=== PATIENT | female | born 1940 | race African-American/Black ===

== ENCOUNTER → 2016-09-02 | Outpatient (CLI) | payer MEDICARE, OTHER ==
[2016-03-04 11:22] VITALS: BP 155/70
[~2016-09-02] MED LIST: ALLO300T PO; AMLO10TA2 PO; ASPI325T4 PO; CALC0.5C PO; CARV25TA2 PO; CRESTOR20 MG PO; FLUT1DIS3 IH; FURO40TA4 PO; GLIP10TA13 PO; HYDR-2762 PO; ISOS1TAB2 PO; LOSA25TA4 PO; PRED10TA PO; PROAIR HFA8.5 GM IH; PROAIR HFA8.5 GM INH; PROP10DR3 EACHEYE
--- NOTE | 2016-09-02 08:34 | RAD ---
Indication compromised renal function. Grayscale imaging targeted to the kidneys was performed. Note is made of a previous examination June 23, 2013. The right kidney measures 7.4 x 4.2 x 4 cm. There are 2 hypoechoic masses the largest measuring 2.2 cm. There are compatible with cysts. Hydronephrosis or solid mass is not seen. Note is made that the right kidney is echogenic compatible with medical renal disease. The urinary bladder is largely collapsed but grossly normal. The left kidney measures 7.9 x 3.9 x 3.9 cm. It too is slightly echogenic compatible with medical renal disease. There are 2 hypoechoic masses compatible with cysts the largest measuring approximately 1 cm. IMPRESSION: Renal cysts. Findings compatible with medical renal disease. No hydronephrosis or solid mass seen associated with either kidney
== END | disposition home or self-care (01) ==
LOC: US 07:44
PROVIDERS: ATTEND Internal Medicine Nephrology
DX: N18.4 Chronic kidney disease, stage 4 (severe) (principal)
CPT/HCPCS: 76770

== ENCOUNTER 2018-08-22 11:37 | Emergency (ER) | payer OTHER ==
[~2018-08-22] VITALS: Ht 165.1 cm; Wt 78.0 kg
[~2018-08-22 11:37] MED LIST changes: +ALBU2.5V8 IH; +ALBU2.5V8 INH; +AMIO200T4 PO; -AMLO10TA2 PO; +AMLO10TA4 PO; +AMLO10TA8 PO; -ASPI325T4 PO; +ASPI325T8 PO; +ASPI81TA50 PO; +CALC0.25 PO; -CALC0.5C PO; +CALC0.5C8 PO; +CHOL10003 PO; +CRESTOR40 MG PO; -HYDR-2762 PO; +HYDR-2765 PO; -LOSA25TA4 PO; +LOSA25TA54 PO; -PROAIR HFA8.5 GM IH; -PROAIR HFA8.5 GM INH; +eliquis
[2018-08-22 12:05] VITALS: BP 127/60
--- NOTE | 2018-08-22 12:11 | PHYS DOC ---
Past Medical History Past Medical History: Arthritis, Asthma, CAD, Diabetes-Type II, High Cholesterol, Hypertension, Renal Failure, Stroke Past Surgical History: Hysterectomy, Other Additional Past Surgical Histo: STENTS, PARITAL THYROID Alcohol Use: None Drug Use: None Adult General Chief Complaint Chief Complaint: COUGH HPI HPI She is a pleasant 78-year-old female who presents to the emergency department stating that for the past 2 weeks, she has had nasal congestion, and a cough productive of yellowish sputum. She states yesterday her sputum was somewhat nelson in color as well. She has not had any significant shortness of breath or chest pain, dizziness or lightheadedness. She takes hemodialysis via a right subclavian dialysis catheter, her last dialysis was Wednesday. Other than soreness related to the coughing, she denies any pain. There are no alleviating or exacerbating factors to her symptoms. Review of Systems Review of Systems Constitutional: Denies fever or chills [] Eyes: Denies change in visual acuity, redness, or eye pain [] HENT: Denies nasal congestion or sore throat [] Respiratory: Denies pleuritic pain or shortness of breath [] Cardiovascular: The patient denies any shortness of breath, chest pain, palpitations, or orthopnea [] GI: Denies abdominal pain, nausea, vomiting, bloody stools or diarrhea [] : Denies dysuria or hematuria [] Musculoskeletal: Denies back pain or joint pain [] Integument: Denies rash or skin lesions [] Neurologic: Denies headache, focal weakness or sensory changes [] Endocrine: Denies polyuria or polydipsia [] All other systems were reviewed and found to be within normal limits, except as documented in this note. Allergies Allergies Allergies Coded Allergies Type Severity Reaction Last Updated Verified Sulfa (Sulfonamide Antibiotics) Allergy Intermediate Swelling 09/10/15 Yes Physical Exam Physical Exam PHYSICAL EXAM: CONSTITUTIONAL: Well developed, well nourished HEAD: normocephalic, atraumatic EENT: PERRL, EOMI. Conjunctivae normal color, sclerae non-icteric; moist mucous membranes. NECK: Supple, non-tender; no meningismus. LUNGS: Lungs CTA, breathing even and unlabored. Normal air movement. HEART: Regular rate and rhythm, no murmur CHEST: No deformity; non-tender ABDOMEN: The abdomen is soft, and non-tender, no masses or bruits. EXTREM: Normal ROM; no deformity, no calf tenderness. Normal pulses palpable in all extremities. There is no pedal edema. SKIN: No rash; no diaphoresis NEURO: Alert; normal speech and cognition; CN's grossly intact; strength grossly intact without focal deficit. BACK: No CVA TTP. Current Patient Data Vital Signs Vital Signs Date Time Temp Pulse Resp B/P (MAP) Pulse Ox O2 Delivery O2 Flow Rate FiO2 08/22/18 12:05 97.7 68 18 127/60 (82) 99 Room Air 97.7 Lab Values Laboratory Tests Test 08/22/18 12:14 08/22/18 12:30 Influenza Type A Antigen Negative (NEGATIVE) Influenza Type B Antigen Negative (NEGATIVE) White Blood Count 6.2 x10^3/uL (4.0-11.0) Red Blood Count 4.02 x10^6/uL (3.50-5.40) Hemoglobin 11.8 g/dL (12.0-15.5) L Hematocrit 36.9 % (36.0-47.0) Mean Corpuscular Volume 92 fL (79-100) Mean Corpuscular Hemoglobin 29 pg (25-35) Mean Corpuscular Hemoglobin Concent 32 g/dL (31-37) Red Cell Distribution Width 18.4 % (11.5-14.5) H Platelet Count 252 x10^3/uL (140-400) Neutrophils (%) (Auto) 68 % (31-73) Lymphocytes (%) (Auto) 19 % (24-48) L Monocytes (%) (Auto) 8 % (0-9) Eosinophils (%) (Auto) 4 % (0-3) H Basophils (%) (Auto) 1 % (0-3) Neutrophils # (Auto) 4.2 x10^3uL (1.8-7.7) Lymphocytes # (Auto) 1.2 x10^3/uL (1.0-4.8) Monocytes # (Auto) 0.5 x10^3/uL (0.0-1.1) Eosinophils # (Auto) 0.2 x10^3/uL (0.0-0.7) Basophils # (Auto) 0.1 x10^3/uL (0.0-0.2) Sodium Level 142 mmol/L (136-145) Potassium Level 3.8 mmol/L (3.5-5.1) Chloride Level 98 mmol/L (98-107) Carbon Dioxide Level 31 mmol/L (21-32) Anion Gap 13 (6-14) Blood Urea Nitrogen 45 mg/dL (7-20) H Creatinine 6.7 mg/dL (0.6-1.0) H Estimated GFR (Cockcroft-Gault) 7.2 Glucose Level 92 mg/dL (70-99) Calcium Level 8.6 mg/dL (8.5-10.1) Laboratory Tests 08/22/18 12:30 Laboratory Tests 08/22/18 12:30 EKG EKG [Normal sinus rhythm a rate of 67 beats for minute, left axis deviation, left anterior fascicular block, there are no acute ischemic ST/T changes.] Radiology/Procedures Radiology/Procedures [PROCEDURE: CHEST PA & LATERAL CHEST PA LATERAL CLINICAL INDICATION: cough COMPARISON: None FINDINGS: Heart is normal in size. Dialysis catheter is seen in the SVC. Lungs are clear. No pneumothorax or effusion. Visualized bony thorax is within normal limits. IMPRESSION: No acute pulmonary process.] Course & Med Decision Making Course & Med Decision Making Pertinent Labs and Imaging studies reviewed. (See chart for details) [1:40 PM Patient remains stable. I discussed test results, the need for close follow-up, and return precautions.] Dragon Disclaimer Dragon Disclaimer This electronic medical record was generated, in whole or in part, using a voice recognition dictation system. Departure Departure Impression: Primary Impression: Cough Additional Impression: Chronic renal failure Disposition: 01 HOME, SELF-CARE Condition: STABLE Referrals: MARIUSZ PALM MD (PCP) Patient Instructions: Cough, Adult, Upper Respiratory Infection, Adult Scripts Benzonatate (TESSALON PERLE) 100 Mg Capsule 1 CAP PO TID, #21 CAP Prov: MARÍA LIU MD 08/22/18 Problem Qualifiers MARÍA LIU MD Aug 22, 2018 12:11
[2018-08-22 12:42] LABS: INFLUENZA A PATIENT NEGATIVE (NEGATIVE); INFLUENZA B PATIENT NEGATIVE (NEGATIVE)
[2018-08-22 12:43] LABS: BASO # 0.1 x10^3/uL (0.0-0.2); BASO % 1 % (0-3); EOS # 0.2 x10^3/uL (0.0-0.7); EOS % 4 % (0-3); HEMATOCRIT 36.9 % (36.0-47.0); HEMOGLOBIN 11.8 g/dL (12.0-15.5); LYMPH # 1.2 x10^3/uL (1.0-4.8); LYMPH % 19 % (24-48); MEAN CORPUSCULAR HEMOGLOBIN 29 pg (25-35); MEAN CORPUSCULAR HGB CONC 32 g/dL (31-37); MEAN CORPUSCULAR VOLUME 92 fL (79-100); MONO # 0.5 x10^3/uL (0.0-1.1); MONO % 8 % (0-9); NEUT # 4.2 x10^3uL (1.8-7.7); NEUT % 68 % (31-73); PLATELET COUNT 252 x10^3/uL (140-400); RED BLOOD COUNT 4.02 x10^6/uL (3.50-5.40); RED CELL DISTRIBUTION WIDTH 18.4 % (11.5-14.5); WHITE BLOOD COUNT 6.2 x10^3/uL (4.0-11.0)
--- NOTE | 2018-08-22 12:46 | RAD ---
CHEST PA LATERAL CLINICAL INDICATION: cough COMPARISON: None FINDINGS: Heart is normal in size. Dialysis catheter is seen in the SVC. Lungs are clear. No pneumothorax or effusion. Visualized bony thorax is within normal limits. IMPRESSION: No acute pulmonary process. Electronically signed by: Adriano Zafar DO (08/22/2018 12:43 PM) [facility]
[2018-08-22 12:49] LABS: CALCIUM 8.6 mg/dL (8.5-10.1); CREATININE 6.7 mg/dL (0.6-1.0); GFR 7.2; POTASSIUM 3.8 mmol/L (3.5-5.1)
--- NOTE | 2018-08-22 12:57 | EKG ---
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
[2018-08-22] MEDS ORDERED: BENZ100C PO (13:44)
[2018-09-09] MEDS ORDERED: APIX2.5T PO (17:21)
[2018-09-09] MEDS ORDERED: PROAIR RESPICL90 MCG IH (17:22)
[2018-09-09] MEDS ORDERED: ALLO300T PO (17:24)
[2018-09-09] MEDS ORDERED: CALC667T4 PO (17:24)
[2018-09-09] MEDS ORDERED: FLUT16SP NS (17:26)
[2018-09-09] MEDS ORDERED: FERR240T2 PO (17:28)
[2018-09-09] MEDS ORDERED: FURO-68 PO (17:29)
[2018-09-09] MEDS ORDERED: FLUT1DIS3 IH (17:29)
[2018-09-09] MEDS ORDERED: HYDR-2765 PO (17:30)
[2018-09-09] MEDS ORDERED: LACT1CAP2 PO (17:32)
== END 2018-08-22 14:50 | disposition home or self-care (01) ==
LOC: ER 11:37
DX: R05 Cough (principal); I12.9 Hypertensive chronic kidney disease with stage 1 through stage 4 chronic kidney disease, or unspecified chronic kidney disease; E11.22 Type 2 diabetes mellitus with diabetic chronic kidney disease; N18.9 Chronic kidney disease, unspecified; Z99.2 Dependence on renal dialysis; I25.10 Atherosclerotic heart disease of native coronary artery without angina pectoris; E78.00 Pure hypercholesterolemia, unspecified; Z86.73 Personal history of transient ischemic attack (TIA), and cerebral infarction without residual deficits; Z90.710 Acquired absence of both cervix and uterus; Z95.5 Presence of coronary angioplasty implant and graft; Z88.2 Allergy status to sulfonamides
CPT/HCPCS: 36415; 71046; 80048; 85025; 87804; 93005; 99284-25

== ENCOUNTER 2018-09-12 11:28 | Day surgery (SDC) | payer OTHER ==
[~2018-09-12] VITALS: Ht 167.6 cm; Wt 78.0 kg
[~2018-09-12 11:28] MED LIST changes: +APIX2.5T PO; +BENZ100C PO; +CALC667T4 PO; +FERR240T2 PO; +FLUT16SP NS; +FURO-68 PO; +HEPARIN SODIUM 5,000 UNIT in IV RINGERS,LACTATED 500ML 500 ML IRR ONE; +HYDROmorphone 2 MG/ML VIAL IV PRN; +IV RINGERS,LACTATED 1000ML 1,000 ML IV SCH; +LACT1CAP2 PO; +LIDOCAINE 1% PF 2 ML VIAL. ID PRN; +LIDOCAINE 1% PF 30ML 48 ML, SODIUM BICARBONATE VIAL 12 MEQ in TOTAL VOLUME SYRINGE 60 ML ID ONE; +MORPHINE SULFATE 2 MG/ML VIAL. IV PRN; +ONDANSETRON PF 4 MG/2 ML VIAL. IV PRN; +PROAIR RESPICL90 MCG IH; +PROCHLORPERAZINE 10 MG/2 ML VIAL. IV PRN; +fentaNYL PF VIAL 100 MCG/2 ML VIAL IV PRN
[2018-09-12] MEDS ORDERED: PROPOFOL 20 ML IV ONE (11:56)
[2018-09-12] MEDS ORDERED: LIDOCAINE 2% PF 5 ML VIAL. ONE (11:56)
[2018-09-12] MEDS ORDERED: fentaNYL PF VIAL 100 MCG/2 ML VIAL ONE (11:57)
[2018-09-12] MEDS ORDERED: ceFAZolin 2GM PREMIX 2 GM/50 ML BAG IV ONE (12:00)
[2018-09-12] MEDS ORDERED: IV NORMAL SALINE 1000ML BAG 1,000 ML IV SCH (12:30)
[2018-09-12 12:44] LABS: BASO % 1 % (0-3); EOS # 0.4 x10^3/uL (0.0-0.7); EOS % 6 % (0-3); HEMOGLOBIN 11.4 g/dL (12.0-15.5); LYMPH # 1.3 x10^3/uL (1.0-4.8); LYMPH % 21 % (24-48); MEAN CORPUSCULAR HEMOGLOBIN 29 pg (25-35); MEAN CORPUSCULAR HGB CONC 32 g/dL (31-37); MEAN CORPUSCULAR VOLUME 90 fL (79-100); MONO # 0.5 x10^3/uL (0.0-1.1); MONO % 8 % (0-9); NEUT # 4.1 x10^3uL (1.8-7.7); NEUT % 65 % (31-73); PLATELET COUNT 270 x10^3/uL (140-400); RED BLOOD COUNT 3.98 x10^6/uL (3.50-5.40); RED CELL DISTRIBUTION WIDTH 17.9 % (11.5-14.5); WHITE BLOOD COUNT 6.4 x10^3/uL (4.0-11.0)
[2018-09-12 13:02] LABS: CREATININE 7.7 mg/dL (0.6-1.0); GFR 6.2
[2018-09-12 13:03] LABS: POTASSIUM 4.6 mmol/L (3.5-5.1)
[2018-09-12] MEDS ORDERED: DEXAMETHASONE SOD PHOS 20 MG/5 ML VIAL. ONE (15:11)
[2018-09-12] MEDS ORDERED: SEVOFLURANE 31 TO 60 MINUTES. IH ONE (15:11)
[2018-09-12] MEDS ORDERED: ONDANSETRON PF 4 MG/2 ML VIAL. ONE (15:23)
[2018-09-12] MEDS ORDERED: HEPARIN for IV BOLUS 10,000 UNIT/10 ML VIAL. ONE (15:25)
[2018-09-12] MEDS ORDERED: ePHEDrine PF IN SALINE 50 MG/10 ML SYRINGE. IV ONE (15:49)
[2018-09-12] MEDS ORDERED: SURGICEL FIBRILLAR 1X2 EACH. TP ONE (15:50)
[2018-09-12] MEDS ORDERED: SURGICEL FIBRILLAR 1X2 EACH. ONE (15:54)
--- NOTE | 2018-09-12 16:30 | DISCH ---
DISCHARGE INSTRUCTIONS Condition on Discharge Condition on Discharge: Stable (Ok to shower after 48 hours) Activity After Discharge Activity Instructions for Disc: Activity as tolerated Bathing Instructions: Shower-keep dressing dry (Do not shower for 48 hours) Driving Instructions after Dis: Do not drive today, Other, see below (No driving while taking pain medications) Weight Bearing Status after Di: As tolerated Diet after Discharge Diet after Discharge: Renal Dialysis, Diabetic No Calorie Level Wound Incision Care Wound/Incision Care: Ice to area for comfort, Change dressing (As needed ) Wound Care Equipment: Dressings (Gauze and tape over incisions, change as needed) Checks after Discharge Checks after discharge: Check blood press - daily Contacting the DR. after DC Call your doctor for: Fever > 100.4, oozing from incisions, bleeding not controlled with pressure, odor from incisions, right hand pain or numbness. Follow-Up Follow up with: With Vascular surgery 10/05 at 1:00 pm. [address], [place] [id number] Warfarin Follow-Up Warfarin Follow UP: Ok to resume Eliquis tomorrow (09/13/18) SERENE GALAVIZ Sep 12, 2018 16:30
--- NOTE | 2018-09-12 16:32 | PDOC ---
BRIEF OPERATIVE NOTE Date: Sep 12, 2018 Pre-Op Diagnosis End stage renal disease, on dialysis Post-Op Diagnosis Same Procedure Performed Right forearm AV shunt placement Surgeon Chace Saha MD Briquetter Operator JIMBO Cantu Anesthesia Type: General Blood Loss Minimal Specimens Obtained None Complications None Operative Note See dictated op note. SERENE GALAVIZ Sep 12, 2018 16:32
[2018-09-12] MEDS ORDERED: HYDROcodone/APAP 7.5/325MG 1 TAB TABLET ONE (16:49)
[2018-09-12] MEDS ORDERED: HYDROcodone/APAP 7.5/325MG 1 TAB TABLET PO ONE (16:50)
[2018-09-12] MEDS: fentaNYL PF VIAL 100 MCG/2 ML VIAL IV PRN ×2 (16:54→17:05)
[2018-09-12 17:45] VITALS: BP 129/57
--- NOTE | 2018-09-12 21:20 | OP ---
DATE OF SURGERY: 09/12/2018 PREOPERATIVE DIAGNOSIS: End-stage renal disease, dialysis dependent. POSTOPERATIVE DIAGNOSIS: End-stage renal disease, dialysis dependent. PROCEDURE PERFORMED: Right forearm looped AV graft. SURGEON: Chace Saha MD ANESTHESIA: General with 1% Xylocaine infiltrated into both of the incision sites. INDICATIONS: This is a 78-year-old female with end-stage renal disease, who is dialysis dependent. She needs long-term hemodialysis access. Ultrasound examination showed a good median antecubital vein on the right, but no upper arm veins of any size that would support her primary AV fistula. Primary arteriovenous graft was recommended. She had excellent brachial and radial pulses bilaterally. DESCRIPTION OF PROCEDURE: The patient was given general anesthetic, prepped and draped in a sterile fashion. An area just below the antecubital crease on the right arm was infiltrated with 1% Xylocaine. A small transverse incision was placed. Soft tissues through the subcutaneous fat were divided with Bovie electrocautery. The cephalic vein was visualized and deep dissection was continued medially. There really was not a median antecubital vein, but there was a very large deep brachial vein just underneath the fascia. This was exposed and isolated proximally and distally. It was a 7 mm vein. Adjacent to this was the brachial artery, which was also isolated and doubly surrounded with vessel loops. A 7 mm Lowell-Jordan graft was brought on to the field. A counterincision was made in the distal forearm and the subcutaneous tunnel was made through which a 4-7 mm graft was passed. Vessel loops on the vein were secured. A longitudinal venotomy was made with 11 blade, extended with Gates scissors. The graft was trimmed and a spatulated end-to-side anastomosis was completed with HS-7 Prolene suture. The patient received 3000 units of intravenous heparin. Vessel loops were removed and the graft was flushed. Vessel loops were secured on the brachial artery. A longitudinal arteriotomy was made with an 11 blade, extended with Gates scissors and the 4 mm end of the graft was transected obliquely. An end-to-side anastomosis was completed with HS-7 Prolene suture and blood flow was instituted through the shunt into the outflow vein. There was some bleeding along the suture line which was controlled with fibrillar Surgicel and gentle pressure. This achieved excellent hemostasis. There was excellent outflow thrill. The counterincision was closed with interrupted mattress sutures of 3-0 nylon and the antecubital incision was closed with a running 3-0 nylon. Sterile dressings were applied. The patient moved from the operating room to recovery in satisfactory stable condition. CHACE SAHA MD DR: LORETTA/gia JOB#: [id number] / [id number]
== END 2018-09-12 18:04 | disposition home or self-care (01) ==
LOC: SURG 11:28
DX: I13.2 Hypertensive heart and chronic kidney disease with heart failure and with stage 5 chronic kidney disease, or end stage renal disease (principal); E11.22 Type 2 diabetes mellitus with diabetic chronic kidney disease; N18.6 End stage renal disease; I50.9 Heart failure, unspecified; Z99.2 Dependence on renal dialysis; F41.9 Anxiety disorder, unspecified; I48.91 Unspecified atrial fibrillation; I25.10 Atherosclerotic heart disease of native coronary artery without angina pectoris; J44.9 Chronic obstructive pulmonary disease, unspecified; Z86.718 Personal history of other venous thrombosis and embolism; M10.9 Gout, unspecified; H91.93 Unspecified hearing loss, bilateral; E78.00 Pure hypercholesterolemia, unspecified; Z86.711 Personal history of pulmonary embolism; Z95.5 Presence of coronary angioplasty implant and graft; E03.9 Hypothyroidism, unspecified; Z86.73 Personal history of transient ischemic attack (TIA), and cerebral infarction without residual deficits; Z90.710 Acquired absence of both cervix and uterus; Z98.890 Other specified postprocedural states; Z88.2 Allergy status to sulfonamides; Z79.899 Other long term (current) drug therapy; Z87.891 Personal history of nicotine dependence; Z72.89 Other problems related to lifestyle; Z83.3 Family history of diabetes mellitus; Z82.49 Family history of ischemic heart disease and other diseases of the circulatory system; Z79.84 Long term (current) use of oral hypoglycemic drugs
CPT/HCPCS: 36415; 36830; 80048; 82962; 85025; A7015; C1768; J0171; J0696; J1100; J1644; J2001; J2405; J2704; J3010; J7120

== ENCOUNTER 2019-03-18 10:16 | Inpatient (IN) | payer OTHER, MEDICAID ==
[~2019-03-18] VITALS: Ht 167.6 cm; Wt 78.5 kg
[~2019-03-18 10:16] MED LIST changes: -HEPARIN SODIUM 5,000 UNIT in IV RINGERS,LACTATED 500ML 500 ML IRR ONE; -HYDROmorphone 2 MG/ML VIAL IV PRN; -IV RINGERS,LACTATED 1000ML 1,000 ML IV SCH; -LIDOCAINE 1% PF 2 ML VIAL. ID PRN; -LIDOCAINE 1% PF 30ML 48 ML, SODIUM BICARBONATE VIAL 12 MEQ in TOTAL VOLUME SYRINGE 60 ML ID ONE; -MORPHINE SULFATE 2 MG/ML VIAL. IV PRN; -ONDANSETRON PF 4 MG/2 ML VIAL. IV PRN; -PROCHLORPERAZINE 10 MG/2 ML VIAL. IV PRN; -fentaNYL PF VIAL 100 MCG/2 ML VIAL IV PRN
[2019-03-18 11:08] LABS: BASO % 0 % (0-3); EOS # 0.1 x10^3/uL (0.0-0.7); EOS % 1 % (0-3); HEMATOCRIT 28.8 % (36.0-47.0); HEMOGLOBIN 9.4 g/dL (12.0-15.5); LYMPH % 10 % (24-48); MEAN CORPUSCULAR HEMOGLOBIN 31 pg (25-35); MEAN CORPUSCULAR HGB CONC 33 g/dL (31-37); MEAN CORPUSCULAR VOLUME 96 fL (79-100); MONO # 0.5 x10^3/uL (0.0-1.1); MONO % 5 % (0-9); NEUT # 8.2 x10^3/uL (1.8-7.7); NEUT % 84 % (31-73); PLATELET COUNT 300 x10^3/uL (140-400); RED CELL DISTRIBUTION WIDTH 17.6 % (11.5-14.5); WHITE BLOOD COUNT 9.7 x10^3/uL (4.0-11.0)
--- NOTE | 2019-03-18 11:42 | PHYS DOC ---
Past Medical History Past Medical History: Arthritis, Asthma, CAD, Diabetes-Type II, High Cholesterol, Heart Disease, Hypertension, Renal Failure, Stroke (CELINE KEYES APRN) Past Surgical History: Hysterectomy, Other Additional Past Surgical Histo: STENTS, PARITAL THYROID (CELINE KEYES APRN) Alcohol Use: None Drug Use: None (CELINE KEYES APRN) Attending Signature I have participated in the care of this patient and I have reviewed and agree with all pertinent clinical information above including history, exam, and re commendations. (CRYTSAL MONTE MD) Adult General Chief Complaint Chief Complaint: WEAKNESS/GENERALIZED HPI HPI Patient is a 79 year old female with history of diabetes type 2, hypertension, CAD, high cholesterol, end-stage kidney disease on dialysis Wednesday last dialyzed on this week who presents to the ED today complaining of hemoptysis for 2 days. Patient states is on Eliquis for CAD. Denies any fever. Denies any nasal congestion, she states on and dialysis she "passed out", she states that woke her up and she was fine. She states they did not call 911. Patient denies any chest pain or shortness of breath. She states she feels weak (CELINE KEYES APRN) Review of Systems Review of Systems Constitutional: Denies fever or chills [] Eyes: Denies change in visual acuity, redness, or eye pain [] HENT: Denies nasal congestion or sore throat [] Respiratory: Reports hemoptysis, denies shortness of breath [] Cardiovascular: No additional information not addressed in HPI [] GI: Denies abdominal pain, nausea, vomiting, bloody stools or diarrhea [] : Denies dysuria or hematuria [] Musculoskeletal: Denies back pain or joint pain [] Integument: Denies rash or skin lesions [] Neurologic: Denies headache, focal weakness or sensory changes [] Endocrine: ESRD All other systems were reviewed and found to be within normal limits, except as documented in this note. (CELINE KEYES APRN) Allergies Allergies Allergies Coded Allergies Type Severity Reaction Last Updated Verified Sulfa (Sulfonamide Antibiotics) Allergy Intermediate Swelling 09/12/18 Yes (CRYSTAL MONTE MD) Physical Exam Physical Exam Constitutional: Well developed, well nourished, no acute distress, non-toxic appearance. [] HENT: Normocephalic, atraumatic, bilateral external ears normal, oropharynx moist, no oral exudates, nose normal. [] Eyes: PERRLA, EOMI, conjunctiva normal, no discharge. [] Neck: Normal range of motion, no tenderness, supple, no stridor. [] Cardiovascular:Heart rate regular rhythm, no murmur [] Lungs & Thorax: Bilateral breath sounds clear to auscultation [] Abdomen: Bowel sounds normal, soft, no tenderness, no masses, no pulsatile masses. [] Skin: Warm, dry, no erythema, no rash. [] Back: No tenderness, no CVA tenderness. [] Extremities: No tenderness, no cyanosis, no clubbing, ROM intact, no edema. [] Neurologic: Alert and oriented X 3, normal motor function, normal sensory function, no focal deficits noted. Cranial nerves II through XII intact Psychologic: Affect normal, judgement normal, mood normal. [] (CELINE KEYES APRN) Current Patient Data Vital Signs Vital Signs Date Time Temp Pulse Resp B/P (MAP) Pulse Ox O2 Delivery O2 Flow Rate FiO2 03/18/19 10:23 97.7 75 16 134/63 (86) 94 Room Air 97.7 (CRYSTAL MONTE MD) Lab Values Laboratory Tests Test 03/18/19 10:45 03/18/19 11:28 White Blood Count 9.7 x10^3/uL (4.0-11.0) Red Blood Count 3.00 x10^6/uL (3.50-5.40) L Hemoglobin 9.4 g/dL (12.0-15.5) L Hematocrit 28.8 % (36.0-47.0) L Mean Corpuscular Volume 96 fL (79-100) Mean Corpuscular Hemoglobin 31 pg (25-35) Mean Corpuscular Hemoglobin Concent 33 g/dL (31-37) Red Cell Distribution Width 17.6 % (11.5-14.5) H Platelet Count 300 x10^3/uL (140-400) Neutrophils (%) (Auto) 84 % (31-73) H Lymphocytes (%) (Auto) 10 % (24-48) L Monocytes (%) (Auto) 5 % (0-9) Eosinophils (%) (Auto) 1 % (0-3) Basophils (%) (Auto) 0 % (0-3) Neutrophils # (Auto) 8.2 x10^3/uL (1.8-7.7) H Lymphocytes # (Auto) 1.0 x10^3/uL (1.0-4.8) Monocytes # (Auto) 0.5 x10^3/uL (0.0-1.1) Eosinophils # (Auto) 0.1 x10^3/uL (0.0-0.7) Basophils # (Auto) 0.0 x10^3/uL (0.0-0.2) Prothrombin Time 15.5 SEC (11.7-14.0) H Prothrombin Time INR 1.3 (0.8-1.1) H Activated Partial Thromboplast Time 40 SEC (24-38) H Sodium Level 142 mmol/L (136-145) Potassium Level 3.9 mmol/L (3.5-5.1) Chloride Level 98 mmol/L (98-107) Carbon Dioxide Level 30 mmol/L (21-32) Anion Gap 14 (6-14) Blood Urea Nitrogen 54 mg/dL (7-20) H Creatinine 8.6 mg/dL (0.6-1.0) H Estimated GFR (Cockcroft-Gault) 5.4 BUN/Creatinine Ratio 6 (6-20) Glucose Level 147 mg/dL (70-99) H Calcium Level 9.5 mg/dL (8.5-10.1) Magnesium Level 1.8 mg/dL (1.8-2.4) Total Bilirubin 0.6 mg/dL (0.2-1.0) Aspartate Amino Transferase (AST) 22 U/L (15-37) Alanine Aminotransferase (ALT) 17 U/L (14-59) Alkaline Phosphatase 67 U/L (46-116) Creatine Kinase 132 U/L (26-192) Creatine Kinase MB (Mass) 0.5 ng/mL (0.0-3.6) Creatine Kinase MB Relative Index 0.4 % (0-4) Troponin I Quantitative < 0.017 ng/mL (0.000-0.055) NW-Zxp-A-Type Natriuretic Peptide 90463 pg/mL (0-449) H Total Protein 8.0 g/dL (6.4-8.2) Albumin 3.0 g/dL (3.4-5.0) L Albumin/Globulin Ratio 0.6 (1.0-1.7) L Laboratory Tests 03/18/19 10:45 Laboratory Tests 03/18/19 11:28 (CRYSTAL MONTE MD) EKG EKG [address] Monte sinus rhythm Hr 73 no STEMI[] (CELINE KEYES APRN) Radiology/Procedures Radiology/Procedures []PROCEDURE: PORTABLE CHEST 1V Single view AP chest HISTORY: Coughing up blood. COMPARISON: 08/22/2018. FINDINGS: The heart size is stable. No evidence of infiltrate, effusion or pneumothorax. Bones appear grossly intact. IMPRESSION: No evidence of consolidating infiltrate. Stable cardiac size. Electronically signed by: Melvin Sanchez MD (03/18/2019 12:24 PM) [facility] DICTATED and SIGNED BY: MELVIN SANCHEZ MD DATE: 03/18/19 1224 (CELINE KEYES APRN) Course & Med Decision Making Course & Med Decision Making Pertinent Labs and Imaging studies reviewed. (See chart for details) This is a 79-year-old female patient presented to the ED today with hemoptysis for 2 days. She is currently on Eliquis. She is also complaining of weakness since this week, she states she was in dialysis on and "passed out", she states they did not call 911 they woke her up and she was fine. EKG is negative, chest x-ray is negative for any acute findings. CBC with a normal WBC, hemoglobin 9.4, hematocrit 28.8, CMP with normal potassium, creatinine and BUN consistent with renal failure. Spoke with Dr. Orona who accepted patient for admission (CELINE KEYES APRN) Dragon Disclaimer Dragon Disclaimer This electronic medical record was generated, in whole or in part, using a voice recognition dictation system. (CELINE KEYES APRN) Departure Departure Impression: Primary Impression: Hemoptysis Additional Impressions: Syncope Generalized weakness End stage renal disease Disposition: ADMITTED INPATIENT Condition: STABLE Referrals: MARIUSZ PALM MD (PCP) Problem Qualifiers Additional Impressions: Syncope Syncope type: unspecified Qualified Codes: R55 - Syncope and collapse CELINE KEYES APRN Mar 18, 2019 11:42 CRYSTAL MONTE MD Mar 19, 2019 06:10
[2019-03-18 11:50] LABS: CALCIUM 9.5 mg/dL (8.5-10.1); CREATININE 8.6 mg/dL (0.6-1.0); GFR 5.4; POTASSIUM 3.9 mmol/L (3.5-5.1)
[2019-03-18 11:55] LABS: ALBUMIN/GLOBULIN RATIO 0.6 (1.0-1.7); MAGNESIUM 1.8 mg/dL (1.8-2.4); TOTAL BILIRUBIN 0.6 mg/dL (0.2-1.0)
[2019-03-18 12:03] LABS: PROTHROMBIN TIME PATIENT 15.5 SEC (11.7-14.0)
--- NOTE | 2019-03-18 12:27 | RAD ---
Single view AP chest HISTORY: Coughing up blood. COMPARISON: 08/22/2018. FINDINGS: The heart size is stable. No evidence of infiltrate, effusion or pneumothorax. Bones appear grossly intact. IMPRESSION: No evidence of consolidating infiltrate. Stable cardiac size. Electronically signed by: Melvin Sanchez MD (03/18/2019 12:24 PM) [facility]
--- NOTE | 2019-03-18 13:04 | PDOC1 ---
History and Physical Date of Admission Date of Admission DATE: 03/18/19 TIME: 13:03 Identification/Chief Complaint Chief Complaint SEEN IN ER , 79 year old female with history of diabetes type 2, hypertension, CAD, high cholesterol, end-stage kidney disease on dialysis Wednesday dialyzed on this week who presents to the ED today complaining of hemoptysis for 2 days. states is on Eliquis for A-FIB . Denies any fever. Denies any nasal congestion, states on and dialysis she "passed out", she states that woke her up and she was fine. CT CHEST REQUESTED, WELL PULM CONSULT Past Medical History Past Medical History Past Medical History Past Medical History Past Medical History: Arthritis, Asthma, CAD, Diabetes-Type II, High Cholesterol, Heart Disease, Hypertension, Renal Failure, Stroke Past Surgical History: Hysterectomy, Other Additional Past Surgical Histo: STENTS, PARITAL THYROID Alcohol Use: None Drug Use: None FHX HTN Cardiovascular: CAD, HTN, Hyperlipidemia Pulmonary: COPD CENTRAL NERVOUS SYSTEM: CVA GI: No pertinent hx Heme/Onc: Anemia NOS Hepatobiliary: No pertinent hx Musculoskeletal: Osteoarthritis Rheumatologic: Gout Infectious disease: No pertinent hx Renal/: Chronic renal insuff Endocrine: Diabetes Past Surgical History Past Surgical History: Hysterectomy, Other Family History Family History: Heart Disease, Hypertension Social History Smoke: Quit ALCOHOL: none Drugs: None Current Medications Current Medications Active Scripts Active Reported Acidophilus (Lactobacillus Acidophilus) 1 Each Capsule 1 Each PO DAILY Hydrocodone-Apap 7.5-325 (Hydrocodone Bit/Acetaminophen) 1 Tab Tablet 1 Tab PO PRN Q6HRS PRN Lasix (Furosemide) 40 Mg Tablet 1 Tab PO PRN DAILY PRN Advair 250-50 Diskus (Fluticasone/Salmeterol) 1 Each Disk.w.dev 1 Puff IH BID Ferrous Gluconate 240 Mg Tablet 240 Mg PO DAILY Fluticasone Propionate Nasal [place] (Fluticasone Propionate) 16 Gm [place].susp 2 [place] NS DAILY Calcium Acetate 667 Mg Tablet 667 Mg PO TIDWMEALS Allopurinol 300 Mg Tablet 0.5 Tab PO DAILY Proair Respiclick (Albuterol Sulfate) 90 Mcg Aer.pow.ba 2 Puff IH PRN Q6HRS PRN Eliquis (Apixaban) 2.5 Mg Tablet 2.5 Mg PO BID Aspir-Low (Aspirin) 81 Mg Tablet.dr 1 Tab PO DAILY Amiodarone Hcl 200 Mg Tablet 1 Tab PO DAILY Vitamin D3 (Cholecalciferol (Vitamin D3)) 1,000 Unit Tablet 2 Tab PO DAILY Norvasc (Amlodipine Besylate) 10 Mg Tablet 10 Mg PO DAILY Bidil Tablet (Isosorb Dinit/Hydralazine Hcl) 1 Each Tablet 1 Each PO BID Calcitriol 0.25 Mcg Capsule 1 Cap PO DAILY Carvedilol 25 Mg Tablet 25 Mg PO BIDWMEALS Allergies Allergies: Coded Allergies: Sulfa (Sulfonamide Antibiotics) (Verified Allergy, Intermediate, Swelling, 09/12/18) ROS Review of System Review of Systems Review of Systems Constitutional: Denies fever or chills [] Eyes: Denies change in visual acuity, redness, or eye pain [] HENT: Denies nasal congestion or sore throat [] Respiratory: Reports hemoptysis, denies shortness of breath [] Cardiovascular: No additional information not addressed in HPI [] GI: Denies abdominal pain, nausea, vomiting, bloody stools or diarrhea [] : Denies dysuria or hematuria [] Musculoskeletal: Denies back pain or joint pain [] Integument: Denies rash or skin lesions [] Neurologic: Denies headache, focal weakness or sensory changes [] Endocrine: ESRD 14 PT systems were reviewed and found to be within normal limits, except as documented Physical Exam Physical Exam Physical Exam Physical Exam Constitutional: Well developed, well nourished, no acute distress, non-toxic appearance. [] THIN HENT: Normocephalic, atraumatic, bilateral external ears normal, oropharynx moist, no oral exudates, nose normal. [] Eyes: PERRLA, EOMI, conjunctiva normal, no discharge. [] Neck: Normal range of motion, no tenderness, supple, no stridor. [] Cardiovascular:iregular rhythm, no murmur [] Lungs & Thorax: Bilateral breath sounds clear to auscultation [] Abdomen: Bowel sounds normal, soft, no tenderness, no masses, no pulsatile ma sses. [] Skin: Warm, dry, no erythema, no rash. [] Back: No tenderness, no CVA tenderness. [] Extremities: No tenderness, no cyanosis, no clubbing, ROM intact, no edema. [] Neurologic: Alert and oriented X 3, normal motor function, normal sensory function, no focal deficits noted. Cranial nerves II through XII intact Psychologic: Affect normal, judgement normal, mood normal. [] General: Alert, Oriented X3, Cooperative, No acute distress HEENT: Mucous membr. moist/pink Lungs: Clear to auscultation, Normal air movement Heart: irregularly irregular Breasts: Not examined Abdomen: Normal bowel sounds, Soft Rectal Exam: not examined PELVIC: Examination not indicated Extremities: No cyanosis Neuro: Normal speech, Cranial nerves 3-12 NL Psych/Mental Status: Mental status NL, Mood NL Vitals Vitals Vital Signs Date Time Temp Pulse Resp B/P (MAP) Pulse Ox O2 Delivery O2 Flow Rate FiO2 03/18/19 10:23 97.7 75 16 134/63 (86) 94 Room Air 97.7 Labs Labs Laboratory Tests Test 03/18/19 10:45 03/18/19 11:28 White Blood Count 9.7 x10^3/uL (4.0-11.0) Red Blood Count 3.00 x10^6/uL (3.50-5.40) Hemoglobin 9.4 g/dL (12.0-15.5) Hematocrit 28.8 % (36.0-47.0) Mean Corpuscular Volume 96 fL (79-100) Mean Corpuscular Hemoglobin 31 pg (25-35) Mean Corpuscular Hemoglobin Concent 33 g/dL (31-37) Red Cell Distribution Width 17.6 % (11.5-14.5) Platelet Count 300 x10^3/uL (140-400) Neutrophils (%) (Auto) 84 % (31-73) Lymphocytes (%) (Auto) 10 % (24-48) Monocytes (%) (Auto) 5 % (0-9) Eosinophils (%) (Auto) 1 % (0-3) Basophils (%) (Auto) 0 % (0-3) Neutrophils # (Auto) 8.2 x10^3/uL (1.8-7.7) Lymphocytes # (Auto) 1.0 x10^3/uL (1.0-4.8) Monocytes # (Auto) 0.5 x10^3/uL (0.0-1.1) Eosinophils # (Auto) 0.1 x10^3/uL (0.0-0.7) Basophils # (Auto) 0.0 x10^3/uL (0.0-0.2) Prothrombin Time 15.5 SEC (11.7-14.0) Prothromb Time International Ratio 1.3 (0.8-1.1) Activated Partial Thromboplast Time 40 SEC (24-38) Sodium Level 142 mmol/L (136-145) Potassium Level 3.9 mmol/L (3.5-5.1) Chloride Level 98 mmol/L (98-107) Carbon Dioxide Level 30 mmol/L (21-32) Anion Gap 14 (6-14) Blood Urea Nitrogen 54 mg/dL (7-20) Creatinine 8.6 mg/dL (0.6-1.0) Estimated GFR (Cockcroft-Gault) 5.4 BUN/Creatinine Ratio 6 (6-20) Glucose Level 147 mg/dL (70-99) Calcium Level 9.5 mg/dL (8.5-10.1) Magnesium Level 1.8 mg/dL (1.8-2.4) Total Bilirubin 0.6 mg/dL (0.2-1.0) Aspartate Amino Transf (AST/SGOT) 22 U/L (15-37) Alanine Aminotransferase (ALT/SGPT) 17 U/L (14-59) Alkaline Phosphatase 67 U/L (46-116) Creatine Kinase 132 U/L (26-192) Creatine Kinase MB (Mass) 0.5 ng/mL (0.0-3.6) Creatine Kinase MB Relative Index 0.4 % (0-4) Troponin I Quantitative < 0.017 ng/mL (0.000-0.055) UV-Frx-Q-Type Natriuretic Peptide 28765 pg/mL (0-449) Total Protein 8.0 g/dL (6.4-8.2) Albumin 3.0 g/dL (3.4-5.0) Albumin/Globulin Ratio 0.6 (1.0-1.7) Laboratory Tests Test 03/18/19 10:45 03/18/19 11:28 White Blood Count 9.7 x10^3/uL (4.0-11.0) Red Blood Count 3.00 x10^6/uL (3.50-5.40) Hemoglobin 9.4 g/dL (12.0-15.5) Hematocrit 28.8 % (36.0-47.0) Mean Corpuscular Volume 96 fL (79-100) Mean Corpuscular Hemoglobin 31 pg (25-35) Mean Corpuscular Hemoglobin Concent 33 g/dL (31-37) Red Cell Distribution Width 17.6 % (11.5-14.5) Platelet Count 300 x10^3/uL (140-400) Neutrophils (%) (Auto) 84 % (31-73) Lymphocytes (%) (Auto) 10 % (24-48) Monocytes (%) (Auto) 5 % (0-9) Eosinophils (%) (Auto) 1 % (0-3) Basophils (%) (Auto) 0 % (0-3) Neutrophils # (Auto) 8.2 x10^3/uL (1.8-7.7) Lymphocytes # (Auto) 1.0 x10^3/uL (1.0-4.8) Monocytes # (Auto) 0.5 x10^3/uL (0.0-1.1) Eosinophils # (Auto) 0.1 x10^3/uL (0.0-0.7) Basophils # (Auto) 0.0 x10^3/uL (0.0-0.2) Prothrombin Time 15.5 SEC (11.7-14.0) Prothromb Time International Ratio 1.3 (0.8-1.1) Activated Partial Thromboplast Time 40 SEC (24-38) Sodium Level 142 mmol/L (136-145) Potassium Level 3.9 mmol/L (3.5-5.1) Chloride Level 98 mmol/L (98-107) Carbon Dioxide Level 30 mmol/L (21-32) Anion Gap 14 (6-14) Blood Urea Nitrogen 54 mg/dL (7-20) Creatinine 8.6 mg/dL (0.6-1.0) Estimated GFR (Cockcroft-Gault) 5.4 BUN/Creatinine Ratio 6 (6-20) Glucose Level 147 mg/dL (70-99) Calcium Level 9.5 mg/dL (8.5-10.1) Magnesium Level 1.8 mg/dL (1.8-2.4) Total Bilirubin 0.6 mg/dL (0.2-1.0) Aspartate Amino Transf (AST/SGOT) 22 U/L (15-37) Alanine Aminotransferase (ALT/SGPT) 17 U/L (14-59) Alkaline Phosphatase 67 U/L (46-116) Creatine Kinase 132 U/L (26-192) Creatine Kinase MB (Mass) 0.5 ng/mL (0.0-3.6) Creatine Kinase MB Relative Index 0.4 % (0-4) Troponin I Quantitative < 0.017 ng/mL (0.000-0.055) MB-Udw-K-Type Natriuretic Peptide 84186 pg/mL (0-449) Total Protein 8.0 g/dL (6.4-8.2) Albumin 3.0 g/dL (3.4-5.0) Albumin/Globulin Ratio 0.6 (1.0-1.7) Images Images POSTOPERATIVE DIAGNOSIS: End-stage renal disease, dialysis dependent. PROCEDURE PERFORMED: Right forearm looped AV graft. SURGEON: Chace Saha MD ANESTHESIA: General with 1% Xylocaine infiltrated into both of the incision sites. INDICATIONS: This is a 78-year-old female with end-stage renal disease, who is dialysis dependent. She needs long-term hemodialysis access. Ultrasound examination showed a good median antecubital vein on the right, but no upper arm veins of any size that would support her primary AV fistula. Primary arteriovenous graft was recommended. She had excellent brachial and radial pulses bilaterally. DESCRIPTION OF PROCEDURE: The patient was given general anesthetic, prepped and draped in a sterile fashion. An area just below the antecubital crease on the right arm was infiltrated with 1% Xylocaine. A small transverse incision was placed. Soft tissues through the subcutaneous fat were divided with Bovie electrocautery. The cephalic vein was visualized and deep dissection was continued medially. There really was not a median antecubital vein, but there was a very large deep brachial vein just underneath the fascia. This was exposed and isolated proximally and distally. It was a 7 mm vein. Adjacent to this was the brachial artery, which was also isolated and doubly surrounded with vessel loops. A 7 mm [place] graft was brought on to the field. A counterincision was made in the distal forearm and the subcutaneous tunnel was made through which a 4-7 mm graft was passed. Vessel loops on the vein were secured. A longitudinal venotomy was made with 11 blade, extended with Gates scissors. The graft was trimmed and a spatulated end-to-side anastomosis was completed with HS-7 Prolene suture. The patient received 3000 units of intravenous heparin. Vessel loops were removed and the graft was flushed. Vessel loops were secured on the brachial artery. A longitudinal arteriotomy was made with an 11 blade, extended with Gates scissors and the 4 mm end of the graft was transected obliquely. An end-to-side anastomosis was completed with HS-7 Prolene suture and blood flow was instituted through the shunt into the outflow vein. There was some bleeding along the suture line which was controlled with fibrillar Surgicel and gentle pressure. This achieved excellent hemostasis. There was excellent outflow thrill. The counterincision was closed with interrupted mattress sutures of 3-0 nylon and the antecubital incision was closed with a running 3-0 nylon. Sterile dressings were applied. The patient moved from the operating room to recovery in satisfactory stable condition. CHACE SAHA MD Single view AP chest HISTORY: Coughing up blood. COMPARISON: 08/22/2018. FINDINGS: The heart size is stable. No evidence of infiltrate, effusion or pneumothorax. Bones appear grossly intact. IMPRESSION: No evidence of consolidating infiltrate. Stable cardiac size. Electronically signed by: Melvin Sanchez MD (03/18/2019 12:24 PM) [facility] DICTATED and SIGNED BY: MELVIN SANCHEZ MD DATE: 03/18/19 1224 VTE Prophylaxis Ordered VTE Prophylaxis Devices: No VTE Pharmacological Prophylaxi: Contraindicated Assessment/Plan Assessment/Plan IMPRESSION HEMOPTYSIS Remote tobacco abuse eliquis for A. fib plan ct chest consult pulm hold eliquis consult cardiology tele consult nephrology home meds duonebs qid admit 74 MIN PT EXAM, CHart review, > 50% of time spent with exam, chart review, pt care coordination ZAY MCNEIL MD Mar 18, 2019 13:04
[2019-03-18] MEDS ORDERED: ONDANSETRON PF 4 MG/2 ML VIAL. IV PRN ×2 (13:15)
[2019-03-18] MEDS ORDERED: LORazepam 0.5 MG TABLET PO PRN (13:15)
[2019-03-18] MEDS ORDERED: 0.9 % SODIUM CHLORIDE 10 ML DISP.SYRIN. IV PRN (13:15)
[2019-03-18] MEDS ORDERED: MORPHINE SULFATE 2 MG/ML VIAL. IV PRN (13:15)
[2019-03-18] MEDS ORDERED: ACETAMINOPHEN 325 MG TABLET. PO PRN (13:15)
[2019-03-18] MEDS ORDERED: DOCUSATE SODIUM 100 MG CAPSULE. PO PRN (13:15)
[2019-03-18] MEDS ORDERED: guaiFENesin ORAL 200 MG/10 ML LIQUID. PO PRN (13:15)
[2019-03-18] MEDS ORDERED: FUROSEMIDE 40 MG TABLET. PO PRN (13:30)
[2019-03-18] MEDS: IPRATRPIUM/ALBUTEROL 0.5/2.5MG 3 ML NEBU. NEB SCH ×3 (13:31→22:00)
--- NOTE | 2019-03-18 14:43 | RAD ---
CT CHEST WO CONTRAST Indication: Hemoptysis Technique: Noncontrast CT imaging was performed of the chest, multiplanar reconstruction images submitted. One or more of the following individualized dose reduction techniques were utilized for this examination: 1. Automated exposure control 2. Adjustment of the mA and/or kV according to patient size 3. Use of iterative reconstruction technique. Comparison: None Findings: There is some motion degradation. There are lower lobe infiltrates bilaterally greater on the left. There is mild somewhat reticular density near the lung apices bilaterally more likely component of fibrotic change. There is no significant pleural effusion. There is very minimal pericardial fluid. Heart is somewhat enlarged. There is coronary calcification. There is atherosclerotic calcification of the thoracic aorta. Thoracic aortic caliber is within normal limits. No significantly enlarged nodes are identified of the chest, some subcentimeter mediastinal and axillary nodes present. There is emphysema. Major airways are patent. Not fully included, there is at least 1.6 cm exophytic lesion of the right kidney with density measurements of visualized portion of a cyst 7 Hounsfield units. There is atherosclerotic calcification of the visualized abdominal aorta and also at the origins of the renal arteries, minimally of the proximal superior mesenteric artery. IMPRESSION: 1. There are lower lobe infiltrates bilaterally left greater than right for which follow-up after treatment advised. 2. There is emphysema. 3. There is coronary calcification, also atherosclerotic calcification of the thoracic and abdominal aorta. 4. Not fully evaluated, exophytic lesion of the right kidney is more likely a cyst. Electronically signed by: Sadiq Simpson MD (03/18/2019 2:40 PM) [facility]
[2019-03-18 15:00] VITALS: BP 133/38
[2019-03-18] MEDS ORDERED: PIP/TAZO PER PHARMACY MC PRN (15:00)
[2019-03-18] MEDS: HYDROcodone/APAP 7.5/325MG 1 TAB TABLET PO PRN (16:24)
[2019-03-18] MEDS: PIPERACILLIN/TAZOBACTAM 2.25 GM in IV NORMAL SALINE 50ML 50 ML IV SCH ×2 (16:24→22:25)
[2019-03-18] MEDS: CARVEDILOL 12.5 MG TABLET. PO SCH (17:27)
[2019-03-18] MEDS: CALCIUM ACETATE 667 MG CAPSULE PO SCH (17:27)
[2019-03-18] MEDS: BUDESONIDE 0.5 MG/2 ML NEBU. NEB SCH (19:05)
[2019-03-18 19:51] VITALS: BP 126/46
[2019-03-18] MEDS: hydrALAZINE 25 MG TABLET PO SCH (22:24)
[2019-03-18] MEDS: ISOSORBIDE DINITRATE 10 MG TABLET. PO SCH (22:25)
[2019-03-18 23:07] VITALS: BP 102/42
[2019-03-19] MEDS: IPRATRPIUM/ALBUTEROL 0.5/2.5MG 3 ML NEBU. NEB SCH ×5 (02:00→19:50)
[2019-03-19 03:32] VITALS: BP 121/44
[2019-03-19 05:06] LABS: BASO % 0 % (0-3); EOS # 0.1 x10^3/uL (0.0-0.7); EOS % 1 % (0-3); HEMATOCRIT 24.3 % (36.0-47.0); LYMPH % 15 % (24-48); MEAN CORPUSCULAR HEMOGLOBIN 31 pg (25-35); MEAN CORPUSCULAR HGB CONC 33 g/dL (31-37); MEAN CORPUSCULAR VOLUME 95 fL (79-100); MONO # 0.5 x10^3/uL (0.0-1.1); MONO % 7 % (0-9); NEUT # 5.3 x10^3/uL (1.8-7.7); NEUT % 77 % (31-73); PLATELET COUNT 248 x10^3/uL (140-400); RED BLOOD COUNT 2.57 x10^6/uL (3.50-5.40); RED CELL DISTRIBUTION WIDTH 17.5 % (11.5-14.5); WHITE BLOOD COUNT 6.9 x10^3/uL (4.0-11.0)
[2019-03-19 05:24] LABS: CALCIUM 9.1 mg/dL (8.5-10.1); CREATININE 9.6 mg/dL (0.6-1.0); GFR 4.8; POTASSIUM 4.2 mmol/L (3.5-5.1)
[2019-03-19] MEDS: PIPERACILLIN/TAZOBACTAM 2.25 GM in IV NORMAL SALINE 50ML 50 ML IV SCH ×3 (05:39→21:20)
[2019-03-19] MEDS: BUDESONIDE 0.5 MG/2 ML NEBU. NEB SCH ×2 (07:23→19:50)
[2019-03-19 07:41] VITALS: BP 138/57
[2019-03-19] MEDS: ASPIRIN ENTERIC COATED 81 MG TABLET.DR. PO SCH (09:00)
[2019-03-19] MEDS: ALLOPURINOL 300 MG TABLET. PO SCH (09:10)
[2019-03-19] MEDS: CHOLECALCIFEROL (VITAMIN D3) 1,000 UNIT TABLET PO SCH (09:11)
[2019-03-19] MEDS: ISOSORBIDE DINITRATE 10 MG TABLET. PO SCH ×2 (09:11→21:09)
[2019-03-19] MEDS: amLODIPine BESYLATE 10 MG TABLET PO SCH (09:12)
[2019-03-19] MEDS: CALCIUM ACETATE 667 MG CAPSULE PO SCH ×3 (09:12→18:03)
[2019-03-19] MEDS: hydrALAZINE 25 MG TABLET PO SCH ×2 (09:12→21:09)
[2019-03-19] MEDS: AMIODARONE HCL 200 MG TABLET. PO SCH (09:13)
[2019-03-19] MEDS: CALCITRIOL 0.25 MCG CAPSULE. PO SCH (09:13)
[2019-03-19] MEDS: LACTOBACILLUS RHAMNOSUS GG 1 CAPSULE. PO SCH (09:13)
[2019-03-19] MEDS: FERROUS SULFATE 325 MG TABLET. PO SCH (09:13)
[2019-03-19] MEDS: CARVEDILOL 12.5 MG TABLET. PO SCH ×2 (09:13→18:04)
[2019-03-19] MEDS: FLUTICASONE 50MCG/NASAL SPRAY 16GM BOTTLE. NS SCH (09:15)
--- NOTE | 2019-03-19 10:31 | PDOC ---
PROGRESS NOTES History of Present Illness History of Present Illness VTE Prophylaxis Ordered VTE Prophylaxis Devices: No VTE Pharmacological Prophylaxi: Contraindicated Assessment/Plan Assessment/Plan IMPRESSION HEMOPTYSIS There are lower lobe infiltrates suspect pneumonia// atelectasis bilaterally left greater than right for which follow-up after treatment advised. Remote tobacco abuse eliquis for A. fib plan ct chest consult pulm hold eliquis consult pulm consult cardiology tele consult nephrology home meds duayebs qid admit 37 MIN PT EXAM, CHart review, > 50% of time spent with exam, chart review, pt care coordination Vitals Vitals Vital Signs Date Time Temp Pulse Resp B/P (MAP) Pulse Ox O2 Delivery O2 Flow Rate FiO2 03/19/19 09:13 63 138/57 03/19/19 07:41 98.6 20 94 Nasal Cannula 2.0 98.6 Physical Exam General: Alert, Oriented X3, Cooperative, No acute distress Heart: Other (irrr) Lungs: Clear, Crackles, Other (few lll crackles) Abdomen: Normal bowel sounds, Soft, No tenderness Extremities: No cyanosis, No edema Skin: No significant lesion Labs LABS Indication: Hemoptysis Technique: Noncontrast CT imaging was performed of the chest, multiplanar reconstruction images submitted. One or more of the following individualized dose reduction techniques were utilized for this examination: 1. Automated exposure control 2. Adjustment of the mA and/or kV according to patient size 3. Use of iterative reconstruction technique. Comparison: None Findings: There is some motion degradation. There are lower lobe infiltrates bilaterally greater on the left. There is mild somewhat reticular density near the lung apices bilaterally more likely component of fibrotic change. There is no significant pleural effusion. There is very minimal pericardial fluid. Heart is somewhat enlarged. There is coronary calcification. There is atherosclerotic calcification of the thoracic aorta. Thoracic aortic caliber is within normal limits. No significantly enlarged nodes are identified of the chest, some subcentimeter mediastinal and axillary nodes present. There is emphysema. Major airways are patent. Not fully included, there is at least 1.6 cm exophytic lesion of the right kidney with density measurements of visualized portion of a cyst 7 Hounsfield units. There is atherosclerotic calcification of the visualized abdominal aorta and also at the origins of the renal arteries, minimally of the proximal superior mesenteric artery. IMPRESSION: 1. There are lower lobe infiltrates bilaterally left greater than right for which follow-up after treatment advised. 2. There is emphysema. 3. There is coronary calcification, also atherosclerotic calcification of the thoracic and abdominal aorta. 4. Not fully evaluated, exophytic lesion of the right kidney is more likely a cyst. Electronically signed by: Sadiq Simpson MD (03/18/2019 2:40 PM) [facility] Laboratory Tests Test 03/18/19 10:45 03/18/19 11:28 03/18/19 21:04 03/19/19 04:25 White Blood Count 9.7 x10^3/uL (4.0-11.0) 6.9 x10^3/uL (4.0-11.0) Red Blood Count 3.00 x10^6/uL (3.50-5.40) 2.57 x10^6/uL (3.50-5.40) Hemoglobin 9.4 g/dL (12.0-15.5) 8.0 g/dL (12.0-15.5) Hematocrit 28.8 % (36.0-47.0) 24.3 % (36.0-47.0) Mean Corpuscular Volume 96 fL (79-100) 95 fL (79-100) Mean Corpuscular Hemoglobin 31 pg (25-35) 31 pg (25-35) Mean Corpuscular Hemoglobin Concent 33 g/dL (31-37) 33 g/dL (31-37) Red Cell Distribution Width 17.6 % (11.5-14.5) 17.5 % (11.5-14.5) Platelet Count 300 x10^3/uL (140-400) 248 x10^3/uL (140-400) Neutrophils (%) (Auto) 84 % (31-73) 77 % (31-73) Lymphocytes (%) (Auto) 10 % (24-48) 15 % (24-48) Monocytes (%) (Auto) 5 % (0-9) 7 % (0-9) Eosinophils (%) (Auto) 1 % (0-3) 1 % (0-3) Basophils (%) (Auto) 0 % (0-3) 0 % (0-3) Neutrophils # (Auto) 8.2 x10^3/uL (1.8-7.7) 5.3 x10^3/uL (1.8-7.7) Lymphocytes # (Auto) 1.0 x10^3/uL (1.0-4.8) 1.0 x10^3/uL (1.0-4.8) Monocytes # (Auto) 0.5 x10^3/uL (0.0-1.1) 0.5 x10^3/uL (0.0-1.1) Eosinophils # (Auto) 0.1 x10^3/uL (0.0-0.7) 0.1 x10^3/uL (0.0-0.7) Basophils # (Auto) 0.0 x10^3/uL (0.0-0.2) 0.0 x10^3/uL (0.0-0.2) Prothrombin Time 15.5 SEC (11.7-14.0) Prothromb Time International Ratio 1.3 (0.8-1.1) Activated Partial Thromboplast Time 40 SEC (24-38) Sodium Level 142 mmol/L (136-145) 141 mmol/L (136-145) Potassium Level 3.9 mmol/L (3.5-5.1) 4.2 mmol/L (3.5-5.1) Chloride Level 98 mmol/L (98-107) 99 mmol/L (98-107) Carbon Dioxide Level 30 mmol/L (21-32) 28 mmol/L (21-32) Anion Gap 14 (6-14) 14 (6-14) Blood Urea Nitrogen 54 mg/dL (7-20) 66 mg/dL (7-20) Creatinine 8.6 mg/dL (0.6-1.0) 9.6 mg/dL (0.6-1.0) Estimated GFR (Cockcroft-Gault) 5.4 4.8 BUN/Creatinine Ratio 6 (6-20) Glucose Level 147 mg/dL (70-99) 110 mg/dL (70-99) Calcium Level 9.5 mg/dL (8.5-10.1) 9.1 mg/dL (8.5-10.1) Magnesium Level 1.8 mg/dL (1.8-2.4) Total Bilirubin 0.6 mg/dL (0.2-1.0) Aspartate Amino Transf (AST/SGOT) 22 U/L (15-37) Alanine Aminotransferase (ALT/SGPT) 17 U/L (14-59) Alkaline Phosphatase 67 U/L (46-116) Creatine Kinase 132 U/L (26-192) Creatine Kinase MB (Mass) 0.5 ng/mL (0.0-3.6) Creatine Kinase MB Relative Index 0.4 % (0-4) Troponin I Quantitative < 0.017 ng/mL (0.000-0.055) HY-Vyx-H-Type Natriuretic Peptide 63915 pg/mL (0-449) Total Protein 8.0 g/dL (6.4-8.2) Albumin 3.0 g/dL (3.4-5.0) Albumin/Globulin Ratio 0.6 (1.0-1.7) Glucose (Fingerstick) 99 mg/dL (70-99) Test 03/19/19 07:11 Glucose (Fingerstick) 81 mg/dL (70-99) Assessment and Plan Assessmemt and Plan Problems Medical Problems: (1) End stage renal disease Status: Acute (2) Generalized weakness Status: Acute (3) Syncope Status: Acute Comment Review of Relevant I have reviewed the following items scot (where applicable) has been applied. Labs Laboratory Tests Test 03/18/19 10:45 03/18/19 11:28 03/18/19 21:04 03/19/19 04:25 White Blood Count 9.7 x10^3/uL (4.0-11.0) 6.9 x10^3/uL (4.0-11.0) Red Blood Count 3.00 x10^6/uL (3.50-5.40) 2.57 x10^6/uL (3.50-5.40) Hemoglobin 9.4 g/dL (12.0-15.5) 8.0 g/dL (12.0-15.5) Hematocrit 28.8 % (36.0-47.0) 24.3 % (36.0-47.0) Mean Corpuscular Volume 96 fL (79-100) 95 fL (79-100) Mean Corpuscular Hemoglobin 31 pg (25-35) 31 pg (25-35) Mean Corpuscular Hemoglobin Concent 33 g/dL (31-37) 33 g/dL (31-37) Red Cell Distribution Width 17.6 % (11.5-14.5) 17.5 % (11.5-14.5) Platelet Count 300 x10^3/uL (140-400) 248 x10^3/uL (140-400) Neutrophils (%) (Auto) 84 % (31-73) 77 % (31-73) Lymphocytes (%) (Auto) 10 % (24-48) 15 % (24-48) Monocytes (%) (Auto) 5 % (0-9) 7 % (0-9) Eosinophils (%) (Auto) 1 % (0-3) 1 % (0-3) Basophils (%) (Auto) 0 % (0-3) 0 % (0-3) Neutrophils # (Auto) 8.2 x10^3/uL (1.8-7.7) 5.3 x10^3/uL (1.8-7.7) Lymphocytes # (Auto) 1.0 x10^3/uL (1.0-4.8) 1.0 x10^3/uL (1.0-4.8) Monocytes # (Auto) 0.5 x10^3/uL (0.0-1.1) 0.5 x10^3/uL (0.0-1.1) Eosinophils # (Auto) 0.1 x10^3/uL (0.0-0.7) 0.1 x10^3/uL (0.0-0.7) Basophils # (Auto) 0.0 x10^3/uL (0.0-0.2) 0.0 x10^3/uL (0.0-0.2) Prothrombin Time 15.5 SEC (11.7-14.0) Prothromb Time International Ratio 1.3 (0.8-1.1) Activated Partial Thromboplast Time 40 SEC (24-38) Sodium Level 142 mmol/L (136-145) 141 mmol/L (136-145) Potassium Level 3.9 mmol/L (3.5-5.1) 4.2 mmol/L (3.5-5.1) Chloride Level 98 mmol/L (98-107) 99 mmol/L (98-107) Carbon Dioxide Level 30 mmol/L (21-32) 28 mmol/L (21-32) Anion Gap 14 (6-14) 14 (6-14) Blood Urea Nitrogen 54 mg/dL (7-20) 66 mg/dL (7-20) Creatinine 8.6 mg/dL (0.6-1.0) 9.6 mg/dL (0.6-1.0) Estimated GFR (Cockcroft-Gault) 5.4 4.8 BUN/Creatinine Ratio 6 (6-20) Glucose Level 147 mg/dL (70-99) 110 mg/dL (70-99) Calcium Level 9.5 mg/dL (8.5-10.1) 9.1 mg/dL (8.5-10.1) Magnesium Level 1.8 mg/dL (1.8-2.4) Total Bilirubin 0.6 mg/dL (0.2-1.0) Aspartate Amino Transf (AST/SGOT) 22 U/L (15-37) Alanine Aminotransferase (ALT/SGPT) 17 U/L (14-59) Alkaline Phosphatase 67 U/L (46-116) Creatine Kinase 132 U/L (26-192) Creatine Kinase MB (Mass) 0.5 ng/mL (0.0-3.6) Creatine Kinase MB Relative Index 0.4 % (0-4) Troponin I Quantitative < 0.017 ng/mL (0.000-0.055) NU-Sre-N-Type Natriuretic Peptide 02562 pg/mL (0-449) Total Protein 8.0 g/dL (6.4-8.2) Albumin 3.0 g/dL (3.4-5.0) Albumin/Globulin Ratio 0.6 (1.0-1.7) Glucose (Fingerstick) 99 mg/dL (70-99) Test 03/19/19 07:11 Glucose (Fingerstick) 81 mg/dL (70-99) Laboratory Tests Test 03/18/19 10:45 03/18/19 11:28 03/18/19 21:04 03/19/19 04:25 White Blood Count 9.7 x10^3/uL (4.0-11.0) 6.9 x10^3/uL (4.0-11.0) Red Blood Count 3.00 x10^6/uL (3.50-5.40) 2.57 x10^6/uL (3.50-5.40) Hemoglobin 9.4 g/dL (12.0-15.5) 8.0 g/dL (12.0-15.5) Hematocrit 28.8 % (36.0-47.0) 24.3 % (36.0-47.0) Mean Corpuscular Volume 96 fL (79-100) 95 fL (79-100) Mean Corpuscular Hemoglobin 31 pg (25-35) 31 pg (25-35) Mean Corpuscular Hemoglobin Concent 33 g/dL (31-37) 33 g/dL (31-37) Red Cell Distribution Width 17.6 % (11.5-14.5) 17.5 % (11.5-14.5) Platelet Count 300 x10^3/uL (140-400) 248 x10^3/uL (140-400) Neutrophils (%) (Auto) 84 % (31-73) 77 % (31-73) Lymphocytes (%) (Auto) 10 % (24-48) 15 % (24-48) Monocytes (%) (Auto) 5 % (0-9) 7 % (0-9) Eosinophils (%) (Auto) 1 % (0-3) 1 % (0-3) Basophils (%) (Auto) 0 % (0-3) 0 % (0-3) Neutrophils # (Auto) 8.2 x10^3/uL (1.8-7.7) 5.3 x10^3/uL (1.8-7.7) Lymphocytes # (Auto) 1.0 x10^3/uL (1.0-4.8) 1.0 x10^3/uL (1.0-4.8) Monocytes # (Auto) 0.5 x10^3/uL (0.0-1.1) 0.5 x10^3/uL (0.0-1.1) Eosinophils # (Auto) 0.1 x10^3/uL (0.0-0.7) 0.1 x10^3/uL (0.0-0.7) Basophils # (Auto) 0.0 x10^3/uL (0.0-0.2) 0.0 x10^3/uL (0.0-0.2) Prothrombin Time 15.5 SEC (11.7-14.0) Prothromb Time International Ratio 1.3 (0.8-1.1) Activated Partial Thromboplast Time 40 SEC (24-38) Sodium Level 142 mmol/L (136-145) 141 mmol/L (136-145) Potassium Level 3.9 mmol/L (3.5-5.1) 4.2 mmol/L (3.5-5.1) Chloride Level 98 mmol/L (98-107) 99 mmol/L (98-107) Carbon Dioxide Level 30 mmol/L (21-32) 28 mmol/L (21-32) Anion Gap 14 (6-14) 14 (6-14) Blood Urea Nitrogen 54 mg/dL (7-20) 66 mg/dL (7-20) Creatinine 8.6 mg/dL (0.6-1.0) 9.6 mg/dL (0.6-1.0) Estimated GFR (Cockcroft-Gault) 5.4 4.8 BUN/Creatinine Ratio 6 (6-20) Glucose Level 147 mg/dL (70-99) 110 mg/dL (70-99) Calcium Level 9.5 mg/dL (8.5-10.1) 9.1 mg/dL (8.5-10.1) Magnesium Level 1.8 mg/dL (1.8-2.4) Total Bilirubin 0.6 mg/dL (0.2-1.0) Aspartate Amino Transf (AST/SGOT) 22 U/L (15-37) Alanine Aminotransferase (ALT/SGPT) 17 U/L (14-59) Alkaline Phosphatase 67 U/L (46-116) Creatine Kinase 132 U/L (26-192) Creatine Kinase MB (Mass) 0.5 ng/mL (0.0-3.6) Creatine Kinase MB Relative Index 0.4 % (0-4) Troponin I Quantitative < 0.017 ng/mL (0.000-0.055) AV-Ojo-U-Type Natriuretic Peptide 31143 pg/mL (0-449) Total Protein 8.0 g/dL (6.4-8.2) Albumin 3.0 g/dL (3.4-5.0) Albumin/Globulin Ratio 0.6 (1.0-1.7) Glucose (Fingerstick) 99 mg/dL (70-99) Test 03/19/19 07:11 Glucose (Fingerstick) 81 mg/dL (70-99) Medications Current Medications Ondansetron HCl (Zofran) 4 mg PRN Q8HRS PRN IV NAUSEA/VOMITING; Start 03/18/19 at 13:15; Stop 03/18/19 at 13:20; Status DC Morphine Sulfate (Morphine Sulfate) 2 mg PRN Q2HR PRN IV PAIN; Start 03/18/19 at 13:15; Stop 03/19/19 at 13:14 Sodium Chloride (Normal Saline Flush) 3 ml QSHIFT PRN IV AFTER MEDS AND BLOOD DRAWS; Start 03/18/19 at 13:15 Ondansetron HCl (Zofran) 4 mg PRN Q4HRS PRN IV NAUSEA/VOMITING; Start 03/18/19 at 13:15 Acetaminophen (Tylenol) 650 mg PRN Q4HRS PRN PO TEMP OVER 100.4F OR MILD PAIN; Start 03/18/19 at 13:15 Docusate Sodium (Colace) 100 mg PRN BID PRN PO CONSTIPATION; Start 03/18/19 at 13:15 Albuterol/ Ipratropium (Duoneb) 3 ml Q4H NEB Last administered on 03/19/19at 02:00; Start 03/18/19 at 14:00; Stop 03/19/19 at 05:47; Status DC Guaifenesin (Robitussin) 200 mg PRN Q4HRS PRN PO COUGH; Start 03/18/19 at 13:15 Lorazepam (Ativan) 0.5 mg PRN Q4HRS PRN PO ANXIETY / AGITATION; Start 03/18/19 at 13:15 Allopurinol (Zyloprim) 150 mg DAILY PO Last administered on 03/19/19at 09:10; Start 03/19/19 at 09:00 Amiodarone HCl (Cordarone) 200 mg DAILY PO Last administered on 03/19/19at 09:13; Start 03/19/19 at 09:00 Amlodipine Besylate (Norvasc) 10 mg DAILY PO Last administered on 03/19/19at 09:12; Start 03/19/19 at 09:00 Aspirin (Ecotrin) 81 mg DAILY PO ; Start 03/19/19 at 09:00 Calcitriol (Rocaltrol) 0.25 mcg DAILY PO Last administered on 03/19/19 09:13; Start 03/19/19 at 09:00 Vitamin D (Vitamin D3) 2,000 unit DAILY PO Last administered on 03/19/19 09:11; Start 03/19/19 at 09:00 Fluticasone Propionate (Flonase) 2 spray DAILY NS Last administered on 03/19/19 09:15; Start 03/19/19 at 09:00 Furosemide (Lasix) 40 mg PRN DAILY PRN PO SWELLING; Start 03/18/19 at 13:30 Acetaminophen/ Hydrocodone Bitart (Lortab 7.5/325) 1 tab PRN Q6HRS PRN PO PAIN Last administered on 03/18/19 16:24; Start 03/18/19 at 13:30 Calcium Acetate (Phoslo) 667 mg TIDWMEALS PO Last administered on 03/19/19 09:12; Start 03/18/19 at 17:00 Carvedilol (Coreg) 25 mg BIDWMEALS PO Last administered on 03/19/19 09:13; Start 03/18/19 at 17:00 Ferrous Sulfate (Feosol) 325 mg DAILYWBKFT PO Last administered on 03/19/19 09:13; Start 03/19/19 at 08:00 Budesonide (Pulmicort) 0.5 mg RTBID NEB Last administered on 03/19/19 07:23; Start 03/18/19 at 20:00 Isosorbide Dinitrate (Isordil) 20 mg BID PO Last administered on 03/19/19 09:11; Start 03/18/19 at 21:00 Lactobacillus Rhamnosus (Culturelle) 1 cap DAILY PO Last administered on 03/19/19 09:13; Start 03/19/19 at 09:00 Hydralazine HCl (Apresoline) 37.5 mg BID PO Last administered on 03/19/19 09:12; Start 03/18/19 at 21:00 Piperacillin Sod/ Tazobactam Sod (Zosyn Per Pharmacy) 1 each PRN DAILY PRN MC SEE COMMENTS; Start 03/18/19 at 15:00 Piperacillin Sod/ Tazobactam Sod 2.25 gm/Sodium Chloride 50 ml @ 100 mls/hr Q8HRS IV Last administered on 03/19/19at 05:39; Start 03/18/19 at 15:00 Albuterol/ Ipratropium (Duoneb) 3 ml RTQID NEB Last administered on 03/19/19at 07:23; Start 03/19/19 at 08:00 Active Scripts Active Reported Acidophilus (Lactobacillus Acidophilus) 1 Each Capsule 1 Each PO DAILY Hydrocodone-Apap 7.5-325 (Hydrocodone Bit/Acetaminophen) 1 Tab Tablet 1 Tab PO PRN Q6HRS PRN Lasix (Furosemide) 40 Mg Tablet 1 Tab PO PRN DAILY PRN Advair 250-50 Diskus (Fluticasone/Salmeterol) 1 Each Disk.w.dev 1 Puff IH BID Ferrous Gluconate 240 Mg Tablet 240 Mg PO DAILY Fluticasone Propionate Nasal [place] (Fluticasone Propionate) 16 Gm [place].susp 2 [place] NS DAILY Calcium Acetate 667 Mg Tablet 667 Mg PO TIDWMEALS Allopurinol 300 Mg Tablet 0.5 Tab PO DAILY Proair Respiclick (Albuterol Sulfate) 90 Mcg Aer.pow.ba 2 Puff IH PRN Q6HRS PRN Eliquis (Apixaban) 2.5 Mg Tablet 2.5 Mg PO BID Aspir-Low (Aspirin) 81 Mg Tablet.dr 1 Tab PO DAILY Amiodarone Hcl 200 Mg Tablet 1 Tab PO DAILY Vitamin D3 (Cholecalciferol (Vitamin D3)) 1,000 Unit Tablet 2 Tab PO DAILY Norvasc (Amlodipine Besylate) 10 Mg Tablet 10 Mg PO DAILY Bidil Tablet (Isosorb Dinit/Hydralazine Hcl) 1 Each Tablet 1 Each PO BID Calcitriol 0.25 Mcg Capsule 1 Cap PO DAILY Carvedilol 25 Mg Tablet 25 Mg PO BIDWMEALS Vitals/I & O Vital Sign - Last 24 Hours 03/18/19 03/18/19 03/18/19 03/18/19 13:33 14:06 15:00 15:43 Temp 97.7 97.7 Pulse 69 70 Resp 16 20 B/P (MAP) 133/38 (69) Pulse Ox 93 93 95 O2 Delivery Room Air Room Air Room Air 03/18/19 03/18/19 03/18/19 03/18/19 16:24 17:27 17:27 19:06 Pulse 70 Resp 16 16 B/P (MAP) 133/38 Pulse Ox 93 O2 Delivery Room Air Room Air Room Air 03/18/19 03/18/19 03/18/19 03/18/19 19:51 22:24 22:25 23:07 Temp 98.3 98.3 98.3 98.3 Pulse 62 68 68 65 Resp 20 16 B/P (MAP) 126/46 (72) 121/44 121/44 102/42 (62) Pulse Ox 92 96 O2 Delivery Room Air Room Air 03/18/19 03/19/19 03/19/19 03/19/19 23:26 03:13 03:32 07:23 Temp 98.3 98.3 Pulse 70 Resp 16 B/P (MAP) 121/44 (69) Pulse Ox 93 94 88 98 O2 Delivery Room Air Room Air Room Air Nasal Cannula O2 Flow Rate 2.0 03/19/19 03/19/19 03/19/19 03/19/19 07:41 09:11 09:12 09:12 Temp 98.6 98.6 Pulse 63 63 63 63 Resp 20 B/P (MAP) 138/57 (84) 138/57 138/57 138/57 Pulse Ox 94 O2 Delivery Nasal Cannula O2 Flow Rate 2.0 03/19/19 03/19/19 09:13 09:13 Pulse 63 63 B/P (MAP) 138/57 138/57 Intake and Output 03/18/19 03/18/19 03/19/19 14:59 22:59 06:59 Intake Total 220 ml 200 ml Balance 220 ml 200 ml ZAY MCNEIL MD Mar 19, 2019 10:31
--- NOTE | 2019-03-19 11:26 | PDOC ---
Infectious Disease Note Vital Sign Vital Signs Vital Signs Date Time Temp Pulse Resp B/P (MAP) Pulse Ox O2 Delivery O2 Flow Rate FiO2 03/19/19 09:13 63 138/57 03/19/19 07:41 98.6 20 94 Nasal Cannula 2.0 98.6 Labs Lab Laboratory Tests Test 03/18/19 11:28 03/18/19 21:04 03/19/19 04:25 03/19/19 07:11 Prothrombin Time 15.5 SEC (11.7-14.0) Prothromb Time International Ratio 1.3 (0.8-1.1) Activated Partial Thromboplast Time 40 SEC (24-38) Sodium Level 142 mmol/L (136-145) 141 mmol/L (136-145) Potassium Level 3.9 mmol/L (3.5-5.1) 4.2 mmol/L (3.5-5.1) Chloride Level 98 mmol/L (98-107) 99 mmol/L (98-107) Carbon Dioxide Level 30 mmol/L (21-32) 28 mmol/L (21-32) Anion Gap 14 (6-14) 14 (6-14) Blood Urea Nitrogen 54 mg/dL (7-20) 66 mg/dL (7-20) Creatinine 8.6 mg/dL (0.6-1.0) 9.6 mg/dL (0.6-1.0) Estimated GFR (Cockcroft-Gault) 5.4 4.8 BUN/Creatinine Ratio 6 (6-20) Glucose Level 147 mg/dL (70-99) 110 mg/dL (70-99) Calcium Level 9.5 mg/dL (8.5-10.1) 9.1 mg/dL (8.5-10.1) Magnesium Level 1.8 mg/dL (1.8-2.4) Total Bilirubin 0.6 mg/dL (0.2-1.0) Aspartate Amino Transf (AST/SGOT) 22 U/L (15-37) Alanine Aminotransferase (ALT/SGPT) 17 U/L (14-59) Alkaline Phosphatase 67 U/L (46-116) Creatine Kinase 132 U/L (26-192) Creatine Kinase MB (Mass) 0.5 ng/mL (0.0-3.6) Creatine Kinase MB Relative Index 0.4 % (0-4) Troponin I Quantitative < 0.017 ng/mL (0.000-0.055) UN-Nok-W-Type Natriuretic Peptide 42366 pg/mL (0-449) Total Protein 8.0 g/dL (6.4-8.2) Albumin 3.0 g/dL (3.4-5.0) Albumin/Globulin Ratio 0.6 (1.0-1.7) Glucose (Fingerstick) 99 mg/dL (70-99) 81 mg/dL (70-99) White Blood Count 6.9 x10^3/uL (4.0-11.0) Red Blood Count 2.57 x10^6/uL (3.50-5.40) Hemoglobin 8.0 g/dL (12.0-15.5) Hematocrit 24.3 % (36.0-47.0) Mean Corpuscular Volume 95 fL (79-100) Mean Corpuscular Hemoglobin 31 pg (25-35) Mean Corpuscular Hemoglobin Concent 33 g/dL (31-37) Red Cell Distribution Width 17.5 % (11.5-14.5) Platelet Count 248 x10^3/uL (140-400) Neutrophils (%) (Auto) 77 % (31-73) Lymphocytes (%) (Auto) 15 % (24-48) Monocytes (%) (Auto) 7 % (0-9) Eosinophils (%) (Auto) 1 % (0-3) Basophils (%) (Auto) 0 % (0-3) Neutrophils # (Auto) 5.3 x10^3/uL (1.8-7.7) Lymphocytes # (Auto) 1.0 x10^3/uL (1.0-4.8) Monocytes # (Auto) 0.5 x10^3/uL (0.0-1.1) Eosinophils # (Auto) 0.1 x10^3/uL (0.0-0.7) Basophils # (Auto) 0.0 x10^3/uL (0.0-0.2) Objective Assessment Bilateral pulmonary infiltrates, questionable pneumonia vs fluid Hemoptysis. Eliquis on Hold CKD/HD via AV graft Sulfa allergy - swelling/welts A- fib, on amiodarone DM HTN Plan Plan of Care empiric Zosyn for now Probiotics Pulmonary and cardiology consulted f/u BC Maintain aspiration precautions D/w Dr. [place] Thank you # [id number] Attending Co-Sign The patient was seen and interviewed as well as examined at the bedside. The chart was reviewed. The case was discussed. Agree with the plan of care. ROBERT GARLAND APRN Mar 19, 2019 11:26 RINA ROGER MD Mar 19, 2019 12:12
[2019-03-19 11:48] VITALS: BP 123/49
--- NOTE | 2019-03-19 11:54 | PDOC ---
PULMONARY PROGRESS NOTES Vitals Vital Signs Date Time Temp Pulse Resp B/P (MAP) Pulse Ox O2 Delivery O2 Flow Rate FiO2 03/19/19 11:18 Room Air 03/19/19 09:13 63 138/57 03/19/19 07:41 98.6 20 94 2.0 98.6 General: Alert Lungs: Clear, Other Cardiovascular: S1 Abdomen: Soft Extremities: No Edema Labs Laboratory Tests Test 03/18/19 10:45 03/18/19 11:28 03/18/19 21:04 03/19/19 04:25 White Blood Count 9.7 x10^3/uL (4.0-11.0) 6.9 x10^3/uL (4.0-11.0) Red Blood Count 3.00 x10^6/uL (3.50-5.40) 2.57 x10^6/uL (3.50-5.40) Hemoglobin 9.4 g/dL (12.0-15.5) 8.0 g/dL (12.0-15.5) Hematocrit 28.8 % (36.0-47.0) 24.3 % (36.0-47.0) Mean Corpuscular Volume 96 fL (79-100) 95 fL (79-100) Mean Corpuscular Hemoglobin 31 pg (25-35) 31 pg (25-35) Mean Corpuscular Hemoglobin Concent 33 g/dL (31-37) 33 g/dL (31-37) Red Cell Distribution Width 17.6 % (11.5-14.5) 17.5 % (11.5-14.5) Platelet Count 300 x10^3/uL (140-400) 248 x10^3/uL (140-400) Neutrophils (%) (Auto) 84 % (31-73) 77 % (31-73) Lymphocytes (%) (Auto) 10 % (24-48) 15 % (24-48) Monocytes (%) (Auto) 5 % (0-9) 7 % (0-9) Eosinophils (%) (Auto) 1 % (0-3) 1 % (0-3) Basophils (%) (Auto) 0 % (0-3) 0 % (0-3) Neutrophils # (Auto) 8.2 x10^3/uL (1.8-7.7) 5.3 x10^3/uL (1.8-7.7) Lymphocytes # (Auto) 1.0 x10^3/uL (1.0-4.8) 1.0 x10^3/uL (1.0-4.8) Monocytes # (Auto) 0.5 x10^3/uL (0.0-1.1) 0.5 x10^3/uL (0.0-1.1) Eosinophils # (Auto) 0.1 x10^3/uL (0.0-0.7) 0.1 x10^3/uL (0.0-0.7) Basophils # (Auto) 0.0 x10^3/uL (0.0-0.2) 0.0 x10^3/uL (0.0-0.2) Prothrombin Time 15.5 SEC (11.7-14.0) Prothromb Time International Ratio 1.3 (0.8-1.1) Activated Partial Thromboplast Time 40 SEC (24-38) Sodium Level 142 mmol/L (136-145) 141 mmol/L (136-145) Potassium Level 3.9 mmol/L (3.5-5.1) 4.2 mmol/L (3.5-5.1) Chloride Level 98 mmol/L (98-107) 99 mmol/L (98-107) Carbon Dioxide Level 30 mmol/L (21-32) 28 mmol/L (21-32) Anion Gap 14 (6-14) 14 (6-14) Blood Urea Nitrogen 54 mg/dL (7-20) 66 mg/dL (7-20) Creatinine 8.6 mg/dL (0.6-1.0) 9.6 mg/dL (0.6-1.0) Estimated GFR (Cockcroft-Gault) 5.4 4.8 BUN/Creatinine Ratio 6 (6-20) Glucose Level 147 mg/dL (70-99) 110 mg/dL (70-99) Calcium Level 9.5 mg/dL (8.5-10.1) 9.1 mg/dL (8.5-10.1) Magnesium Level 1.8 mg/dL (1.8-2.4) Total Bilirubin 0.6 mg/dL (0.2-1.0) Aspartate Amino Transf (AST/SGOT) 22 U/L (15-37) Alanine Aminotransferase (ALT/SGPT) 17 U/L (14-59) Alkaline Phosphatase 67 U/L (46-116) Creatine Kinase 132 U/L (26-192) Creatine Kinase MB (Mass) 0.5 ng/mL (0.0-3.6) Creatine Kinase MB Relative Index 0.4 % (0-4) Troponin I Quantitative < 0.017 ng/mL (0.000-0.055) IZ-Knk-[id number]-Type Natriuretic Peptide 17134 pg/mL (0-449) Total Protein 8.0 g/dL (6.4-8.2) Albumin 3.0 g/dL (3.4-5.0) Albumin/Globulin Ratio 0.6 (1.0-1.7) Glucose (Fingerstick) 99 mg/dL (70-99) Test 03/19/19 07:11 03/19/19 10:53 Glucose (Fingerstick) 81 mg/dL (70-99) 135 mg/dL (70-99) Laboratory Tests Test 03/18/19 21:04 03/19/19 04:25 03/19/19 07:11 03/19/19 10:53 Glucose (Fingerstick) 99 mg/dL (70-99) 81 mg/dL (70-99) 135 mg/dL (70-99) White Blood Count 6.9 x10^3/uL (4.0-11.0) Red Blood Count 2.57 x10^6/uL (3.50-5.40) Hemoglobin 8.0 g/dL (12.0-15.5) Hematocrit 24.3 % (36.0-47.0) Mean Corpuscular Volume 95 fL (79-100) Mean Corpuscular Hemoglobin 31 pg (25-35) Mean Corpuscular Hemoglobin Concent 33 g/dL (31-37) Red Cell Distribution Width 17.5 % (11.5-14.5) Platelet Count 248 x10^3/uL (140-400) Neutrophils (%) (Auto) 77 % (31-73) Lymphocytes (%) (Auto) 15 % (24-48) Monocytes (%) (Auto) 7 % (0-9) Eosinophils (%) (Auto) 1 % (0-3) Basophils (%) (Auto) 0 % (0-3) Neutrophils # (Auto) 5.3 x10^3/uL (1.8-7.7) Lymphocytes # (Auto) 1.0 x10^3/uL (1.0-4.8) Monocytes # (Auto) 0.5 x10^3/uL (0.0-1.1) Eosinophils # (Auto) 0.1 x10^3/uL (0.0-0.7) Basophils # (Auto) 0.0 x10^3/uL (0.0-0.2) Sodium Level 141 mmol/L (136-145) Potassium Level 4.2 mmol/L (3.5-5.1) Chloride Level 99 mmol/L (98-107) Carbon Dioxide Level 28 mmol/L (21-32) Anion Gap 14 (6-14) Blood Urea Nitrogen 66 mg/dL (7-20) Creatinine 9.6 mg/dL (0.6-1.0) Estimated GFR (Cockcroft-Gault) 4.8 Glucose Level 110 mg/dL (70-99) Calcium Level 9.1 mg/dL (8.5-10.1) Medications Active Scripts Medications Dose Route/Sig Max Daily Dose Days Date Category Acidophilus (Lactobacillus Acidophilus) 1 Each Capsule 1 Each PO DAILY 09/09/18 Reported Hydrocodone-Apap 7.5-325 (Hydrocodone Bit/Acetaminophen) 1 Tab Tablet 1 Tab PO PRN Q6HRS PRN 09/09/18 Reported Lasix (Furosemide) 40 Mg Tablet 1 Tab PO PRN DAILY PRN 09/09/18 Reported Advair 250-50 Diskus (Fluticasone/Salmeterol) 1 Each Disk.w.dev 1 Puff IH BID 09/09/18 Reported Ferrous Gluconate 240 Mg Tablet 240 Mg PO DAILY 09/09/18 Reported Fluticasone Propionate Nasal [place] (Fluticasone Propionate) 16 Gm [place].susp 2 [place] NS DAILY 09/09/18 Reported Calcium Acetate 667 Mg Tablet 667 Mg PO TIDWMEALS 09/09/18 Reported Allopurinol 300 Mg Tablet 0.5 Tab PO DAILY 09/09/18 Reported Proair Respiclick (Albuterol Sulfate) 90 Mcg Aer.pow.ba 2 Puff IH PRN Q6HRS PRN 09/09/18 Reported Eliquis (Apixaban) 2.5 Mg Tablet 2.5 Mg PO BID 09/09/18 Reported Aspir-Low (Aspirin) 81 Mg Tablet.dr 1 Tab PO DAILY 05/24/18 Reported Amiodarone Hcl 200 Mg Tablet 1 Tab PO DAILY 05/24/18 Reported Vitamin D3 (Cholecalciferol (Vitamin D3)) 1,000 Unit Tablet 2 Tab PO DAILY 05/24/18 Reported Norvasc (Amlodipine Besylate) 10 Mg Tablet 10 Mg PO DAILY 05/24/18 Reported Bidil Tablet (Isosorb Dinit/Hydralazine Hcl) 1 Each Tablet 1 Each PO BID 05/24/18 Reported Calcitriol 0.25 Mcg Capsule 1 Cap PO DAILY 05/24/18 Reported Carvedilol 25 Mg Tablet 25 Mg PO BIDWMEALS 05/24/18 Reported Impression . NOTE DICTATED WILL MONITOR FOR HEMOPTYSIS CONTINUE SUPPORT FOR NOW ANTIBX REPEAT CT IN 8 WEEKS CAROLYN SALDANA MD Mar 19, 2019 11:54
--- NOTE | 2019-03-19 12:10 | CONS ---
DATE OF CONSULTATION: 03/19/2019 Reji Haji, nurse practitioner, dictating for Sy Roger MD, Infectious Disease. REFERRING PHYSICIAN: Rakesh Orona MD REASON FOR CONSULTATION: Pneumonia. HISTORY OF PRESENT ILLNESS: This patient is a 79-year-old female with a past medical history of coronary artery disease, paroxysmal atrial fibrillation, on Eliquis and amiodarone therapy as well as chronic kidney disease, on hemodialysis. The patient explains that while dialyzing a few days ago, she coughed up blood and passed out. She returned home. Over the next day or so, she was coughing up more blood, prompting an ER visit. Her Eliquis has been discontinued and Cardiology has been consulted. A chest CT demonstrated lower lobe infiltrates bilaterally, left greater than right and emphysema. She was dosed with Zosyn for possible pneumonia. The patient says she had not been feeling good for the past few days. She had some chills, shortness of air and of course cough with blood in sputum. She was requiring supplemental oxygen of 2 liters. Denies fevers, body aches, or sweats. She feels occasionally chilled. Denies headache, nasal/sinus congestion, or sore throat. Denies nausea, vomiting, or diarrhea. She still makes urine. Denies dysuria or blood in urine. PAST MEDICAL HISTORY: Chronic kidney disease; on hemodialysis Wednesday; ; Wednesday, paroxysmal atrial fibrillation, CVA, congestive heart failure, coronary artery disease, hyperlipidemia, hypertension, COPD, asthma, pulmonary embolism, obesity, hiatal hernia, rheumatoid arthritis, gout, diabetes type 2, anxiety. PAST SURGICAL HISTORY: Oral surgery, hysterectomy, AV graft placement in 09/2018, thyroidectomy. FAMILY HISTORY: Cardiovascular disease. SOCIAL HISTORY: The patient lives at home. Nonsmoker. She has a dog. ALLERGIES: SULFA CAUSES SWELLING AND WELTS. MEDICATIONS: Zosyn, amiodarone, probiotics. Other medications are available and have been reviewed on the AUG. REVIEW OF SYSTEMS: Per HPI, otherwise all other review of systems are negative. PHYSICAL EXAMINATION: VITAL SIGNS: Temperature is 98.6, blood pressure 138/57, heart rate 63, respiratory rate 20, pulse oximetry is 94% on 2 liters. GENERAL: The patient is propped up in bed, alert, appears comfortable. HEENT: Pupils equally round and reactive. Oropharynx pink and moist. No lesions. Dentures. NECK: Supple. LUNGS: Crackles in the bases bilaterally, left greater than right. Nonlabored. HEART: S1, S2. ABDOMEN: Soft, nontender with bowel sounds present. EXTREMITIES: No gross edema or cyanosis. SKIN: Warm to touch. No signs of rash. NEUROLOGIC: Alert and oriented x 3. LABORATORY DATA: Today's WBC 6.9, hemoglobin 8.0, platelets 248,000. Creatinine 9.6, BUN 66. Electrolytes are unremarkable. Glucose 110. Troponin less than 0.017. Creatinine kinase 132. BNP greater than 27,000. Total bilirubin 0.6, AST 22, ALT 17. Blood cultures pending. IMAGING: Per HPI. IMPRESSION: 1. Bilateral pulmonary infiltrates, questionable pneumonia versus fluid. 2. Hemoptysis. 3. Chronic kidney disease, on hemodialysis via arteriovenous graft. 4. SULFA ALLERGY CAUSING SWELLING AND WELTS. 5. Paroxysmal atrial fibrillation, on amiodarone therapy. 6. Diabetes mellitus type 2. 7. Hypertension. PLAN: Continue empiric Zosyn for now. Cardiology and Pulmonary have been consulted. Monitor labs. I will follow up on blood culture results. Maintain aspiration precautions. Thank you, Dr. Orona, for asking us to participate in this patient's care. Should you have further questions or concerns, please call. SY ROGER MD DR: ABIMBOLA/gia JOB#: [id number] / [id number]
--- NOTE | 2019-03-19 12:15 | CONS ---
DATE OF CONSULTATION: 03/19/2019 ATTENDING PHYSICIAN: Rakesh Orona MD CONSULTING PHYSICIAN: Carolyn Anguiano MD REASON FOR CONSULTATION: The patient is seen in pulmonary consultation at the request of Dr. Orona for hemoptysis. HISTORY OF PRESENT ILLNESS: The patient is a 79-year-old whose primary care doctor is Dr. Orta, presented with coughing up 1/2 of a teaspoon of bright red blood x 2. She has underlying coronary artery disease and has had previous stent placement. She is on anticoagulation. She also has a history of type 2 diabetes, hypertension, hyperlipidemia and end-stage renal disease, on hemodialysis. She denies fever, chills or night sweats. She is on Eliquis for atrial fibrillation. Denies chest pain or pressure. I was asked to see her in consultation. She has had a CT chest, which I personally reviewed. The CT revealed no evidence of any lung masses. There is evidence of lower lobe infiltrates bilaterally, left greater than right. There was some emphysema. The patient has been seen in consult by the Infectious Disease Service and is currently on Zosyn. PAST MEDICAL HISTORY: Remarkable for type 2 diabetes, hypertension, coronary artery disease with previous stent placement, hyperlipidemia, end-stage renal disease, COPD, unknown FEV1, quit tobacco 25 years ago. PAST SURGICAL HISTORY: Status post hysterectomy and partial thyroidectomy. FAMILY HISTORY: Hypertension. ALLERGIES: SULFA. CURRENT MEDICATION: List was reviewed. SOCIAL HISTORY: She denies any tobacco or alcohol, quit 25 years ago. REVIEW OF SYSTEMS: CONSTITUTIONAL: No fever or chills. EYES: No change in visual acuity. HENT: No nasal congestion, no sore throat. PULMONARY: As indicated above. CARDIOVASCULAR: No chest pain or pressure. GASTROINTESTINAL: No nausea, vomiting or diarrhea. GENITOURINARY: No dysuria or frequency. MUSCULOSKELETAL: No localized muscle aches or joint pain. SKIN: No new skin rashes. NEUROLOGIC: No headaches, diplopia or blurred vision. PHYSICAL EXAMINATION: GENERAL: The patient was in no respiratory distress, on 2 liters of oxygen supplementation. HEENT: Eyes, the sclerae were nonicteric. NECK: Jugular venous distention was not elevated. No lymphadenopathy. CHEST: Full expansion. LUNGS: Bilateral crackles with no wheezes. CARDIOVASCULAR: Regular rate and rhythm with S1, S2, no S3. ABDOMEN: Soft, nontender and nondistended. EXTREMITIES: No clubbing, cyanosis or edema. NEUROLOGICAL: The patient was awake, alert, following commands. A detailed neuro exam was not performed. LABORATORY DATA: Labs were reviewed. White count was normal. INR was 1.3. BUN and creatinine elevated. CT chest as indicated above. IMPRESSION: 1. Hemoptysis. 2. Acute exacerbation of chronic obstructive pulmonary disease. 3. Abnormal CT revealing bilateral lower lobe infiltrates. 4. Coronary artery disease. 5. Atrial fibrillation, on Eliquis. 6. Tobacco dependence, in remission. PLAN: 1. Suspect hemoptysis is related to acute bronchitis and pneumonia. We will monitor for now. If it continues, I will proceed with a bronchoscopy. Otherwise, we will repeat CT chest in 8 weeks. 2. Continue current antibiotics. 3. Follow input from Infectious Disease. Case was discussed with Dr. Orona. If the patient continues to improve, may discharge home within next 24-48 hours. CAROLYN ANGUIANO MD DR: WAYNE/gia JOB#: [id number] / [id number] MARIUSZ Love MD
[2019-03-19] MEDS ORDERED: ALBUTEROL SULFATE 2.5 MG/3 ML NEBU. NEB PRN (13:00)
[2019-03-19] MEDS ORDERED: APIXABAN 2.5 MG TABLET. PO SCH (13:00)
--- NOTE | 2019-03-19 13:04 | PDOC2 ---
CONSULT Date of Consult Date of Consult DATE: 03/19/19 TIME: 12:52 Reason for Consult Reason for Consult: ESRD on dialysis Wednesday Referring Physician Referring Physician: Full Bright Identification/Chief Complaint Chief Complaint Hemoptysis, cough Source Source: Chart review, Patient History of Present Illness Reason for Visit: Mrs. Lundy is a pleasant 79-year-old Afro[place] female who was initiated on hemodialysis in June of this year. She's been doing well and has been been feeling good until the last few days. She developed cough and also some amount of hemoptysis for which she presented the ER for further evaluation. He denies fevers chills at this time. She has been diagnosed with a pneumonia. She usually dialyzes on a Wednesday schedule under the care of Dr. Adkins in our practice. She missed her dialysis yesterday and was not very keen on going today because it makes her sick by her reports. He is willing to go tomorrow. She has not missed any treatments by her reports. She has been evaluated by pulmonology for the same. CT scan of her chest has been done results of which are reviewed below. Past Medical History Cardiovascular: CAD, HTN, Hyperlipidemia Pulmonary: COPD CENTRAL NERVOUS SYSTEM: CVA GI: No pertinent hx Heme/Onc: Anemia NOS Hepatobiliary: No pertinent hx Musculoskeletal: Osteoarthritis Rheumatologic: Gout Infectious disease: No pertinent hx Renal/: Chronic renal insuff, Chronic renal failure Endocrine: Diabetes Past Surgical History Past Surgical History: Hysterectomy, Other Family History Family History: Heart Disease, Hypertension Social History Quit ALCOHOL: none Drugs: None Lives: with Family Current Problem List Problem List Problems Medical Problems: (1) End stage renal disease Status: Acute (2) Generalized weakness Status: Acute (3) Syncope Status: Acute Current Medications Current Medications Current Medications Ondansetron HCl (Zofran) 4 mg PRN Q8HRS PRN IV NAUSEA/VOMITING; Start 03/18/19 at 13:15; Stop 03/18/19 at 13:20; Status DC Morphine Sulfate (Morphine Sulfate) 2 mg PRN Q2HR PRN IV PAIN; Start 03/18/19 at 13:15; Stop 03/19/19 at 13:14 Sodium Chloride (Normal Saline Flush) 3 ml QSHIFT PRN IV AFTER MEDS AND BLOOD DRAWS; Start 03/18/19 at 13:15 Ondansetron HCl (Zofran) 4 mg PRN Q4HRS PRN IV NAUSEA/VOMITING; Start 03/18/19 at 13:15 Acetaminophen (Tylenol) 650 mg PRN Q4HRS PRN PO TEMP OVER 100.4F OR MILD PAIN; Start 03/18/19 at 13:15 Docusate Sodium (Colace) 100 mg PRN BID PRN PO CONSTIPATION; Start 03/18/19 at 13:15 Albuterol/ Ipratropium (Duoneb) 3 ml Q4H NEB Last administered on 03/19/19at 02:00; Start 03/18/19 at 14:00; Stop 03/19/19 at 05:47; Status DC Guaifenesin (Robitussin) 200 mg PRN Q4HRS PRN PO COUGH; Start 03/18/19 at 13:15 Lorazepam (Ativan) 0.5 mg PRN Q4HRS PRN PO ANXIETY / AGITATION; Start 03/18/19 at 13:15 Allopurinol (Zyloprim) 150 mg DAILY PO Last administered on 03/19/19at 09:10; Start 03/19/19 at 09:00 Amiodarone HCl (Cordarone) 200 mg DAILY PO Last administered on 03/19/19at 09:13; Start 03/19/19 at 09:00 Amlodipine Besylate (Norvasc) 10 mg DAILY PO Last administered on 03/19/19at 09:12; Start 03/19/19 at 09:00 Aspirin (Ecotrin) 81 mg DAILY PO ; Start 03/19/19 at 09:00 Calcitriol (Rocaltrol) 0.25 mcg DAILY PO Last administered on 03/19/19at 09:13; Start 03/19/19 at 09:00 Vitamin D (Vitamin D3) 2,000 unit DAILY PO Last administered on 03/19/19at 09:11; Start 03/19/19 at 09:00 Fluticasone Propionate (Flonase) 2 spray DAILY NS Last administered on 03/19/19at 09:15; Start 03/19/19 at 09:00 Furosemide (Lasix) 40 mg PRN DAILY PRN PO SWELLING; Start 03/18/19 at 13:30 Acetaminophen/ Hydrocodone Bitart (Lortab 7.5/325) 1 tab PRN Q6HRS PRN PO PAIN Last administered on 03/18/19 16:24; Start 03/18/19 at 13:30 Calcium Acetate (Phoslo) 667 mg TIDWMEALS PO Last administered on 03/19/19 09:12; Start 03/18/19 at 17:00 Carvedilol (Coreg) 25 mg BIDWMEALS PO Last administered on 03/19/19 09:13; Start 03/18/19 at 17:00 Ferrous Sulfate (Feosol) 325 mg DAILYWBKFT PO Last administered on 03/19/19 09:13; Start 03/19/19 at 08:00 Budesonide (Pulmicort) 0.5 mg RTBID NEB Last administered on 03/19/19 07:23; Start 03/18/19 at 20:00 Isosorbide Dinitrate (Isordil) 20 mg BID PO Last administered on 03/19/19 09:11; Start 03/18/19 at 21:00 Lactobacillus Rhamnosus (Culturelle) 1 cap DAILY PO Last administered on 03/19/19 09:13; Start 03/19/19 at 09:00 Hydralazine HCl (Apresoline) 37.5 mg BID PO Last administered on 03/19/19 09:12; Start 03/18/19 at 21:00 Piperacillin Sod/ Tazobactam Sod (Zosyn Per Pharmacy) 1 each PRN DAILY PRN MC SEE COMMENTS; Start 03/18/19 at 15:00 Piperacillin Sod/ Tazobactam Sod 2.25 gm/Sodium Chloride 50 ml @ 100 mls/hr Q8HRS IV Last administered on 03/19/19at 05:39; Start 03/18/19 at 15:00 Albuterol/ Ipratropium (Duoneb) 3 ml RTQID NEB Last administered on 03/19/19 11:18; Start 03/19/19 at 08:00 Active Scripts Active Reported Acidophilus (Lactobacillus Acidophilus) 1 Each Capsule 1 Each PO DAILY Hydrocodone-Apap 7.5-325 (Hydrocodone Bit/Acetaminophen) 1 Tab Tablet 1 Tab PO PRN Q6HRS PRN Lasix (Furosemide) 40 Mg Tablet 1 Tab PO PRN DAILY PRN Advair 250-50 Diskus (Fluticasone/Salmeterol) 1 Each Disk.w.dev 1 Puff IH BID Ferrous Gluconate 240 Mg Tablet 240 Mg PO DAILY Fluticasone Propionate Nasal [place] (Fluticasone Propionate) 16 Gm [place].susp 2 [place] NS DAILY Calcium Acetate 667 Mg Tablet 667 Mg PO TIDWMEALS Allopurinol 300 Mg Tablet 0.5 Tab PO DAILY Proair Respiclick (Albuterol Sulfate) 90 Mcg Aer.pow.ba 2 Puff IH PRN Q6HRS PRN Eliquis (Apixaban) 2.5 Mg Tablet 2.5 Mg PO BID Aspir-Low (Aspirin) 81 Mg Tablet.dr 1 Tab PO DAILY Amiodarone Hcl 200 Mg Tablet 1 Tab PO DAILY Vitamin D3 (Cholecalciferol (Vitamin D3)) 1,000 Unit Tablet 2 Tab PO DAILY Norvasc (Amlodipine Besylate) 10 Mg Tablet 10 Mg PO DAILY Bidil Tablet (Isosorb Dinit/Hydralazine Hcl) 1 Each Tablet 1 Each PO BID Calcitriol 0.25 Mcg Capsule 1 Cap PO DAILY Carvedilol 25 Mg Tablet 25 Mg PO BIDWMEALS Allergies Allergies: Coded Allergies: Sulfa (Sulfonamide Antibiotics) (Verified Allergy, Intermediate, Swelling, 09/12/18) ROS Review of System Positives as reviewed under history of present illness otherwise 14 point review of systems are negative Physical Exam Physical Exam General Appearance: Awake Alert Oriented x 3 In no Distress Eyes: VIsion Unchanged Conjunctiva Normal EN: No EN Drainage Mucous Memb. moist Neck: no JVD min JVP Supple no Thyromegaly CVS: S1 S2 soft Murmur No Gallop No Rub no Edema Resp: diamond Basla Rales no Rhonchi no Acc. Muscle use GI: BAS +ve NO Bruit Non Tender Non Distended : no CVA tenderness; no Suprapubic Tenderness SKIN: no Rashes Breast Exam deferred Mu.Sk: Adequate ROM no Muscle Atrophy Heme: Unable to palpate Obvious LAD no Splenomegaly NEURO: Good Strength and Tone Cranial Nerves II - XII grossly intact Psych: not Depressed no Active hallucination Vital Signs Vital Signs Date Time Temp Pulse Resp B/P (MAP) Pulse Ox O2 Delivery O2 Flow Rate FiO2 03/19/19 11:48 98.5 64 18 123/49 (73) 100 Room Air 98.5 03/19/19 07:41 2.0 Assessment & Plan ESRD: Patient missed her dialysis on Wednesday Current FLuid and E-lyte status does not necessitate emergent need for Dialysis. Patient is not keen on going to dialysis today. Will plan for Dialysis in am and continue on Wednesday schedule. Anemia is probably of chronic kidney disease. Some blood loss due to hemoptysis cannot be ruled out. resume Epogen Transfuse with next HD as needed. HTN: Current BP meds reviewed. See orders for changes. Bone & Mineral: Follow phosphorus levels and alter binder regimen as needed Albuminemia: Emphasize high protein diet Discussed Plan of Care and prognosis etc. at length with family. Labs Labs Laboratory Tests Test 03/18/19 10:45 03/18/19 11:28 03/18/19 21:04 03/19/19 04:25 White Blood Count 9.7 x10^3/uL (4.0-11.0) 6.9 x10^3/uL (4.0-11.0) Red Blood Count 3.00 x10^6/uL (3.50-5.40) 2.57 x10^6/uL (3.50-5.40) Hemoglobin 9.4 g/dL (12.0-15.5) 8.0 g/dL (12.0-15.5) Hematocrit 28.8 % (36.0-47.0) 24.3 % (36.0-47.0) Mean Corpuscular Volume 96 fL (79-100) 95 fL (79-100) Mean Corpuscular Hemoglobin 31 pg (25-35) 31 pg (25-35) Mean Corpuscular Hemoglobin Concent 33 g/dL (31-37) 33 g/dL (31-37) Red Cell Distribution Width 17.6 % (11.5-14.5) 17.5 % (11.5-14.5) Platelet Count 300 x10^3/uL (140-400) 248 x10^3/uL (140-400) Neutrophils (%) (Auto) 84 % (31-73) 77 % (31-73) Lymphocytes (%) (Auto) 10 % (24-48) 15 % (24-48) Monocytes (%) (Auto) 5 % (0-9) 7 % (0-9) Eosinophils (%) (Auto) 1 % (0-3) 1 % (0-3) Basophils (%) (Auto) 0 % (0-3) 0 % (0-3) Neutrophils # (Auto) 8.2 x10^3/uL (1.8-7.7) 5.3 x10^3/uL (1.8-7.7) Lymphocytes # (Auto) 1.0 x10^3/uL (1.0-4.8) 1.0 x10^3/uL (1.0-4.8) Monocytes # (Auto) 0.5 x10^3/uL (0.0-1.1) 0.5 x10^3/uL (0.0-1.1) Eosinophils # (Auto) 0.1 x10^3/uL (0.0-0.7) 0.1 x10^3/uL (0.0-0.7) Basophils # (Auto) 0.0 x10^3/uL (0.0-0.2) 0.0 x10^3/uL (0.0-0.2) Prothrombin Time 15.5 SEC (11.7-14.0) Prothromb Time International Ratio 1.3 (0.8-1.1) Activated Partial Thromboplast Time 40 SEC (24-38) Sodium Level 142 mmol/L (136-145) 141 mmol/L (136-145) Potassium Level 3.9 mmol/L (3.5-5.1) 4.2 mmol/L (3.5-5.1) Chloride Level 98 mmol/L (98-107) 99 mmol/L (98-107) Carbon Dioxide Level 30 mmol/L (21-32) 28 mmol/L (21-32) Anion Gap 14 (6-14) 14 (6-14) Blood Urea Nitrogen 54 mg/dL (7-20) 66 mg/dL (7-20) Creatinine 8.6 mg/dL (0.6-1.0) 9.6 mg/dL (0.6-1.0) Estimated GFR (Cockcroft-Gault) 5.4 4.8 BUN/Creatinine Ratio 6 (6-20) Glucose Level 147 mg/dL (70-99) 110 mg/dL (70-99) Calcium Level 9.5 mg/dL (8.5-10.1) 9.1 mg/dL (8.5-10.1) Magnesium Level 1.8 mg/dL (1.8-2.4) Total Bilirubin 0.6 mg/dL (0.2-1.0) Aspartate Amino Transf (AST/SGOT) 22 U/L (15-37) Alanine Aminotransferase (ALT/SGPT) 17 U/L (14-59) Alkaline Phosphatase 67 U/L (46-116) Creatine Kinase 132 U/L (26-192) Creatine Kinase MB (Mass) 0.5 ng/mL (0.0-3.6) Creatine Kinase MB Relative Index 0.4 % (0-4) Troponin I Quantitative < 0.017 ng/mL (0.000-0.055) QX-Oki-Z-Type Natriuretic Peptide 39538 pg/mL (0-449) Total Protein 8.0 g/dL (6.4-8.2) Albumin 3.0 g/dL (3.4-5.0) Albumin/Globulin Ratio 0.6 (1.0-1.7) Glucose (Fingerstick) 99 mg/dL (70-99) Test 03/19/19 07:11 03/19/19 10:53 Glucose (Fingerstick) 81 mg/dL (70-99) 135 mg/dL (70-99) Laboratory Tests Test 03/18/19 21:04 03/19/19 04:25 03/19/19 07:11 03/19/19 10:53 Glucose (Fingerstick) 99 mg/dL (70-99) 81 mg/dL (70-99) 135 mg/dL (70-99) White Blood Count 6.9 x10^3/uL (4.0-11.0) Red Blood Count 2.57 x10^6/uL (3.50-5.40) Hemoglobin 8.0 g/dL (12.0-15.5) Hematocrit 24.3 % (36.0-47.0) Mean Corpuscular Volume 95 fL (79-100) Mean Corpuscular Hemoglobin 31 pg (25-35) Mean Corpuscular Hemoglobin Concent 33 g/dL (31-37) Red Cell Distribution Width 17.5 % (11.5-14.5) Platelet Count 248 x10^3/uL (140-400) Neutrophils (%) (Auto) 77 % (31-73) Lymphocytes (%) (Auto) 15 % (24-48) Monocytes (%) (Auto) 7 % (0-9) Eosinophils (%) (Auto) 1 % (0-3) Basophils (%) (Auto) 0 % (0-3) Neutrophils # (Auto) 5.3 x10^3/uL (1.8-7.7) Lymphocytes # (Auto) 1.0 x10^3/uL (1.0-4.8) Monocytes # (Auto) 0.5 x10^3/uL (0.0-1.1) Eosinophils # (Auto) 0.1 x10^3/uL (0.0-0.7) Basophils # (Auto) 0.0 x10^3/uL (0.0-0.2) Sodium Level 141 mmol/L (136-145) Potassium Level 4.2 mmol/L (3.5-5.1) Chloride Level 99 mmol/L (98-107) Carbon Dioxide Level 28 mmol/L (21-32) Anion Gap 14 (6-14) Blood Urea Nitrogen 66 mg/dL (7-20) Creatinine 9.6 mg/dL (0.6-1.0) Estimated GFR (Cockcroft-Gault) 4.8 Glucose Level 110 mg/dL (70-99) Calcium Level 9.1 mg/dL (8.5-10.1) Review All relevant outside records, renal labs, imaging studies, telemetry/EKG's were reviewed. Images Images CT scan of the chest from 03/18/19 shows IMPRESSION: 1. There are lower lobe infiltrates bilaterally left greater than right for which follow-up after treatment advised. 2. There is emphysema. 3. There is coronary calcification, also atherosclerotic calcification of the thoracic and abdominal aorta. 4. Not fully evaluated, exophytic lesion of the right kidney is more likely a cyst. RIKY ROGER MD Mar 19, 2019 13:04
[2019-03-19] MEDS: HYDROcodone/APAP 7.5/325MG 1 TAB TABLET PO PRN (13:08)
[2019-03-19] MEDS ORDERED: MAGNESIUM SULFATE 2GM 50 ML IV PRN (13:15)
--- NOTE | 2019-03-19 13:43 | PDOC2 ---
CARDIOLOGY CONSULT NOTE CHEIF COMPLAINT: Cough, hemoptysis HPI: 79-year-old woman with past medical history of paroxysmal atrial fibrillation, coronary artery disease status post PCI to the RCA in September 2018, hypertension, diabetes and end-stage renal disease presented to the hospital in the setting of cough and hemoptysis. She's been admitted for further evaluation. Cardiology has been asked to evaluate her in the setting of an elevated BNP. In speaking with the patient she reports no angina, palpitations, orthopnea or PND. She does not have any lower extremity edema. PMHX: As noted above. She's also on an to regulation with Eliquis and antiplatelet therapy with Plavix for her CAD and atrial fibrillation SOCHX: No alcohol, tobacco or illicit drug use. FAMHX: Noncontributory CURRENT MEDS: Current Medications Medications (Trade) Dose Ordered Sig/Nguyễn Route PRN Reason Start Time Stop Time Status Last Admin Dose Admin Albuterol/ Ipratropium (Duoneb) 3 ml Q4H NEB 03/18/19 14:00 03/19/19 05:47 DC 03/19/19 02:00 Allopurinol (Zyloprim) 150 mg DAILY PO 03/19/19 09:00 03/19/19 09:10 Amiodarone HCl (Cordarone) 200 mg DAILY PO 03/19/19 09:00 03/19/19 09:13 Amlodipine Besylate (Norvasc) 10 mg DAILY PO 03/19/19 09:00 03/19/19 09:12 Calcitriol (Rocaltrol) 0.25 mcg DAILY PO 03/19/19 09:00 03/19/19 09:13 Vitamin D (Vitamin D3) 2,000 unit DAILY PO 03/19/19 09:00 03/19/19 09:11 Fluticasone Propionate (Flonase) 2 spray DAILY NS 03/19/19 09:00 03/19/19 09:15 Calcium Acetate (Phoslo) 667 mg TIDWMEALS PO 03/18/19 17:00 03/19/19 13:06 Carvedilol (Coreg) 25 mg BIDWMEALS PO 03/18/19 17:00 03/19/19 09:13 Ferrous Sulfate (Feosol) 325 mg DAILYWBKFT PO 03/19/19 08:00 03/19/19 09:13 Budesonide (Pulmicort) 0.5 mg RTBID NEB 03/18/19 20:00 03/19/19 07:23 Isosorbide Dinitrate (Isordil) 20 mg BID PO 03/18/19 21:00 03/19/19 09:11 Lactobacillus Rhamnosus (Culturelle) 1 cap DAILY PO 03/19/19 09:00 03/19/19 09:13 Hydralazine HCl (Apresoline) 37.5 mg BID PO 03/18/19 21:00 03/19/19 09:12 Piperacillin Sod/ Tazobactam Sod 2.25 gm/Sodium Chloride 50 ml @ 100 mls/hr Q8HRS IV 03/18/19 15:00 03/19/19 05:39 Albuterol/ Ipratropium (Duoneb) 3 ml RTQID [facility] 03/19/19 08:00 03/19/19 11:18 ALLERGIES: Allergies Coded Allergies Type Severity Reaction Last Updated Verified Sulfa (Sulfonamide Antibiotics) Allergy Intermediate Swelling 09/12/18 Yes ROS: Negative unless otherwise mentioned above in history of present illness PHYSICAL EXAM: Vital Signs/I&O: Vital Signs Date Time Temp Pulse Resp B/P (MAP) Pulse Ox O2 Delivery O2 Flow Rate FiO2 03/19/19 13:08 17 Room Air 03/19/19 11:48 98.5 64 123/49 (73) 100 98.5 03/19/19 07:41 2.0 I & O 03/18/19 03/18/19 03/19/19 15:00 23:00 07:00 Intake Total 220 ml 200 ml Balance 220 ml 200 ml Physical Exam: GEN.: No apparent distress. Alert and oriented. HEENT: Head is normocephalic, atraumatic NECK: Supple. LUNGS: Clear to auscultation. HEART: RRR, S1, S2 present. Peripheral pulses intact ABDOMEN: Soft, nontender. Positive bowel sounds. EXTREMITIES: Without any cyanosis. NEUROLOGIC: Normal speech, normal tone PSYCHIATRIC: Normal affect, normal mood. SKIN: No ulcerations DIAGNOSTIC TESTING: In October 2018@ revealed in-stent restenosis of the RCA status post struggling stent Normal ejection fraction on stress testing in October 2018 at She has history of anemia. Lab Laboratory Tests Test 03/18/19 21:04 03/19/19 04:25 03/19/19 07:11 03/19/19 10:53 Glucose (Fingerstick) 99 mg/dL (70-99) 81 mg/dL (70-99) 135 mg/dL (70-99) H White Blood Count 6.9 x10^3/uL (4.0-11.0) Red Blood Count 2.57 x10^6/uL (3.50-5.40) L Hemoglobin 8.0 g/dL (12.0-15.5) L Hematocrit 24.3 % (36.0-47.0) L Mean Corpuscular Volume 95 fL (79-100) Mean Corpuscular Hemoglobin 31 pg (25-35) Mean Corpuscular Hemoglobin Concent 33 g/dL (31-37) Red Cell Distribution Width 17.5 % (11.5-14.5) H Platelet Count 248 x10^3/uL (140-400) Neutrophils (%) (Auto) 77 % (31-73) H Lymphocytes (%) (Auto) 15 % (24-48) L Monocytes (%) (Auto) 7 % (0-9) Eosinophils (%) (Auto) 1 % (0-3) Basophils (%) (Auto) 0 % (0-3) Neutrophils # (Auto) 5.3 x10^3/uL (1.8-7.7) Lymphocytes # (Auto) 1.0 x10^3/uL (1.0-4.8) Monocytes # (Auto) 0.5 x10^3/uL (0.0-1.1) Eosinophils # (Auto) 0.1 x10^3/uL (0.0-0.7) Basophils # (Auto) 0.0 x10^3/uL (0.0-0.2) Sodium Level 141 mmol/L (136-145) Potassium Level 4.2 mmol/L (3.5-5.1) Chloride Level 99 mmol/L (98-107) Carbon Dioxide Level 28 mmol/L (21-32) Anion Gap 14 (6-14) Blood Urea Nitrogen 66 mg/dL (7-20) H Creatinine 9.6 mg/dL (0.6-1.0) H Estimated GFR (Cockcroft-Gault) 4.8 Glucose Level 110 mg/dL (70-99) H Calcium Level 9.1 mg/dL (8.5-10.1) Laboratory Tests 03/19/19 04:25 ASSESSMENT: 1. Hemoptysis with underlying history of anemia and on anticoagulation due to paroxysmal atrial fibrillation 2. PLAN: 1. If okay from a pulmonary standpoint can continue anticoagulation given that it is felt the hemoptysis is most likely irritation from her pneumonia and bronchitis otherwise okay to hold Plavix and Eliquis. Would continue aspirin if Plavix and Eliquis are held. 2. Supportive care from a cardiac standpoint. Continue current home medications. Her home medications include carvedilol 25 monos twice a day, rosuvastatin 40 mg daily, amiodarone 200 mg daily Thank you for this consultation. Please call with any questions. DOMINICK EMERSON MD Mar 19, 2019 13:43
[2019-03-19 15:24] VITALS: BP 109/44
[2019-03-19 19:39] VITALS: BP 112/46
[2019-03-19] MEDS ORDERED: DARBEPOETIN ALFA 60 MCG/0.3 ML DISP.SYRIN. SQ SCH (21:00)
[2019-03-19 23:48] VITALS: BP 109/43
[2019-03-20 03:29] VITALS: BP 114/45
[2019-03-20 07:00] VITALS: BP 149/59
--- NOTE | 2019-03-20 07:18 | EKG ---
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
[2019-03-20] MEDS: BUDESONIDE 0.5 MG/2 ML NEBU. NEB SCH ×2 (07:19→19:27)
[2019-03-20] MEDS: IPRATRPIUM/ALBUTEROL 0.5/2.5MG 3 ML NEBU. NEB SCH ×4 (07:19→19:27)
[2019-03-20] MEDS: PIPERACILLIN/TAZOBACTAM 2.25 GM in IV NORMAL SALINE 50ML 50 ML IV SCH ×3 (07:35→22:00)
[2019-03-20] MEDS: CARVEDILOL 12.5 MG TABLET. PO SCH ×2 (08:00→18:14)
[2019-03-20 08:21] LABS: ALBUMIN 2.3 g/dL (3.4-5.0); CALCIUM 8.9 mg/dL (8.5-10.1); CREATININE 10.5 mg/dL (0.6-1.0); GFR 4.3; MAGNESIUM 1.7 mg/dL (1.8-2.4); PHOSPHORUS 8.1 mg/dL (2.6-4.7); POTASSIUM 4.1 mmol/L (3.5-5.1)
[2019-03-20] MEDS: CALCIUM ACETATE 667 MG CAPSULE PO SCH ×3 (09:03→18:14)
[2019-03-20] MEDS: FLUTICASONE 50MCG/NASAL SPRAY 16GM BOTTLE. NS SCH (09:03)
[2019-03-20] MEDS ORDERED: IV NORMAL SALINE 1000ML BAG 1,000 ML IV PRN ×2 (09:33)
--- NOTE | 2019-03-20 09:40 | PDOC ---
PROGRESS NOTES History of Present Illness History of Present Illness VTE Prophylaxis Ordered VTE Prophylaxis Devices: No VTE Pharmacological Prophylaxi: Contraindicated Assessment/Plan Assessment/Plan IMPRESSION HEMOPTYSIS, RESOLVED There are lower lobe infiltrates suspect pneumonia// atelectasis bilaterally left greater than right for which follow-up after treatment advised. Remote tobacco abuse eliquis for A. fib LLL PNEUMONIA plan CONTINUE IV ZOSYN ct chest REVIEWED consult pulm hold eliquis consult pulm consult cardiology tele consult nephrology home meds duayejeffrey qid admit 27 MIN PT EXAM, CHart review, > 50% of time spent with exam, chart review, pt care coordination Vitals Vitals Vital Signs Date Time Temp Pulse Resp B/P (MAP) Pulse Ox O2 Delivery O2 Flow Rate FiO2 03/20/19 07:20 97 Room Air 03/20/19 07:00 98.5 67 18 149/59 (89) 2.0 98.5 Physical Exam General: Alert, Oriented X3, Cooperative, No acute distress Heart: Other (irrr) Lungs: Clear, Crackles (LLL), Other (few lll crackles) Abdomen: Normal bowel sounds, Soft, No tenderness, No hepatosplenomegaly Extremities: No cyanosis, No edema Skin: No significant lesion Labs LABS Laboratory Tests Test 03/19/19 10:53 03/19/19 16:47 03/19/19 20:26 03/20/19 06:10 Glucose (Fingerstick) 135 mg/dL (70-99) 109 mg/dL (70-99) 120 mg/dL (70-99) Hemoglobin 7.5 g/dL (12.0-15.5) Sodium Level 141 mmol/L (136-145) Potassium Level 4.1 mmol/L (3.5-5.1) Chloride Level 101 mmol/L (98-107) Carbon Dioxide Level 26 mmol/L (21-32) Anion Gap 14 (6-14) Blood Urea Nitrogen 71 mg/dL (7-20) Creatinine 10.5 mg/dL (0.6-1.0) Estimated GFR (Cockcroft-Gault) 4.3 Glucose Level 85 mg/dL (70-99) Calcium Level 8.9 mg/dL (8.5-10.1) Phosphorus Level 8.1 mg/dL (2.6-4.7) Magnesium Level 1.7 mg/dL (1.8-2.4) Albumin 2.3 g/dL (3.4-5.0) Test 03/20/19 07:32 Glucose (Fingerstick) 80 mg/dL (70-99) Assessment and Plan Assessmemt and Plan Problems Medical Problems: (1) End stage renal disease Status: Acute (2) Generalized weakness Status: Acute (3) Syncope Status: Acute Comment Review of Relevant I have reviewed the following items scot (where applicable) has been applied. Labs Laboratory Tests Test 03/18/19 10:45 03/18/19 11:28 03/18/19 21:04 03/19/19 04:25 White Blood Count 9.7 x10^3/uL (4.0-11.0) 6.9 x10^3/uL (4.0-11.0) Red Blood Count 3.00 x10^6/uL (3.50-5.40) 2.57 x10^6/uL (3.50-5.40) Hemoglobin 9.4 g/dL (12.0-15.5) 8.0 g/dL (12.0-15.5) Hematocrit 28.8 % (36.0-47.0) 24.3 % (36.0-47.0) Mean Corpuscular Volume 96 fL (79-100) 95 fL (79-100) Mean Corpuscular Hemoglobin 31 pg (25-35) 31 pg (25-35) Mean Corpuscular Hemoglobin Concent 33 g/dL (31-37) 33 g/dL (31-37) Red Cell Distribution Width 17.6 % (11.5-14.5) 17.5 % (11.5-14.5) Platelet Count 300 x10^3/uL (140-400) 248 x10^3/uL (140-400) Neutrophils (%) (Auto) 84 % (31-73) 77 % (31-73) Lymphocytes (%) (Auto) 10 % (24-48) 15 % (24-48) Monocytes (%) (Auto) 5 % (0-9) 7 % (0-9) Eosinophils (%) (Auto) 1 % (0-3) 1 % (0-3) Basophils (%) (Auto) 0 % (0-3) 0 % (0-3) Neutrophils # (Auto) 8.2 x10^3/uL (1.8-7.7) 5.3 x10^3/uL (1.8-7.7) Lymphocytes # (Auto) 1.0 x10^3/uL (1.0-4.8) 1.0 x10^3/uL (1.0-4.8) Monocytes # (Auto) 0.5 x10^3/uL (0.0-1.1) 0.5 x10^3/uL (0.0-1.1) Eosinophils # (Auto) 0.1 x10^3/uL (0.0-0.7) 0.1 x10^3/uL (0.0-0.7) Basophils # (Auto) 0.0 x10^3/uL (0.0-0.2) 0.0 x10^3/uL (0.0-0.2) Prothrombin Time 15.5 SEC (11.7-14.0) Prothromb Time International Ratio 1.3 (0.8-1.1) Activated Partial Thromboplast Time 40 SEC (24-38) Sodium Level 142 mmol/L (136-145) 141 mmol/L (136-145) Potassium Level 3.9 mmol/L (3.5-5.1) 4.2 mmol/L (3.5-5.1) Chloride Level 98 mmol/L (98-107) 99 mmol/L (98-107) Carbon Dioxide Level 30 mmol/L (21-32) 28 mmol/L (21-32) Anion Gap 14 (6-14) 14 (6-14) Blood Urea Nitrogen 54 mg/dL (7-20) 66 mg/dL (7-20) Creatinine 8.6 mg/dL (0.6-1.0) 9.6 mg/dL (0.6-1.0) Estimated GFR (Cockcroft-Gault) 5.4 4.8 BUN/Creatinine Ratio 6 (6-20) Glucose Level 147 mg/dL (70-99) 110 mg/dL (70-99) Calcium Level 9.5 mg/dL (8.5-10.1) 9.1 mg/dL (8.5-10.1) Magnesium Level 1.8 mg/dL (1.8-2.4) Total Bilirubin 0.6 mg/dL (0.2-1.0) Aspartate Amino Transf (AST/SGOT) 22 U/L (15-37) Alanine Aminotransferase (ALT/SGPT) 17 U/L (14-59) Alkaline Phosphatase 67 U/L (46-116) Creatine Kinase 132 U/L (26-192) Creatine Kinase MB (Mass) 0.5 ng/mL (0.0-3.6) Creatine Kinase MB Relative Index 0.4 % (0-4) Troponin I Quantitative < 0.017 ng/mL (0.000-0.055) PW-Fgd-P-Type Natriuretic Peptide 49408 pg/mL (0-449) Total Protein 8.0 g/dL (6.4-8.2) Albumin 3.0 g/dL (3.4-5.0) Albumin/Globulin Ratio 0.6 (1.0-1.7) Glucose (Fingerstick) 99 mg/dL (70-99) Test 03/19/19 07:11 03/19/19 10:53 03/19/19 16:47 03/19/19 20:26 Glucose (Fingerstick) 81 mg/dL (70-99) 135 mg/dL (70-99) 109 mg/dL (70-99) 120 mg/dL (70-99) Test 03/20/19 06:10 03/20/19 07:32 Hemoglobin 7.5 g/dL (12.0-15.5) Sodium Level 141 mmol/L (136-145) Potassium Level 4.1 mmol/L (3.5-5.1) Chloride Level 101 mmol/L (98-107) Carbon Dioxide Level 26 mmol/L (21-32) Anion Gap 14 (6-14) Blood Urea Nitrogen 71 mg/dL (7-20) Creatinine 10.5 mg/dL (0.6-1.0) Estimated GFR (Cockcroft-Gault) 4.3 Glucose Level 85 mg/dL (70-99) Calcium Level 8.9 mg/dL (8.5-10.1) Phosphorus Level 8.1 mg/dL (2.6-4.7) Magnesium Level 1.7 mg/dL (1.8-2.4) Albumin 2.3 g/dL (3.4-5.0) Glucose (Fingerstick) 80 mg/dL (70-99) Laboratory Tests Test 03/19/19 10:53 03/19/19 16:47 03/19/19 20:26 03/20/19 06:10 Glucose (Fingerstick) 135 mg/dL (70-99) 109 mg/dL (70-99) 120 mg/dL (70-99) Hemoglobin 7.5 g/dL (12.0-15.5) Sodium Level 141 mmol/L (136-145) Potassium Level 4.1 mmol/L (3.5-5.1) Chloride Level 101 mmol/L (98-107) Carbon Dioxide Level 26 mmol/L (21-32) Anion Gap 14 (6-14) Blood Urea Nitrogen 71 mg/dL (7-20) Creatinine 10.5 mg/dL (0.6-1.0) Estimated GFR (Cockcroft-Gault) 4.3 Glucose Level 85 mg/dL (70-99) Calcium Level 8.9 mg/dL (8.5-10.1) Phosphorus Level 8.1 mg/dL (2.6-4.7) Magnesium Level 1.7 mg/dL (1.8-2.4) Albumin 2.3 g/dL (3.4-5.0) Test 03/20/19 07:32 Glucose (Fingerstick) 80 mg/dL (70-99) Microbiology 03/18/19 Blood Culture - Preliminary, Resulted NO GROWTH AFTER 1 DAY Medications Current Medications Ondansetron HCl (Zofran) 4 mg PRN Q8HRS PRN IV NAUSEA/VOMITING; Start 03/18/19 at 13:15; Stop 03/18/19 at 13:20; Status DC Morphine Sulfate (Morphine Sulfate) 2 mg PRN Q2HR PRN IV PAIN; Start 03/18/19 at 13:15; Stop 03/19/19 at 13:14; Status DC Sodium Chloride (Normal Saline Flush) 3 ml QSHIFT PRN IV AFTER MEDS AND BLOOD DRAWS; Start 03/18/19 at 13:15 Ondansetron HCl (Zofran) 4 mg PRN Q4HRS PRN IV NAUSEA/VOMITING; Start 03/18/19 at 13:15 Acetaminophen (Tylenol) 650 mg PRN Q4HRS PRN PO TEMP OVER 100.4F OR MILD PAIN; Start 03/18/19 at 13:15 Docusate Sodium (Colace) 100 mg PRN BID PRN PO CONSTIPATION; Start 03/18/19 at 13:15 Albuterol/ Ipratropium (Duoneb) 3 ml Q4H NEB Last administered on 03/19/19at 02:00; Start 03/18/19 at 14:00; Stop 03/19/19 at 05:47; Status DC Guaifenesin (Robitussin) 200 mg PRN Q4HRS PRN PO COUGH; Start 03/18/19 at 13:15 Lorazepam (Ativan) 0.5 mg PRN Q4HRS PRN PO ANXIETY / AGITATION; Start 03/18/19 at 13:15 Allopurinol (Zyloprim) 150 mg DAILY PO Last administered on 03/19/19at 09:10; Start 03/19/19 at 09:00 Amiodarone HCl (Cordarone) 200 mg DAILY PO Last administered on 03/19/19at 09:13; Start 03/19/19 at 09:00 Amlodipine Besylate (Norvasc) 10 mg DAILY PO Last administered on 03/19/19at 09:12; Start 03/19/19 at 09:00 Aspirin (Ecotrin) 81 mg DAILY PO ; Start 03/19/19 at 09:00 Calcitriol (Rocaltrol) 0.25 mcg DAILY PO Last administered on 03/19/19at 09:13; Start 03/19/19 at 09:00 Vitamin D (Vitamin D3) 2,000 unit DAILY PO Last administered on 03/19/19at 09:11; Start 03/19/19 at 09:00 Fluticasone Propionate (Flonase) 2 spray DAILY NS Last administered on 03/20/19at 09:03; Start 03/19/19 at 09:00 Furosemide (Lasix) 40 mg PRN DAILY PRN PO SWELLING; Start 03/18/19 at 13:30 Acetaminophen/ Hydrocodone Bitart (Lortab 7.5/325) 1 tab PRN Q6HRS PRN PO MODERATE-SEVERE PAIN Last administered on 03/19/19at 13:08; Start 03/18/19 at 13:30 Calcium Acetate (Phoslo) 667 mg TIDWMEALS PO Last administered on 03/20/19 09:03; Start 03/18/19 at 17:00 Carvedilol (Coreg) 25 mg BIDWMEALS PO Last administered on 03/19/19at 18:04; Start 03/18/19 at 17:00 Ferrous Sulfate (Feosol) 325 mg DAILYWBKFT PO Last administered on 03/19/19at 09:13; Start 03/19/19 at 08:00 Budesonide (Pulmicort) 0.5 mg RTBID NEB Last administered on 03/20/19 07:19; Start 03/18/19 at 20:00 Isosorbide Dinitrate (Isordil) 20 mg BID PO Last administered on 03/19/19 21: 09; Start 03/18/19 at 21:00 Lactobacillus Rhamnosus (Culturelle) 1 cap DAILY PO Last administered on 03/19/19at 09:13; Start 03/19/19 at 09:00 Hydralazine HCl (Apresoline) 37.5 mg BID PO Last administered on 03/19/19at 21:09; Start 03/18/19 at 21:00 Piperacillin Sod/ Tazobactam Sod (Zosyn Per Pharmacy) 1 each PRN DAILY PRN MC SEE COMMENTS; Start 03/18/19 at 15:00 Piperacillin Sod/ Tazobactam Sod 2.25 gm/Sodium Chloride 50 ml @ 100 mls/hr Q8HRS IV Last administered on 03/20/19at 07:35; Start 03/18/19 at 15:00 Albuterol/ Ipratropium (Duoneb) 3 ml RTQID NEB Last administered on 03/20/19at 07:19; Start 03/19/19 at 08:00 Apixaban (Eliquis) 2.5 mg BID PO Last administered on 03/19/19at 13:58; Start 03/19/19 at 13:00; Stop 03/19/19 at 16:12; Status DC Albuterol Sulfate (Ventolin Neb Soln) 2.5 mg PRN Q6HRS PRN NEB WHEEZING; Start 03/19/19 at 13:00 Magnesium Sulfate 50 ml @ 25 mls/hr PRN DAILY PRN IV for Mag < 1.7 on am labs; Start 03/19/19 at 13:15 Darbepoetin Yair (ARANESP for DIALYSIS PTS) 60 mcg WEEKLYHS SQ Last administered on 03/19/19at 21:10; Start 03/19/19 at 21:00 Sodium Chloride 1,000 ml @ 1,000 mls/hr Q1H PRN IV hypotension; Start 03/20/19 at 09:33; Stop 03/20/19 at 15:32 Acetaminophen (Tylenol) 500 mg 1X PRN PRN PO MILD PAIN / TEMP; Start 03/20/19 at 09:45; Stop 03/21/19 at 09:44 Diphenhydramine HCl (Benadryl) 25 mg 1X PRN PRN IV ITCHING; Start 03/20/19 at 09:45; Stop 03/21/19 at 09:44 Diphenhydramine HCl (Benadryl) 25 mg 1X PRN PRN IV ITCHING; Start 03/20/19 at 09:45; Stop 03/21/19 at 09:44 Sodium Chloride 1,000 ml @ 400 mls/hr Q2H30M PRN IV PATENCY; Start 03/20/19 at 09:33; Stop 03/20/19 at 21:32 Info (PHARMACY MONITORING -- do not chart) 1 each PRN DAILY PRN MC SEE COMMENTS; Start 03/20/19 at 09:45 Active Scripts Active Reported Acidophilus (Lactobacillus Acidophilus) 1 Each Capsule 1 Each PO DAILY Hydrocodone-Apap 7.5-325 (Hydrocodone Bit/Acetaminophen) 1 Tab Tablet 1 Tab PO PRN Q6HRS PRN Lasix (Furosemide) 40 Mg Tablet 1 Tab PO PRN DAILY PRN Advair 250-50 Diskus (Fluticasone/Salmeterol) 1 Each Disk.w.dev 1 Puff IH BID Ferrous Gluconate 240 Mg Tablet 240 Mg PO DAILY Fluticasone Propionate Nasal [place] (Fluticasone Propionate) 16 Gm [place].susp 2 [place] NS DAILY Calcium Acetate 667 Mg Tablet 667 Mg PO TIDWMEALS Allopurinol 300 Mg Tablet 0.5 Tab PO DAILY Proair Respiclick (Albuterol Sulfate) 90 Mcg Aer.pow.ba 2 Puff IH PRN Q6HRS PRN Eliquis (Apixaban) 2.5 Mg Tablet 2.5 Mg PO BID Aspir-Low (Aspirin) 81 Mg Tablet. 1 Tab PO DAILY Amiodarone Hcl 200 Mg Tablet 1 Tab PO DAILY Vitamin D3 (Cholecalciferol (Vitamin D3)) 1,000 Unit Tablet 2 Tab PO DAILY Norvasc (Amlodipine Besylate) 10 Mg Tablet 10 Mg PO DAILY Bidil Tablet (Isosorb Dinit/Hydralazine Hcl) 1 Each Tablet 1 Each PO BID Calcitriol 0.25 Mcg Capsule 1 Cap PO DAILY Carvedilol 25 Mg Tablet 25 Mg PO BIDWMEALS Vitals/I & O Vital Sign - Last 24 Hours 03/19/19 03/19/19 03/19/19 03/19/19 11:18 11:48 13:08 14:08 Temp 98.5 98.5 Pulse 64 Resp 18 17 16 B/P (MAP) 123/49 (73) Pulse Ox 100 O2 Delivery Room Air Room Air Room Air Room Air 03/19/19 03/19/19 03/19/19 03/19/19 15:24 16:23 18:04 19:39 Temp 98.8 98.6 98.8 98.6 Pulse 69 69 64 Resp 18 16 B/P (MAP) 109/44 (65) 109/44 112/46 (68) Pulse Ox 91 99 O2 Delivery Room Air Room Air Room Air 03/19/19 03/19/19 03/19/19 03/19/19 19:52 20:04 21:09 21:09 Pulse 64 64 B/P (MAP) 112/46 112/46 Pulse Ox 100 O2 Delivery Room Air Room Air 03/19/19 03/20/19 03/20/19 03/20/19 23:48 03:29 07:00 07:20 Temp 98.5 98.9 98.5 98.5 98.9 98.5 Pulse 67 65 67 Resp 16 16 18 B/P (MAP) 109/43 (65) 114/45 (68) 149/59 (89) Pulse Ox 94 85 99 97 O2 Delivery Room Air Room Air Nasal Cannula Room Air O2 Flow Rate 2.0 Intake and Output 03/19/19 03/19/19 03/20/19 14:59 22:59 06:59 Intake Total 400 ml 440 ml 500 ml Output Total 150 ml Balance 250 ml 440 ml 500 ml ZAY MCNEIL MD Mar 20, 2019 09:40
[2019-03-20] MEDS ORDERED: DIALYSIS PATIENT. MC PRN (09:45)
[2019-03-20] MEDS ORDERED: diphenhydrAMINE 50 MG/ML VIAL IV PRN ×2 (09:45)
[2019-03-20] MEDS ORDERED: ACETAMINOPHEN 500 MG TABLET PO PRN (09:45)
--- NOTE | 2019-03-20 10:08 | PDOC ---
SUBJECTIVE ROS Seen on HD, tolerating well, denies any complaints States noted blood since , reports nearly resolved OBJECTIVE Vital Signs Vital Signs Date Time Temp Pulse Resp B/P (MAP) Pulse Ox O2 Delivery O2 Flow Rate FiO2 03/20/19 07:20 97 Room Air 03/20/19 07:00 98.5 67 18 149/59 (89) 2.0 98.5 I & 0 Intake and Output 03/20/19 06:59 Intake Total 1340 ml Output Total 150 ml Balance 1190 ml Intake Oral 1340 ml Output Urine Total 150 ml PHYSICAL EXAM Physical Exam GEN.: No apparent distress. HEENT: OM moist NECK: Supple. LUNGS: Clear to auscultation. HEART: RRR, S1, S2 present. Peripheral pulses intact ABDOMEN: Soft, nontender. EXTREMITIES: Without any cyanosis or edema NEUROLOGIC: Grossly normal PSYCHIATRIC: Normal affect, normal mood. SKIN: No ulcerations DIAGNOSIS/ASSESSMENT Assessment & Plan ESRD: TTS Patient missed dialysis on Wednesday Seen on HD, tolerating well, continue as ordered, UF 3-4 as tolerated Edward Sams Tomorrow per her TTS schedule Hemoptysis -acute bronchitis and pneumonia per Pulm Anemia- On GERDA HTN:Current BP meds CAD - PCI to the RCA in September 2018 Normal ejection fraction on stress testing in October 2018 at paroxysmal atrial fibrillation DM COMMENT/RELEVANT DATA Meds Current Medications Medications (Trade) Dose Ordered Sig/Nguyễn Start Time Stop Time Status Last Admin Dose Admin Acetaminophen (Tylenol) 500 mg 1X PRN PRN 03/20/19 09:45 03/21/19 09:44 Acetaminophen/ Hydrocodone Bitart (Lortab 7.5/325) 1 tab PRN Q6HRS PRN 03/18/19 13:30 03/19/19 13:08 1 TAB Albuterol Sulfate (Ventolin Neb Soln) 2.5 mg PRN Q6HRS PRN 03/19/19 13:00 Albuterol/ Ipratropium (Duoneb) 3 ml RTQID 03/19/19 08:00 03/20/19 07:19 3 ML Allopurinol (Zyloprim) 150 mg DAILY 03/19/19 09:00 03/19/19 09:10 150 MG Amiodarone HCl (Cordarone) 200 mg DAILY 03/19/19 09:00 03/19/19 09:13 200 MG Amlodipine Besylate (Norvasc) 10 mg DAILY 03/19/19 09:00 03/19/19 09:12 10 MG Apixaban (Eliquis) 2.5 mg BID 03/19/19 13:00 03/19/19 16:12 DC 03/19/19 13:58 2.5 MG Aspirin (Ecotrin) 81 mg DAILY 03/19/19 09:00 Budesonide (Pulmicort) 0.5 mg RTBID 03/18/19 20:00 03/20/19 07:19 0.5 MG Calcitriol (Rocaltrol) 0.25 mcg DAILY 03/19/19 09:00 03/19/19 09:13 0.25 MCG Calcium Acetate (Phoslo) 667 mg TIDWMEALS 03/18/19 17:00 03/20/19 09:03 667 MG Carvedilol (Coreg) 25 mg BIDWMEALS 03/18/19 17:00 03/19/19 18:04 25 MG Darbepoetin Yair (ARANESP for DIALYSIS PTS) 60 mcg WEEKLYHS 03/19/19 21:00 03/19/19 21:10 60 MCG Diphenhydramine HCl (Benadryl) 25 mg 1X PRN PRN 03/20/19 09:45 03/21/19 09:44 Docusate Sodium (Colace) 100 mg PRN BID PRN 03/18/19 13:15 Ferrous Sulfate (Feosol) 325 mg DAILYWBKFT 03/19/19 08:00 03/19/19 09:13 325 MG Fluticasone Propionate (Flonase) 2 spray DAILY 03/19/19 09:00 03/20/19 09:03 2 SPRAY Furosemide (Lasix) 40 mg PRN DAILY PRN 03/18/19 13:30 Guaifenesin (Robitussin) 200 mg PRN Q4HRS PRN 03/18/19 13:15 Hydralazine HCl (Apresoline) 37.5 mg BID 03/18/19 21:00 03/19/19 21:09 37.5 MG Info (PHARMACY MONITORING -- do not chart) 1 each PRN DAILY PRN 03/20/19 09:45 Isosorbide Dinitrate (Isordil) 20 mg BID 03/18/19 21:00 03/19/19 21:09 20 MG Lactobacillus Rhamnosus (Culturelle) 1 cap DAILY 03/19/19 09:00 03/19/19 09:13 1 CAP Lorazepam (Ativan) 0.5 mg PRN Q4HRS PRN 03/18/19 13:15 Magnesium Sulfate 50 ml @ 25 mls/hr PRN DAILY PRN 03/19/19 13:15 Morphine Sulfate (Morphine Sulfate) 2 mg PRN Q2HR PRN 03/18/19 13:15 03/19/19 13:14 DC Ondansetron HCl (Zofran) 4 mg PRN Q4HRS PRN 03/18/19 13:15 Piperacillin Sod/ Tazobactam Sod (Zosyn Per Pharmacy) 1 each PRN DAILY PRN 03/18/19 15:00 Piperacillin Sod/ Tazobactam Sod 2.25 gm/Sodium Chloride 50 ml @ 100 mls/hr Q8HRS 03/18/19 15:00 03/20/19 07:35 100 MLS/HR Sodium Chloride 1,000 ml @ 400 mls/hr Q2H30M PRN 03/20/19 09:33 03/20/19 21:32 Sodium Chloride (Normal Saline Flush) 3 ml QSHIFT PRN 03/18/19 13:15 Vitamin D (Vitamin D3) 2,000 unit DAILY 03/19/19 09:00 03/19/19 09:11 2,000 UNIT Lab Laboratory Tests Test 03/19/19 10:53 03/19/19 16:47 03/19/19 20:26 03/20/19 06:10 Glucose (Fingerstick) 135 mg/dL (70-99) 109 mg/dL (70-99) 120 mg/dL (70-99) Hemoglobin 7.5 g/dL (12.0-15.5) Sodium Level 141 mmol/L (136-145) Potassium Level 4.1 mmol/L (3.5-5.1) Chloride Level 101 mmol/L (98-107) Carbon Dioxide Level 26 mmol/L (21-32) Anion Gap 14 (6-14) Blood Urea Nitrogen 71 mg/dL (7-20) Creatinine 10.5 mg/dL (0.6-1.0) Estimated GFR (Cockcroft-Gault) 4.3 Glucose Level 85 mg/dL (70-99) Calcium Level 8.9 mg/dL (8.5-10.1) Phosphorus Level 8.1 mg/dL (2.6-4.7) Magnesium Level 1.7 mg/dL (1.8-2.4) Albumin 2.3 g/dL (3.4-5.0) Test 03/20/19 07:32 Glucose (Fingerstick) 80 mg/dL (70-99) Results All relevant outside records, renal labs, imaging studies, telemetry/EKG's were reviewed. NIKKI PUGA MD Mar 20, 2019 10:08
--- NOTE | 2019-03-20 10:09 | PDOC ---
PULMONARY PROGRESS NOTES Subjective PT WITH NO FURTHER HEMOPTYSIS Vitals Vital Signs Date Time Temp Pulse Resp B/P (MAP) Pulse Ox O2 Delivery O2 Flow Rate FiO2 03/20/19 07:20 97 Room Air 03/20/19 07:00 98.5 67 18 149/59 (89) 2.0 98.5 ROS: No Nausea, No Chest Pain, No Abdominal Pain, No Increase Cough General: Alert Lungs: Clear, Crackles Cardiovascular: S1 Abdomen: Soft Neuro Exam: Alert Extremities: No Edema Skin: Warm Labs Laboratory Tests Test 03/18/19 10:45 03/18/19 11:28 03/18/19 21:04 03/19/19 04:25 White Blood Count 9.7 x10^3/uL (4.0-11.0) 6.9 x10^3/uL (4.0-11.0) Red Blood Count 3.00 x10^6/uL (3.50-5.40) 2.57 x10^6/uL (3.50-5.40) Hemoglobin 9.4 g/dL (12.0-15.5) 8.0 g/dL (12.0-15.5) Hematocrit 28.8 % (36.0-47.0) 24.3 % (36.0-47.0) Mean Corpuscular Volume 96 fL (79-100) 95 fL (79-100) Mean Corpuscular Hemoglobin 31 pg (25-35) 31 pg (25-35) Mean Corpuscular Hemoglobin Concent 33 g/dL (31-37) 33 g/dL (31-37) Red Cell Distribution Width 17.6 % (11.5-14.5) 17.5 % (11.5-14.5) Platelet Count 300 x10^3/uL (140-400) 248 x10^3/uL (140-400) Neutrophils (%) (Auto) 84 % (31-73) 77 % (31-73) Lymphocytes (%) (Auto) 10 % (24-48) 15 % (24-48) Monocytes (%) (Auto) 5 % (0-9) 7 % (0-9) Eosinophils (%) (Auto) 1 % (0-3) 1 % (0-3) Basophils (%) (Auto) 0 % (0-3) 0 % (0-3) Neutrophils # (Auto) 8.2 x10^3/uL (1.8-7.7) 5.3 x10^3/uL (1.8-7.7) Lymphocytes # (Auto) 1.0 x10^3/uL (1.0-4.8) 1.0 x10^3/uL (1.0-4.8) Monocytes # (Auto) 0.5 x10^3/uL (0.0-1.1) 0.5 x10^3/uL (0.0-1.1) Eosinophils # (Auto) 0.1 x10^3/uL (0.0-0.7) 0.1 x10^3/uL (0.0-0.7) Basophils # (Auto) 0.0 x10^3/uL (0.0-0.2) 0.0 x10^3/uL (0.0-0.2) Prothrombin Time 15.5 SEC (11.7-14.0) Prothromb Time International Ratio 1.3 (0.8-1.1) Activated Partial Thromboplast Time 40 SEC (24-38) Sodium Level 142 mmol/L (136-145) 141 mmol/L (136-145) Potassium Level 3.9 mmol/L (3.5-5.1) 4.2 mmol/L (3.5-5.1) Chloride Level 98 mmol/L (98-107) 99 mmol/L (98-107) Carbon Dioxide Level 30 mmol/L (21-32) 28 mmol/L (21-32) Anion Gap 14 (6-14) 14 (6-14) Blood Urea Nitrogen 54 mg/dL (7-20) 66 mg/dL (7-20) Creatinine 8.6 mg/dL (0.6-1.0) 9.6 mg/dL (0.6-1.0) Estimated GFR (Cockcroft-Gault) 5.4 4.8 BUN/Creatinine Ratio 6 (6-20) Glucose Level 147 mg/dL (70-99) 110 mg/dL (70-99) Calcium Level 9.5 mg/dL (8.5-10.1) 9.1 mg/dL (8.5-10.1) Magnesium Level 1.8 mg/dL (1.8-2.4) Total Bilirubin 0.6 mg/dL (0.2-1.0) Aspartate Amino Transf (AST/SGOT) 22 U/L (15-37) Alanine Aminotransferase (ALT/SGPT) 17 U/L (14-59) Alkaline Phosphatase 67 U/L (46-116) Creatine Kinase 132 U/L (26-192) Creatine Kinase MB (Mass) 0.5 ng/mL (0.0-3.6) Creatine Kinase MB Relative Index 0.4 % (0-4) Troponin I Quantitative < 0.017 ng/mL (0.000-0.055) [id number]-Type Natriuretic Peptide 82656 pg/mL (0-449) Total Protein 8.0 g/dL (6.4-8.2) Albumin 3.0 g/dL (3.4-5.0) Albumin/Globulin Ratio 0.6 (1.0-1.7) Glucose (Fingerstick) 99 mg/dL (70-99) Test 03/19/19 07:11 03/19/19 10:53 03/19/19 16:47 03/19/19 20:26 Glucose (Fingerstick) 81 mg/dL (70-99) 135 mg/dL (70-99) 109 mg/dL (70-99) 120 mg/dL (70-99) Test 03/20/19 06:10 03/20/19 07:32 Hemoglobin 7.5 g/dL (12.0-15.5) Sodium Level 141 mmol/L (136-145) Potassium Level 4.1 mmol/L (3.5-5.1) Chloride Level 101 mmol/L (98-107) Carbon Dioxide Level 26 mmol/L (21-32) Anion Gap 14 (6-14) Blood Urea Nitrogen 71 mg/dL (7-20) Creatinine 10.5 mg/dL (0.6-1.0) Estimated GFR (Cockcroft-Gault) 4.3 Glucose Level 85 mg/dL (70-99) Calcium Level 8.9 mg/dL (8.5-10.1) Phosphorus Level 8.1 mg/dL (2.6-4.7) Magnesium Level 1.7 mg/dL (1.8-2.4) Albumin 2.3 g/dL (3.4-5.0) Glucose (Fingerstick) 80 mg/dL (70-99) Laboratory Tests Test 03/19/19 10:53 03/19/19 16:47 03/19/19 20:26 03/20/19 06:10 Glucose (Fingerstick) 135 mg/dL (70-99) 109 mg/dL (70-99) 120 mg/dL (70-99) Hemoglobin 7.5 g/dL (12.0-15.5) Sodium Level 141 mmol/L (136-145) Potassium Level 4.1 mmol/L (3.5-5.1) Chloride Level 101 mmol/L (98-107) Carbon Dioxide Level 26 mmol/L (21-32) Anion Gap 14 (6-14) Blood Urea Nitrogen 71 mg/dL (7-20) Creatinine 10.5 mg/dL (0.6-1.0) Estimated GFR (Cockcroft-Gault) 4.3 Glucose Level 85 mg/dL (70-99) Calcium Level 8.9 mg/dL (8.5-10.1) Phosphorus Level 8.1 mg/dL (2.6-4.7) Magnesium Level 1.7 mg/dL (1.8-2.4) Albumin 2.3 g/dL (3.4-5.0) Test 03/20/19 07:32 Glucose (Fingerstick) 80 mg/dL (70-99) Medications Active Scripts Medications Dose Route/Sig Max Daily Dose Days Date Category Acidophilus (Lactobacillus Acidophilus) 1 Each Capsule 1 Each PO DAILY 09/09/18 Reported Hydrocodone-Apap 7.5-325 (Hydrocodone Bit/Acetaminophen) 1 Tab Tablet 1 Tab PO PRN Q6HRS PRN 09/09/18 Reported Lasix (Furosemide) 40 Mg Tablet 1 Tab PO PRN DAILY PRN 09/09/18 Reported Advair 250-50 Diskus (Fluticasone/Salmeterol) 1 Each Disk.w.dev 1 Puff IH BID 09/09/18 Reported Ferrous Gluconate 240 Mg Tablet 240 Mg PO DAILY 09/09/18 Reported Fluticasone Propionate Nasal [place] (Fluticasone Propionate) 16 Gm [place].susp 2 [place] NS DAILY 09/09/18 Reported Calcium Acetate 667 Mg Tablet 667 Mg PO TIDWMEALS 4/5/19 Reported Allopurinol 300 Mg Tablet 0.5 Tab PO DAILY 09/09/18 Reported Proair Respiclick (Albuterol Sulfate) 90 Mcg Aer.pow.ba 2 Puff IH PRN Q6HRS PRN 09/09/18 Reported Eliquis (Apixaban) 2.5 Mg Tablet 2.5 Mg PO BID 09/09/18 Reported Aspir-Low (Aspirin) 81 Mg Tablet.dr 1 Tab PO DAILY 05/24/18 Reported Amiodarone Hcl 200 Mg Tablet 1 Tab PO DAILY 05/24/18 Reported Vitamin D3 (Cholecalciferol (Vitamin D3)) 1,000 Unit Tablet 2 Tab PO DAILY 05/24/18 Reported Norvasc (Amlodipine Besylate) 10 Mg Tablet 10 Mg PO DAILY 05/24/18 Reported Bidil Tablet (Isosorb Dinit/Hydralazine Hcl) 1 Each Tablet 1 Each PO BID 05/24/18 Reported Calcitriol 0.25 Mcg Capsule 1 Cap PO DAILY 05/24/18 Reported Carvedilol 25 Mg Tablet 25 Mg PO BIDWMEALS 05/24/18 Reported Impression . MPRESSION: 1. Hemoptysis. 2. Acute exacerbation of chronic obstructive pulmonary disease. 3. Abnormal CT revealing bilateral lower lobe infiltrates. 4. Coronary artery disease. 5. Atrial fibrillation, on Eliquis. 6. Tobacco dependence, in remission. Plan . WILL CONTINUE THE SAME OK TO D/C SOON IF CONTINUES TO IMPROVE 1. Suspect hemoptysis is related to acute bronchitis and pneumonia. We will monitor for now. If it continues, I will proceed with a bronchoscopy. Otherwise, we will repeat CT chest in 8 weeks. 2. Continue current antibiotics. 3. Follow input from Infectious Disease. CAROLYN SALDANA MD Mar 20, 2019 10:09
--- NOTE | 2019-03-20 11:16 | PDOC ---
Infectious Disease Note Subjective Subjective pt is feeling better ROS ROS no n/v/d/sob Vital Sign Vital Signs Vital Signs Date Time Temp Pulse Resp B/P (MAP) Pulse Ox O2 Delivery O2 Flow Rate FiO2 03/20/19 07:20 97 Room Air 03/20/19 07:00 98.5 67 18 149/59 (89) 2.0 98.5 Physical Exam PHYSICAL EXAM GENERAL: The patient is propped up in bed, alert, appears comfortable. HEENT: Pupils equally round and reactive. Oropharynx pink and moist. No lesions. Dentures. NECK: Supple. LUNGS: Crackles in the bases bilaterally, left greater than right. Nonlabored. HEART: S1, S2. ABDOMEN: Soft, nontender with bowel sounds present. EXTREMITIES: No gross edema or cyanosis. SKIN: Warm to touch. No signs of rash. NEUROLOGIC: Alert and oriented x 3. Labs Lab Laboratory Tests Test 03/19/19 16:47 03/19/19 20:26 03/20/19 06:10 03/20/19 07:32 Glucose (Fingerstick) 109 mg/dL (70-99) 120 mg/dL (70-99) 80 mg/dL (70-99) Hemoglobin 7.5 g/dL (12.0-15.5) Sodium Level 141 mmol/L (136-145) Potassium Level 4.1 mmol/L (3.5-5.1) Chloride Level 101 mmol/L (98-107) Carbon Dioxide Level 26 mmol/L (21-32) Anion Gap 14 (6-14) Blood Urea Nitrogen 71 mg/dL (7-20) Creatinine 10.5 mg/dL (0.6-1.0) Estimated GFR (Cockcroft-Gault) 4.3 Glucose Level 85 mg/dL (70-99) Calcium Level 8.9 mg/dL (8.5-10.1) Phosphorus Level 8.1 mg/dL (2.6-4.7) Magnesium Level 1.7 mg/dL (1.8-2.4) Albumin 2.3 g/dL (3.4-5.0) Micro Microbiology 03/18/19 Blood Culture - Preliminary, Resulted NO GROWTH AFTER 1 DAY Objective Assessment 1. Bilateral pulmonary infiltrates, questionable pneumonia versus fluid. 2. Hemoptysis. 3. Chronic kidney disease, on hemodialysis via arteriovenous graft. 4. SULFA ALLERGY CAUSING SWELLING AND WELTS. 5. Paroxysmal atrial fibrillation, on amiodarone therapy. 6. Diabetes mellitus type 2. 7. Hypertension. Plan Plan of Care Zosyn for now Probiotics Pulmonary and cardiology consulted f/u BC Maintain aspiration precautions RINA ROGER MD Mar 20, 2019 11:16
[2019-03-20 14:38] VITALS: BP 146/64
[2019-03-20] MEDS: ASPIRIN ENTERIC COATED 81 MG TABLET.DR. PO SCH (14:41)
[2019-03-20] MEDS: hydrALAZINE 25 MG TABLET PO SCH ×2 (14:42→21:00)
[2019-03-20] MEDS: CHOLECALCIFEROL (VITAMIN D3) 1,000 UNIT TABLET PO SCH (14:42)
[2019-03-20] MEDS: LACTOBACILLUS RHAMNOSUS GG 1 CAPSULE. PO SCH ×2 (14:42→21:59)
[2019-03-20] MEDS: FERROUS SULFATE 325 MG TABLET. PO SCH (14:43)
[2019-03-20] MEDS: CALCITRIOL 0.25 MCG CAPSULE. PO SCH (14:43)
[2019-03-20] MEDS: ISOSORBIDE DINITRATE 10 MG TABLET. PO SCH ×2 (14:43→21:00)
[2019-03-20] MEDS: amLODIPine BESYLATE 10 MG TABLET PO SCH (14:44)
[2019-03-20] MEDS: ALLOPURINOL 300 MG TABLET. PO SCH (14:44)
[2019-03-20] MEDS: AMIODARONE HCL 200 MG TABLET. PO SCH (14:45)
[2019-03-20] MEDS ORDERED: ONDANSETRON PF 4 MG/2 ML VIAL. IVP PRN (15:45)
[2019-03-20 19:50] VITALS: BP 105/45
[2019-03-20 23:27] VITALS: BP 102/37
[2019-03-21 03:27] VITALS: BP 108/42
[2019-03-21 05:09] LABS: ALBUMIN 2.6 g/dL (3.4-5.0); CALCIUM 8.9 mg/dL (8.5-10.1); CREATININE 5.9 mg/dL (0.6-1.0); GFR 8.3; MAGNESIUM 1.9 mg/dL (1.8-2.4); PHOSPHORUS 5.7 mg/dL (2.6-4.7); POTASSIUM 4.6 mmol/L (3.5-5.1)
[2019-03-21] MEDS: PIPERACILLIN/TAZOBACTAM 2.25 GM in IV NORMAL SALINE 50ML 50 ML IV SCH (05:39)
[2019-03-21 07:00] VITALS: BP 110/47
[2019-03-21] MEDS ORDERED: IV NORMAL SALINE 1000ML BAG 1,000 ML IV PRN ×2 (07:42)
[2019-03-21] MEDS ORDERED: ACETAMINOPHEN 500 MG TABLET PO PRN (07:45)
[2019-03-21] MEDS ORDERED: diphenhydrAMINE 50 MG/ML VIAL IV PRN ×2 (07:45)
[2019-03-21] MEDS ORDERED: ALBUMIN HUMAN 25% 200 ML IV PRN (07:45)
[2019-03-21] MEDS ORDERED: DIALYSIS PATIENT. MC PRN ×2 (07:45)
[2019-03-21] MEDS: BUDESONIDE 0.5 MG/2 ML NEBU. NEB SCH (08:00)
[2019-03-21] MEDS: CALCIUM ACETATE 667 MG CAPSULE PO SCH ×3 (08:00→18:20)
[2019-03-21] MEDS: CARVEDILOL 12.5 MG TABLET. PO SCH ×2 (08:00→18:22)
[2019-03-21] MEDS: IPRATRPIUM/ALBUTEROL 0.5/2.5MG 3 ML NEBU. NEB SCH ×3 (08:00→15:20)
--- NOTE | 2019-03-21 08:48 | CARD ---
MR#: [id number] Date of Study: 03/20/2019 Ordering Physician: ZAY MCNEIL, Referring Physician: ZAY MCNEIL, Tech: Shoshana Bergman APPROVED REPORT EXAM: Two-dimensional and M-mode echocardiogram with Doppler and color Doppler. Other Information Quality : AverageHR: 76bpm INDICATION Atrial Fibrillation Cardiac Disease: CAD RISK FACTORS Hypertension Hyperlipidemia Diabetes 2D DIMENSIONS Left Atrium(2D)3.4 (1.6-4.0cm)IVSd1.3 (0.7-1.1cm) Aortic Root(2D)3.0 (2.0-3.7cm)LVDd5.3 (3.9-5.9cm) LVOT Diameter2.0 (1.8-2.4cm)PWd1.3 (0.7-1.1cm) LVDs2.6 (2.5-4.0cm)FS (%) 50.9 % SV112.0 mlLVEF(%)81.8 (>50%) Aortic Valve AoV Peak Rolf.270.9cm/sAoV VTI43.5cm AO Peak GR.29.4mmHgLVOT VTI 18.70cm AO Mean GR.16mmHgAI P 1/2 Fjoe168ky Mitral Valve MV E Ponjnhnq47.3cm/sMV DECEL [id number] MV A Mjbrsokx44.6cm/sE/A Ratio0.9 TDI Lateral E' P. V7.34cm/sMedial E' P. V5.66cm/s E/Lateral E'9.2E/Medial E'11.9 Tricuspid Valve TR P. Fbyhcayb244tl/sRAP FSANYNDI4wdRe TR Peak Gr.59ajNpLDJE78tpVw Pulmonary Vein S1 Aubjfrcx51.1cm/sS2 Nurezjmw62.49cm/s D2 Grybdbur91.5cm/sPVa fnetxzle433vlaw LEFT VENTRICLE The left ventricle is normal size. There is moderate concentric left ventricular hypertrophy. The lef t ventricular systolic function is normal. The Ejection Fraction is 65-70%. There is normal LV segmen maude wall motion. Transmitral Doppler flow pattern is Grade I-abnormal relaxation pattern. RIGHT VENTRICLE The right ventricle is normal size. There is normal right ventricular wall thickness. The right ventr icular systolic function is normal. ATRIA The left atrium is moderately dilated. The right atrium size is normal. The interatrial septum is int act with no evidence for an atrial septal defect or patent foramen ovale as noted on 2-D or Doppler i maging. AORTIC VALVE The aortic valve is normal in structure and function. Doppler and Color Flow revealed mild aortic reg urgitation. There is no significant aortic valvular stenosis. MITRAL VALVE The mitral valve is normal in structure and function. There is no evidence of mitral valve prolapse. There is no mitral valve stenosis. Doppler and Color Flow revealed no mitral valve regurgitation note d. TRICUSPID VALVE The tricuspid valve is not well visualized. Doppler and Color Flow revealed trace tricuspid regurgita tion with an estimated PAP of 31 mmHg. There is no tricuspid valve stenosis. PULMONIC VALVE The pulmonic valve is not well visualized. Doppler and Color Flow revealed no pulmonic valvular regur gitation. GREAT VESSELS The aortic root is normal in size. The IVC is normal in size and collapses >50% with inspiration. PERICARDIAL EFFUSION There is no evidence of significant pericardial effusion. Critical Notification Critical Value: No <Conclusion> The left ventricular systolic function is normal. The Ejection Fraction is 65-70%. There is normal LV segmental wall motion. Transmitral Doppler flow pattern is Grade I-abnormal relaxation pattern. The left atrium is moderately dilated. Mild aortic regurgitation. Trace tricuspid regurgitation with an estimated PAP of 31 mmHg. There is no evidence of significant pericardial effusion. Signed by : Tanner Garcia, Electronically Approved : 03/21/2019 08:48:12
[2019-03-21] MEDS: hydrALAZINE 25 MG TABLET PO SCH (09:00)
[2019-03-21] MEDS: ISOSORBIDE DINITRATE 10 MG TABLET. PO SCH (09:00)
[2019-03-21] MEDS ORDERED: LABETALOL 20 MG/4 ML DISP.SYRIN. IVP PRN (09:15)
[2019-03-21] MEDS ORDERED: HYDROcodone/APAP 5/325MG 1 TAB TABLET PO PRN (09:15)
[2019-03-21 09:26] LABS: HEMATOCRIT 27.6 % (36.0-47.0); HEMOGLOBIN 8.9 g/dL (12.0-15.5)
--- NOTE | 2019-03-21 10:44 | PDOC ---
Infectious Disease Note Subjective Subjective pt is feeling better ROS ROS no n/v/d/sob Vital Sign Vital Signs Vital Signs Date Time Temp Pulse Resp B/P (MAP) Pulse Ox O2 Delivery O2 Flow Rate FiO2 03/21/19 08:30 Room Air 2.0 03/21/19 07:00 98.9 68 16 110/47 (68) 90 98.9 Physical Exam PHYSICAL EXAM GENERAL: The patient is propped up in bed, alert, appears comfortable. HEENT: Pupils equally round and reactive. Oropharynx pink and moist. No lesions. Dentures. NECK: Supple. LUNGS: Crackles in the bases bilaterally, left greater than right. Nonlabored. HEART: S1, S2. ABDOMEN: Soft, nontender with bowel sounds present. EXTREMITIES: No gross edema or cyanosis. SKIN: Warm to touch. No signs of rash. NEUROLOGIC: Alert and oriented x 3. Labs Lab Laboratory Tests Test 03/20/19 17:10 03/20/19 21:00 03/21/19 04:00 03/21/19 07:39 Glucose (Fingerstick) 124 mg/dL (70-99) 107 mg/dL (70-99) 89 mg/dL (70-99) Hemoglobin 8.9 g/dL (12.0-15.5) Hematocrit 27.6 % (36.0-47.0) Mean Corpuscular Hemoglobin Concent 32 g/dL (31-37) Sodium Level 142 mmol/L (136-145) Potassium Level 4.6 mmol/L (3.5-5.1) Chloride Level 101 mmol/L (98-107) Carbon Dioxide Level 31 mmol/L (21-32) Anion Gap 10 (6-14) Blood Urea Nitrogen 29 mg/dL (7-20) Creatinine 5.9 mg/dL (0.6-1.0) Estimated GFR (Cockcroft-Gault) 8.3 Glucose Level 81 mg/dL (70-99) Calcium Level 8.9 mg/dL (8.5-10.1) Phosphorus Level 5.7 mg/dL (2.6-4.7) Magnesium Level 1.9 mg/dL (1.8-2.4) Albumin 2.6 g/dL (3.4-5.0) Micro Microbiology 03/18/19 Blood Culture - Preliminary, Resulted NO GROWTH AFTER 1 DAY Objective Assessment 1. Bilateral pulmonary infiltrates, questionable pneumonia versus fluid. 2. Hemoptysis. 3. Chronic kidney disease, on hemodialysis via arteriovenous graft. 4. SULFA ALLERGY CAUSING SWELLING AND WELTS. 5. Paroxysmal atrial fibrillation, on amiodarone therapy. 6. Diabetes mellitus type 2. 7. Hypertension. Plan Plan of Care change Zosyn to po augmentin Probiotics f/u BC Maintain aspiration precautions RINA ROGER MD Mar 21, 2019 10:44
--- NOTE | 2019-03-21 11:57 | PDOC ---
SUBJECTIVE ROS Seen on HD, tolerating well, denies any complaints OBJECTIVE Vital Signs Vital Signs Date Time Temp Pulse Resp B/P (MAP) Pulse Ox O2 Delivery O2 Flow Rate FiO2 03/21/19 08:30 Room Air 2.0 03/21/19 07:00 98.9 68 16 110/47 (68) 90 98.9 I & 0 Intake and Output 03/21/19 06:59 Intake Total 310 ml Output Total 0 ml Balance 310 ml Intake Oral 310 ml Output Urine Total 0 ml # Voids 2 PHYSICAL EXAM Physical Exam GEN.: No apparent distress. HEENT: OM moist NECK: Supple. LUNGS: Clear to auscultation. HEART: RRR, S1, S2 present. Peripheral pulses intact ABDOMEN: Soft, nontender. EXTREMITIES: Without any cyanosis or edema NEUROLOGIC: Grossly normal PSYCHIATRIC: Normal affect, normal mood. SKIN: No ulcerations DIAGNOSIS/ASSESSMENT Assessment & Plan ESRD: TTS Seen on HD, tolerating well, continue as ordered, Edward Maya Hemoptysis -acute bronchitis and pneumonia per Pulm Resolved per patient Anemia- On GERDA HTN:Current BP meds CAD - PCI to the RCA in September 2018 Normal ejection fraction on stress testing in October 2018 at paroxysmal atrial fibrillation DM COMMENT/RELEVANT DATA Meds Current Medications Medications (Trade) Dose Ordered Sig/Nguyễn Start Time Stop Time Status Last Admin Dose Admin Acetaminophen (Tylenol) 500 mg 1X PRN PRN 03/21/19 07:45 03/22/19 07:44 Acetaminophen/ Hydrocodone Bitart (Lortab 5/325) 1 tab PRN Q4HRS PRN 03/21/19 09:15 Acetaminophen/ Hydrocodone Bitart (Lortab 7.5/325) 1 tab PRN Q6HRS PRN 03/18/19 13:30 03/19/19 13:08 1 TAB Albumin Human 200 ml @ 200 mls/hr 1X PRN PRN 03/21/19 07:45 03/21/19 13:44 Albuterol Sulfate (Ventolin Neb Soln) 2.5 mg PRN Q6HRS PRN 03/19/19 13:00 Albuterol/ Ipratropium (Duoneb) 3 ml RTQID 03/19/19 08:00 03/20/19 19:27 3 ML Allopurinol (Zyloprim) 150 mg DAILY 03/19/19 09:00 03/20/19 14:44 150 MG Amiodarone HCl (Cordarone) 200 mg DAILY 03/19/19 09:00 03/20/19 14:45 200 MG Amlodipine Besylate (Norvasc) 10 mg DAILY 03/19/19 09:00 03/20/19 14:44 10 MG Amoxicillin/ Clavulanate Potassium (Augmentin 500/ 125mg) 1 tab BID 03/21/19 21:00 Apixaban (Eliquis) 2.5 mg BID 03/19/19 13:00 03/19/19 16:12 DC 03/19/19 13:58 2.5 MG Aspirin (Ecotrin) 81 mg DAILY 03/19/19 09:00 03/20/19 14:41 81 MG Budesonide (Pulmicort) 0.5 mg RTBID 03/18/19 20:00 03/20/19 19:27 0.5 MG Calcitriol (Rocaltrol) 0.25 mcg DAILY 03/19/19 09:00 03/20/19 14:43 0.25 MCG Calcium Acetate (Phoslo) 667 mg TIDWMEALS 03/18/19 17:00 03/20/19 18:14 667 MG Carvedilol (Coreg) 25 mg BIDWMEALS 03/18/19 17:00 03/20/19 18:14 25 MG Darbepoetin Yair (ARANESP for DIALYSIS PTS) 60 mcg WEEKLYHS 03/19/19 21:00 03/19/19 21:10 60 MCG Diphenhydramine HCl (Benadryl) 25 mg 1X PRN PRN 03/21/19 07:45 03/22/19 07:44 Docusate Sodium (Colace) 100 mg PRN BID PRN 03/18/19 13:15 Ferrous Sulfate (Feosol) 325 mg DAILYWBKFT 03/19/19 08:00 03/20/19 14:43 325 MG Fluticasone Propionate (Flonase) 2 spray DAILY 03/19/19 09:00 03/20/19 09:03 2 SPRAY Furosemide (Lasix) 40 mg PRN DAILY PRN 03/18/19 13:30 Guaifenesin (Robitussin) 200 mg PRN Q4HRS PRN 03/18/19 13:15 Hydralazine HCl (Apresoline) 37.5 mg BID 03/18/19 21:00 03/20/19 14:42 37.5 MG Info (PHARMACY MONITORING -- do not chart) 1 each PRN DAILY PRN 03/21/19 07:45 Isosorbide Dinitrate (Isordil) 20 mg BID 03/18/19 21:00 03/20/19 14:43 20 MG Labetalol HCl (Normodyne Iv Push) 10 mg PRN Q2HR PRN 03/21/19 09:15 Lactobacillus Rhamnosus (Culturelle) 1 cap DAILY 03/19/19 09:00 03/20/19 21:59 1 CAP Lorazepam (Ativan) 0.5 mg PRN Q4HRS PRN 03/18/19 13:15 Magnesium Sulfate 50 ml @ 25 mls/hr PRN DAILY PRN 03/19/19 13:15 Morphine Sulfate (Morphine Sulfate) 2 mg PRN Q2HR PRN 03/18/19 13:15 03/19/19 13:14 DC Ondansetron HCl (Zofran) 4 mg PRN Q4HRS PRN 03/20/19 15:45 03/20/19 15:39 4 MG Piperacillin Sod/ Tazobactam Sod (Zosyn Per Pharmacy) 1 each PRN DAILY PRN 03/18/19 15:00 Piperacillin Sod/ Tazobactam Sod 2.25 gm/Sodium Chloride 50 ml @ 100 mls/hr Q8HRS 03/18/19 15:00 03/21/19 10:45 DC 03/21/19 05:39 100 MLS/HR Sodium Chloride 1,000 ml @ 400 mls/hr Q2H30M PRN 03/21/19 07:42 03/21/19 19:41 Sodium Chloride (Normal Saline Flush) 3 ml QSHIFT PRN 03/18/19 13:15 Vitamin D (Vitamin D3) 2,000 unit DAILY 03/19/19 09:00 03/20/19 14:42 2,000 UNIT Lab Laboratory Tests Test 03/20/19 17:10 03/20/19 21:00 03/21/19 04:00 03/21/19 07:39 Glucose (Fingerstick) 124 mg/dL (70-99) 107 mg/dL (70-99) 89 mg/dL (70-99) Hemoglobin 8.9 g/dL (12.0-15.5) Hematocrit 27.6 % (36.0-47.0) Mean Corpuscular Hemoglobin Concent 32 g/dL (31-37) Sodium Level 142 mmol/L (136-145) Potassium Level 4.6 mmol/L (3.5-5.1) Chloride Level 101 mmol/L (98-107) Carbon Dioxide Level 31 mmol/L (21-32) Anion Gap 10 (6-14) Blood Urea Nitrogen 29 mg/dL (7-20) Creatinine 5.9 mg/dL (0.6-1.0) Estimated GFR (Cockcroft-Gault) 8.3 Glucose Level 81 mg/dL (70-99) Calcium Level 8.9 mg/dL (8.5-10.1) Phosphorus Level 5.7 mg/dL (2.6-4.7) Magnesium Level 1.9 mg/dL (1.8-2.4) Albumin 2.6 g/dL (3.4-5.0) Results All relevant outside records, renal labs, imaging studies, telemetry/EKG's were reviewed. NIKKI PUGA MD Mar 21, 2019 11:57
[2019-03-21] MEDS ORDERED: AMOX1TAB10 PO (12:41)
--- NOTE | 2019-03-21 12:43 | SNU/HH DC ---
DISCHARGE WITH HOME HEALTH DISCHARGE INFORMATION: Discharge Date: Mar 21, 2019 Final Diagnosis: Problems Medical Problems: (1) End stage renal disease Status: Acute (2) Generalized weakness Status: Acute (3) Syncope Status: Acute Condition on Discharge: Stable CODE STATUS: Code Status: Full HOME HEALTH: Face to Face: I certify this patient is under my care and that I, or a nurse practitioner or physician's physician assistant psychiatry working with me, had a face to face encounter that meets the physician face to face encounter requirements with this patient on []. RN For Eval/Treatment: Yes Physical Therapy For: Evalulation/Treatment Occupational Therapy For: Evaluation/Treatment Speech Language Pathology For: Evaluation/Treatment INVESTMENT SALES ASSISTANT For: Community Resources Pt Meets Homebound Status: Extreme weakness w/ amb. POST DISCHARGE ORDERS: Activity Instructions for Disc: Activity as tolerated Weight Bearing Status after Di: As tolerated Bathing Instructions: Shower-keep dressing dry DIET AFTER DISCHARGE: Renal CHECKS AFTER DISCHARGE: Checks after discharge: Check blood press - daily FOLLOW-UP: PCP to follow Home Health: wof hypotension - BOP meds with holding parameters. We would advise cont plavix, eliquis, but can hold if recurrence of hemoptysis - it was not massive though TREATMENT/EQUIPMENT ORDERS: Adaptive Equipment Issued: Cane CERTIFICATION STATEMENT: Certification Statement: Certification Statement: Based on the above finding, I certify that this patient is confined to the home and needs intermittent usp care, physical therapy and/or speech therapy, or continues to need occupational therapy.~ This patient is under my care, and I have initiated the establishment of the plan of care.~ This patient will be followed by myself or a community physician who will periodically review the plan of care. Home Meds Active Scripts Amoxicillin/Potassium Clav (AMOX TR-K CLV 500-125 MG TAB) 1 Each Tablet, 1 TAB PO BID for infection, #14 TAB Prov:ALMAZ MOBLEY MD 03/21/19 Reported Medications Lactobacillus Acidophilus (ACIDOPHILUS) 1 Each Capsule, 1 EACH PO DAILY for STOMACH SUPPLEMENT, CAP 09/09/18 Hydrocodone Bit/Acetaminophen (HYDROCODONE-APAP 7.5-325 ) 1 Tab Tablet, 1 TAB PO PRN Q6HRS PRN for PAIN, TAB 0 Refills 09/09/18 Furosemide (LASIX) 40 Mg Tablet, 1 TAB PO PRN DAILY PRN for SWELLING, #90 TAB 1 Refill 09/09/18 Fluticasone/Salmeterol (ADVAIR 250-50 DISKUS) 1 Each Disk.w.dev, 1 PUFF IH BID for ASTHMA/COPD, #3 INHALER 3 Refills 09/09/18 Ferrous Gluconate (FERROUS GLUCONATE) 240 Mg Tablet, 240 MG PO DAILY for SUPPLEMENT, TAB 09/09/18 Fluticasone Propionate (FLUTICASONE PROPIONATE NASAL SPRAY) 16 Gm [place].susp, 2 SPRAY NS DAILY for SINUS PROBLEM, #1 INHALER 11 Refills 09/09/18 Calcium Acetate (CALCIUM ACETATE) 667 Mg Tablet, 667 MG PO TIDWMEALS for DIALYSIS PATIENTS, CAP 09/09/18 Allopurinol (ALLOPURINOL) 300 Mg Tablet, 0.5 TAB PO DAILY for ARTHRITIS, #30 TAB 5 Refills 09/09/18 Albuterol Sulfate (Proair Respiclick) 90 Mcg Aer.pow.ba, 2 PUFF IH PRN Q6HRS PRN for SOB/WHEEZING, INHALER 09/09/18 Aspirin (ASPIR-LOW) 81 Mg Tablet.dr, 1 TAB PO DAILY for blood thinner, #30 TAB 3 Refills 05/24/18 Amiodarone Hcl (AMIODARONE HCL) 200 Mg Tablet, 1 TAB PO DAILY for heart, #90 TAB 1 Refill 05/24/18 Cholecalciferol (Vitamin D3) (VITAMIN D3) 1,000 Unit Tablet, 2 TAB PO DAILY for supplement, #30 TAB 5 Refills 05/24/18 Amlodipine Besylate (NORVASC) 10 Mg Tablet, 10 MG PO DAILY for htn, TAB 05/24/18 Isosorb Dinit/Hydralazine Hcl (BIDIL TABLET) 1 Each Tablet, 1 EACH PO BID for htn, TAB 05/24/18 Calcitriol (CALCITRIOL) 0.25 Mcg Capsule, 1 CAP PO DAILY for kidneys, #30 CAP 5 Refills 05/24/18 Carvedilol (CARVEDILOL) 25 Mg Tablet, 25 MG PO BIDWMEALS for CARDIAC, TAB 05/24/18 Discontinued Reported Medications Apixaban (ELIQUIS) 2.5 Mg Tablet, 2.5 MG PO BID for BLOOD THINNER, TAB 09/09/18 ALMAZ MOBLEY MD Mar 21, 2019 12:43
--- NOTE | 2019-03-21 12:46 | PDOC3 ---
Discharge Summary Visit Information Date of Admission: Mar 18, 2019 Date of Discharge: Mar 21, 2019 Admitting Diagnosis Comment: 1. Hemoptysis with underlying history of anemia and on anticoagulation due to paroxysmal atrial fibrillation esrd on HD AOCD Final Diagnosis Problems Medical Problems: (1) End stage renal disease Status: Acute (2) Generalized weakness Status: Acute (3) Syncope Status: Acute Brief Hospital Course Allergies Allergies Coded Allergies Type Severity Reaction Last Updated Verified Sulfa (Sulfonamide Antibiotics) Allergy Intermediate Swelling 09/12/18 Yes Vital Signs Vital Signs Date Time Temp Pulse Resp B/P (MAP) Pulse Ox O2 Delivery O2 Flow Rate FiO2 03/21/19 08:30 Room Air 2.0 03/21/19 07:00 98.9 68 16 110/47 (68) 90 98.9 Lab Results Laboratory Tests Test 03/19/19 16:47 03/19/19 20:26 03/20/19 06:10 03/20/19 07:32 Glucose (Fingerstick) 109 mg/dL (70-99) 120 mg/dL (70-99) 80 mg/dL (70-99) Hemoglobin 7.5 g/dL (12.0-15.5) Sodium Level 141 mmol/L (136-145) Potassium Level 4.1 mmol/L (3.5-5.1) Chloride Level 101 mmol/L (98-107) Carbon Dioxide Level 26 mmol/L (21-32) Anion Gap 14 (6-14) Blood Urea Nitrogen 71 mg/dL (7-20) Creatinine 10.5 mg/dL (0.6-1.0) Estimated GFR (Cockcroft-Gault) 4.3 Glucose Level 85 mg/dL (70-99) Calcium Level 8.9 mg/dL (8.5-10.1) Phosphorus Level 8.1 mg/dL (2.6-4.7) Magnesium Level 1.7 mg/dL (1.8-2.4) Albumin 2.3 g/dL (3.4-5.0) Test 03/20/19 17:10 03/20/19 21:00 03/21/19 04:00 03/21/19 07:39 Glucose (Fingerstick) 124 mg/dL (70-99) 107 mg/dL (70-99) 89 mg/dL (70-99) Hemoglobin 8.9 g/dL (12.0-15.5) Hematocrit 27.6 % (36.0-47.0) Mean Corpuscular Hemoglobin Concent 32 g/dL (31-37) Sodium Level 142 mmol/L (136-145) Potassium Level 4.6 mmol/L (3.5-5.1) Chloride Level 101 mmol/L (98-107) Carbon Dioxide Level 31 mmol/L (21-32) Anion Gap 10 (6-14) Blood Urea Nitrogen 29 mg/dL (7-20) Creatinine 5.9 mg/dL (0.6-1.0) Estimated GFR (Cockcroft-Gault) 8.3 Glucose Level 81 mg/dL (70-99) Calcium Level 8.9 mg/dL (8.5-10.1) Phosphorus Level 5.7 mg/dL (2.6-4.7) Magnesium Level 1.9 mg/dL (1.8-2.4) Albumin 2.6 g/dL (3.4-5.0) Laboratory Tests Test 03/20/19 17:10 03/20/19 21:00 03/21/19 04:00 03/21/19 07:39 Glucose (Fingerstick) 124 mg/dL (70-99) 107 mg/dL (70-99) 89 mg/dL (70-99) Hemoglobin 8.9 g/dL (12.0-15.5) Hematocrit 27.6 % (36.0-47.0) Mean Corpuscular Hemoglobin Concent 32 g/dL (31-37) Sodium Level 142 mmol/L (136-145) Potassium Level 4.6 mmol/L (3.5-5.1) Chloride Level 101 mmol/L (98-107) Carbon Dioxide Level 31 mmol/L (21-32) Anion Gap 10 (6-14) Blood Urea Nitrogen 29 mg/dL (7-20) Creatinine 5.9 mg/dL (0.6-1.0) Estimated GFR (Cockcroft-Gault) 8.3 Glucose Level 81 mg/dL (70-99) Calcium Level 8.9 mg/dL (8.5-10.1) Phosphorus Level 5.7 mg/dL (2.6-4.7) Magnesium Level 1.9 mg/dL (1.8-2.4) Albumin 2.6 g/dL (3.4-5.0) Brief Hospital Course Ms. Lundy is a 79 old [sex] who presented with hemoptysis, she is on eliquis and asa for p afib, HEmoptysis resolved with no need for any massive intervention, CARds recs to cont OAC of course if no more bleeding And that is what i just did/.advsied her, She needs HH and we have arranged for that. 1 day prior to dc, some lowish BP that resolved on its own, can give BP meds with witholding parameters Also cleared by ID and shifted to Po abx Home today with HH Rpt hgb 8 today on dc (Was going down) Discharge Information Condition at Discharge: Improved, Stable Disposition/Orders: D/C to Home w/ HH Scheduled Allopurinol (Allopurinol) 300 Mg Tablet, 0.5 TAB PO DAILY for ARTHRITIS, #30 Ref 5 (Reported) Entered as Reported by: JEAN MARIE LONGORIA on 09/09/184 Last Action: Continued on 03/18/191318 by ZAY MCNEIL MD Amiodarone Hcl (Amiodarone Hcl) 200 Mg Tablet, 1 TAB PO DAILY for heart, #90 Ref 1 (Reported) Entered as Reported by: Maxine Harrison on 05/24/182232 Last Action: Continued on 03/18/191318 by ZAY MCNEIL MD Amlodipine Besylate (Norvasc) 10 Mg Tablet, 10 MG PO DAILY for htn, (Reported) Entered as Reported by: Maxine Harrison on 05/24/182232 Last Action: Continued on 03/18/191318 by ZAY MCNEIL MD Amoxicillin/Potassium Clav (Amox Tr-K Clv 500-125 Mg Tab) 1 Each Tablet, 1 TAB PO BID for infection, #14 Prescribed by: ALMAZ MOBLEY on 03/21/19 1241 Aspirin (Aspir-Low) 81 Mg Tablet.dr, 1 TAB PO DAILY for blood thinner, #30 Ref 3 (Reported) Entered as Reported by: Maxine Harrison on 05/24/182232 Last Action: Continued on 03/18/191318 by ZAY MCNEIL MD Calcitriol (Calcitriol) 0.25 Mcg Capsule, 1 CAP PO DAILY for kidneys, #30 Ref 5 (Reported) Entered as Reported by: Maxine Harrison on 05/24/182232 Last Action: Continued on 03/18/191318 by ZAY MCNEIL MD Calcium Acetate (Calcium Acetate) 667 Mg Tablet, 667 MG PO TIDWMEALS for DIALYSIS PATIENTS, (Reported) Entered as Reported by: JEAN MARIE LONGORIA on 09/09/181723 Last Action: Converted on 03/18/191318 by ZAY MCNEIL MD Carvedilol (Carvedilol) 25 Mg Tablet, 25 MG PO BIDWMEALS for CARDIAC, (Reported) Entered as Reported by: Maxine Harrison on 05/24/182232 Last Action: Converted on 03/18/191318 by ZAY MCNEIL MD Cholecalciferol (Vitamin D3) (Vitamin D3) 1,000 Unit Tablet, 2 TAB PO DAILY for supplement, #30 Ref 5 (Reported) Entered as Reported by: Maxine Harrison on 05/24/182232 Last Action: Continued on 03/18/191318 by ZAY MCNEIL MD Ferrous Gluconate (Ferrous Gluconate) 240 Mg Tablet, 240 MG PO DAILY for SUPPLEMENT, (Reported) Entered as Reported by: JEAN MARIE LONGORIA on 09/09/181727 Last Action: Converted on 03/18/191318 by ZAY MCNEIL MD Fluticasone Propionate (Fluticasone Propionate Nasal [place]) 16 Gm [place].susp, 2 SPRAY NS DAILY for SINUS PROBLEM, #1 Ref 11 (Reported) Entered as Reported by: JEAN MARIE LONGORIA on 09/09/181725 Last Action: Continued on 03/18/191318 by ZAY MCNEIL MD Fluticasone/Salmeterol (Advair 250-50 Diskus) 1 Each Disk.w.dev, 1 PUFF IH BID for ASTHMA/COPD, #3 Ref 3 (Reported) Entered as Reported by: JEAN MARIE LONGORIA on 09/09/181728 Last Action: Converted on 03/18/191318 by ZAY MCNEIL MD Isosorb Dinit/Hydralazine Hcl (Bidil Tablet) 1 Each Tablet, 1 EACH PO BID for htn, (Reported) Entered as Reported by: Maxine Harrison on 05/24/182232 Last Action: Converted on 03/18/191318 by ZAY MCNEIL MD Lactobacillus Acidophilus (Acidophilus) 1 Each Capsule, 1 EACH PO DAILY for STOMACH SUPPLEMENT, (Reported) Entered as Reported by: JEAN MARIE LONGORIA on 09/09/181731 Last Action: Converted on 03/18/191318 by ZAY MCNEIL MD Scheduled PRN Albuterol Sulfate (Proair Respiclick) 90 Mcg Aer.pow.ba, 2 PUFF IH PRN Q6HRS PRN for SOB/WHEEZING, (Reported) Entered as Reported by: JEAN MARIE LONGORIA on 09/09/181721 Last Action: Converted on 03/19/191255 by ZAY MCNEIL MD Furosemide (Lasix) 40 Mg Tablet, 1 TAB PO PRN DAILY PRN for SWELLING, #90 Ref 1 (Reported) Entered as Reported by: JEAN MARIE LONGORIA on 09/09/181728 Last Action: Continued on 03/18/191318 by ZAY MCNEIL MD Hydrocodone Bit/Acetaminophen (Hydrocodone-Apap 7.5-325 ) 1 Tab Tablet, 1 TAB PO PRN Q6HRS PRN for PAIN, Ref 0 (Reported) Entered as Reported by: JEAN MARIE LONGORIA on 09/09/181729 Last Action: Continued on 03/18/191318 by ZAY MCNEIL MD Discontinued Medications Apixaban (Eliquis) 2.5 Mg Tablet, 2.5 MG PO BID for BLOOD THINNER, (Reported) Entered as Reported by: JEAN MARIE LONGORIA on 09/09/181720 Last Action: Continued on 03/19/191255 by MD ITZ MURGUIA CHERRIE Y MD Mar 21, 2019 12:46
[2019-03-21] MEDS: FLUTICASONE 50MCG/NASAL SPRAY 16GM BOTTLE. NS SCH (13:33)
[2019-03-21] MEDS: CHOLECALCIFEROL (VITAMIN D3) 1,000 UNIT TABLET PO SCH (13:33)
[2019-03-21] MEDS: ASPIRIN ENTERIC COATED 81 MG TABLET.DR. PO SCH (13:33)
[2019-03-21] MEDS: FERROUS SULFATE 325 MG TABLET. PO SCH (13:33)
[2019-03-21] MEDS: amLODIPine BESYLATE 10 MG TABLET PO SCH (13:35)
[2019-03-21] MEDS: AMIODARONE HCL 200 MG TABLET. PO SCH (13:35)
[2019-03-21] MEDS: ALLOPURINOL 300 MG TABLET. PO SCH (13:35)
[2019-03-21] MEDS: CALCITRIOL 0.25 MCG CAPSULE. PO SCH (13:37)
[2019-03-21] MEDS: HYDROcodone/APAP 7.5/325MG 1 TAB TABLET PO PRN (13:42)
[2019-03-21 13:55] VITALS: BP 131/46
[2019-03-21 15:00] VITALS: BP 129/47
--- NOTE | 2019-03-21 15:04 | NUR ---
SW following pt for dc planning. Chart reviewed and discussed with RN. Pt lives at home and goes to [facility] on [facility], phone: [phone], fax: [phone]. PITO notified clinic pt is discharging today. Pt reported she had used [facility] and would like to use them again. DC environmental restoration planner will send clinicals/orders to [facility] and [facility] dialysis clinic. PITO left a voice mail to zIabella at [facility].
--- NOTE | 2019-03-21 15:58 | NUR ---
Discharge instructions given to patient regarding medications. Education given over weakness and ESRD. Pt informed that [facility] will be contacting her in the next few days. Pt verbalizes understanding.
--- NOTE | 2019-03-21 16:30 | PDOC ---
PULMONARY PROGRESS NOTES Subjective PT WITH NO FURTHER HEMOPTYSIS Vitals Vital Signs Date Time Temp Pulse Resp B/P (MAP) Pulse Ox O2 Delivery O2 Flow Rate FiO2 03/21/19 15:21 95 Room Air 03/21/19 13:55 98.8 72 18 131/46 (74) 98.8 03/21/19 08:30 2.0 ROS: No Nausea, No Chest Pain, No Abdominal Pain, No Increase Cough General: Alert Lungs: Clear, Crackles Cardiovascular: S1 Abdomen: Soft Neuro Exam: Alert Extremities: No Edema Skin: Warm Labs Laboratory Tests Test 03/19/19 16:47 03/19/19 20:26 03/20/19 06:10 03/20/19 07:32 Glucose (Fingerstick) 109 mg/dL (70-99) 120 mg/dL (70-99) 80 mg/dL (70-99) Hemoglobin 7.5 g/dL (12.0-15.5) Sodium Level 141 mmol/L (136-145) Potassium Level 4.1 mmol/L (3.5-5.1) Chloride Level 101 mmol/L (98-107) Carbon Dioxide Level 26 mmol/L (21-32) Anion Gap 14 (6-14) Blood Urea Nitrogen 71 mg/dL (7-20) Creatinine 10.5 mg/dL (0.6-1.0) Estimated GFR (Cockcroft-Gault) 4.3 Glucose Level 85 mg/dL (70-99) Calcium Level 8.9 mg/dL (8.5-10.1) Phosphorus Level 8.1 mg/dL (2.6-4.7) Magnesium Level 1.7 mg/dL (1.8-2.4) Albumin 2.3 g/dL (3.4-5.0) Test 03/20/19 17:10 03/20/19 21:00 03/21/19 04:00 03/21/19 07:39 Glucose (Fingerstick) 124 mg/dL (70-99) 107 mg/dL (70-99) 89 mg/dL (70-99) Hemoglobin 8.9 g/dL (12.0-15.5) Hematocrit 27.6 % (36.0-47.0) Mean Corpuscular Hemoglobin Concent 32 g/dL (31-37) Sodium Level 142 mmol/L (136-145) Potassium Level 4.6 mmol/L (3.5-5.1) Chloride Level 101 mmol/L (98-107) Carbon Dioxide Level 31 mmol/L (21-32) Anion Gap 10 (6-14) Blood Urea Nitrogen 29 mg/dL (7-20) Creatinine 5.9 mg/dL (0.6-1.0) Estimated GFR (Cockcroft-Gault) 8.3 Glucose Level 81 mg/dL (70-99) Calcium Level 8.9 mg/dL (8.5-10.1) Phosphorus Level 5.7 mg/dL (2.6-4.7) Magnesium Level 1.9 mg/dL (1.8-2.4) Albumin 2.6 g/dL (3.4-5.0) Test 03/21/19 15:51 Glucose (Fingerstick) 157 mg/dL (70-99) Laboratory Tests Test 03/20/19 17:10 03/20/19 21:00 03/21/19 04:00 03/21/19 07:39 Glucose (Fingerstick) 124 mg/dL (70-99) 107 mg/dL (70-99) 89 mg/dL (70-99) Hemoglobin 8.9 g/dL (12.0-15.5) Hematocrit 27.6 % (36.0-47.0) Mean Corpuscular Hemoglobin Concent 32 g/dL (31-37) Sodium Level 142 mmol/L (136-145) Potassium Level 4.6 mmol/L (3.5-5.1) Chloride Level 101 mmol/L (98-107) Carbon Dioxide Level 31 mmol/L (21-32) Anion Gap 10 (6-14) Blood Urea Nitrogen 29 mg/dL (7-20) Creatinine 5.9 mg/dL (0.6-1.0) Estimated GFR (Cockcroft-Gault) 8.3 Glucose Level 81 mg/dL (70-99) Calcium Level 8.9 mg/dL (8.5-10.1) Phosphorus Level 5.7 mg/dL (2.6-4.7) Magnesium Level 1.9 mg/dL (1.8-2.4) Albumin 2.6 g/dL (3.4-5.0) Test 03/21/19 15:51 Glucose (Fingerstick) 157 mg/dL (70-99) Medications Active Scripts Medications Dose Route/Sig Max Daily Dose Days Date Category Acidophilus (Lactobacillus Acidophilus) 1 Each Capsule 1 Each PO DAILY 09/09/18 Reported Hydrocodone-Apap 7.5-325 (Hydrocodone Bit/Acetaminophen) 1 Tab Tablet 1 Tab PO PRN Q6HRS PRN 09/09/18 Reported Lasix (Furosemide) 40 Mg Tablet 1 Tab PO PRN DAILY PRN 09/09/18 Reported Advair 250-50 Diskus (Fluticasone/Salmeterol) 1 Each Disk.w.dev 1 Puff IH BID 09/09/18 Reported Ferrous Gluconate 240 Mg Tablet 240 Mg PO DAILY 09/09/18 Reported Fluticasone Propionate Nasal [place] (Fluticasone Propionate) 16 Gm [place].susp 2 [place] NS DAILY 09/09/18 Reported Calcium Acetate 667 Mg Tablet 667 Mg PO TIDWMEALS 09/09/18 Reported Allopurinol 300 Mg Tablet 0.5 Tab PO DAILY 09/09/18 Reported Proair Respiclick (Albuterol Sulfate) 90 Mcg Aer.pow.ba 2 Puff IH PRN Q6HRS PRN 09/09/18 Reported Eliquis (Apixaban) 2.5 Mg Tablet 2.5 Mg PO BID 09/09/18 Reported Aspir-Low (Aspirin) 81 Mg Tablet.dr 1 Tab PO DAILY 05/24/18 Reported Amiodarone Hcl 200 Mg Tablet 1 Tab PO DAILY 05/24/18 Reported Vitamin D3 (Cholecalciferol (Vitamin D3)) 1,000 Unit Tablet 2 Tab PO DAILY 05/24/18 Reported Norvasc (Amlodipine Besylate) 10 Mg Tablet 10 Mg PO DAILY 05/24/18 Reported Bidil Tablet (Isosorb Dinit/Hydralazine Hcl) 1 Each Tablet 1 Each PO BID 05/24/18 Reported Calcitriol 0.25 Mcg Capsule 1 Cap PO DAILY 05/24/18 Reported Carvedilol 25 Mg Tablet 25 Mg PO BIDWMEALS 05/24/18 Reported Impression . MPRESSION: 1. Hemoptysis. 2. Acute exacerbation of chronic obstructive pulmonary disease. 3. Abnormal CT revealing bilateral lower lobe infiltrates. 4. Coronary artery disease. 5. Atrial fibrillation, on Eliquis. 6. Tobacco dependence, in remission. Plan . DC TODAY FOLLOW UP WITH ME IN CAROLYN BRAUN MD Mar 21, 2019 16:29
[2019-03-21 18:22] VITALS: BP 129/47
--- NOTE | 2019-03-21 19:14 | NUR ---
Pt was escorted via wheelchair to main entrance by Roslyn ALEXANDER. Picked up via family in private vehicle.
[2019-03-21] MEDS ORDERED: AMOXICILLIN/K CLAV 500/125MG TABLET. PO SCH (21:00)
== END 2019-03-21 19:06 | disposition home health service (06) | DRG 177 ==
LOC: ER 10:16 → 6 SOUTH 12:35
PROVIDERS: ADMIT Family Medicine; ATTEND Family Medicine
PROC: 5A1D70Z Performance of Urinary Filtration, Intermittent, Less than 6 Hours Per Day (ICD-10-PCS; 2019-03-20)
PROC: 5A1D70Z Performance of Urinary Filtration, Intermittent, Less than 6 Hours Per Day (ICD-10-PCS; principal; 2019-03-21)
DX: J15.6 Pneumonia due to other Gram-negative bacteria (principal); N18.6 End stage renal disease; I13.2 Hypertensive heart and chronic kidney disease with heart failure and with stage 5 chronic kidney disease, or end stage renal disease; J98.11 Atelectasis; I48.0 Paroxysmal atrial fibrillation; E11.22 Type 2 diabetes mellitus with diabetic chronic kidney disease; E78.00 Pure hypercholesterolemia, unspecified; E89.0 Postprocedural hypothyroidism; F17.201 Nicotine dependence, unspecified, in remission; E78.5 Hyperlipidemia, unspecified; I25.10 Atherosclerotic heart disease of native coronary artery without angina pectoris; I50.9 Heart failure, unspecified; J43.9 Emphysema, unspecified; M06.9 Rheumatoid arthritis, unspecified; M19.90 Unspecified osteoarthritis, unspecified site; Z79.01 Long term (current) use of anticoagulants; Z79.51 Long term (current) use of inhaled steroids; F41.9 Anxiety disorder, unspecified; M10.9 Gout, unspecified; Z79.82 Long term (current) use of aspirin; Z79.899 Other long term (current) drug therapy; Z82.49 Family history of ischemic heart disease and other diseases of the circulatory system; Z86.711 Personal history of pulmonary embolism; Z86.73 Personal history of transient ischemic attack (TIA), and cerebral infarction without residual deficits; Z88.2 Allergy status to sulfonamides; Z90.710 Acquired absence of both cervix and uterus; Z95.5 Presence of coronary angioplasty implant and graft; Z99.2 Dependence on renal dialysis
CPT/HCPCS: 36415; 71045; 71250; 80048; 80053; 80069; 82553; 82962; 83735; 83880; 84484; 85014; 85018; 85025; 85610; 85730; 87040; 93005; 93306; 94640; 94760; J0882; J2405; J2543; J7620; J7626; 97110; 97116; 99285-25; G0378

== ENCOUNTER 2019-06-01 21:07 | Inpatient (IN) | payer OTHER, MEDICAID ==
[~2019-06-01] VITALS: Ht 167.6 cm; Wt 65.4 kg
[~2019-06-01 21:07] MED LIST changes: +AMOX1TAB10 PO
[2019-06-01] MEDS ORDERED: IPRATRPIUM/ALBUTEROL 0.5/2.5MG 3 ML NEBU. NEB ONE (21:30)
[2019-06-01 21:51] LABS: BASO % 1 % (0-3); EOS % 1 % (0-3); HEMATOCRIT 21.8 % (36.0-47.0); LYMPH # 0.9 x10^3/uL (1.0-4.8); LYMPH % 17 % (24-48); MEAN CORPUSCULAR HEMOGLOBIN 29 pg (25-35); MEAN CORPUSCULAR HGB CONC 31 g/dL (31-37); MEAN CORPUSCULAR VOLUME 93 fL (79-100); MONO # 0.2 x10^3/uL (0.0-1.1); MONO % 4 % (0-9); NEUT # 4.1 x10^3/uL (1.8-7.7); NEUT % 77 % (31-73); PLATELET COUNT 363 x10^3/uL (140-400); RED BLOOD COUNT 2.35 x10^6/uL (3.50-5.40); WHITE BLOOD COUNT 5.3 x10^3/uL (4.0-11.0)
[2019-06-01 21:53] LABS: HEMOGLOBIN 6.8 g/dL (12.0-15.5)
[2019-06-01 22:30] LABS: PLT ESTIMATE ADEQUATE (ADEQUATE)
[2019-06-01 22:31] LABS: ANISOCYTOSIS MOD; HELMET CELLS OCC; HYPOCHROMIA MOD; OVALOCYTES FEW; POIKILOCYTOSIS SLIGHT; POLYCHROMASIA SLIGHT; SPHEROCYTES OCC
[2019-06-01 22:32] LABS: SCHISTOCYTES OCC
[2019-06-01 22:47] LABS: CALCIUM 8.7 mg/dL (8.5-10.1); CREATININE 12.3 mg/dL (0.6-1.0); GFR 3.6; POTASSIUM 5.2 mmol/L (3.5-5.1)
[2019-06-01 22:55] LABS: ALBUMIN 2.2 g/dL (3.4-5.0); ALBUMIN/GLOBULIN RATIO 0.5 (1.0-1.7); TOTAL BILIRUBIN 0.3 mg/dL (0.2-1.0); TOTAL PROTEIN 6.9 g/dL (6.4-8.2)
--- NOTE | 2019-06-01 22:56 | PHYS DOC ---
Past Medical History Past Medical History: Arthritis, Asthma, CAD, Diabetes-Type II, High Cholesterol, Heart Disease, Hypertension, Renal Failure, Stroke Past Surgical History: Hysterectomy, Other Additional Past Surgical Histo: STENTS, PARITAL THYROID Alcohol Use: None Drug Use: None Adult General Chief Complaint Chief Complaint: SHORTNESS OF BREATH HPI HPI 79-year-old female presents to the emergency department with complaints of shortness of breath 1 week. States she has not been to dialysis for 9 days secondary to inability to walk, pain with ambulation. Patient states she fell in the bathroom hitting her head, no loss of consciousness however had bilateral hip pain. Today she describes cough, nonproductive, denies any fever, chills, nausea, vomiting. When her continued shortness of breath she presents to the ER for further evaluation. Her initial evaluation revealed saturations 84% on room air with increased risk of breathing. Patient again dialyzes on Wednesday, , Wednesday and has not been to dialysis for over 1 week. Review of Systems Review of Systems Constitutional: Denies fever or chills [] Respiratory: + cough/SOB Cardiovascular: No additional information not addressed in HPI [] GI: Denies abdominal pain, nausea, vomiting, bloody stools or diarrhea [] Musculoskeletal: bilateral hip pain Neurologic: Denies headache, focal weakness or sensory changes [] All other systems were reviewed and found to be within normal limits, except as documented in this note. Current Medications Current Medications Current Medications Medications (Trade) Dose Ordered Sig/Nguyễn Start Time Stop Time Status Last Admin Dose Admin Albuterol/ Ipratropium (Duoneb) 3 ml 1X ONCE 06/01/19 21:30 06/01/19 21:31 DC 06/01/19 21:30 3 ML Allergies Allergies Allergies Coded Allergies Type Severity Reaction Last Updated Verified Sulfa (Sulfonamide Antibiotics) Allergy Intermediate Swelling 09/12/18 Yes Physical Exam Physical Exam Constitutional: Well developed, well nourished, resp distress, non-toxic appearance. [] HENT: Normocephalic, atraumatic, bilateral external ears normal, oropharynx moist, no oral exudates, nose normal. [] Eyes: PERRLA, EOMI, conjunctiva normal, no discharge. [] Cardiovascular:Heart rate regular rhythm, no murmur [] Lungs & Thorax: decreased BS bilaterally, + wheeze Abdomen: Bowel sounds normal, soft, no tenderness, no masses, no pulsatile masses. [] Skin: Warm, dry, no erythema, no rash. [] Back: No tenderness, no CVA tenderness. [] Extremities: b/l hip tenderness, no edema. [] Neurologic: Alert and oriented X 3, no focal deficits noted. [] Psychologic: Affect normal, judgement normal, mood normal. [] Current Patient Data Vital Signs Vital Signs Date Time Temp Pulse Resp B/P (MAP) Pulse Ox O2 Delivery O2 Flow Rate FiO2 06/01/19 22:42 58 124/53 (76) 97 Nasal Cannula 4.0 06/01/19 21:10 97.5 28 97.5 Lab Values Laboratory Tests Test 06/01/19 21:40 06/01/19 22:22 White Blood Count 5.3 x10^3/uL (4.0-11.0) Red Blood Count 2.35 x10^6/uL (3.50-5.40) L Hemoglobin 6.8 g/dL (12.0-15.5) *L Hematocrit 21.8 % (36.0-47.0) L Mean Corpuscular Volume 93 fL (79-100) Mean Corpuscular Hemoglobin 29 pg (25-35) Mean Corpuscular Hemoglobin Concent 31 g/dL (31-37) Red Cell Distribution Width 23.0 % (11.5-14.5) H Platelet Count 363 x10^3/uL (140-400) Neutrophils (%) (Auto) 77 % (31-73) H Lymphocytes (%) (Auto) 17 % (24-48) L Monocytes (%) (Auto) 4 % (0-9) Eosinophils (%) (Auto) 1 % (0-3) Basophils (%) (Auto) 1 % (0-3) Neutrophils # (Auto) 4.1 x10^3/uL (1.8-7.7) Lymphocytes # (Auto) 0.9 x10^3/uL (1.0-4.8) L Monocytes # (Auto) 0.2 x10^3/uL (0.0-1.1) Eosinophils # (Auto) 0.0 x10^3/uL (0.0-0.7) Basophils # (Auto) 0.0 x10^3/uL (0.0-0.2) Platelet Estimate Adequate (ADEQUATE) Polychromasia Slight Hypochromasia Mod Poikilocytosis Slight Anisocytosis Mod Spherocytes Occ Ovalocytes Few Helmet Cells Occ Schistocytes Occ Sodium Level 147 mmol/L (136-145) H Potassium Level 5.2 mmol/L (3.5-5.1) H Chloride Level 111 mmol/L (98-107) H Carbon Dioxide Level 19 mmol/L (21-32) L Anion Gap 17 (6-14) H Blood Urea Nitrogen 92 mg/dL (7-20) H Creatinine 12.3 mg/dL (0.6-1.0) H Estimated GFR (Cockcroft-Gault) 3.6 BUN/Creatinine Ratio 7 (6-20) Glucose Level 110 mg/dL (70-99) H Calcium Level 8.7 mg/dL (8.5-10.1) Total Bilirubin 0.3 mg/dL (0.2-1.0) Aspartate Amino Transferase (AST) 16 U/L (15-37) Alanine Aminotransferase (ALT) 11 U/L (14-59) L Alkaline Phosphatase 88 U/L (46-116) Total Protein 6.9 g/dL (6.4-8.2) Albumin 2.2 g/dL (3.4-5.0) L Albumin/Globulin Ratio 0.5 (1.0-1.7) L Laboratory Tests 06/01/19 21:40 Laboratory Tests 06/01/19 22:22 EKG EKG EKG reviewed, no STEMI, heart rate 58, left axis deviation, interpretation time 2124[] Radiology/Procedures Radiology/Procedures [facility] [address] [place] [address] IMAGING REPORT Signed PATIENT: QIANA MARINO ACCOUNT: [id number] : 1940 LOCATION: ER AGE: 79 SEX: F EXAM STATUS: REG ER ORD. PHYSICIAN: CRYSTAL MONTE MD REASON: Fall PROCEDURE: CT HEAD WO CONTRAST Exam: CT head INDICATION: Fall TECHNIQUE: Sequential axial images through the head were obtained without the administration of IV contrast. Comparisons: 05/24/2018 FINDINGS: No focal parenchymal lesion or hemorrhage is identified. There is no midline shift or sulcal effacement. Confluent hypodensities in the periventricular white matter which are similar when compared to the prior study. No acute vascular territory infarction is identified. Seymour-white distinction is preserved. The ventricular system is within normal limits without compression hydrocephalus. The basal cisterns are well maintained. The visualized portions of the paranasal sinuses and mastoid air cells are well-pneumatized. No acute fractures. IMPRESSION: Chronic ischemic change without acute intracranial abnormality. Exposure: One or more of the following in the visualized dose reduction techniques were utilized for this examination: 1. Automated exposure control 2. Adjustment of the MA and/or KV according to patient size Use of iterative of reconstructive technique Electronically signed by: Ramone Flood MD (06/01/2019 11:55 PM) [facility] DICTATED and SIGNED BY: RAMONE FLOOD MD DATE: 06/01/19 7865 [] Course & Med Decision Making Course & Med Decision Making Pertinent Labs and Imaging studies reviewed. (See chart for details) [] 79-year-old female presents to the emergency department with complaints of shortness of breath 1 week. States she has not been to dialysis for 9 days secondary to inability to walk, pain with ambulation. Patient states she fell in the bathroom hitting her head, no loss of consciousness however had bilateral hip pain. Today she describes cough, nonproductive, denies any fever, chills, nausea, vomiting. When her continued shortness of breath she presents to the ER for further evaluation. Her initial evaluation revealed saturations 84% on room air with increased risk of breathing. Patient again dialyzes on Wednesday, , Wednesday and has not been to dialysis for over 1 week. Chest x-ray reveals evidence of left pleural effusion, hemoglobin 6.8, creatinine 12.3, BUN 92, potassium 5.2 Patient initially provided with DuoNeb, O2 2 L with saturations of 94% Recommend admit with further consultation with nephrology for hemodialysis. Type and cross with plans for transfusion of was given anemia no evidence of active bleeding Dragon Disclaimer Dragon Disclaimer This electronic medical record was generated, in whole or in part, using a voice recognition dictation system. Departure Departure Impression: Primary Impression: Acute respiratory distress Additional Impressions: Pleural effusion ESRD (end stage renal disease) Diabetes Disposition: ADMITTED INPATIENT Admitting Physician: EMMY Condition: IMPROVED Referrals: MARIUSZ PALM MD (PCP) Critical Care Time Critical care time was 35 minutes exclusive of procedures. Problem Qualifiers Additional Impressions: Diabetes Diabetes mellitus type: type 2 Diabetes mellitus superintendent container terminal insulin use: u nspecified superintendent container terminal insulin use status Diabetes mellitus complication status: with kidney complications Chronic kidney disease stage: on chronic dialysis CRYSTAL MONTE MD Jun 01, 2019 22:56
--- NOTE | 2019-06-01 23:58 | RAD ---
Exam: CT head INDICATION: Fall TECHNIQUE: Sequential axial images through the head were obtained without the administration of IV contrast. Comparisons: 05/24/2018 FINDINGS: No focal parenchymal lesion or hemorrhage is identified. There is no midline shift or sulcal effacement. Confluent hypodensities in the periventricular white matter which are similar when compared to the prior study. No acute vascular territory infarction is identified. Seymour-white distinction is preserved. The ventricular system is within normal limits without compression hydrocephalus. The basal cisterns are well maintained. The visualized portions of the paranasal sinuses and mastoid air cells are well-pneumatized. No acute fractures. IMPRESSION: Chronic ischemic change without acute intracranial abnormality. Exposure: One or more of the following in the visualized dose reduction techniques were utilized for this examination: 1. Automated exposure control 2. Adjustment of the MA and/or KV according to patient size Use of iterative of reconstructive technique Electronically signed by: Ramone Chavarria MD (06/01/2019 11:55 PM) [facility]
[2019-06-02] MEDS ORDERED: ACETAMINOPHEN 325 MG TABLET. PO PRN (00:15)
[2019-06-02] MEDS ORDERED: ONDANSETRON PF 4 MG/2 ML VIAL. IV PRN (00:15)
--- NOTE | 2019-06-02 00:46 | RAD ---
Exam: Chest one view INDICATION: Shortness of breath TECHNIQUE: Frontal view of the chest Comparisons: 01/16/2019 FINDINGS: Heart is enlarged. Pulmonary vessels are prominent. Moderate to large left-sided pleural effusion with adjacent airspace disease. IMPRESSION: Moderate to large left-sided pleural effusion with adjacent airspace disease, may be atelectasis however consolidation is difficult to exclude. Electronically signed by: Ramone Chavarria MD (06/02/2019 12:43 AM) [facility]
--- NOTE | 2019-06-02 00:52 | RAD ---
Exam: Pelvis with bilateral hips INDICATION: Fall TECHNIQUE: Frontal view of the pelvis with frontal and frog-leg lateral views of the right and left hips Comparisons: None FINDINGS: Mild osteopenia. No acute or healed fractures. Soft tissues are unremarkable. Joint spaces are well-maintained. IMPRESSION: No acute osseous abnormality identified. If the patient is acutely unable to bear weight MRI to rule out occult hip fracture is recommended. Electronically signed by: Ramone Chavarria MD (06/02/2019 12:49 AM) [facility]
[2019-06-02 02:45] VITALS: BP 125/49
--- NOTE | 2019-06-02 06:08 | EKG ---
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
[2019-06-02 07:00] VITALS: BP 119/50
[2019-06-02] MEDS ORDERED: FUROSEMIDE 40 MG TABLET. PO PRN (08:45)
--- NOTE | 2019-06-02 08:49 | PDOC1 ---
History and Physical Date of Admission Date of Admission DATE: 06/02/19 TIME: 08:30 Identification/Chief Complaint Chief Complaint Shortness of breath Source Source: Patient History of Present Illness History of Present Illness Ms Lundy is a 79-year-old female w/ PMHx ESRD, anemia, DM2, HTN, CAD s/p stents, High Cholesterol, afib, prior CVA who p/w shortness of breath 1 week. States she has not been to dialysis for 9 days secondary to inability to walk, pain with ambulation. Patient states she fell in the bathroom hitting her head and left hip 9 days ago, no loss of consciousness however had bilateral hip pain. T todd she describes cough, nonproductive, denies any fever, chills, nausea, vomiting. When her continued shortness of breath she presents to the ER for further evaluation. Her initial evaluation revealed saturations 84% on room air with increased risk of breathing. EKG reviewed, no STEMI, heart rate 58, left axis deviation Chest x-ray reveals evidence of left pleural effusion, Hb 6.8, creatinine 12.3, BUN 92, potassium 5.2 Notably hypoxic less than 88%, placed O2 2 L with saturations of 94% Past Medical History Cardiovascular: CAD, HTN, Hyperlipidemia Pulmonary: COPD CENTRAL NERVOUS SYSTEM: CVA GI: No pertinent hx Heme/Onc: Anemia NOS Hepatobiliary: No pertinent hx Musculoskeletal: Osteoarthritis Rheumatologic: Gout Infectious disease: No pertinent hx Renal/: Chronic renal insuff, Chronic renal failure Endocrine: Diabetes Past Surgical History Past Surgical History: Hysterectomy, Other Family History Family History: Heart Disease, Hypertension Social History Smoke: No ALCOHOL: none Drugs: None Current Problem List Problem List Problems Medical Problems: (1) Acute respiratory distress Status: Acute (2) Diabetes Status: Acute (3) Pleural effusion Status: Acute Current Medications Current Medications Current Medications Albuterol/ Ipratropium (Duoneb) 3 ml 1X ONCE NEB Last administered on 06/01/19at 21:30; Start 06/01/19 at 21:30; Stop 06/01/19 at 21:31; Status DC Ondansetron HCl (Zofran) 4 mg PRN Q8HRS PRN IV NAUSEA/VOMITING; Start 06/02/19 at 00:15; Stop 06/03/19 at 00:14 Acetaminophen (Tylenol) 650 mg PRN Q4HRS PRN PO FEVER; Start 06/02/19 at 00:15; Stop 06/03/19 at 00:14 Active Scripts Active Reported Acidophilus (Lactobacillus Acidophilus) 1 Each Capsule 1 Each PO DAILY Hydrocodone-Apap 7.5-325 (Hydrocodone Bit/Acetaminophen) 1 Tab Tablet 1 Tab PO PRN Q6HRS PRN Lasix (Furosemide) 40 Mg Tablet 1 Tab PO PRN DAILY PRN Advair 250-50 Diskus (Fluticasone/Salmeterol) 1 Each Disk.w.dev 1 Puff IH BID Ferrous Gluconate 240 Mg Tablet 240 Mg PO DAILY Fluticasone Propionate Nasal Barrington (Fluticasone Propionate) 16 Gm Barrington.susp 2 [place] NS DAILY Calcium Acetate 667 Mg Tablet 667 Mg PO TIDWMEALS Allopurinol 300 Mg Tablet 0.5 Tab PO DAILY Proair Respiclick (Albuterol Sulfate) 90 Mcg Aer.pow.ba 2 Puff IH PRN Q6HRS PRN Aspir-Low (Aspirin) 81 Mg Tablet.dr 1 Tab PO DAILY Amiodarone Hcl 200 Mg Tablet 1 Tab PO DAILY Vitamin D3 (Cholecalciferol (Vitamin D3)) 1,000 Unit Tablet 2 Tab PO DAILY Norvasc (Amlodipine Besylate) 10 Mg Tablet 10 Mg PO DAILY Bidil Tablet (Isosorb Dinit/Hydralazine Hcl) 1 Each Tablet 1 Each PO BID Calcitriol 0.25 Mcg Capsule 1 Cap PO DAILY Carvedilol 25 Mg Tablet 25 Mg PO BIDWMEALS Allergies Allergies: Coded Allergies: Sulfa (Sulfonamide Antibiotics) (Verified Allergy, Intermediate, Swelling, 09/12/18) ROS General: YES: Fatigue, Malaise; No: Chills, Night Sweats, Appetite, Other PSYCHOLOGICAL ROS: No: Anxiety, Behavioral Disorder, Concentration difficultie, Decreased libido, Depression, Disorientation, Hallucinations, Hostility, Irritablity, Memory difficulties, Mood Swings, Obsessive thoughts, Physical abuse, Sexual abuse, Sleep disturbances, Suicidal ideation, Other Eyes: No Blurry vision, No Decreased vision, No Double vision, No Dry eyes, No Excessive tearing, No Eye Pain, No Itchy Eyes, No Loss of vision, No Photophobia, No Scotomata, No Uses contacts, No Uses glasses, No Other HEENT: No: Heacaches, Visual Changes, Hearing change, Nasal congestion, Nasal discharge, Oral lesions, Sinus pain, Sore Throat, Epistaxis, Sneezing, Snoring, Tinnitus, Vertigo, Vocal changes, Other ALLERGY AND IMMUNOLOGY: No: Hives, Insect Bite Sensitivity, Itchy/Watery Eyes, Nasal Congestion, Post Nasal Drip, Seasonal Allergies, Other Hematological and Lymphatic: No: Bleeding Problems, Blood Clots, Blood Transfusions, Brusing, Night Sweats, Pallor, Swollen Lymph Nodes, Other ENDOCRINE: No: Breast Changes, Galactorrhea, Hair Pattern Changes, Hot Flashes, Malaise/lethargy, Mood Swings, Palpitations, Polydipsia/polyuria, Skin Changes, Temperature Intolerance, Unexpected Weight Changes, Other Breast: No New/Changing Breast Lumps, No Nipple changes, No Nipple discharge, No Other Respiratory: YES: Shortness of breath, SOB with excertion; No: Cough, Hemoptysis, Orthopnea, Pleuritic Pain, Sputum Changes, Stridor, Tachypnea, Wheezing, Other Cardiovascular: No Chest Pain, No Palpitations, No Orthopnea, No Paroxysmal Noc. Dyspnea, No Edema, No Lt Headedness, No Other Gastrointestinal: No Nausea, No Vomiting, No Abdominal Pain, No Diarrhea, No Constipation, No Melena, No Hematochezia, No Other Genitourinary: No Dysuria, No Frequency, No Incontinence, No Hematuria, No Retention, No Discharge, No Urgency, No Pain, No Flank Pain, No Other, No , No , No , No , No , No , No Musculoskeletal: Yes Gait Disturbance, Yes Joint Pain, Yes Joint Stiffness; No Joint Swelling, No Muscle Pain, No Muscular Weakness, No Pain In:, No Swelling In:, No Other Neurological: No Behavorial Changes, No Bowel/Bladder ControlChng, No Confusion, No Dizziness, No Gait Disturbance, No Headaches, No Impaired Coord/balance, No Memory Loss, No Numbness/Tingling, No Seizures, No Speech Problems, No Tremors, No Visual Changes, No Weakness, No Other Skin: No Dry Skin, No Eczema, No Hair Changes, No Lumps, No Mole Changes, No Mottling, No Nail Changes, No Pruritus, No Rash, No Skin Lesion Changes, No Other, No Acne Physical Exam General: Alert, Oriented X3, Cooperative, No acute distress HEENT: Atraumatic, PERRLA, EOMI, Mucous membr. moist/pink Lungs: Other (Decreased left basilar breath sounds) Heart: S1S2, RRR, no thrills, no rubs Abdomen: Normal bowel sounds, Soft, No tenderness, No hepatosplenomegaly, No masses Rectal Exam: not examined Extremities: No clubbing, No cyanosis, Normal pulses, Other (Left hip pain laterally) Skin: No rashes, No breakdown, No significant lesion Neuro: Normal speech, Strength at 5/5 X4 ext, Normal tone, Sensation intact, Cranial nerves 3-12 NL, Reflexes 2+ Psych/Mental Status: Mental status NL, Mood NL Vitals Vitals Vital Signs Date Time Temp Pulse Resp B/P (MAP) Pulse Ox O2 Delivery O2 Flow Rate FiO2 06/02/19 02:45 97.6 65 19 125/49 (74) 92 Nasal Cannula 2.0 97.6 Labs Labs Laboratory Tests Test 06/01/19 21:40 06/01/19 22:22 White Blood Count 5.3 x10^3/uL (4.0-11.0) Red Blood Count 2.35 x10^6/uL (3.50-5.40) Hemoglobin 6.8 g/dL (12.0-15.5) Hematocrit 21.8 % (36.0-47.0) Mean Corpuscular Volume 93 fL (79-100) Mean Corpuscular Hemoglobin 29 pg (25-35) Mean Corpuscular Hemoglobin Concent 31 g/dL (31-37) Red Cell Distribution Width 23.0 % (11.5-14.5) Platelet Count 363 x10^3/uL (140-400) Neutrophils (%) (Auto) 77 % (31-73) Lymphocytes (%) (Auto) 17 % (24-48) Monocytes (%) (Auto) 4 % (0-9) Eosinophils (%) (Auto) 1 % (0-3) Basophils (%) (Auto) 1 % (0-3) Neutrophils # (Auto) 4.1 x10^3/uL (1.8-7.7) Lymphocytes # (Auto) 0.9 x10^3/uL (1.0-4.8) Monocytes # (Auto) 0.2 x10^3/uL (0.0-1.1) Eosinophils # (Auto) 0.0 x10^3/uL (0.0-0.7) Basophils # (Auto) 0.0 x10^3/uL (0.0-0.2) Platelet Estimate Adequate (ADEQUATE) Polychromasia Slight Hypochromasia Mod Poikilocytosis Slight Anisocytosis Mod Spherocytes Occ Ovalocytes Few Helmet Cells Occ Schistocytes Occ Sodium Level 147 mmol/L (136-145) Potassium Level 5.2 mmol/L (3.5-5.1) Chloride Level 111 mmol/L (98-107) Carbon Dioxide Level 19 mmol/L (21-32) Anion Gap 17 (6-14) Blood Urea Nitrogen 92 mg/dL (7-20) Creatinine 12.3 mg/dL (0.6-1.0) Estimated GFR (Cockcroft-Gault) 3.6 BUN/Creatinine Ratio 7 (6-20) Glucose Level 110 mg/dL (70-99) Calcium Level 8.7 mg/dL (8.5-10.1) Total Bilirubin 0.3 mg/dL (0.2-1.0) Aspartate Amino Transf (AST/SGOT) 16 U/L (15-37) Alanine Aminotransferase (ALT/SGPT) 11 U/L (14-59) Alkaline Phosphatase 88 U/L (46-116) Total Protein 6.9 g/dL (6.4-8.2) Albumin 2.2 g/dL (3.4-5.0) Albumin/Globulin Ratio 0.5 (1.0-1.7) Laboratory Tests Test 06/01/19 21:40 06/01/19 22:22 White Blood Count 5.3 x10^3/uL (4.0-11.0) Red Blood Count 2.35 x10^6/uL (3.50-5.40) Hemoglobin 6.8 g/dL (12.0-15.5) Hematocrit 21.8 % (36.0-47.0) Mean Corpuscular Volume 93 fL (79-100) Mean Corpuscular Hemoglobin 29 pg (25-35) Mean Corpuscular Hemoglobin Concent 31 g/dL (31-37) Red Cell Distribution Width 23.0 % (11.5-14.5) Platelet Count 363 x10^3/uL (140-400) Neutrophils (%) (Auto) 77 % (31-73) Lymphocytes (%) (Auto) 17 % (24-48) Monocytes (%) (Auto) 4 % (0-9) Eosinophils (%) (Auto) 1 % (0-3) Basophils (%) (Auto) 1 % (0-3) Neutrophils # (Auto) 4.1 x10^3/uL (1.8-7.7) Lymphocytes # (Auto) 0.9 x10^3/uL (1.0-4.8) Monocytes # (Auto) 0.2 x10^3/uL (0.0-1.1) Eosinophils # (Auto) 0.0 x10^3/uL (0.0-0.7) Basophils # (Auto) 0.0 x10^3/uL (0.0-0.2) Platelet Estimate Adequate (ADEQUATE) Polychromasia Slight Hypochromasia Mod Poikilocytosis Slight Anisocytosis Mod Spherocytes Occ Ovalocytes Few Helmet Cells Occ Schistocytes Occ Sodium Level 147 mmol/L (136-145) Potassium Level 5.2 mmol/L (3.5-5.1) Chloride Level 111 mmol/L (98-107) Carbon Dioxide Level 19 mmol/L (21-32) Anion Gap 17 (6-14) Blood Urea Nitrogen 92 mg/dL (7-20) Creatinine 12.3 mg/dL (0.6-1.0) Estimated GFR (Cockcroft-Gault) 3.6 BUN/Creatinine Ratio 7 (6-20) Glucose Level 110 mg/dL (70-99) Calcium Level 8.7 mg/dL (8.5-10.1) Total Bilirubin 0.3 mg/dL (0.2-1.0) Aspartate Amino Transf (AST/SGOT) 16 U/L (15-37) Alanine Aminotransferase (ALT/SGPT) 11 U/L (14-59) Alkaline Phosphatase 88 U/L (46-116) Total Protein 6.9 g/dL (6.4-8.2) Albumin 2.2 g/dL (3.4-5.0) Albumin/Globulin Ratio 0.5 (1.0-1.7) Images Images CT head No focal parenchymal lesion or hemorrhage is identified. There is no midline shift or sulcal effacement. Confluent hypodensities in the periventricular white matter which are similar when compared to the prior study. No acute vascular territory infarction is identified. Seymour-white distinction is preserved. The ventricular system is within normal limits without compression hydrocephalus. The basal cisterns are well maintained. The visualized portions of the paranasal sinuses and mastoid air cells are well- pneumatized. No acute fractures. IMPRESSION: Chronic ischemic change without acute intracranial abnormality. CXR Heart is enlarged. Pulmonary vessels are prominent. Moderate to large left-sided pleural effusion with adjacent airspace disease. IMPRESSION: Moderate to large left-sided pleural effusion with adjacent airspace disease, may be atelectasis however consolidation is difficult to exclude. Bilateral hip XR Mild osteopenia. No acute or healed fractures. Soft tissues are unremarkable. Joint spaces are well-maintained. IMPRESSION: No acute osseous abnormality identified. If the patient is acutely unable to bear weight MRI to rule out occult hip fracture is recommended. VTE Prophylaxis Ordered VTE Prophylaxis Devices: Yes VTE Pharmacological Prophylaxi: Yes Assessment/Plan Assessment/Plan A/P: Acute hypoxia - multifactorial from fluid overload, pleural effusion. Will need urgent dialysis, nephrology consulted. Pulm to see regarding pleural effusion. Left pleural effusion - likely from volume overload Shortness of breath - chart indicates asthma history ESRD - TuThSa, missed dialysis, will consult nephrology Acute Anemia - Hb 6.8 Paroxysmal afib - looks sinus on EKG currently, takes eliquis 2.5mg BID. will hold currently for acute anemia. DM2 - unknown a1c, but 6.2 a few years ago. HTN - cont meds CAD s/p RCA stent 09/2018 - will cont meds, plavix High Cholesterol - cont statin Prior CVA - ASA and statin. PT to see for gait instability Hip pain - bilateral, will trial gait with PT. PMR consulted FEN - ADA renal diet PPX - Eliquis, will hold for right now, possible thoracentesis FULL CODE Dispo - Med/tele likely 2 midnights COLTEN CHOU MD Jun 02, 2019 08:49
[2019-06-02] MEDS: hydrALAZINE 25 MG TABLET PO SCH ×2 (09:00→21:55)
[2019-06-02] MEDS ORDERED: NON FORMULARY ITEM (Fluticasone/Salmeterol (Advair 250-50 Diskus) 1 PUFF) IH SCH (09:00)
[2019-06-02] MEDS: FLUTICASONE 50MCG/NASAL SPRAY 16GM BOTTLE. NS SCH (09:00)
[2019-06-02] MEDS: CARVEDILOL 12.5 MG TABLET. PO SCH ×2 (09:00→17:00)
[2019-06-02] MEDS: ASPIRIN ENTERIC COATED 81 MG TABLET.DR. PO SCH (09:00)
[2019-06-02] MEDS: CHOLECALCIFEROL (VITAMIN D3) 1,000 UNIT TABLET PO SCH (09:00)
[2019-06-02] MEDS: CALCITRIOL 0.25 MCG CAPSULE. PO SCH (09:00)
[2019-06-02] MEDS: ISOSORBIDE DINITRATE 10 MG TABLET. PO SCH ×2 (09:00→21:54)
[2019-06-02] MEDS: FERROUS SULFATE 325 MG TABLET. PO SCH (09:00)
[2019-06-02] MEDS: amLODIPine BESYLATE 10 MG TABLET PO SCH (09:00)
[2019-06-02] MEDS: HYDROcodone/APAP 7.5/325MG 1 TAB TABLET PO PRN ×2 (09:09→21:54)
--- NOTE | 2019-06-02 09:49 | CONS ---
DATE OF CONSULTATION: PULMONARY CONSULTATION ATTENDING PHYSICIAN: Lee Boudreaux MD. REASON FOR CONSULTATION: Dyspnea, respiratory failure. HISTORY OF PRESENT ILLNESS: The patient is a 79-year-old female who has history of end-stage renal disease, history of anemia, hypertension, CAD status post stents. She has AFib as well with prior CVA. She presented to the hospital after being short of breath for the past 1 week. She has a cough, which she developed today, which is nonproductive. No fever, no chills, no chest pains. No increased lower extremity edema. The patient is not on home oxygen. She required 2 liters of oxygen to keep saturation above 90%. I have reviewed the patient's chest x-ray and it was consistent with diffuse interstitial infiltrates favoring congestive heart failure and also significant volume loss in the left lung, suggesting pleural effusion. PAST MEDICAL HISTORY: History of CAD, hypertension, hyperlipidemia, history of stents, no significant tobacco history, history of CVA, history of chronic renal insufficiency. PAST SURGICAL HISTORY: Hysterectomy and stent placement. FAMILY HISTORY: Heart disease and hypertension. SOCIAL HISTORY: No significant tobacco history. Last time, she smoked for more than 50 years ago. ALLERGIES: SULFA. CURRENT MEDICATIONS: Reviewed as listed in the MRAD including bronchodilators. REVIEW OF SYSTEMS: Twelve-point system obtained. Pertinent positives discussed in my history of present illness, otherwise noncontributory. All systems that were negative were reviewed as well. PHYSICAL EXAMINATION: VITAL SIGNS: Reviewed, pulse ox 90% on 2 liters, afebrile, blood pressure is stable. HEENT: Sclerae nonicteric. NECK: Supple. LUNGS: Diminished breath sounds left base. CARDIOVASCULAR: With a regular rate. ABDOMEN: Soft, nontender. EXTREMITIES: With trace pitting edema. LABORATORY DATA: Reviewed. White cell count 5.3, hemoglobin 6.8, and platelets are 363. BUN is 92 and a creatinine of 12.3. IMPRESSION: 1. Acute hypoxic respiratory failure secondary to acute on chronic diastolic heart failure. 2. Abnormal chest x-ray with diffuse interstitial infiltrates secondary to congestive heart failure and also moderate left-sided pleural effusion. We will need a CT chest to better assess for pleural effusion versus atelectasis. 3. Prior echocardiogram with normal ejection fraction and grade 1 diastolic dysfunction. 4. End-stage renal disease, on hemodialysis. 5. Anemia, could be dilutional versus related to end-stage renal disease. No obvious gastrointestinal loss. 6. No significant tobacco history. RECOMMENDATIONS: 1. Discussed with the patient about her chest x-ray findings. I have ordered CT chest to better assess for effusion. 2. She would benefit from thoracentesis on the left side. She is agreeable to proceed with it if needed. We will make that decision after review of CT chest. 3. Continue bronchodilators. 4. Continue oxygen. 5. Follow renal recommendation and increase ultrafiltration with hemodialysis. 6. Discussed with RN. We will follow along with you. KIARA DUMONT MD DR: PAUL/gia JOB#: [id number] / [id number]
[2019-06-02] MEDS ORDERED: IV NORMAL SALINE 1000ML BAG 1,000 ML IV PRN ×2 (11:21)
[2019-06-02] MEDS ORDERED: DIALYSIS PATIENT. MC PRN (11:30)
[2019-06-02] MEDS ORDERED: diphenhydrAMINE 50 MG/ML VIAL IV PRN ×2 (11:30)
[2019-06-02] MEDS: ALBUTEROL SULFATE 2.5 MG/3 ML NEBU. NEB SCH ×3 (12:02→20:00)
--- NOTE | 2019-06-02 12:38 | RAD ---
EXAM: Chest CT without intravenous contrast. HISTORY: Pleural effusion or pneumonia. TECHNIQUE: Computed tomographic images of the chest were obtained without contrast. Multiplanar reformatting was performed. *One or more of the following individualized dose reduction techniques were utilized for this examination: 1. Automated exposure control. 2. Adjustment of the mA and/or kV according to patient size. 3. Use of iterative reconstruction technique. COMPARISON: Chest radiograph dated 06/01/[address] dated 03/18/2019. FINDINGS: There is a large partially loculated left pleural effusion with partial upper and lower lobe consolidation and partial upper and lower lobe collapse. There is a small nonloculated right pleural effusion. There is nonspecific groundglass opacities scattered throughout the residual aerated left lung and right upper lobe. There is emphysema. There is cardiomegaly. There is coronary artery atherosclerosis. There is aortic atherosclerosis. There is a trace pericardial effusion. There are multiple prominent mediastinal and hilar lymph nodes. There is a heterogeneous thyroid and the left thyroid lobe appears slightly enlarged, possibly due to volume averaging. There is an ectatic descending thoracic aorta measuring 3.9 cm. There is renal atrophy and there are multiple right renal cysts on the [id number]. There is degenerative change throughout the spine. There is no suspicious osseous lesion. There are few benign bone islands. IMPRESSION: 1. Large partially loculated left pleural effusion with partial upper and lower lobe consolidation and partial upper lower lobe collapse. This is superimposed on suspected multifocal groundglass infiltrate within the bilateral upper lobes. Follow-up to confirm resolution and exclude an underlying lesion. 2. Trace right pleural effusion. 3. Cardiomegaly and trace pericardial effusion. 4. Right renal atrophy and right renal cysts. 5. Emphysema. Electronically signed by: Yaz Dixon MD (06/02/2019 12:35 PM) [place] [id number]
[2019-06-02 14:12] LABS: PROTHROMBIN TIME PATIENT 14.5 SEC (11.7-14.0)
[2019-06-02 14:20] VITALS: BP 123/42
--- NOTE | 2019-06-02 14:23 | PDOC2 ---
CONSULT Date of Consult Date of Consult DATE: 06/02/19 TIME: 14:22 Reason for Consult Reason for Consult: ESRD Source Source: Chart review, Patient History of Present Illness Reason for Visit: Ms Lundy is a 79-year-old female w/ PMHx ESRD, anemia, DM2, HTN, CAD s/p stents, High Cholesterol, afib, prior CVA who p/w shortness of breath 1 week. States she has not been to dialysis for 9 days secondary to inability to walk, pain with ambulation. Patient states she fell in the bathroom hitting her head and left hip 9 days ago, no loss of consciousness however had bilateral hip pain. Today she describes cough, nonproductive, denies any fever, chills, nausea, vomiting. Her initial evaluation revealed saturations 84% on room air with increased risk of breathing. EKG reviewed, no STEMI, heart rate 58, left axis deviation Chest x-ray reveals evidence of left pleural effusion, Hb 6.8, creatinine 12.3, BUN 92, potassium 5.2 Notably hypoxic less than 88%, placed O2 2 L with saturations of 94% Past Medical History Cardiovascular: CAD, HTN, Hyperlipidemia Pulmonary: COPD CENTRAL NERVOUS SYSTEM: CVA GI: No pertinent hx Heme/Onc: Anemia NOS Hepatobiliary: No pertinent hx Musculoskeletal: Osteoarthritis Rheumatologic: Gout Infectious disease: No pertinent hx Renal/: Chronic renal insuff, Chronic renal failure Endocrine: Diabetes Past Surgical History Past Surgical History: Hysterectomy, Other Family History Family History: Heart Disease, Hypertension Social History No ALCOHOL: none Drugs: None Lives: with Family Current Problem List Problem List Problems Medical Problems: (1) Acute respiratory distress Status: Acute (2) Diabetes Status: Acute (3) Pleural effusion Status: Acute Current Medications Current Medications Current Medications Albuterol/ Ipratropium (Duoneb) 3 ml 1X ONCE NEB Last administered on 06/01/19at 21:30; Start 06/01/19 at 21:30; Stop 06/01/19 at 21:31; Status DC Ondansetron HCl (Zofran) 4 mg PRN Q8HRS PRN IV NAUSEA/VOMITING; Start 06/02/19 at 00:15; Stop 06/03/19 at 00:14 Acetaminophen (Tylenol) 650 mg PRN Q4HRS PRN PO FEVER; Start 06/02/19 at 00:15; Stop 06/03/19 at 00:14 Amlodipine Besylate (Norvasc) 10 mg DAILY PO ; Start 06/02/19 at 09:00 Aspirin (Ecotrin) 81 mg DAILY PO ; Start 06/02/19 at 09:00 Calcitriol (Rocaltrol) 0.25 mcg DAILY PO ; Start 06/02/19 at 09:00 Vitamin D (Vitamin D3) 2,000 unit DAILY PO ; Start 06/02/19 at 09:00 Fluticasone Propionate (Flonase) 2 spray DAILY NS Last administered on 06/02/19at 09:00; Start 06/02/19 at 09:00 Furosemide (Lasix) 40 mg PRN DAILY PRN PO SWELLING; Start 06/02/19 at 08:45 Acetaminophen/ Hydrocodone Bitart (Lortab 7.5/325) 1 tab PRN Q6HRS PRN PO PAIN Last administered on 06/02/19at 09:09; Start 06/02/19 at 08:45 Carvedilol (Coreg) 25 mg BIDWMEALS PO ; Start 06/02/19 at 09:00 Ferrous Sulfate (Feosol) 325 mg DAILYWBKFT PO ; Start 06/02/19 at 09:00 Non-Formulary Medication (Fluticasone/ Salmeterol (Advair 250-50 Diskus)) 1 puff BID IH ; Start 06/02/19 at 09:00; Status UNV Hydralazine HCl (Apresoline) 37.5 mg BID PO ; Start 06/02/19 at 09:00 Isosorbide Dinitrate (Isordil) 20 mg BID PO ; Start 06/02/19 at 09:00 Budesonide (Pulmicort) 0.5 mg RTBID NEB ; Start 06/02/19 at 20:00 Albuterol Sulfate (Ventolin Neb Soln) 2.5 mg RTQID NEB Last administered on 06/02/19at 12:02; Start 06/02/19 at 12:00 Sodium Chloride 1,000 ml @ 1,000 mls/hr Q1H PRN IV hypotension; Start 06/02/19 at 11:21; Stop 06/02/19 at 17:20 Diphenhydramine HCl (Benadryl) 25 mg 1X PRN PRN IV ITCHING; Start 06/02/19 at 11:30; Stop 06/03/19 at 11:29 Diphenhydramine HCl (Benadryl) 25 mg 1X PRN PRN IV ITCHING; Start 06/02/19 at 11:30; Stop 06/03/19 at 11:29 Sodium Chloride 1,000 ml @ 400 mls/hr Q2H30M PRN IV PATENCY; Start 06/02/19 at 11:21; Stop 06/02/19 at 23:20 Info (PHARMACY MONITORING -- do not chart) 1 each PRN DAILY PRN MC SEE COMMENTS; Start 06/02/19 at 11:30 Active Scripts Active Reported Acidophilus (Lactobacillus Acidophilus) 1 Each Capsule 1 Each PO DAILY Hydrocodone-Apap 7.5-325 (Hydrocodone Bit/Acetaminophen) 1 Tab Tablet 1 Tab PO PRN Q6HRS PRN Lasix (Furosemide) 40 Mg Tablet 1 Tab PO PRN DAILY PRN Advair 250-50 Diskus (Fluticasone/Salmeterol) 1 Each Disk.w.dev 1 Puff IH BID Ferrous Gluconate 240 Mg Tablet 240 Mg PO DAILY Fluticasone Propionate Nasal [place] (Fluticasone Propionate) 16 Gm [place].susp 2 [place] NS DAILY Calcium Acetate 667 Mg Tablet 667 Mg PO TIDWMEALS Allopurinol 300 Mg Tablet 0.5 Tab PO DAILY Proair Respiclick (Albuterol Sulfate) 90 Mcg Aer.pow.ba 2 Puff IH PRN Q6HRS PRN Aspir-Low (Aspirin) 81 Mg Tablet.dr 1 Tab PO DAILY Amiodarone Hcl 200 Mg Tablet 1 Tab PO DAILY Vitamin D3 (Cholecalciferol (Vitamin D3)) 1,000 Unit Tablet 2 Tab PO DAILY Norvasc (Amlodipine Besylate) 10 Mg Tablet 10 Mg PO DAILY Bidil Tablet (Isosorb Dinit/Hydralazine Hcl) 1 Each Tablet 1 Each PO BID Calcitriol 0.25 Mcg Capsule 1 Cap PO DAILY Carvedilol 25 Mg Tablet 25 Mg PO BIDWMEALS Allergies Allergies: Coded Allergies: Sulfa (Sulfonamide Antibiotics) (Verified Allergy, Intermediate, Swelling, 09/12/18) ROS Review of System Per HPI Physical Exam Physical Exam General: Alert, Oriented X3, Cooperative, No acute distress HEENT: Atraumatic, PERRLA, EOMI, Mucous membr. moist/pink Neck supple Lungs: Other (Decreased left basilar breath sounds) Heart: S1S2, RRR, no thrills, no rubs Abdomen: Normal bowel sounds, Soft, No tenderness, No hepatosplenomegaly, No masses Extremities: No clubbing, No cyanosis, Normal pulses, Skin: No rashes, Neuro: grossly normal No guzmán Vital Signs Vital Signs Date Time Temp Pulse Resp B/P (MAP) Pulse Ox O2 Delivery O2 Flow Rate FiO2 06/02/19 12:04 93 3.0 06/02/19 09:00 62 119/50 06/02/19 08:00 Nasal Cannula 06/02/19 07:00 98.1 19 98.1 Assessment & Plan ESRD- On HD TTS Last Hd approx 9 days ago Seen on HD continue as ordered ,tolerating well Dw Drn Acute hypoxic respiratory failure secondary to acute on chronic diastolic heart failure. Abnormal chest x-ray with diffuse interstitial infiltrates secondary to congestive heart failure and also moderate left-sided pleural effusion. S/P thoracentesis just prior to coming for HD Anemia-? dilutional PRBC per primary Monitor per primary, GERDA per protocol for goal Hgb 10-11 Labs Labs Laboratory Tests Test 06/01/19 21:40 06/01/19 22:22 06/02/19 13:55 White Blood Count 5.3 x10^3/uL (4.0-11.0) Red Blood Count 2.35 x10^6/uL (3.50-5.40) Hemoglobin 6.8 g/dL (12.0-15.5) Hematocrit 21.8 % (36.0-47.0) Mean Corpuscular Volume 93 fL (79-100) Mean Corpuscular Hemoglobin 29 pg (25-35) Mean Corpuscular Hemoglobin Concent 31 g/dL (31-37) Red Cell Distribution Width 23.0 % (11.5-14.5) Platelet Count 363 x10^3/uL (140-400) Neutrophils (%) (Auto) 77 % (31-73) Lymphocytes (%) (Auto) 17 % (24-48) Monocytes (%) (Auto) 4 % (0-9) Eosinophils (%) (Auto) 1 % (0-3) Basophils (%) (Auto) 1 % (0-3) Neutrophils # (Auto) 4.1 x10^3/uL (1.8-7.7) Lymphocytes # (Auto) 0.9 x10^3/uL (1.0-4.8) Monocytes # (Auto) 0.2 x10^3/uL (0.0-1.1) Eosinophils # (Auto) 0.0 x10^3/uL (0.0-0.7) Basophils # (Auto) 0.0 x10^3/uL (0.0-0.2) Platelet Estimate Adequate (ADEQUATE) Polychromasia Slight Hypochromasia Mod Poikilocytosis Slight Anisocytosis Mod Spherocytes Occ Ovalocytes Few Helmet Cells Occ Schistocytes Occ Sodium Level 147 mmol/L (136-145) Potassium Level 5.2 mmol/L (3.5-5.1) Chloride Level 111 mmol/L (98-107) Carbon Dioxide Level 19 mmol/L (21-32) Anion Gap 17 (6-14) Blood Urea Nitrogen 92 mg/dL (7-20) Creatinine 12.3 mg/dL (0.6-1.0) Estimated GFR (Cockcroft-Gault) 3.6 BUN/Creatinine Ratio 7 (6-20) Glucose Level 110 mg/dL (70-99) Calcium Level 8.7 mg/dL (8.5-10.1) Total Bilirubin 0.3 mg/dL (0.2-1.0) Aspartate Amino Transf (AST/SGOT) 16 U/L (15-37) Alanine Aminotransferase (ALT/SGPT) 11 U/L (14-59) Alkaline Phosphatase 88 U/L (46-116) Total Protein 6.9 g/dL (6.4-8.2) Albumin 2.2 g/dL (3.4-5.0) Albumin/Globulin Ratio 0.5 (1.0-1.7) Prothrombin Time 14.5 SEC (11.7-14.0) Prothromb Time International Ratio 1.2 (0.8-1.1) Laboratory Tests Test 06/01/19 21:40 06/01/19 22:22 06/02/19 13:55 White Blood Count 5.3 x10^3/uL (4.0-11.0) Red Blood Count 2.35 x10^6/uL (3.50-5.40) Hemoglobin 6.8 g/dL (12.0-15.5) Hematocrit 21.8 % (36.0-47.0) Mean Corpuscular Volume 93 fL (79-100) Mean Corpuscular Hemoglobin 29 pg (25-35) Mean Corpuscular Hemoglobin Concent 31 g/dL (31-37) Red Cell Distribution Width 23.0 % (11.5-14.5) Platelet Count 363 x10^3/uL (140-400) Neutrophils (%) (Auto) 77 % (31-73) Lymphocytes (%) (Auto) 17 % (24-48) Monocytes (%) (Auto) 4 % (0-9) Eosinophils (%) (Auto) 1 % (0-3) Basophils (%) (Auto) 1 % (0-3) Neutrophils # (Auto) 4.1 x10^3/uL (1.8-7.7) Lymphocytes # (Auto) 0.9 x10^3/uL (1.0-4.8) Monocytes # (Auto) 0.2 x10^3/uL (0.0-1.1) Eosinophils # (Auto) 0.0 x10^3/uL (0.0-0.7) Basophils # (Auto) 0.0 x10^3/uL (0.0-0.2) Platelet Estimate Adequate (ADEQUATE) Polychromasia Slight Hypochromasia Mod Poikilocytosis Slight Anisocytosis Mod Spherocytes Occ Ovalocytes Few Helmet Cells Occ Schistocytes Occ Sodium Level 147 mmol/L (136-145) Potassium Level 5.2 mmol/L (3.5-5.1) Chloride Level 111 mmol/L (98-107) Carbon Dioxide Level 19 mmol/L (21-32) Anion Gap 17 (6-14) Blood Urea Nitrogen 92 mg/dL (7-20) Creatinine 12.3 mg/dL (0.6-1.0) Estimated GFR (Cockcroft-Gault) 3.6 BUN/Creatinine Ratio 7 (6-20) Glucose Level 110 mg/dL (70-99) Calcium Level 8.7 mg/dL (8.5-10.1) Total Bilirubin 0.3 mg/dL (0.2-1.0) Aspartate Amino Transf (AST/SGOT) 16 U/L (15-37) Alanine Aminotransferase (ALT/SGPT) 11 U/L (14-59) Alkaline Phosphatase 88 U/L (46-116) Total Protein 6.9 g/dL (6.4-8.2) Albumin 2.2 g/dL (3.4-5.0) Albumin/Globulin Ratio 0.5 (1.0-1.7) Prothrombin Time 14.5 SEC (11.7-14.0) Prothromb Time International Ratio 1.2 (0.8-1.1) Review All relevant outside records, renal labs, imaging studies, telemetry/EKG's were reviewed. Images Images CT chest-- 1. Large partially loculated left pleural effusion with partial upper and lower lobe consolidation and partial upper lower lobe collapse. This is superimposed on suspected multifocal groundglass infiltrate within the bilateral upper lobes. Follow-up to confirm resolution and exclude an underlying lesion. 2. Trace right pleural effusion. 3. Cardiomegaly and trace pericardial effusion. 4. Right renal atrophy and right renal cysts. 5. Emphysema. NIKKI PUGA MD Jun 02, 2019 14:23
[2019-06-02 14:31] VITALS: BP 115/44
--- NOTE | 2019-06-02 14:36 | NUR ---
drainage from thoracentesis is cloudy Addendum: 06/02/19 at 1436 by RITO SINCLAIR RN Amended: Links added.
--- NOTE | 2019-06-02 15:06 | NUR ---
Paged Dr. Boudreaux regarding hgb of 6.8. Stated that she is not going to recieve any blood transfusions today, will re-address tomorrow.
--- NOTE | 2019-06-02 16:30 | RAD ---
Ultrasound Guided Thoracentesis, left side Indication: Adult female with left pleural effusion Sedation: None Sterility: The procedure was performed in its entirety using appropriate elements of sterile technique. Technique and Findings: Following informed consent, the patient was prepped and draped in the usual sterile fashion. Ultrasound interrogation of the area of interest was performed revealing the presence of a pleural fluid collection. 1% Lidocaine was used to achieve local anesthesia over the area of interest. A small dermatotomy was made and a 5F [id number] catheter was advanced under ultrasound guidance into the pleural space and 1400 cc's of thin betty fluid was removed. The catheter was then removed and hemostasis was achieved with manual compression. Impression: US thoracentesis as described.
[2019-06-02 18:35] VITALS: BP 137/57
[2019-06-02] MEDS: BUDESONIDE 0.5 MG/2 ML NEBU. NEB SCH (20:00)
--- NOTE | 2019-06-02 20:29 | CONS ---
DATE OF CONSULTATION: REQUESTING PHYSICIAN: I saw her at the request of Dr. Boudreaux for rehab evaluation. LOCATION: She is in room #673. HISTORY OF PRESENT ILLNESS: This is a 79-year-old female with known degenerative joint disease, asthmatic bronchitis, coronary artery disease, diabetes mellitus type 2, hypercholesterolemia, coronary artery disease, hypertension, chronic renal failure, old cerebrovascular accident, status post hysterectomy, stenting and partial thyroid surgery. The patient was admitted on 05/02/2019 with shortness of breath. The patient apparently having shortness of breath for about a week. She apparently missed hemodialysis for about 9 days secondary to inability to get up and walk secondary to pain. The patient apparently fell in the bathroom, hitting her head. No loss of consciousness. She admits to bilateral hip area pain. She also had cough, nonproductive, without any fevers, chills, nausea or vomiting. The patient was noted with oxygen saturation of 84% on room air. The patient was admitted for further evaluation and treatment. She apparently had oxygen machine at home and had to use oxygen, but some part is missing, so she is not using oxygen. The patient is independent with her mobility and most of aspects of her self-care until her recent illness. She had a flight of stairs to manage and she takes care of two teenage grandchildren. She had chest x-ray done, which revealed large partially loculated left pleural effusion with partial upper and lower lobe consolidation and partial upper lobe collapse, superimposed on suspected multifocal ground glass infiltrate within the bilateral upper lobes, trace right pleural effusion, right renal atrophy and right renal cyst emphysema. The patient had thoracentesis done today. CT scan of the brain revealed chronic ischemic changes without any acute abnormality. X-rays of the hip and pelvis failed to reveal any acute abnormalities. The patient is known ALLERGIC TO SULFA. PHYSICAL EXAMINATION: Today revealed an elderly female. She is alert, oriented to time, place, person and circumstance and follows commands appropriately, moves all 4 extremities voluntarily where she had 4/5 to 4+/5 grade muscle strength. Deep tendon reflexes are decreased to absent overall. She had equal perception of touch and pinprick sensation bilaterally. She had crepitus on range of motion of her knee joint with mild knee joint effusion, left side more than right side. She had pain free range of motion of both hip joints. She had tenderness to palpation over sacroiliac joint area bilaterally. Straight leg raising test is negative bilaterally. I have not tested her mobility skills at this time as she is receiving hemodialysis at the present time. She can roll from side to side by herself. ASSESSMENT: Elderly female with diabetes mellitus with peripheral neuropathy, degenerative joint disease of her knees, chronic lower back pain from degenerative disk disease of lumbar vertebrae without any clinical evidence of ongoing lumbar radiculopathy. The patient with known asthmatic bronchitis, emphysema, oxygen dependent, coronary artery disease, hypercholesterolemia, end-stage renal disease, on hemodialysis, old cerebrovascular accident and hypertension. RECOMMENDATIONS: To try physical modality to help ease her back pain, to consider trigger point injection if the pain coming in her way of getting up and walking. To also consider knee joint injections as she had degenerative changes in both knees. Agree with the plans for physical therapy and occupational therapy. Dr. Boudreaux, I appreciate asking me to participate in the care of this interesting patient. I will be glad to see her for followup with you on as needed basis. LAMONTE BALDWIN MD DR: MAYTE/gia JOB#: [id number] / [id number]
[2019-06-02] MEDS: DICLOFENAC SODIUM 1% TOPICAL GEL 100GM TUBE. TP SCH (21:54)
[2019-06-02 23:39] VITALS: BP 119/56
[2019-06-03] VITALS (11 sets, daily range): BP systolic 85–121; BP diastolic 36–52
[2019-06-03 03:15] LABS: BASO % 0 % (0-3); EOS % 1 % (0-3); LYMPH # 0.8 x10^3/uL (1.0-4.8); LYMPH % 18 % (24-48); MEAN CORPUSCULAR HEMOGLOBIN 29 pg (25-35); MEAN CORPUSCULAR HGB CONC 32 g/dL (31-37); MEAN CORPUSCULAR VOLUME 91 fL (79-100); MONO # 0.2 x10^3/uL (0.0-1.1); MONO % 5 % (0-9); NEUT # 3.5 x10^3/uL (1.8-7.7); NEUT % 76 % (31-73); PLATELET COUNT 267 x10^3/uL (140-400); RED BLOOD COUNT 2.15 x10^6/uL (3.50-5.40); RED CELL DISTRIBUTION WIDTH 22.9 % (11.5-14.5); WHITE BLOOD COUNT 4.7 x10^3/uL (4.0-11.0)
[2019-06-03 03:16] LABS: HEMOGLOBIN 6.3 g/dL (12.0-15.5)
[2019-06-03 03:17] LABS: HEMATOCRIT 19.5 % (36.0-47.0)
[2019-06-03 03:51] LABS: ALBUMIN 1.8 g/dL (3.4-5.0); ALBUMIN/GLOBULIN RATIO 0.4 (1.0-1.7); CALCIUM 7.9 mg/dL (8.5-10.1); CREATININE 5.5 mg/dL (0.6-1.0); POTASSIUM 3.3 mmol/L (3.5-5.1); TOTAL BILIRUBIN 0.4 mg/dL (0.2-1.0); TOTAL PROTEIN 5.9 g/dL (6.4-8.2)
[2019-06-03] MEDS ORDERED: diphenhydrAMINE ORAL ELIXIR 12.5 MG/5 ML ML PO PRN (05:00)
[2019-06-03] MEDS ORDERED: diphenhydrAMINE HCL 25 MG CAPSULE PO PRN (05:00)
[2019-06-03] MEDS ORDERED: ACETAMINOPHEN 325 MG TABLET. PO PRN (05:00)
--- NOTE | 2019-06-03 07:49 | PDOC ---
PROGRESS NOTES Chief Complaint Chief Complaint A/P: Acute hypoxia - multifactorial from fluid overload, pleural effusion. Will need urgent dialysis, nephrology consulted. Pulm to see regarding pleural effusion. Left pleural effusion - likely from volume overload Shortness of breath - chart indicates asthma history ESRD - TuThSa, missed dialysis, will consult nephrology Acute Anemia - Hb 6.8 Paroxysmal afib - looks sinus on EKG currently, takes eliquis 2.5mg BID. will hold currently for acute anemia. DM2 - unknown a1c, but 6.2 a few years ago. HTN - cont meds CAD s/p RCA stent 09/2018 - will cont meds, plavix High Cholesterol - cont statin Prior CVA - ASA and statin. PT to see for gait instability Hip pain - bilateral, will trial gait with PT. PMR consulted FEN - ADA renal diet PPX - Eliquis, will hold for right now, possible thoracentesis FULL CODE Dispo - Med/tele likely 2 midnights History of Present Illness History of Present Illness Ms Lundy is a 79-year-old female w/ PMHx ESRD, anemia, DM2, HTN, CAD s/p stents, High Cholesterol, afib, prior CVA who p/w shortness of breath 1 week. States she has not been to dialysis for 9 days secondary to inability to walk, pain with ambulation. Patient states she fell in the bathroom hitting her head and left hip 9 days ago, no loss of consciousness however had bilateral hip pain. Today she describes cough, nonproductive, denies any fever, chills, nausea, vomiting. When her continued shortness of breath she presents to the ER for further evaluation. Her initial evaluation revealed saturations 84% on room air with increased risk of breathing. EKG reviewed, no STEMI, heart rate 58, left axis deviation Chest x-ray reveals evidence of left pleural effusion, Hb 6.8, creatinine 12.3, BUN 92, potassium 5.2 Notably hypoxic less than 88%, placed O2 2 L with saturations of 94%. On 06/02 she underwent US guided thoracentesis on the left with 1400cc removed by IR. Tolerated thoracentesis by IR and dialysis well yesterday. Hb still 6.3. Blood ready for 2u. Seen on dialysis, feeling less short of breath, but very weak. Vitals Vitals Vital Signs Date Time Temp Pulse Resp B/P (MAP) Pulse Ox O2 Delivery O2 Flow Rate FiO2 06/03/19 03:27 99.4 72 16 112/52 (72) 95 Nasal Cannula 2.0 99.4 Physical Exam General: Alert, Oriented X3, Cooperative, No acute distress Lungs: Clear, Crackles Abdomen: Normal bowel sounds, Soft, No tenderness, No hepatosplenomegaly, No masses Extremities: No clubbing, No cyanosis, Normal pulses, Other (Left hip pain laterally) Skin: No rashes, No breakdown, No significant lesion Labs LABS Laboratory Tests Test 06/02/19 13:55 06/03/19 02:55 Prothrombin Time 14.5 SEC (11.7-14.0) Prothromb Time International Ratio 1.2 (0.8-1.1) White Blood Count 4.7 x10^3/uL (4.0-11.0) Red Blood Count 2.15 x10^6/uL (3.50-5.40) Hemoglobin 6.3 g/dL (12.0-15.5) Hematocrit 19.5 % (36.0-47.0) Mean Corpuscular Volume 91 fL (79-100) Mean Corpuscular Hemoglobin 29 pg (25-35) Mean Corpuscular Hemoglobin Concent 32 g/dL (31-37) Red Cell Distribution Width 22.9 % (11.5-14.5) Platelet Count 267 x10^3/uL (140-400) Neutrophils (%) (Auto) 76 % (31-73) Lymphocytes (%) (Auto) 18 % (24-48) Monocytes (%) (Auto) 5 % (0-9) Eosinophils (%) (Auto) 1 % (0-3) Basophils (%) (Auto) 0 % (0-3) Neutrophils # (Auto) 3.5 x10^3/uL (1.8-7.7) Lymphocytes # (Auto) 0.8 x10^3/uL (1.0-4.8) Monocytes # (Auto) 0.2 x10^3/uL (0.0-1.1) Eosinophils # (Auto) 0.0 x10^3/uL (0.0-0.7) Basophils # (Auto) 0.0 x10^3/uL (0.0-0.2) Sodium Level 140 mmol/L (136-145) Potassium Level 3.3 mmol/L (3.5-5.1) Chloride Level 102 mmol/L (98-107) Carbon Dioxide Level 35 mmol/L (21-32) Anion Gap 3 (6-14) Blood Urea Nitrogen 32 mg/dL (7-20) Creatinine 5.5 mg/dL (0.6-1.0) Estimated GFR (Cockcroft-Gault) 9.0 BUN/Creatinine Ratio 6 (6-20) Glucose Level 80 mg/dL (70-99) Calcium Level 7.9 mg/dL (8.5-10.1) Total Bilirubin 0.4 mg/dL (0.2-1.0) Aspartate Amino Transf (AST/SGOT) 15 U/L (15-37) Alanine Aminotransferase (ALT/SGPT) 12 U/L (14-59) Alkaline Phosphatase 77 U/L (46-116) Total Protein 5.9 g/dL (6.4-8.2) Albumin 1.8 g/dL (3.4-5.0) Albumin/Globulin Ratio 0.4 (1.0-1.7) Assessment and Plan Assessmemt and Plan Problems Medical Problems: (1) Acute respiratory distress Status: Acute (2) Diabetes Status: Acute (3) Pleural effusion Status: Acute Comment Review of Relevant I have reviewed the following items scot (where applicable) has been applied. Labs Laboratory Tests Test 06/01/19 21:40 06/01/19 22:22 06/02/19 13:55 06/03/19 02:55 White Blood Count 5.3 x10^3/uL (4.0-11.0) 4.7 x10^3/uL (4.0-11.0) Red Blood Count 2.35 x10^6/uL (3.50-5.40) 2.15 x10^6/uL (3.50-5.40) Hemoglobin 6.8 g/dL (12.0-15.5) 6.3 g/dL (12.0-15.5) Hematocrit 21.8 % (36.0-47.0) 19.5 % (36.0-47.0) Mean Corpuscular Volume 93 fL (79-100) 91 fL (79-100) Mean Corpuscular Hemoglobin 29 pg (25-35) 29 pg (25-35) Mean Corpuscular Hemoglobin Concent 31 g/dL (31-37) 32 g/dL (31-37) Red Cell Distribution Width 23.0 % (11.5-14.5) 22.9 % (11.5-14.5) Platelet Count 363 x10^3/uL (140-400) 267 x10^3/uL (140-400) Neutrophils (%) (Auto) 77 % (31-73) 76 % (31-73) Lymphocytes (%) (Auto) 17 % (24-48) 18 % (24-48) Monocytes (%) (Auto) 4 % (0-9) 5 % (0-9) Eosinophils (%) (Auto) 1 % (0-3) 1 % (0-3) Basophils (%) (Auto) 1 % (0-3) 0 % (0-3) Neutrophils # (Auto) 4.1 x10^3/uL (1.8-7.7) 3.5 x10^3/uL (1.8-7.7) Lymphocytes # (Auto) 0.9 x10^3/uL (1.0-4.8) 0.8 x10^3/uL (1.0-4.8) Monocytes # (Auto) 0.2 x10^3/uL (0.0-1.1) 0.2 x10^3/uL (0.0-1.1) Eosinophils # (Auto) 0.0 x10^3/uL (0.0-0.7) 0.0 x10^3/uL (0.0-0.7) Basophils # (Auto) 0.0 x10^3/uL (0.0-0.2) 0.0 x10^3/uL (0.0-0.2) Platelet Estimate Adequate (ADEQUATE) Polychromasia Slight Hypochromasia Mod Poikilocytosis Slight Anisocytosis Mod Spherocytes Occ Ovalocytes Few Helmet Cells Occ Schistocytes Occ Sodium Level 147 mmol/L (136-145) 140 mmol/L (136-145) Potassium Level 5.2 mmol/L (3.5-5.1) 3.3 mmol/L (3.5-5.1) Chloride Level 111 mmol/L (98-107) 102 mmol/L (98-107) Carbon Dioxide Level 19 mmol/L (21-32) 35 mmol/L (21-32) Anion Gap 17 (6-14) 3 (6-14) Blood Urea Nitrogen 92 mg/dL (7-20) 32 mg/dL (7-20) Creatinine 12.3 mg/dL (0.6-1.0) 5.5 mg/dL (0.6-1.0) Estimated GFR (Cockcroft-Gault) 3.6 9.0 BUN/Creatinine Ratio 7 (6-20) 6 (6-20) Glucose Level 110 mg/dL (70-99) 80 mg/dL (70-99) Calcium Level 8.7 mg/dL (8.5-10.1) 7.9 mg/dL (8.5-10.1) Total Bilirubin 0.3 mg/dL (0.2-1.0) 0.4 mg/dL (0.2-1.0) Aspartate Amino Transf (AST/SGOT) 16 U/L (15-37) 15 U/L (15-37) Alanine Aminotransferase (ALT/SGPT) 11 U/L (14-59) 12 U/L (14-59) Alkaline Phosphatase 88 U/L (46-116) 77 U/L (46-116) Total Protein 6.9 g/dL (6.4-8.2) 5.9 g/dL (6.4-8.2) Albumin 2.2 g/dL (3.4-5.0) 1.8 g/dL (3.4-5.0) Albumin/Globulin Ratio 0.5 (1.0-1.7) 0.4 (1.0-1.7) Prothrombin Time 14.5 SEC (11.7-14.0) Prothromb Time International Ratio 1.2 (0.8-1.1) Laboratory Tests Test 06/02/19 13:55 06/03/19 02:55 Prothrombin Time 14.5 SEC (11.7-14.0) Prothromb Time International Ratio 1.2 (0.8-1.1) White Blood Count 4.7 x10^3/uL (4.0-11.0) Red Blood Count 2.15 x10^6/uL (3.50-5.40) Hemoglobin 6.3 g/dL (12.0-15.5) Hematocrit 19.5 % (36.0-47.0) Mean Corpuscular Volume 91 fL (79-100) Mean Corpuscular Hemoglobin 29 pg (25-35) Mean Corpuscular Hemoglobin Concent 32 g/dL (31-37) Red Cell Distribution Width 22.9 % (11.5-14.5) Platelet Count 267 x10^3/uL (140-400) Neutrophils (%) (Auto) 76 % (31-73) Lymphocytes (%) (Auto) 18 % (24-48) Monocytes (%) (Auto) 5 % (0-9) Eosinophils (%) (Auto) 1 % (0-3) Basophils (%) (Auto) 0 % (0-3) Neutrophils # (Auto) 3.5 x10^3/uL (1.8-7.7) Lymphocytes # (Auto) 0.8 x10^3/uL (1.0-4.8) Monocytes # (Auto) 0.2 x10^3/uL (0.0-1.1) Eosinophils # (Auto) 0.0 x10^3/uL (0.0-0.7) Basophils # (Auto) 0.0 x10^3/uL (0.0-0.2) Sodium Level 140 mmol/L (136-145) Potassium Level 3.3 mmol/L (3.5-5.1) Chloride Level 102 mmol/L (98-107) Carbon Dioxide Level 35 mmol/L (21-32) Anion Gap 3 (6-14) Blood Urea Nitrogen 32 mg/dL (7-20) Creatinine 5.5 mg/dL (0.6-1.0) Estimated GFR (Cockcroft-Gault) 9.0 BUN/Creatinine Ratio 6 (6-20) Glucose Level 80 mg/dL (70-99) Calcium Level 7.9 mg/dL (8.5-10.1) Total Bilirubin 0.4 mg/dL (0.2-1.0) Aspartate Amino Transf (AST/SGOT) 15 U/L (15-37) Alanine Aminotransferase (ALT/SGPT) 12 U/L (14-59) Alkaline Phosphatase 77 U/L (46-116) Total Protein 5.9 g/dL (6.4-8.2) Albumin 1.8 g/dL (3.4-5.0) Albumin/Globulin Ratio 0.4 (1.0-1.7) Medications Current Medications Albuterol/ Ipratropium (Duoneb) 3 ml 1X ONCE NEB Last administered on 06/01/19at 21:30; Start 06/01/19 at 21:30; Stop 06/01/19 at 21:31; Status DC Ondansetron HCl (Zofran) 4 mg PRN Q8HRS PRN IV NAUSEA/VOMITING; Start 06/02/19 at 00:15; Stop 06/03/19 at 00:14; Status DC Acetaminophen (Tylenol) 650 mg PRN Q4HRS PRN PO FEVER; Start 06/02/19 at 00:15; Stop 06/03/19 at 00:14; Status DC Amlodipine Besylate (Norvasc) 10 mg DAILY PO ; Start 06/02/19 at 09:00 Aspirin (Ecotrin) 81 mg DAILY PO ; Start 06/02/19 at 09:00 Calcitriol (Rocaltrol) 0.25 mcg DAILY PO ; Start 06/02/19 at 09:00 Vitamin D (Vitamin D3) 2,000 unit DAILY PO ; Start 06/02/19 at 09:00 Fluticasone Propionate (Flonase) 2 spray DAILY NS Last administered on 06/02/19at 09:00; Start 06/02/19 at 09:00 Furosemide (Lasix) 40 mg PRN DAILY PRN PO SWELLING; Start 06/02/19 at 08:45 Acetaminophen/ Hydrocodone Bitart (Lortab 7.5/325) 1 tab PRN Q6HRS PRN PO PAIN Last administered on 06/02/19at 21:54; Start 06/02/19 at 08:45 Carvedilol (Coreg) 25 mg BIDWMEALS PO ; Start 06/02/19 at 09:00 Ferrous Sulfate (Feosol) 325 mg DAILYWBKFT PO ; Start 06/02/19 at 09:00 Non-Formulary Medication (Fluticasone/ Salmeterol (Advair 250-50 Diskus)) 1 puff BID IH ; Start 06/02/19 at 09:00; Status UNV Hydralazine HCl (Apresoline) 37.5 mg BID PO Last administered on 06/02/19at 21:55; Start 06/02/19 at 09:00 Isosorbide Dinitrate (Isordil) 20 mg BID PO Last administered on 06/02/19at 21:54; Start 06/02/19 at 09:00 Budesonide (Pulmicort) 0.5 mg RTBID NEB Last administered on 06/02/19at 20:00; Start 06/02/19 at 20:00 Albuterol Sulfate (Ventolin Neb Soln) 2.5 mg RTQID NEB Last administered on 06/02/19at 20:00; Start 06/02/19 at 12:00 Sodium Chloride 1,000 ml @ 1,000 mls/hr Q1H PRN IV hypotension; Start 06/02/19 at 11:21; Stop 06/02/19 at 17:20; Status DC Diphenhydramine HCl (Benadryl) 25 mg 1X PRN PRN IV ITCHING; Start 06/02/19 at 11:30; Stop 06/03/19 at 11:29 Diphenhydramine HCl (Benadryl) 25 mg 1X PRN PRN IV ITCHING; Start 06/02/19 at 11:30; Stop 06/03/19 at 11:29 Sodium Chloride 1,000 ml @ 400 mls/hr Q2H30M PRN IV PATENCY; Start 06/02/19 at 11:21; Stop 06/02/19 at 23:20; Status DC Info (PHARMACY MONITORING -- do not chart) 1 each PRN DAILY PRN MC SEE COMM ENTS; Start 06/02/19 at 11:30 Diclofenac Sodium (Voltaren) 1 torie BID TP Last administered on 06/02/19at 21:54; Start 06/02/19 at 21:00 Acetaminophen (Tylenol) 650 mg 1X PRN PRN PO PRE-TRANSFUSION; Start 06/03/19 at 05:00 Diphenhydramine HCl (Benadryl Oral Elixir) 12.5 mg 1X PRN PRN PO PRE- TRANSFUSION; Start 06/03/19 at 05:00 Diphenhydramine HCl (Benadryl) 25 mg PRN 1X PRN PO PRE-TRANSFUSION; Start 06/03/19 at 05:00 Active Scripts Active Reported Acidophilus (Lactobacillus Acidophilus) 1 Each Capsule 1 Each PO DAILY Hydrocodone-Apap 7.5-325 (Hydrocodone Bit/Acetaminophen) 1 Tab Tablet 1 Tab PO PRN Q6HRS PRN Lasix (Furosemide) 40 Mg Tablet 1 Tab PO PRN DAILY PRN Advair 250-50 Diskus (Fluticasone/Salmeterol) 1 Each Disk.w.dev 1 Puff IH BID Ferrous Gluconate 240 Mg Tablet 240 Mg PO DAILY Fluticasone Propionate Nasal [place] (Fluticasone Propionate) 16 Gm [place].susp 2 [place] NS DAILY Calcium Acetate 667 Mg Tablet 667 Mg PO TIDWMEALS Allopurinol 300 Mg Tablet 0.5 Tab PO DAILY Proair Respiclick (Albuterol Sulfate) 90 Mcg Aer.pow.ba 2 Puff IH PRN Q6HRS PRN Aspir-Low (Aspirin) 81 Mg Tablet.dr 1 Tab PO DAILY Amiodarone Hcl 200 Mg Tablet 1 Tab PO DAILY Vitamin D3 (Cholecalciferol (Vitamin D3)) 1,000 Unit Tablet 2 Tab PO DAILY Norvasc (Amlodipine Besylate) 10 Mg Tablet 10 Mg PO DAILY Bidil Tablet (Isosorb Dinit/Hydralazine Hcl) 1 Each Tablet 1 Each PO BID Calcitriol 0.25 Mcg Capsule 1 Cap PO DAILY Carvedilol 25 Mg Tablet 25 Mg PO BIDWMEALS Vitals/I & O Vital Sign - Last 24 Hours 06/02/19 06/02/19 06/02/19 06/02/19 08:00 09:00 09:00 09:00 Pulse 62 62 62 B/P (MAP) 119/50 119/50 119/50 O2 Delivery Nasal Cannula O2 Flow Rate 2.0 06/02/19 06/02/19 06/02/19 06/02/19 09:00 12:04 14:20 14:31 Pulse 62 58 86 Resp 20 20 B/P (MAP) 119/50 123/42 (69) 115/44 (67) Pulse Ox 93 98 96 O2 Delivery Nasal Cannula Nasal Cannula O2 Flow Rate 3.0 2.0 2.0 06/02/19 06/02/19 06/02/19 06/02/19 18:35 20:21 21:19 21:20 Pulse 75 Resp 20 B/P (MAP) 137/57 (83) Pulse Ox 99 95 95 O2 Delivery Nasal Cannula Nasal Cannula O2 Flow Rate 3.0 3.0 3.0 3.0 06/02/19 06/02/19 06/02/19 06/02/19 21:54 21:54 21:55 23:16 Pulse 75 75 B/P (MAP) 137/57 137/57 O2 Delivery Nasal Cannula Nasal Cannula O2 Flow Rate 3.0 3.0 06/02/19 06/03/19 23:39 03:27 Temp 98.6 99.4 98.6 99.4 Pulse 91 72 Resp 16 16 B/P (MAP) 119/56 (77) 112/52 (72) Pulse Ox 95 95 O2 Delivery Nasal Cannula Nasal Cannula O2 Flow Rate 2.0 2.0 Intake and Output 06/02/19 06/02/19 06/03/19 15:00 23:00 07:00 Intake Total 100 ml 260 ml Output Total 1400 ml 0 ml 0 ml Balance -1400 ml 100 ml 260 ml COLTEN CHOU MD Jun 03, 2019 07:49
[2019-06-03] MEDS ORDERED: IV NORMAL SALINE 1000ML BAG 1,000 ML IV PRN ×4 (08:00→08:41)
[2019-06-03] MEDS: ALBUTEROL SULFATE 2.5 MG/3 ML NEBU. NEB SCH ×4 (08:00→20:00)
[2019-06-03] MEDS: BUDESONIDE 0.5 MG/2 ML NEBU. NEB SCH ×2 (08:11→20:00)
--- NOTE | 2019-06-03 08:17 | PDOC ---
PULMONARY PROGRESS NOTES Subjective S/P thoracentesis on the left side, 1400 cc's of thin betty fluid was removed. Remains on 3 liters N/C , denies SOA or increased cough Feeling much better today Vitals Vital Signs Date Time Temp Pulse Resp B/P (MAP) Pulse Ox O2 Delivery O2 Flow Rate FiO2 06/03/19 03:27 99.4 72 16 112/52 (72) 95 Nasal Cannula 2.0 99.4 ROS: No Nausea, No Chest Pain, No Abdominal Pain, No Increase Cough General: Alert Lungs: Clear, Crackles (LLL) Cardiovascular: S1 Abdomen: Soft Neuro Exam: Alert Extremities: No Edema Skin: Warm, Dry Labs Laboratory Tests Test 06/01/19 21:40 06/01/19 22:22 06/02/19 13:55 06/03/19 02:55 White Blood Count 5.3 x10^3/uL (4.0-11.0) 4.7 x10^3/uL (4.0-11.0) Red Blood Count 2.35 x10^6/uL (3.50-5.40) 2.15 x10^6/uL (3.50-5.40) Hemoglobin 6.8 g/dL (12.0-15.5) 6.3 g/dL (12.0-15.5) Hematocrit 21.8 % (36.0-47.0) 19.5 % (36.0-47.0) Mean Corpuscular Volume 93 fL (79-100) 91 fL (79-100) Mean Corpuscular Hemoglobin 29 pg (25-35) 29 pg (25-35) Mean Corpuscular Hemoglobin Concent 31 g/dL (31-37) 32 g/dL (31-37) Red Cell Distribution Width 23.0 % (11.5-14.5) 22.9 % (11.5-14.5) Platelet Count 363 x10^3/uL (140-400) 267 x10^3/uL (140-400) Neutrophils (%) (Auto) 77 % (31-73) 76 % (31-73) Lymphocytes (%) (Auto) 17 % (24-48) 18 % (24-48) Monocytes (%) (Auto) 4 % (0-9) 5 % (0-9) Eosinophils (%) (Auto) 1 % (0-3) 1 % (0-3) Basophils (%) (Auto) 1 % (0-3) 0 % (0-3) Neutrophils # (Auto) 4.1 x10^3/uL (1.8-7.7) 3.5 x10^3/uL (1.8-7.7) Lymphocytes # (Auto) 0.9 x10^3/uL (1.0-4.8) 0.8 x10^3/uL (1.0-4.8) Monocytes # (Auto) 0.2 x10^3/uL (0.0-1.1) 0.2 x10^3/uL (0.0-1.1) Eosinophils # (Auto) 0.0 x10^3/uL (0.0-0.7) 0.0 x10^3/uL (0.0-0.7) Basophils # (Auto) 0.0 x10^3/uL (0.0-0.2) 0.0 x10^3/uL (0.0-0.2) Platelet Estimate Adequate (ADEQUATE) Polychromasia Slight Hypochromasia Mod Poikilocytosis Slight Anisocytosis Mod Spherocytes Occ Ovalocytes Few Helmet Cells Occ Schistocytes Occ Sodium Level 147 mmol/L (136-145) 140 mmol/L (136-145) Potassium Level 5.2 mmol/L (3.5-5.1) 3.3 mmol/L (3.5-5.1) Chloride Level 111 mmol/L (98-107) 102 mmol/L (98-107) Carbon Dioxide Level 19 mmol/L (21-32) 35 mmol/L (21-32) Anion Gap 17 (6-14) 3 (6-14) Blood Urea Nitrogen 92 mg/dL (7-20) 32 mg/dL (7-20) Creatinine 12.3 mg/dL (0.6-1.0) 5.5 mg/dL (0.6-1.0) Estimated GFR (Cockcroft-Gault) 3.6 9.0 BUN/Creatinine Ratio 7 (6-20) 6 (6-20) Glucose Level 110 mg/dL (70-99) 80 mg/dL (70-99) Calcium Level 8.7 mg/dL (8.5-10.1) 7.9 mg/dL (8.5-10.1) Total Bilirubin 0.3 mg/dL (0.2-1.0) 0.4 mg/dL (0.2-1.0) Aspartate Amino Transf (AST/SGOT) 16 U/L (15-37) 15 U/L (15-37) Alanine Aminotransferase (ALT/SGPT) 11 U/L (14-59) 12 U/L (14-59) Alkaline Phosphatase 88 U/L (46-116) 77 U/L (46-116) Total Protein 6.9 g/dL (6.4-8.2) 5.9 g/dL (6.4-8.2) Albumin 2.2 g/dL (3.4-5.0) 1.8 g/dL (3.4-5.0) Albumin/Globulin Ratio 0.5 (1.0-1.7) 0.4 (1.0-1.7) Prothrombin Time 14.5 SEC (11.7-14.0) Prothromb Time International Ratio 1.2 (0.8-1.1) Laboratory Tests Test 06/02/19 13:55 06/03/19 02:55 Prothrombin Time 14.5 SEC (11.7-14.0) Prothromb Time International Ratio 1.2 (0.8-1.1) White Blood Count 4.7 x10^3/uL (4.0-11.0) Red Blood Count 2.15 x10^6/uL (3.50-5.40) Hemoglobin 6.3 g/dL (12.0-15.5) Hematocrit 19.5 % (36.0-47.0) Mean Corpuscular Volume 91 fL (79-100) Mean Corpuscular Hemoglobin 29 pg (25-35) Mean Corpuscular Hemoglobin Concent 32 g/dL (31-37) Red Cell Distribution Width 22.9 % (11.5-14.5) Platelet Count 267 x10^3/uL (140-400) Neutrophils (%) (Auto) 76 % (31-73) Lymphocytes (%) (Auto) 18 % (24-48) Monocytes (%) (Auto) 5 % (0-9) Eosinophils (%) (Auto) 1 % (0-3) Basophils (%) (Auto) 0 % (0-3) Neutrophils # (Auto) 3.5 x10^3/uL (1.8-7.7) Lymphocytes # (Auto) 0.8 x10^3/uL (1.0-4.8) Monocytes # (Auto) 0.2 x10^3/uL (0.0-1.1) Eosinophils # (Auto) 0.0 x10^3/uL (0.0-0.7) Basophils # (Auto) 0.0 x10^3/uL (0.0-0.2) Sodium Level 140 mmol/L (136-145) Potassium Level 3.3 mmol/L (3.5-5.1) Chloride Level 102 mmol/L (98-107) Carbon Dioxide Level 35 mmol/L (21-32) Anion Gap 3 (6-14) Blood Urea Nitrogen 32 mg/dL (7-20) Creatinine 5.5 mg/dL (0.6-1.0) Estimated GFR (Cockcroft-Gault) 9.0 BUN/Creatinine Ratio 6 (6-20) Glucose Level 80 mg/dL (70-99) Calcium Level 7.9 mg/dL (8.5-10.1) Total Bilirubin 0.4 mg/dL (0.2-1.0) Aspartate Amino Transf (AST/SGOT) 15 U/L (15-37) Alanine Aminotransferase (ALT/SGPT) 12 U/L (14-59) Alkaline Phosphatase 77 U/L (46-116) Total Protein 5.9 g/dL (6.4-8.2) Albumin 1.8 g/dL (3.4-5.0) Albumin/Globulin Ratio 0.4 (1.0-1.7) Medications Active Scripts Medications Dose Route/Sig Max Daily Dose Days Date Category Acidophilus (Lactobacillus Acidophilus) 1 Each Capsule 1 Each PO DAILY 09/09/18 Reported Hydrocodone-Apap 7.5-325 (Hydrocodone Bit/Acetaminophen) 1 Tab Tablet 1 Tab PO PRN Q6HRS PRN 09/09/18 Reported Lasix (Furosemide) 40 Mg Tablet 1 Tab PO PRN DAILY PRN 09/09/18 Reported Advair 250-50 Diskus (Fluticasone/Salmeterol) 1 Each Disk.w.dev 1 Puff IH BID 09/09/18 Reported Ferrous Gluconate 240 Mg Tablet 240 Mg PO DAILY 09/09/18 Reported Fluticasone Propionate Nasal [place] (Fluticasone Propionate) 16 Gm [place].susp 2 [place] NS DAILY 09/09/18 Reported Calcium Acetate 667 Mg Tablet 667 Mg PO TIDWMEALS 09/09/18 Reported Allopurinol 300 Mg Tablet 0.5 Tab PO DAILY 09/09/18 Reported Proair Respiclick (Albuterol Sulfate) 90 Mcg Aer.pow.ba 2 Puff IH PRN Q6HRS PRN 09/09/18 Reported Aspir-Low (Aspirin) 81 Mg Tablet.dr 1 Tab PO DAILY 05/24/18 Reported Amiodarone Hcl 200 Mg Tablet 1 Tab PO DAILY 05/24/18 Reported Vitamin D3 (Cholecalciferol (Vitamin D3)) 1,000 Unit Tablet 2 Tab PO DAILY 05/24/18 Reported Norvasc (Amlodipine Besylate) 10 Mg Tablet 10 Mg PO DAILY 05/24/18 Reported Bidil Tablet (Isosorb Dinit/Hydralazine Hcl) 1 Each Tablet 1 Each PO BID 05/24/18 Reported Calcitriol 0.25 Mcg Capsule 1 Cap PO DAILY 05/24/18 Reported Carvedilol 25 Mg Tablet 25 Mg PO BIDWMEALS 05/24/18 Reported Impression . IMPRESSION: 1. Acute hypoxic respiratory failure secondary to acute on chronic diastolic heart failure. 2. Abnormal chest x-ray with diffuse interstitial infiltrates secondary to congestive heart failure and also moderate left-sided pleural effusion. S/P thoracentesis on the left side, 1400 cc's of thin betty fluid was removed. 3. Prior echocardiogram with normal ejection fraction and grade 1 diastolic dysfunction. 4. End-stage renal disease, on hemodialysis. 5. Anemia, could be dilutional versus related to end-stage renal disease. No obvious gastrointestinal loss. 6. No significant tobacco history. 06/02/19 CT chest IMPRESSION: 1. Large partially loculated left pleural effusion with partial upper and lower lobe consolidation and partial upper lower lobe collapse. This is superimposed on suspected multifocal groundglass infiltrate within the bilateral upper lobes. Follow-up to confirm resolution and exclude an underlying lesion. 2. Trace right pleural effusion. 3. Cardiomegaly and trace pericardial effusion. 4. Right renal atrophy and right renal cysts. 5. Emphysema. Plan . RECOMMENDATIONS: S/P thoracentesis on the left side, 1400 cc's of thin betty fluid was removed, will await pleural fluid analysis Continue bronchodilators. Continue oxygen. Follow renal recommendation and increase ultrafiltration with hemodialysis. Discussed with RN. We will follow along with you. KIARA DUMONT MD Jun 03, 2019 08:17
[2019-06-03] MEDS ORDERED: DIALYSIS PATIENT. MC PRN ×4 (08:45→10:30)
[2019-06-03] MEDS ORDERED: ALBUMIN HUMAN 25% 200 ML IV PRN (08:45)
[2019-06-03] MEDS: DICLOFENAC SODIUM 1% TOPICAL GEL 100GM TUBE. TP SCH ×3 (09:00→21:11)
[2019-06-03] MEDS ORDERED: LIDOCAINE 1% PF 2 ML VIAL. ID PRN (10:45)
--- NOTE | 2019-06-03 10:50 | PDOC ---
PROGRESS NOTES Subjective Subjective No new complaints. Objective Objective Vital Signs Date Time Temp Pulse Resp B/P (MAP) Pulse Ox O2 Delivery O2 Flow Rate FiO2 06/03/19 10:36 98.0 63 16 119/48 98.0 06/03/19 08:14 96 3.0 06/03/19 08:00 Nasal Cannula Intake and Output 06/03/19 07:00 Intake Total 360 ml Output Total 1400 ml Balance -1040 ml Intake Oral 360 ml Output Urine Total 0 ml Chest Tube Drainage Total 1400 ml Physical Exam Physical Exam She is receiving hemodialysis and also blood transfusion this AM. She got up and walked at bedside as for nursing. Physical and occupational therapy to see her. Assessment Assessment Problems Medical Problems: (1) Acute respiratory distress Status: Acute (2) Diabetes Status: Acute (3) Pleural effusion Status: Acute Plan Plan of Care To get her up as tolerated. Comment Review of Relevant I have reviewed the following items scot (where applicable) has been applied. Labs Laboratory Tests Test 06/01/19 21:40 06/01/19 22:22 06/02/19 13:55 06/03/19 02:55 White Blood Count 5.3 x10^3/uL (4.0-11.0) 4.7 x10^3/uL (4.0-11.0) Red Blood Count 2.35 x10^6/uL (3.50-5.40) 2.15 x10^6/uL (3.50-5.40) Hemoglobin 6.8 g/dL (12.0-15.5) 6.3 g/dL (12.0-15.5) Hematocrit 21.8 % (36.0-47.0) 19.5 % (36.0-47.0) Mean Corpuscular Volume 93 fL (79-100) 91 fL (79-100) Mean Corpuscular Hemoglobin 29 pg (25-35) 29 pg (25-35) Mean Corpuscular Hemoglobin Concent 31 g/dL (31-37) 32 g/dL (31-37) Red Cell Distribution Width 23.0 % (11.5-14.5) 22.9 % (11.5-14.5) Platelet Count 363 x10^3/uL (140-400) 267 x10^3/uL (140-400) Neutrophils (%) (Auto) 77 % (31-73) 76 % (31-73) Lymphocytes (%) (Auto) 17 % (24-48) 18 % (24-48) Monocytes (%) (Auto) 4 % (0-9) 5 % (0-9) Eosinophils (%) (Auto) 1 % (0-3) 1 % (0-3) Basophils (%) (Auto) 1 % (0-3) 0 % (0-3) Neutrophils # (Auto) 4.1 x10^3/uL (1.8-7.7) 3.5 x10^3/uL (1.8-7.7) Lymphocytes # (Auto) 0.9 x10^3/uL (1.0-4.8) 0.8 x10^3/uL (1.0-4.8) Monocytes # (Auto) 0.2 x10^3/uL (0.0-1.1) 0.2 x10^3/uL (0.0-1.1) Eosinophils # (Auto) 0.0 x10^3/uL (0.0-0.7) 0.0 x10^3/uL (0.0-0.7) Basophils # (Auto) 0.0 x10^3/uL (0.0-0.2) 0.0 x10^3/uL (0.0-0.2) Platelet Estimate Adequate (ADEQUATE) Polychromasia Slight Hypochromasia Mod Poikilocytosis Slight Anisocytosis Mod Spherocytes Occ Ovalocytes Few Helmet Cells Occ Schistocytes Occ Sodium Level 147 mmol/L (136-145) 140 mmol/L (136-145) Potassium Level 5.2 mmol/L (3.5-5.1) 3.3 mmol/L (3.5-5.1) Chloride Level 111 mmol/L (98-107) 102 mmol/L (98-107) Carbon Dioxide Level 19 mmol/L (21-32) 35 mmol/L (21-32) Anion Gap 17 (6-14) 3 (6-14) Blood Urea Nitrogen 92 mg/dL (7-20) 32 mg/dL (7-20) Creatinine 12.3 mg/dL (0.6-1.0) 5.5 mg/dL (0.6-1.0) Estimated GFR (Cockcroft-Gault) 3.6 9.0 BUN/Creatinine Ratio 7 (6-20) 6 (6-20) Glucose Level 110 mg/dL (70-99) 80 mg/dL (70-99) Calcium Level 8.7 mg/dL (8.5-10.1) 7.9 mg/dL (8.5-10.1) Total Bilirubin 0.3 mg/dL (0.2-1.0) 0.4 mg/dL (0.2-1.0) Aspartate Amino Transf (AST/SGOT) 16 U/L (15-37) 15 U/L (15-37) Alanine Aminotransferase (ALT/SGPT) 11 U/L (14-59) 12 U/L (14-59) Alkaline Phosphatase 88 U/L (46-116) 77 U/L (46-116) Total Protein 6.9 g/dL (6.4-8.2) 5.9 g/dL (6.4-8.2) Albumin 2.2 g/dL (3.4-5.0) 1.8 g/dL (3.4-5.0) Albumin/Globulin Ratio 0.5 (1.0-1.7) 0.4 (1.0-1.7) Prothrombin Time 14.5 SEC (11.7-14.0) Prothromb Time International Ratio 1.2 (0.8-1.1) Laboratory Tests Test 06/02/19 13:55 06/03/19 02:55 Prothrombin Time 14.5 SEC (11.7-14.0) Prothromb Time International Ratio 1.2 (0.8-1.1) White Blood Count 4.7 x10^3/uL (4.0-11.0) Red Blood Count 2.15 x10^6/uL (3.50-5.40) Hemoglobin 6.3 g/dL (12.0-15.5) Hematocrit 19.5 % (36.0-47.0) Mean Corpuscular Volume 91 fL (79-100) Mean Corpuscular Hemoglobin 29 pg (25-35) Mean Corpuscular Hemoglobin Concent 32 g/dL (31-37) Red Cell Distribution Width 22.9 % (11.5-14.5) Platelet Count 267 x10^3/uL (140-400) Neutrophils (%) (Auto) 76 % (31-73) Lymphocytes (%) (Auto) 18 % (24-48) Monocytes (%) (Auto) 5 % (0-9) Eosinophils (%) (Auto) 1 % (0-3) Basophils (%) (Auto) 0 % (0-3) Neutrophils # (Auto) 3.5 x10^3/uL (1.8-7.7) Lymphocytes # (Auto) 0.8 x10^3/uL (1.0-4.8) Monocytes # (Auto) 0.2 x10^3/uL (0.0-1.1) Eosinophils # (Auto) 0.0 x10^3/uL (0.0-0.7) Basophils # (Auto) 0.0 x10^3/uL (0.0-0.2) Sodium Level 140 mmol/L (136-145) Potassium Level 3.3 mmol/L (3.5-5.1) Chloride Level 102 mmol/L (98-107) Carbon Dioxide Level 35 mmol/L (21-32) Anion Gap 3 (6-14) Blood Urea Nitrogen 32 mg/dL (7-20) Creatinine 5.5 mg/dL (0.6-1.0) Estimated GFR (Cockcroft-Gault) 9.0 BUN/Creatinine Ratio 6 (6-20) Glucose Level 80 mg/dL (70-99) Calcium Level 7.9 mg/dL (8.5-10.1) Total Bilirubin 0.4 mg/dL (0.2-1.0) Aspartate Amino Transf (AST/SGOT) 15 U/L (15-37) Alanine Aminotransferase (ALT/SGPT) 12 U/L (14-59) Alkaline Phosphatase 77 U/L (46-116) Total Protein 5.9 g/dL (6.4-8.2) Albumin 1.8 g/dL (3.4-5.0) Albumin/Globulin Ratio 0.4 (1.0-1.7) Medications Current Medications Albuterol/ Ipratropium (Duoneb) 3 ml 1X ONCE NEB Last administered on 06/01/19at 21:30; Start 06/01/19 at 21:30; Stop 06/01/19 at 21:31; Status DC Ondansetron HCl (Zofran) 4 mg PRN Q8HRS PRN IV NAUSEA/VOMITING; Start 06/02/19 at 00:15; Stop 06/03/19 at 00:14; Status DC Acetaminophen (Tylenol) 650 mg PRN Q4HRS PRN PO FEVER; Start 06/02/19 at 00:15; Stop 06/03/19 at 00:14; Status DC Amlodipine Besylate (Norvasc) 10 mg DAILY PO ; Start 06/02/19 at 09:00 Aspirin (Ecotrin) 81 mg DAILY PO ; Start 06/02/19 at 09:00 Calcitriol (Rocaltrol) 0.25 mcg DAILY PO ; Start 06/02/19 at 09:00 Vitamin D (Vitamin D3) 2,000 unit DAILY PO ; Start 06/02/19 at 09:00 Fluticasone Propionate (Flonase) 2 spray DAILY NS Last administered on 06/02/19at 09:00; Start 06/02/19 at 09:00 Furosemide (Lasix) 40 mg PRN DAILY PRN PO SWELLING; Start 06/02/19 at 08:45 Acetaminophen/ Hydrocodone Bitart (Lortab 7.5/325) 1 tab PRN Q6HRS PRN PO PAIN Last administered on 06/02/19at 21:54; Start 06/02/19 at 08:45 Carvedilol (Coreg) 25 mg BIDWMEALS PO ; Start 06/02/19 at 09:00 Ferrous Sulfate (Feosol) 325 mg DAILYWBKFT PO ; Start 06/02/19 at 09:00 Non-Formulary Medication (Fluticasone/ Salmeterol (Advair 250-50 Diskus)) 1 puff BID IH ; Start 06/02/19 at 09:00; Status UNV Hydralazine HCl (Apresoline) 37.5 mg BID PO Last administered on 06/02/19at 21:55; Start 06/02/19 at 09:00 Isosorbide Dinitrate (Isordil) 20 mg BID PO Last administered on 06/02/19at 21:54; Start 06/02/19 at 09:00 Budesonide (Pulmicort) 0.5 mg RTBID NEB Last administered on 06/03/19at 08:11; Start 06/02/19 at 20:00 Albuterol Sulfate (Ventolin Neb Soln) 2.5 mg RTQID NEB Last administered on 06/03/19at 08:00; Start 06/02/19 at 12:00 Sodium Chloride 1,000 ml @ 1,000 mls/hr Q1H PRN IV hypotension; Start 06/02/19 at 11:21; Stop 06/02/19 at 17:20; Status DC Diphenhydramine HCl (Benadryl) 25 mg 1X PRN PRN IV ITCHING; Start 06/02/19 at 11:30; Stop 06/03/19 at 11:29 Diphenhydramine HCl (Benadryl) 25 mg 1X PRN PRN IV ITCHING; Start 06/02/19 at 11:30; Stop 06/03/19 at 11:29 Sodium Chloride 1,000 ml @ 400 mls/hr Q2H30M PRN IV PATENCY; Start 06/02/19 at 11:21; Stop 06/02/19 at 23:20; Status DC Info (PHARMACY MONITORING -- do not chart) 1 each PRN DAILY PRN MC SEE COMMENTS; Start 06/02/19 at 11:30; Stop 06/03/19 at 08:49; Status DC Diclofenac Sodium (Voltaren) 1 torie BID TP Last administered on 06/02/19at 21:54; Start 06/02/19 at 21:00 Acetaminophen (Tylenol) 650 mg 1X PRN PRN PO PRE-TRANSFUSION; Start 06/03/19 at 05:00 Diphenhydramine HCl (Benadryl Oral Elixir) 12.5 mg 1X PRN PRN PO PRE- TRANSFUSION; Start 06/03/19 at 05:00 Diphenhydramine HCl (Benadryl) 25 mg PRN 1X PRN PO PRE-TRANSFUSION; Start 06/03/19 at 05:00 Sodium Chloride 1,000 ml @ 1,000 mls/hr Q1H PRN IV hypotension; Start 06/03/19 at 08:41; Stop 06/03/19 at 14:40 Albumin Human 200 ml @ 200 mls/hr 1X PRN PRN IV Hypotension; Start 06/03/19 at 08:45; Stop 06/03/19 at 14:44 Sodium Chloride 1,000 ml @ 400 mls/hr Q2H30M PRN IV PATENCY; Start 06/03/19 at 08:41; Stop 06/03/19 at 20:40 Info (PHARMACY MONITORING -- do not chart) 1 each PRN DAILY PRN MC SEE COMMENTS; Start 06/03/19 at 08:45; Stop 06/03/19 at 08:49; Status DC Info (PHARMACY MONITORING -- do not chart) 1 each PRN DAILY PRN MC SEE COMMENTS; Start 06/03/19 at 08:45 Sodium Chloride 1,000 ml @ 1,000 mls/hr Q1H PRN IV hypotension; Start 06/03/19 at 08:00; Stop 06/03/19 at 13:59; Status Cancel Sodium Chloride 1,000 ml @ 400 mls/hr Q2H30M PRN IV PATENCY; Start 06/03/19 at 08:00; Stop 06/03/19 at 19:59; Status Cancel Info (PHARMACY MONITORING -- do not chart) 1 each PRN DAILY PRN MC SEE COMMENTS; Start 06/03/19 at 10:30; Status UNV Info (PHARMACY MONITORING -- do not chart) 1 each PRN DAILY PRN MC SEE COMMENTS; Start 06/03/19 at 10:30 Lidocaine HCl (Xylocaine-Mpf 1% 2ml Vial) 2 ml 1X PRN ID PER PROTOCOL; Start 06/03/19 at 10:45 Active Scripts Active Reported Acidophilus (Lactobacillus Acidophilus) 1 Each Capsule 1 Each PO DAILY Hydrocodone-Apap 7.5-325 (Hydrocodone Bit/Acetaminophen) 1 Tab Tablet 1 Tab PO PRN Q6HRS PRN Lasix (Furosemide) 40 Mg Tablet 1 Tab PO PRN DAILY PRN Advair 250-50 Diskus (Fluticasone/Salmeterol) 1 Each Disk.w.dev 1 Puff IH BID Ferrous Gluconate 240 Mg Tablet 240 Mg PO DAILY Fluticasone Propionate Nasal [place] (Fluticasone Propionate) 16 Gm [place].susp 2 [place] NS DAILY Calcium Acetate 667 Mg Tablet 667 Mg PO TIDWMEALS Allopurinol 300 Mg Tablet 0.5 Tab PO DAILY Proair Respiclick (Albuterol Sulfate) 90 Mcg Aer.pow.ba 2 Puff IH PRN Q6HRS PRN Aspir-Low (Aspirin) 81 Mg Tablet.dr 1 Tab PO DAILY Amiodarone Hcl 200 Mg Tablet 1 Tab PO DAILY Vitamin D3 (Cholecalciferol (Vitamin D3)) 1,000 Unit Tablet 2 Tab PO DAILY Norvasc (Amlodipine Besylate) 10 Mg Tablet 10 Mg PO DAILY Bidil Tablet (Isosorb Dinit/Hydralazine Hcl) 1 Each Tablet 1 Each PO BID Calcitriol 0.25 Mcg Capsule 1 Cap PO DAILY Carvedilol 25 Mg Tablet 25 Mg PO BIDWMEALS Vitals/I & O Vital Sign - Last 24 Hours 06/02/19 06/02/19 06/02/19 06/02/19 12:04 14:20 14:31 18:35 Pulse 58 86 75 Resp 20 20 20 B/P (MAP) 123/42 (69) 115/44 (67) 137/57 (83) Pulse Ox 93 98 96 99 O2 Delivery Nasal Cannula Nasal Cannula Nasal Cannula O2 Flow Rate 3.0 2.0 2.0 3.0 06/02/19 06/02/19 06/02/19 06/02/19 20:21 21:19 21:20 21:54 Pulse Ox 95 95 O2 Delivery Nasal Cannula Nasal Cannula O2 Flow Rate 3.0 3.0 3.0 3.0 06/02/19 06/02/19 06/02/19 06/02/19 21:54 21:55 23:16 23:39 Temp 98.6 98.6 Pulse 75 75 91 Resp 16 B/P (MAP) 137/57 137/57 119/56 (77) Pulse Ox 95 O2 Delivery Nasal Cannula Nasal Cannula O2 Flow Rate 3.0 2.0 06/03/19 06/03/19 06/03/19 06/03/19 03:27 07:00 08:00 08:13 Temp 99.4 98.4 99.4 98.4 Pulse 72 67 Resp 16 16 B/P (MAP) 112/52 (72) 112/47 (68) Pulse Ox 95 92 96 O2 Delivery Nasal Cannula Nasal Cannula Nasal Cannula O2 Flow Rate 2.0 2.0 3.0 3.0 06/03/19 06/03/19 06/03/19 08:14 09:55 10:36 Temp 99.5 98.0 99.5 98.0 Pulse 64 63 Resp 18 16 B/P (MAP) 121/43 119/48 Pulse Ox 96 O2 Flow Rate 3.0 Intake and Output 06/02/19 06/02/19 06/03/19 15:00 23:00 07:00 Intake Total 100 ml 260 ml Output Total 1400 ml 0 ml 0 ml Balance -1400 ml 100 ml 260 ml LAMONTE BALDWIN MD Jun 03, 2019 10:50
[2019-06-03] MEDS: CARVEDILOL 12.5 MG TABLET. PO SCH ×2 (14:07→16:39)
[2019-06-03] MEDS: ASPIRIN ENTERIC COATED 81 MG TABLET.DR. PO SCH (14:07)
[2019-06-03] MEDS: hydrALAZINE 25 MG TABLET PO SCH ×2 (14:08→21:00)
[2019-06-03] MEDS: amLODIPine BESYLATE 10 MG TABLET PO SCH (14:08)
[2019-06-03] MEDS: ISOSORBIDE DINITRATE 10 MG TABLET. PO SCH ×2 (14:08→21:12)
[2019-06-03] MEDS: CHOLECALCIFEROL (VITAMIN D3) 1,000 UNIT TABLET PO SCH (14:08)
[2019-06-03] MEDS: FERROUS SULFATE 325 MG TABLET. PO SCH (14:08)
[2019-06-03] MEDS: FLUTICASONE 50MCG/NASAL SPRAY 16GM BOTTLE. NS SCH (14:09)
[2019-06-03] MEDS: CALCITRIOL 0.25 MCG CAPSULE. PO SCH (14:09)
[2019-06-03] MEDS: HYDROcodone/APAP 7.5/325MG 1 TAB TABLET PO PRN (14:10)
[2019-06-03 15:24] LABS: HEMOGLOBIN 7.7 g/dL (12.0-15.5)
--- NOTE | 2019-06-03 15:47 | PDOC ---
Renal-Progress Notes Subjective Notes Notes NO NEW COMPLAINTS History of Present Illness Hx of present illness STABLE Vitals Vitals Vital Signs Date Time Temp Pulse Resp B/P (MAP) Pulse Ox O2 Delivery O2 Flow Rate FiO2 06/03/19 14:08 66 115/42 06/03/19 13:47 97.6 16 96 Nasal Cannula 2.0 97.6 Weight Weight [ ] I.O. Intake and Output Intake and Output 06/03/19 07:00 Intake Total 360 ml Output Total 1400 ml Balance -1040 ml Intake Oral 360 ml Output Urine Total 0 ml Chest Tube Drainage Total 1400 ml Labs Labs Laboratory Tests Test 06/03/19 02:55 06/03/19 10:45 06/03/19 15:18 White Blood Count 4.7 x10^3/uL (4.0-11.0) Red Blood Count 2.15 x10^6/uL (3.50-5.40) Hemoglobin 6.3 g/dL (12.0-15.5) 7.7 g/dL (12.0-15.5) Hematocrit 19.5 % (36.0-47.0) 24.0 % (36.0-47.0) Mean Corpuscular Volume 91 fL (79-100) Mean Corpuscular Hemoglobin 29 pg (25-35) Mean Corpuscular Hemoglobin Concent 32 g/dL (31-37) Red Cell Distribution Width 22.9 % (11.5-14.5) Platelet Count 267 x10^3/uL (140-400) 292 x10^3/uL (140-400) Neutrophils (%) (Auto) 76 % (31-73) Lymphocytes (%) (Auto) 18 % (24-48) Monocytes (%) (Auto) 5 % (0-9) Eosinophils (%) (Auto) 1 % (0-3) Basophils (%) (Auto) 0 % (0-3) Neutrophils # (Auto) 3.5 x10^3/uL (1.8-7.7) Lymphocytes # (Auto) 0.8 x10^3/uL (1.0-4.8) Monocytes # (Auto) 0.2 x10^3/uL (0.0-1.1) Eosinophils # (Auto) 0.0 x10^3/uL (0.0-0.7) Basophils # (Auto) 0.0 x10^3/uL (0.0-0.2) Sodium Level 140 mmol/L (136-145) Potassium Level 3.3 mmol/L (3.5-5.1) Chloride Level 102 mmol/L (98-107) Carbon Dioxide Level 35 mmol/L (21-32) Anion Gap 3 (6-14) Blood Urea Nitrogen 32 mg/dL (7-20) Creatinine 5.5 mg/dL (0.6-1.0) Estimated GFR (Cockcroft-Gault) 9.0 BUN/Creatinine Ratio 6 (6-20) Glucose Level 80 mg/dL (70-99) Calcium Level 7.9 mg/dL (8.5-10.1) Total Bilirubin 0.4 mg/dL (0.2-1.0) Aspartate Amino Transf (AST/SGOT) 15 U/L (15-37) Alanine Aminotransferase (ALT/SGPT) 12 U/L (14-59) Alkaline Phosphatase 77 U/L (46-116) Total Protein 5.9 g/dL (6.4-8.2) Albumin 1.8 g/dL (3.4-5.0) Albumin/Globulin Ratio 0.4 (1.0-1.7) Review of Systems Constitutional: yes: weakness, alert, oriented Ears/Nose/Throat: Yes: no symptom reported Eyes: Yes: no symptom reported Pulmonary: Yes no symptom reported Cardiovascular: Yes no symptom reported Gastrointestional: Yes: no symptom reported Genitourinary: Yes: no symptom reported Musculoskeletal: Yes: no symptom reported Skin: Yes no symptom reported Psychiatric/Neurological: Yes: no symptom reported Endocrine: Yes: no symptom reported Physical Exam General Appearance: no apparent distress Skin: warm Respiratory: bilateral CTA Heart: S1S2 Abdomen: soft, bowel sounds present Genitourinary: bladder flat Extremities: pulses present Neurology: alert Assessment Assessment IMP ANEMIA CHF-DIASTOLIC CHF ESRD HTN-UNCONTROLLED NON COMPLIANCE PLAN TODAY UF TO DW START ARANESP WILL FOLLOW ENC COMPLIANCE ROSA APODACA MD Jun 03, 2019 15:46
[2019-06-03] MEDS ORDERED: ONDANSETRON ODT 4 MG TAB.RAPDIS. PO PRN (16:15)
[2019-06-03] MEDS ORDERED: ONDANSETRON PF 4 MG/2 ML VIAL. ONE (16:25)
[2019-06-03] MEDS ORDERED: ONDANSETRON PF 4 MG/2 ML VIAL. IVP PRN (16:30)
[2019-06-03] MEDS ORDERED: DARBEPOETIN ALFA 60 MCG/0.3 ML DISP.SYRIN. SQ SCH (21:00)
[2019-06-04 03:34] VITALS: BP 104/61
[2019-06-04 07:00] VITALS: BP 123/65
[2019-06-04] MEDS: ALBUTEROL SULFATE 2.5 MG/3 ML NEBU. NEB SCH ×4 (08:02→20:20)
[2019-06-04] MEDS: BUDESONIDE 0.5 MG/2 ML NEBU. NEB SCH ×2 (08:02→20:20)
--- NOTE | 2019-06-04 08:54 | PDOC ---
PULMONARY PROGRESS NOTES Subjective S/P thoracentesis on the left side, 1400 cc's of fluid removed on 06/02/19 Remains on 2 liters N/C , denies SOA or increased cough not feeling better today, having GI upset, anemic yesterday received 2 units PRBC Vitals Vital Signs Date Time Temp Pulse Resp B/P (MAP) Pulse Ox O2 Delivery O2 Flow Rate FiO2 06/04/19 08:03 96 Nasal Cannula 2.0 06/04/19 07:00 98.3 108 16 123/65 (84) 98.3 ROS: No Nausea, No Chest Pain, No Abdominal Pain, No Increase Cough General: Alert Lungs: Crackles (LLL) Cardiovascular: S1 Abdomen: Soft Neuro Exam: Alert Extremities: No Edema Skin: Warm, Dry Labs Laboratory Tests Test 06/02/19 13:55 06/02/19 14:10 06/03/19 02:55 06/03/19 10:45 Prothrombin Time 14.5 SEC (11.7-14.0) Prothromb Time International Ratio 1.2 (0.8-1.1) Body Fluid Total Protein 2.6 g/dL (.) Body Fluid Lactate Dehydrogenase 92 IU/L (.) White Blood Count 4.7 x10^3/uL (4.0-11.0) Red Blood Count 2.15 x10^6/uL (3.50-5.40) Hemoglobin 6.3 g/dL (12.0-15.5) Hematocrit 19.5 % (36.0-47.0) Mean Corpuscular Volume 91 fL (79-100) Mean Corpuscular Hemoglobin 29 pg (25-35) Mean Corpuscular Hemoglobin Concent 32 g/dL (31-37) Red Cell Distribution Width 22.9 % (11.5-14.5) Platelet Count 267 x10^3/uL (140-400) 292 x10^3/uL (140-400) Neutrophils (%) (Auto) 76 % (31-73) Lymphocytes (%) (Auto) 18 % (24-48) Monocytes (%) (Auto) 5 % (0-9) Eosinophils (%) (Auto) 1 % (0-3) Basophils (%) (Auto) 0 % (0-3) Neutrophils # (Auto) 3.5 x10^3/uL (1.8-7.7) Lymphocytes # (Auto) 0.8 x10^3/uL (1.0-4.8) Monocytes # (Auto) 0.2 x10^3/uL (0.0-1.1) Eosinophils # (Auto) 0.0 x10^3/uL (0.0-0.7) Basophils # (Auto) 0.0 x10^3/uL (0.0-0.2) Sodium Level 140 mmol/L (136-145) Potassium Level 3.3 mmol/L (3.5-5.1) Chloride Level 102 mmol/L (98-107) Carbon Dioxide Level 35 mmol/L (21-32) Anion Gap 3 (6-14) Blood Urea Nitrogen 32 mg/dL (7-20) Creatinine 5.5 mg/dL (0.6-1.0) Estimated GFR (Cockcroft-Gault) 9.0 BUN/Creatinine Ratio 6 (6-20) Glucose Level 80 mg/dL (70-99) Calcium Level 7.9 mg/dL (8.5-10.1) Total Bilirubin 0.4 mg/dL (0.2-1.0) Aspartate Amino Transf (AST/SGOT) 15 U/L (15-37) Alanine Aminotransferase (ALT/SGPT) 12 U/L (14-59) Alkaline Phosphatase 77 U/L (46-116) Total Protein 5.9 g/dL (6.4-8.2) Albumin 1.8 g/dL (3.4-5.0) Albumin/Globulin Ratio 0.4 (1.0-1.7) Test 06/03/19 13:01 06/03/19 15:18 06/03/19 16:09 Glucose (Fingerstick) 77 mg/dL (70-99) 88 mg/dL (70-99) Hemoglobin 7.7 g/dL (12.0-15.5) Hematocrit 24.0 % (36.0-47.0) Laboratory Tests Test 06/03/19 10:45 06/03/19 13:01 06/03/19 15:18 06/03/19 16:09 Platelet Count 292 x10^3/uL (140-400) Glucose (Fingerstick) 77 mg/dL (70-99) 88 mg/dL (70-99) Hemoglobin 7.7 g/dL (12.0-15.5) Hematocrit 24.0 % (36.0-47.0) Medications Active Scripts Medications Dose Route/Sig Max Daily Dose Days Date Category Acidophilus (Lactobacillus Acidophilus) 1 Each Capsule 1 Each PO DAILY 09/09/18 Reported Hydrocodone-Apap 7.5-325 (Hydrocodone Bit/Acetaminophen) 1 Tab Tablet 1 Tab PO PRN Q6HRS PRN 09/09/18 Reported Lasix (Furosemide) 40 Mg Tablet 1 Tab PO PRN DAILY PRN 09/09/18 Reported Advair 250-50 Diskus (Fluticasone/Salmeterol) 1 Each Disk.w.dev 1 Puff IH BID 09/09/18 Reported Ferrous Gluconate 240 Mg Tablet 240 Mg PO DAILY 09/09/18 Reported Fluticasone Propionate Nasal [place] (Fluticasone Propionate) 16 Gm [place].susp 2 [place] NS DAILY 09/09/18 Reported Calcium Acetate 667 Mg Tablet 667 Mg PO TIDWMEALS 09/09/18 Reported Allopurinol 300 Mg Tablet 0.5 Tab PO DAILY 09/09/18 Reported Proair Respiclick (Albuterol Sulfate) 90 Mcg Aer.pow.ba 2 Puff IH PRN Q6HRS PRN 09/09/18 Reported Aspir-Low (Aspirin) 81 Mg Tablet.dr 1 Tab PO DAILY 05/24/18 Reported Amiodarone Hcl 200 Mg Tablet 1 Tab PO DAILY 05/24/18 Reported Vitamin D3 (Cholecalciferol (Vitamin D3)) 1,000 Unit Tablet 2 Tab PO DAILY 05/24/18 Reported Norvasc (Amlodipine Besylate) 10 Mg Tablet 10 Mg PO DAILY 05/24/18 Reported Bidil Tablet (Isosorb Dinit/Hydralazine Hcl) 1 Each Tablet 1 Each PO BID 05/24/18 Reported Calcitriol 0.25 Mcg Capsule 1 Cap PO DAILY 05/24/18 Reported Carvedilol 25 Mg Tablet 25 Mg PO BIDWMEALS 05/24/18 Reported Impression . IMPRESSION: 1. Acute hypoxic respiratory failure secondary to acute on chronic diastolic heart failure. 2. Abnormal chest x-ray with diffuse interstitial infiltrates secondary to congestive heart failure and also moderate left-sided pleural effusion. S/P thoracentesis on the left side, 1400 cc's of thin betty fluid was removed. 3. Prior echocardiogram with normal ejection fraction and grade 1 diastolic dysfunction. 4. End-stage renal disease, on hemodialysis. 5. Anemia, could be dilutional versus related to end-stage renal disease. No obvious gastrointestinal loss. 6. No significant tobacco history. 06/02/19 CT chest IMPRESSION: 1. Large partially loculated left pleural effusion with partial upper and lower lobe consolidation and partial upper lower lobe collapse. This is superimposed on suspected multifocal groundglass infiltrate within the bilateral upper lobes. Follow-up to confirm resolution and exclude an underlying lesion. 2. Trace right pleural effusion. 3. Cardiomegaly and trace pericardial effusion. 4. Right renal atrophy and right renal cysts. 5. Emphysema. Plan . RECOMMENDATIONS: S/P thoracentesis on 06/02 on the left side, 1400 cc's of thin betty fluid was removed, TRANSUDATE on pleural fluid analysis , await cytology and c/s Repeat chest xray in am, follow effusion Continue bronchodilators. Supplemental oxygen to kep sats above 92% Follow renal recommendation, remains on HD . Discussed with RN. KIARA DUMONT MD Jun 04, 2019 08:54
[2019-06-04] MEDS: DICLOFENAC SODIUM 1% TOPICAL GEL 100GM TUBE. TP SCH ×2 (08:55→20:15)
[2019-06-04] MEDS: CHOLECALCIFEROL (VITAMIN D3) 1,000 UNIT TABLET PO SCH (08:55)
[2019-06-04] MEDS: FLUTICASONE 50MCG/NASAL SPRAY 16GM BOTTLE. NS SCH (08:55)
[2019-06-04] MEDS: CARVEDILOL 12.5 MG TABLET. PO SCH ×2 (08:56→16:27)
[2019-06-04] MEDS: FERROUS SULFATE 325 MG TABLET. PO SCH (08:56)
[2019-06-04] MEDS: CALCITRIOL 0.25 MCG CAPSULE. PO SCH (08:58)
[2019-06-04] MEDS: ASPIRIN ENTERIC COATED 81 MG TABLET.DR. PO SCH (08:58)
[2019-06-04] MEDS: hydrALAZINE 25 MG TABLET PO SCH ×2 (08:58→20:16)
[2019-06-04] MEDS: ISOSORBIDE DINITRATE 10 MG TABLET. PO SCH ×2 (08:59→20:16)
[2019-06-04] MEDS: amLODIPine BESYLATE 10 MG TABLET PO SCH (08:59)
[2019-06-04] MEDS ORDERED: SODIUM CHLORIDE 0.65% NASAL SPRAY 45ML BOTTLE. NS PRN (09:00)
--- NOTE | 2019-06-04 09:29 | PDOC ---
PROGRESS NOTES Chief Complaint Chief Complaint A/P: Acute hypoxia - multifactorial from fluid overload, pleural effusion. Left pleural effusion - likely from volume overload. s/p 1400cc thora Shortness of breath - chart indicates asthma history ESRD - TuThSa, missed dialysis, will consult nephrology Acute Anemia - Hb 6.3 initially, 7.7 after 2u PRBC Paroxysmal afib - looks sinus on EKG currently, takes eliquis 2.5mg BID. DM2 - unknown a1c, but 6.2 a few years ago. HTN - cont meds CAD s/p RCA stent 09/2018 - will cont meds, plavix High Cholesterol - cont statin Prior CVA - ASA and statin. PT to see for gait instability Hip pain - bilateral, will trial gait with PT. PMR consulted FEN - ADA renal diet PPX - Eliquis FULL CODE Dispo - Med/tele likely 2 midnights History of Present Illness History of Present Illness Ms Lundy is a 79-year-old female w/ PMHx ESRD, anemia, DM2, HTN, CAD s/p stents, High Cholesterol, afib, prior CVA who p/w shortness of breath 1 week. States she has not been to dialysis for 9 days secondary to inability to walk, pain with ambulation. Patient states she fell in the bathroom hitting her head and left hip 9 days ago, no loss of consciousness however had bilateral hip pain. Today she describes cough, nonproductive, denies any fever, chills, nausea, vomiting. When her continued shortness of breath she presents to the ER for further evaluation. Her initial evaluation revealed saturations 84% on room air with increased risk of breathing. EKG reviewed, no STEMI, heart rate 58, left axis deviation Chest x-ray reveals evidence of left pleural effusion, Hb 6.8, creatinine 12.3, BUN 92, potassium 5.2 Notably hypoxic less than 88%, placed O2 2 L with saturations of 94%. On 06/02 she underwent US guided thoracentesis on the left with 1400cc removed by IR. 06/03: Tolerated thoracentesis by IR and dialysis well yesterday. Hb still 6.3. Blood ready for 2u. Seen on dialysis, feeling less short of breath, but very weak. Labs pending this morning. Feeling better. However, went into afib last night. Weak today. Vitals Vitals Vital Signs Date Time Temp Pulse Resp B/P (MAP) Pulse Ox O2 Delivery O2 Flow Rate FiO2 06/04/19 08:59 108 123/65 06/04/19 08:03 96 Nasal Cannula 2.0 06/04/19 07:00 98.3 16 98.3 Physical Exam General: Alert, Oriented X3, Cooperative, No acute distress Lungs: Crackles (LLL) Abdomen: Normal bowel sounds, Soft, No tenderness, No hepatosplenomegaly, No masses Extremities: No clubbing, No cyanosis, Normal pulses, Other (Left hip pain laterally) Skin: No rashes, No breakdown, No significant lesion Labs LABS Laboratory Tests Test 06/03/19 10:45 06/03/19 13:01 06/03/19 15:18 06/03/19 16:09 Platelet Count 292 x10^3/uL (140-400) Glucose (Fingerstick) 77 mg/dL (70-99) 88 mg/dL (70-99) Hemoglobin 7.7 g/dL (12.0-15.5) Hematocrit 24.0 % (36.0-47.0) Assessment and Plan Assessmemt and Plan Problems Medical Problems: (1) Acute respiratory distress Status: Acute (2) Diabetes Status: Acute (3) Pleural effusion Status: Acute Comment Review of Relevant I have reviewed the following items scot (where applicable) has been applied. Labs Laboratory Tests Test 06/02/19 13:55 06/02/19 14:10 06/03/19 02:55 06/03/19 10:45 Prothrombin Time 14.5 SEC (11.7-14.0) Prothromb Time International Ratio 1.2 (0.8-1.1) Body Fluid Total Protein 2.6 g/dL (.) Body Fluid Lactate Dehydrogenase 92 IU/L (.) White Blood Count 4.7 x10^3/uL (4.0-11.0) Red Blood Count 2.15 x10^6/uL (3.50-5.40) Hemoglobin 6.3 g/dL (12.0-15.5) Hematocrit 19.5 % (36.0-47.0) Mean Corpuscular Volume 91 fL (79-100) Mean Corpuscular Hemoglobin 29 pg (25-35) Mean Corpuscular Hemoglobin Concent 32 g/dL (31-37) Red Cell Distribution Width 22.9 % (11.5-14.5) Platelet Count 267 x10^3/uL (140-400) 292 x10^3/uL (140-400) Neutrophils (%) (Auto) 76 % (31-73) Lymphocytes (%) (Auto) 18 % (24-48) Monocytes (%) (Auto) 5 % (0-9) Eosinophils (%) (Auto) 1 % (0-3) Basophils (%) (Auto) 0 % (0-3) Neutrophils # (Auto) 3.5 x10^3/uL (1.8-7.7) Lymphocytes # (Auto) 0.8 x10^3/uL (1.0-4.8) Monocytes # (Auto) 0.2 x10^3/uL (0.0-1.1) Eosinophils # (Auto) 0.0 x10^3/uL (0.0-0.7) Basophils # (Auto) 0.0 x10^3/uL (0.0-0.2) Sodium Level 140 mmol/L (136-145) Potassium Level 3.3 mmol/L (3.5-5.1) Chloride Level 102 mmol/L (98-107) Carbon Dioxide Level 35 mmol/L (21-32) Anion Gap 3 (6-14) Blood Urea Nitrogen 32 mg/dL (7-20) Creatinine 5.5 mg/dL (0.6-1.0) Estimated GFR (Cockcroft-Gault) 9.0 BUN/Creatinine Ratio 6 (6-20) Glucose Level 80 mg/dL (70-99) Calcium Level 7.9 mg/dL (8.5-10.1) Total Bilirubin 0.4 mg/dL (0.2-1.0) Aspartate Amino Transf (AST/SGOT) 15 U/L (15-37) Alanine Aminotransferase (ALT/SGPT) 12 U/L (14-59) Alkaline Phosphatase 77 U/L (46-116) Total Protein 5.9 g/dL (6.4-8.2) Albumin 1.8 g/dL (3.4-5.0) Albumin/Globulin Ratio 0.4 (1.0-1.7) Test 06/03/19 13:01 06/03/19 15:18 06/03/19 16:09 Glucose (Fingerstick) 77 mg/dL (70-99) 88 mg/dL (70-99) Hemoglobin 7.7 g/dL (12.0-15.5) Hematocrit 24.0 % (36.0-47.0) Laboratory Tests Test 06/03/19 10:45 06/03/19 13:01 06/03/19 15:18 06/03/19 16:09 Platelet Count 292 x10^3/uL (140-400) Glucose (Fingerstick) 77 mg/dL (70-99) 88 mg/dL (70-99) Hemoglobin 7.7 g/dL (12.0-15.5) Hematocrit 24.0 % (36.0-47.0) Medications Current Medications Albuterol/ Ipratropium (Duoneb) 3 ml 1X ONCE NEB Last administered on 06/01/19 21:30; Start 06/01/19 at 21:30; Stop 06/01/19 at 21:31; Status DC Ondansetron HCl (Zofran) 4 mg PRN Q8HRS PRN IV NAUSEA/VOMITING; Start 06/02/19 at 00:15; Stop 06/03/19 at 00:14; Status DC Acetaminophen (Tylenol) 650 mg PRN Q4HRS PRN PO FEVER; Start 06/02/19 at 00:15; Stop 06/03/19 at 00:14; Status DC Amlodipine Besylate (Norvasc) 10 mg DAILY PO Last administered on 06/04/19at 08:59; Start 06/02/19 at 09:00 Aspirin (Ecotrin) 81 mg DAILY PO Last administered on 06/04/19at 08:58; Start 06/02/19 at 09:00 Calcitriol (Rocaltrol) 0.25 mcg DAILY PO Last administered on 06/04/19at 08:58; Start 06/02/19 at 09:00 Vitamin D (Vitamin D3) 2,000 unit DAILY PO Last administered on 06/04/19at 08:55; Start 06/02/19 at 09:00 Fluticasone Propionate (Flonase) 2 spray DAILY NS Last administered on 06/04/19at 08:55; Start 06/02/19 at 09:00 Furosemide (Lasix) 40 mg PRN DAILY PRN PO SWELLING; Start 06/02/19 at 08:45 Acetaminophen/ Hydrocodone Bitart (Lortab 7.5/325) 1 tab PRN Q6HRS PRN PO PAIN Last administered on 06/03/19at 14:10; Start 06/02/19 at 08:45 Carvedilol (Coreg) 25 mg BIDWMEALS PO Last administered on 06/04/19 08:56; Start 06/02/19 at 09:00 Ferrous Sulfate (Feosol) 325 mg DAILYWBKFT PO Last administered on 06/04/19 08:56; Start 06/02/19 at 09:00 Non-Formulary Medication (Fluticasone/ Salmeterol (Advair 250-50 Diskus)) 1 puff BID IH ; Start 06/02/19 at 09:00; Status UNV Hydralazine HCl (Apresoline) 37.5 mg BID PO Last administered on 06/04/19 08:58; Start 06/02/19 at 09:00 Isosorbide Dinitrate (Isordil) 20 mg BID PO Last administered on 06/04/19 08:59; Start 06/02/19 at 09:00 Budesonide (Pulmicort) 0.5 mg RTBID NEB Last administered on 06/04/19 08:02; Start 06/02/19 at 20:00 Albuterol Sulfate (Ventolin Neb Soln) 2.5 mg RTQID NEB Last administered on 06/04/19 08:02; Start 06/02/19 at 12:00 Sodium Chloride 1,000 ml @ 1,000 mls/hr Q1H PRN IV hypotension; Start 06/02/19 at 11:21; Stop 06/02/19 at 17:20; Status DC Diphenhydramine HCl (Benadryl) 25 mg 1X PRN PRN IV ITCHING; Start 06/02/19 at 11:30; Stop 06/03/19 at 11:29; Status DC Diphenhydramine HCl (Benadryl) 25 mg 1X PRN PRN IV ITCHING; Start 06/02/19 at 11:30; Stop 06/03/19 at 11:29; Status DC Sodium Chloride 1,000 ml @ 400 mls/hr Q2H30M PRN IV PATENCY; Start 06/02/19 at 11:21; Stop 06/02/19 at 23:20; Status DC Info (PHARMACY MONITORING -- do not chart) 1 each PRN DAILY PRN MC SEE COMMENTS; Start 06/02/19 at 11:30; Stop 06/03/19 at 08:49; Status DC Diclofenac Sodium (Voltaren) 1 torie BID TP Last administered on 06/04/19at 08:55; Start 06/02/19 at 21:00 Acetaminophen (Tylenol) 650 mg 1X PRN PRN PO PRE-TRANSFUSION; Start 06/03/19 at 05:00 Diphenhydramine HCl (Benadryl Oral Elixir) 12.5 mg 1X PRN PRN PO PRE- TRANSFUSION; Start 06/03/19 at 05:00 Diphenhydramine HCl (Benadryl) 25 mg PRN 1X PRN PO PRE-TRANSFUSION; Start 06/03/19 at 05:00 Sodium Chloride 1,000 ml @ 1,000 mls/hr Q1H PRN IV hypotension; Start 06/03/19 at 08:41; Stop 06/03/19 at 14:40; Status DC Albumin Human 200 ml @ 200 mls/hr 1X PRN PRN IV Hypotension; Start 06/03/19 at 08:45; Stop 06/03/19 at 14:44; Status DC Sodium Chloride 1,000 ml @ 400 mls/hr Q2H30M PRN IV PATENCY; Start 06/03/19 at 08:41; Stop 06/03/19 at 20:40; Status DC Info (PHARMACY MONITORING -- do not chart) 1 each PRN DAILY PRN MC SEE COMMENTS; Start 06/03/19 at 08:45; Stop 06/03/19 at 08:49; Status DC Info (PHARMACY MONITORING -- do not chart) 1 each PRN DAILY PRN MC SEE COMMENTS; Start 06/03/19 at 08:45 Sodium Chloride 1,000 ml @ 1,000 mls/hr Q1H PRN IV hypotension; Start 06/03/19 at 08:00; Stop 06/03/19 at 13:59; Status Cancel Sodium Chloride 1,000 ml @ 400 mls/hr Q2H30M PRN IV PATENCY; Start 06/03/19 at 08:00; Stop 06/03/19 at 19:59; Status Cancel Info (PHARMACY MONITORING -- do not chart) 1 each PRN DAILY PRN MC SEE COMMENTS; Start 06/03/19 at 10:30; Status UNV Info (PHARMACY MONITORING -- do not chart) 1 each PRN DAILY PRN MC SEE COMMENTS; Start 06/03/19 at 10:30 Lidocaine HCl (Xylocaine-Mpf 1% 2ml Vial) 2 ml 1X PRN ID PER PROTOCOL; Start 06/03/19 at 10:45 Darbepoetin Yair (ARANESP for DIALYSIS PTS) 60 mcg WEEKLYHS SQ Last administered on 06/03/19at 21:11; Start 06/03/19 at 21:00 Ondansetron HCl (Zofran Odt) 4 mg PRN Q6HRS PRN PO NAUSEA/VOMITING; Start 06/03/19 at 16:15; Status Cancel Ondansetron HCl (Zofran) 4 mg STK-MED ONCE .ROUTE ; Start 06/03/19 at 16:25; Stop 06/03/19 at 16:25; Status DC Ondansetron HCl (Zofran) 4 mg PRN Q6HRS PRN IVP NAUSEA/VOMITING Last ad ministered on 06/03/19at 16:38; Start 06/03/19 at 16:30 Sodium Chloride (Saline Mist Nasal) 1 torie PRN Q4HRS PRN NS NASAL CONGESTION; Start 06/04/19 at 09:00 Active Scripts Active Reported Acidophilus (Lactobacillus Acidophilus) 1 Each Capsule 1 Each PO DAILY Hydrocodone-Apap 7.5-325 (Hydrocodone Bit/Acetaminophen) 1 Tab Tablet 1 Tab PO PRN Q6HRS PRN Lasix (Furosemide) 40 Mg Tablet 1 Tab PO PRN DAILY PRN Advair 250-50 Diskus (Fluticasone/Salmeterol) 1 Each Disk.w.dev 1 Puff IH BID Ferrous Gluconate 240 Mg Tablet 240 Mg PO DAILY Fluticasone Propionate Nasal [place] (Fluticasone Propionate) 16 Gm [place].susp 2 [place] NS DAILY Calcium Acetate 667 Mg Tablet 667 Mg PO TIDWMEALS Allopurinol 300 Mg Tablet 0.5 Tab PO DAILY Proair Respiclick (Albuterol Sulfate) 90 Mcg Aer.pow.ba 2 Puff IH PRN Q6HRS PRN Aspir-Low (Aspirin) 81 Mg Tablet.dr 1 Tab PO DAILY Amiodarone Hcl 200 Mg Tablet 1 Tab PO DAILY Vitamin D3 (Cholecalciferol (Vitamin D3)) 1,000 Unit Tablet 2 Tab PO DAILY Norvasc (Amlodipine Besylate) 10 Mg Tablet 10 Mg PO DAILY Bidil Tablet (Isosorb Dinit/Hydralazine Hcl) 1 Each Tablet 1 Each PO BID Calcitriol 0.25 Mcg Capsule 1 Cap PO DAILY Carvedilol 25 Mg Tablet 25 Mg PO BIDWMEALS Vitals/I & O Vital Sign - Last 24 Hours 06/03/19 06/03/19 06/03/19 06/03/19 09:55 10:36 13:47 14:07 Temp 99.5 98.0 97.6 99.5 98.0 97.6 Pulse 64 63 66 66 Resp 18 16 16 B/P (MAP) 121/43 119/48 115/42 (66) 115/42 Pulse Ox 96 O2 Delivery Nasal Cannula O2 Flow Rate 2.0 06/03/19 06/03/19 06/03/19 06/03/19 14:08 14:08 14:08 15:00 Temp 98.3 98.3 Pulse 66 66 66 65 Resp 16 B/P (MAP) 115/42 115/42 115/42 85/36 (52) Pulse Ox 96 O2 Delivery Nasal Cannula O2 Flow Rate 2.0 06/03/19 06/03/19 06/03/19 06/03/19 15:45 16:05 16:39 17:03 Temp 98.5 97.6 98.5 97.6 Pulse 62 62 65 Resp 16 16 B/P (MAP) 99/41 99/41 96/42 Pulse Ox 95 O2 Delivery Nasal Cannula O2 Flow Rate 3.0 06/03/19 06/03/19 06/03/19 06/03/19 18:03 19:53 20:00 21:12 Temp 97.3 97.9 97.3 97.9 Pulse 65 64 Resp 20 18 B/P (MAP) 102/47 103/45 (64) 103/45 Pulse Ox 96 O2 Delivery Nasal Cannula Nasal Cannula O2 Flow Rate 2.0 2.0 06/03/19 06/03/19 06/04/19 06/04/19 22:19 23:39 03:34 07:00 Temp 99.0 99.0 98.3 99.0 99.0 98.3 Pulse 65 109 108 Resp 16 18 16 B/P (MAP) 99/44 (62) 104/61 (75) 123/65 (84) Pulse Ox 85 95 96 95 O2 Delivery Room Air Nasal Cannula Nasal Cannula Nasal Cannula O2 Flow Rate 2.0 2.0 2.0 06/04/19 06/04/19 06/04/19 06/04/19 08:03 08:56 08:58 08:59 Pulse 108 108 108 B/P (MAP) 123/65 123/65 123/65 Pulse Ox 96 O2 Delivery Nasal Cannula O2 Flow Rate 2.0 06/04/19 08:59 Pulse 108 B/P (MAP) 123/65 Intake and Output 06/03/19 06/03/19 06/04/19 15:00 23:00 07:00 Intake Total 500 ml 692 ml 180 ml Output Total 0 ml Balance 500 ml 692 ml 180 ml COLTEN CHOU MD Jun 04, 2019 09:29
[2019-06-04 11:00] VITALS: BP 86/47
[2019-06-04] MEDS ORDERED: ALBUMIN HUMAN 25% 50 ML IV PRN (11:15)
[2019-06-04] MEDS ORDERED: APIX2.5T PO (11:59)
[2019-06-04] MEDS: APIXABAN 2.5 MG TABLET. PO SCH ×2 (12:43→20:17)
--- NOTE | 2019-06-04 14:52 | PDOC2 ---
CONSULT Date of Consult Date of Consult DATE: 06/04/19 TIME: 14:43 Reason for Consult Reason for Consult: Paroxysmal atrial fibrillation. Referring Physician Referring Physician: Dr. Boudreaux Identification/Chief Complaint Chief Complaint Shortness of breath Source Source: Chart review, Patient History of Present Illness Reason for Visit: The patient is a 79-year-old female who was admitted to the hospital on June 01 secondary to one week of increasing shortness of breath. The patient has end- stage renal disease and is on hemodialysis but missed her dialysis runs for approximately 10 days prior to admission. Admission creatinine was 12.3. Admitted initial hemoglobin and hematocrit was 6.8 and 21.8. Initial workup showed a CT head scan that showed no acute changes. Chest x-ray showed moderate left-sided pleural effusion and cardio megaly. The patient underwent urgent dialysis and has significantly improved. On the she had a left-sided thoracentesis the removed 1400 mL of fluid. She is also received 2 units of packed red blood cells. Patient's history is significant for coronary disease, hypertension, hyperlipidemia and probable paroxysmal atrial fibrillation from a cardiac viewpoint. She did go into atrial fibrillation last evening. She is on Coreg 25 mg by mouth twice a day which is not optimal for rate control but her rate this morning is approximately 70-80 bpm. She also has been restarted on Pam Rohit 2.5 mg twice a day since admission. She reports feeling better but still reports weakness and some shortness of breath. She denies chest pain. Past Medical History Cardiovascular: AFIB, CAD, HTN, Hyperlipidemia Pulmonary: COPD CENTRAL NERVOUS SYSTEM: CVA GI: No pertinent hx Heme/Onc: Anemia NOS Hepatobiliary: No pertinent hx Rheumatologic: Gout Infectious disease: No pertinent hx Renal/: Chronic renal insuff, Chronic renal failure Endocrine: Diabetes Past Surgical History Past Surgical History: Hysterectomy, Other (coronary stents) Family History Family History: Heart Disease, Hypertension Social History No ALCOHOL: none Drugs: None Lives: with Family Current Problem List Problem List Problems Medical Problems: (1) Acute respiratory distress Status: Acute (2) Diabetes Status: Acute (3) Pleural effusion Status: Acute Current Medications Current Medications Current Medications Albuterol/ Ipratropium (Duoneb) 3 ml 1X ONCE NEB Last administered on 06/01/19at 21:30; Start 06/01/19 at 21:30; Stop 06/01/19 at 21:31; Status DC Ondansetron HCl (Zofran) 4 mg PRN Q8HRS PRN IV NAUSEA/VOMITING; Start 06/02/19 at 00:15; Stop 06/03/19 at 00:14; Status DC Acetaminophen (Tylenol) 650 mg PRN Q4HRS PRN PO FEVER; Start 06/02/19 at 00:15; Stop 06/03/19 at 00:14; Status DC Amlodipine Besylate (Norvasc) 10 mg DAILY PO Last administered on 06/04/19 08:59; Start 06/02/19 at 09:00 Aspirin (Ecotrin) 81 mg DAILY PO Last administered on 06/04/19 08:58; Start 06/02/19 at 09:00 Calcitriol (Rocaltrol) 0.25 mcg DAILY PO Last administered on 06/04/19 08:58; Start 06/02/19 at 09:00 Vitamin D (Vitamin D3) 2,000 unit DAILY PO Last administered on 06/04/19 08:55; Start 06/02/19 at 09:00 Fluticasone Propionate (Flonase) 2 spray DAILY NS Last administered on 06/04/19 08:55; Start 06/02/19 at 09:00 Furosemide (Lasix) 40 mg PRN DAILY PRN PO SWELLING; Start 06/02/19 at 08:45 Acetaminophen/ Hydrocodone Bitart (Lortab 7.5/325) 1 tab PRN Q6HRS PRN PO PAIN Last administered on 06/03/19 14:10; Start 06/02/19 at 08:45 Carvedilol (Coreg) 25 mg BIDWMEALS PO Last administered on 06/04/19 08:56; Start 06/02/19 at 09:00 Ferrous Sulfate (Feosol) 325 mg DAILYWBKFT PO Last administered on 06/04/19 08:56; Start 06/02/19 at 09:00 Non-Formulary Medication (Fluticasone/ Salmeterol (Advair 250-50 Diskus)) 1 puff BID IH ; Start 06/02/19 at 09:00; Status UNV Hydralazine HCl (Apresoline) 37.5 mg BID PO Last administered on 06/04/19 08:58; Start 06/02/19 at 09:00 Isosorbide Dinitrate (Isordil) 20 mg BID PO Last administered on 06/04/19at 08:59; Start 06/02/19 at 09:00 Budesonide (Pulmicort) 0.5 mg RTBID NEB Last administered on 06/04/19at 08:02; Start 06/02/19 at 20:00 Albuterol Sulfate (Ventolin Neb Soln) 2.5 mg RTQID NEB Last administered on 06/04/19at 11:45; Start 06/02/19 at 12:00 Sodium Chloride 1,000 ml @ 1,000 mls/hr Q1H PRN IV hypotension; Start 06/02/19 at 11:21; Stop 06/02/19 at 17:20; Status DC Diphenhydramine HCl (Benadryl) 25 mg 1X PRN PRN IV ITCHING; Start 06/02/19 at 11:30; Stop 06/03/19 at 11:29; Status DC Diphenhydramine HCl (Benadryl) 25 mg 1X PRN PRN IV ITCHING; Start 06/02/19 at 11:30; Stop 06/03/19 at 11:29; Status DC Sodium Chloride 1,000 ml @ 400 mls/hr Q2H30M PRN IV PATENCY; Start 06/02/19 at 11:21; Stop 06/02/19 at 23:20; Status DC Info (PHARMACY MONITORING -- do not chart) 1 each PRN DAILY PRN MC SEE COMMENTS; Start 06/02/19 at 11:30; Stop 06/03/19 at 08:49; Status DC Diclofenac Sodium (Voltaren) 1 torie BID TP Last administered on 06/04/19at 08:55; Start 06/02/19 at 21:00 Acetaminophen (Tylenol) 650 mg 1X PRN PRN PO PRE-TRANSFUSION; Start 06/03/19 at 05:00 Diphenhydramine HCl (Benadryl Oral Elixir) 12.5 mg 1X PRN PRN PO PRE- TRANSFUSION; Start 06/03/19 at 05:00 Diphenhydramine HCl (Benadryl) 25 mg PRN 1X PRN PO PRE-TRANSFUSION; Start 06/03/19 at 05:00 Sodium Chloride 1,000 ml @ 1,000 mls/hr Q1H PRN IV hypotension; Start 06/03/19 at 08:41; Stop 06/03/19 at 14:40; Status DC Albumin Human 200 ml @ 200 mls/hr 1X PRN PRN IV Hypotension; Start 06/03/19 at 08:45; Stop 06/03/19 at 14:44; Status DC Sodium Chloride 1,000 ml @ 400 mls/hr Q2H30M PRN IV PATENCY; Start 06/03/19 at 08:41; Stop 06/03/19 at 20:40; Status DC Info (PHARMACY MONITORING -- do not chart) 1 each PRN DAILY PRN MC SEE COMMENTS; Start 06/03/19 at 08:45; Stop 06/03/19 at 08:49; Status DC Info (PHARMACY MONITORING -- do not chart) 1 each PRN DAILY PRN MC SEE COMMENTS; Start 06/03/19 at 08:45 Sodium Chloride 1,000 ml @ 1,000 mls/hr Q1H PRN IV hypotension; Start 06/03/19 at 08:00; Stop 06/03/19 at 13:59; Status Cancel Sodium Chloride 1,000 ml @ 400 mls/hr Q2H30M PRN IV PATENCY; Start 06/03/19 at 08:00; Stop 06/03/19 at 19:59; Status Cancel Info (PHARMACY MONITORING -- do not chart) 1 each PRN DAILY PRN MC SEE COMMENTS; Start 06/03/19 at 10:30; Status UNV Info (PHARMACY MONITORING -- do not chart) 1 each PRN DAILY PRN MC SEE COMMENTS; Start 06/03/19 at 10:30 Lidocaine HCl (Xylocaine-Mpf 1% 2ml Vial) 2 ml 1X PRN ID PER PROTOCOL; Start 06/03/19 at 10:45 Darbepoetin Yair (ARANESP for DIALYSIS PTS) 60 mcg WEEKLYHS SQ Last administered on 06/03/19at 21:11; Start 06/03/19 at 21:00 Ondansetron HCl (Zofran Odt) 4 mg PRN Q6HRS PRN PO NAUSEA/VOMITING; Start 06/03/19 at 16:15; Status Cancel Ondansetron HCl (Zofran) 4 mg STK-MED ONCE .ROUTE ; Start 06/03/19 at 16:25; S top 06/03/19 at 16:25; Status DC Ondansetron HCl (Zofran) 4 mg PRN Q6HRS PRN IVP NAUSEA/VOMITING Last administered on 06/03/19at 16:38; Start 06/03/19 at 16:30 Sodium Chloride (Saline Mist Nasal) 1 torie PRN Q4HRS PRN NS NASAL CONGESTION; Start 06/04/19 at 09:00 Albumin Human 50 ml @ 50 mls/hr PRN DAILY PRN IV hypotension (SBP < 90) Last administered on 06/04/19at 11:49; Start 06/04/19 at 11:15 Apixaban (Eliquis) 2.5 mg BID PO Last administered on 06/04/19at 12:43; Start 06/04/19 at 12:00 Active Scripts Active Reported Eliquis (Apixaban) 2.5 Mg Tablet 2.5 Mg PO BID 30 Days Acidophilus (Lactobacillus Acidophilus) 1 Each Capsule 1 Each PO DAILY Hydrocodone-Apap 7.5-325 (Hydrocodone Bit/Acetaminophen) 1 Tab Tablet 1 Tab PO PRN Q6HRS PRN Lasix (Furosemide) 40 Mg Tablet 1 Tab PO PRN DAILY PRN Advair 250-50 Diskus (Fluticasone/Salmeterol) 1 Each Disk.w.dev 1 Puff IH BID Ferrous Gluconate 240 Mg Tablet 240 Mg PO DAILY Fluticasone Propionate Nasal Lawrence (Fluticasone Propionate) 16 Gm Lawrence.susp 2 Lawrence NS DAILY Calcium Acetate 667 Mg Tablet 667 Mg PO TIDWMEALS Allopurinol 300 Mg Tablet 0.5 Tab PO DAILY Proair Respiclick (Albuterol Sulfate) 90 Mcg Aer.pow.ba 2 Puff IH PRN Q6HRS PRN Aspir-Low (Aspirin) 81 Mg Tablet.dr 1 Tab PO DAILY Amiodarone Hcl 200 Mg Tablet 1 Tab PO DAILY Vitamin D3 (Cholecalciferol (Vitamin D3)) 1,000 Unit Tablet 2 Tab PO DAILY Norvasc (Amlodipine Besylate) 10 Mg Tablet 10 Mg PO DAILY Bidil Tablet (Isosorb Dinit/Hydralazine Hcl) 1 Each Tablet 1 Each PO BID Calcitriol 0.25 Mcg Capsule 1 Cap PO DAILY Carvedilol 25 Mg Tablet 25 Mg PO BIDWMEALS Allergies Allergies: Coded Allergies: Sulfa (Sulfonamide Antibiotics) (Verified Allergy, Intermediate, Swelling, 09/12/18) ROS General: YES: Fatigue Respiratory: YES: Shortness of breath, SOB with excertion Physical Exam General: mild distress HEENT: Atraumatic Lungs: Other (mildly decreased breath sounds) Heart: Other (irregular rhythm) Abdomen: Normal bowel sounds Vitals VITALS Vital Signs Date Time Temp Pulse Resp B/P (MAP) Pulse Ox O2 Delivery O2 Flow Rate FiO2 06/04/19 11:46 96 Nasal Cannula 2.0 06/04/19 11:00 98.1 94 18 86/47 (60) 98.1 Labs Labs Laboratory Tests Test 06/03/19 02:55 06/03/19 10:45 06/03/19 13:01 06/03/19 15:18 White Blood Count 4.7 x10^3/uL (4.0-11.0) Red Blood Count 2.15 x10^6/uL (3.50-5.40) Hemoglobin 6.3 g/dL (12.0-15.5) 7.7 g/dL (12.0-15.5) Hematocrit 19.5 % (36.0-47.0) 24.0 % (36.0-47.0) Mean Corpuscular Volume 91 fL (79-100) Mean Corpuscular Hemoglobin 29 pg (25-35) Mean Corpuscular Hemoglobin Concent 32 g/dL (31-37) Red Cell Distribution Width 22.9 % (11.5-14.5) Platelet Count 267 x10^3/uL (140-400) 292 x10^3/uL (140-400) Neutrophils (%) (Auto) 76 % (31-73) Lymphocytes (%) (Auto) 18 % (24-48) Monocytes (%) (Auto) 5 % (0-9) Eosinophils (%) (Auto) 1 % (0-3) Basophils (%) (Auto) 0 % (0-3) Neutrophils # (Auto) 3.5 x10^3/uL (1.8-7.7) Lymphocytes # (Auto) 0.8 x10^3/uL (1.0-4.8) Monocytes # (Auto) 0.2 x10^3/uL (0.0-1.1) Eosinophils # (Auto) 0.0 x10^3/uL (0.0-0.7) Basophils # (Auto) 0.0 x10^3/uL (0.0-0.2) Sodium Level 140 mmol/L (136-145) Potassium Level 3.3 mmol/L (3.5-5.1) Chloride Level 102 mmol/L (98-107) Carbon Dioxide Level 35 mmol/L (21-32) Anion Gap 3 (6-14) Blood Urea Nitrogen 32 mg/dL (7-20) Creatinine 5.5 mg/dL (0.6-1.0) Estimated GFR (Cockcroft-Gault) 9.0 BUN/Creatinine Ratio 6 (6-20) Glucose Level 80 mg/dL (70-99) Calcium Level 7.9 mg/dL (8.5-10.1) Total Bilirubin 0.4 mg/dL (0.2-1.0) Aspartate Amino Transf (AST/SGOT) 15 U/L (15-37) Alanine Aminotransferase (ALT/SGPT) 12 U/L (14-59) Alkaline Phosphatase 77 U/L (46-116) Total Protein 5.9 g/dL (6.4-8.2) Albumin 1.8 g/dL (3.4-5.0) Albumin/Globulin Ratio 0.4 (1.0-1.7) Glucose (Fingerstick) 77 mg/dL (70-99) Test 06/03/19 16:09 Glucose (Fingerstick) 88 mg/dL (70-99) Laboratory Tests Test 06/03/19 15:18 06/03/19 16:09 Hemoglobin 7.7 g/dL (12.0-15.5) Hematocrit 24.0 % (36.0-47.0) Glucose (Fingerstick) 88 mg/dL (70-99) Images Images Initial CT head scan showed no acute changes. Initial chest x-ray showed cardiomegaly with a left-sided pleural effusion. Echocardiogram from 03/20/19 showed an ejection fraction of 65% with trace tricuspid regurgitation and pulmonary artery pressure 31 mmHg. Assessment/Plan Assessment/Plan 1. End-stage renal disease. On hemodialysis. As noted above the patient missed 10 days of dialysis prior to admission. She has been resumed on dialysis with good effect is followed by the renal service. 2. Hypertension. Patient's blood pressures under better control. Will continue present treatment. 3. History of probable paroxysmal atrial fibrillation. Patient has resumed atrial fibrillation with an acceptable ventricular response rate. We'll continue to monitor. She has been restarted on Eliquis 2.5 twice a day. Also she is on Coreg which is not optimal for rate control in the setting of A. fib. However at this time she is doing well and will not change medications at the present time. 4. History of probable coronary artery disease. No chest pain. Continuing present medications. 5. Hyperlipidemia. We'll recheck lab. Statins if indicated. 6. Diabetes mellitus. As per the primary service. Thank you for allowing us to participate in the care of your patient. VENESSA PERRY MD Jun 04, 2019 14:52
[2019-06-04 15:00] VITALS: BP 96/37
--- NOTE | 2019-06-04 16:21 | PDOC ---
Renal-Progress Notes Subjective Notes Notes FEELING BETTER History of Present Illness Hx of present illness IMPROVED Vitals Vitals Vital Signs Date Time Temp Pulse Resp B/P (MAP) Pulse Ox O2 Delivery O2 Flow Rate FiO2 06/04/19 15:47 Nasal Cannula 2.0 06/04/19 15:00 98.3 65 16 96/37 (56) 93 98.3 Weight Weight [ ] I.O. Intake and Output Intake and Output 06/04/19 07:00 Intake Total 1372 ml Output Total 0 ml Balance 1372 ml Intake Oral 280 ml Blood Product IV Normal Saline Flush 1092 ml Output Urine Total 0 ml # Voids 1 Micro Micro Microbiology 06/02/19 Anaerobic/Aerobic Culture, Resulted Pending 06/02/19 Anaerobic Culture Result 1 (ABNER), Resulted Pending 06/02/19 Aerobic Culture, Resulted Pending 06/02/19 Aerobic Culture Result 1 (ABNER), Resulted Pending 06/02/19 Gram Stain - Final, Resulted 06/02/19 Gram Stain Result 1 (ABNER) - Final, Resulted 06/02/19 Gram Stain Result 2 (ABNER) - Final, Resulted Review of Systems Constitutional: yes: weakness, alert, oriented Ears/Nose/Throat: Yes: no symptom reported Eyes: Yes: no symptom reported Pulmonary: Yes no symptom reported Cardiovascular: Yes no symptom reported Gastrointestional: Yes: no symptom reported Genitourinary: Yes: no symptom reported Musculoskeletal: Yes: no symptom reported Skin: Yes no symptom reported Psychiatric/Neurological: Yes: no symptom reported Endocrine: Yes: no symptom reported Physical Exam General Appearance: no apparent distress Skin: warm Respiratory: bilateral CTA Heart: S1S2 Abdomen: soft, bowel sounds present Genitourinary: bladder flat Extremities: pulses present Neurology: alert Assessment Assessment IMP ANEMIA CHF-DIASTOLIC CHF ESRD HTN-UNCONTROLLED NON COMPLIANCE PLAN HD [facility] TX WILL FOLLOW ENC COMPLIANCE ROSA APODACA MD Jun 04, 2019 16:21
[2019-06-04 19:48] VITALS: BP 114/50
[2019-06-04 23:40] VITALS: BP 107/44
[2019-06-05 03:30] VITALS: BP 119/49
[2019-06-05 04:32] LABS: BASO % 0 % (0-3); EOS # 0.1 x10^3/uL (0.0-0.7); EOS % 1 % (0-3); HEMATOCRIT 25.8 % (36.0-47.0); HEMOGLOBIN 8.3 g/dL (12.0-15.5); LYMPH # 0.9 x10^3/uL (1.0-4.8); LYMPH % 12 % (24-48); MEAN CORPUSCULAR HEMOGLOBIN 29 pg (25-35); MEAN CORPUSCULAR HGB CONC 32 g/dL (31-37); MEAN CORPUSCULAR VOLUME 90 fL (79-100); MONO # 0.5 x10^3/uL (0.0-1.1); MONO % 6 % (0-9); NEUT # 6.4 x10^3/uL (1.8-7.7); NEUT % 81 % (31-73); PLATELET COUNT 238 x10^3/uL (140-400); RED BLOOD COUNT 2.86 x10^6/uL (3.50-5.40); RED CELL DISTRIBUTION WIDTH 21.6 % (11.5-14.5); WHITE BLOOD COUNT 7.8 x10^3/uL (4.0-11.0)
[2019-06-05 04:57] LABS: CREATININE 5.2 mg/dL (0.6-1.0); GFR 9.7; PHOSPHORUS 3.1 mg/dL (2.6-4.7); POTASSIUM 3.5 mmol/L (3.5-5.1)
[2019-06-05 05:25] LABS: CHOLESTEROL/HDL RATIO 2.2
--- NOTE | 2019-06-05 07:24 | PDOC ---
PROGRESS NOTES Chief Complaint Chief Complaint A/P: Acute hypoxia - multifactorial from fluid overload, pleural effusion. Left pleural effusion - likely from volume overload. s/p 1400cc thora Shortness of breath - chart indicates asthma history ESRD - TuThSa, missed dialysis, will consult nephrology Acute Anemia - Hb 6.3 initially, 7.7 after 2u PRBC Paroxysmal afib - looks afib on tele currently, takes eliquis 2.5mg BID. DM2 - unknown a1c, but 6.2 a few years ago. HTN - cont meds CAD s/p RCA stent 09/2018 - will cont meds, plavix High Cholesterol - cont statin Prior CVA - ASA and statin. PT to see for gait instability Hip pain - bilateral, will trial gait with PT. PMR consulted FEN - ADA renal diet PPX - Eliquis FULL CODE Dispo - Med/tele likely 2 midnights History of Present Illness History of Present Illness Ms Lundy is a 79-year-old female w/ PMHx ESRD, anemia, DM2, HTN, CAD s/p stents, High Cholesterol, afib, prior CVA who p/w shortness of breath 1 week. States she has not been to dialysis for 9 days secondary to inability to walk, pain with ambulation. Patient states she fell in the bathroom hitting her head and left hip 9 days ago, no loss of consciousness however had bilateral hip pain. Today she describes cough, nonproductive, denies any fever, chills, nausea, vomiting. When her continued shortness of breath she presents to the ER for further evaluation. Her initial evaluation revealed saturations 84% on room air with increased risk of breathing. EKG reviewed, no STEMI, heart rate 58, left axis deviation Chest x-ray reveals evidence of left pleural effusion, Hb 6.8, creatinine 12.3, BUN 92, potassium 5.2 Notably hypoxic less than 88%, placed O2 2 L with saturations of 94%. On 06/02 she underwent US guided thoracentesis on the left with 1400cc removed by IR. 06/03: Tolerated thoracentesis by IR and dialysis well yesterday. Hb still 6.3. Blood ready for 2u. Seen on dialysis, feeling less short of breath, but very weak. 06/04: Pleural LDH 92, protein 2.6. Feeling better. However, went into afib last night. Feeling improved. Hb 8.3. Pleural fluid barely meets one light criteria with protein ratio. Weak today. Still a bit short of breath and c/o some left sided chest discomfort at thoracentesis site. CXR read pending, but does appear to have good re-expansion, though I cannot visualize the left costophrenic angle partially due to large cardiac silhoutte obscuring it. Vitals Vitals Vital Signs Date Time Temp Pulse Resp B/P (MAP) Pulse Ox O2 Delivery O2 Flow Rate FiO2 06/05/19 03:30 99.1 86 16 119/49 (72) 95 Nasal Cannula 2.0 99.1 Physical Exam General: Alert, mild distress Heart: Other (irregular rhythm) Lungs: Crackles (LLL) Abdomen: Normal bowel sounds Extremities: No clubbing, No cyanosis, Normal pulses, Other (Left hip pain laterally) Skin: No rashes, No breakdown, No significant lesion Labs LABS Laboratory Tests Test 06/05/19 03:50 White Blood Count 7.8 x10^3/uL (4.0-11.0) Red Blood Count 2.86 x10^6/uL (3.50-5.40) Hemoglobin 8.3 g/dL (12.0-15.5) Hematocrit 25.8 % (36.0-47.0) Mean Corpuscular Volume 90 fL (79-100) Mean Corpuscular Hemoglobin 29 pg (25-35) Mean Corpuscular Hemoglobin Concent 32 g/dL (31-37) Red Cell Distribution Width 21.6 % (11.5-14.5) Platelet Count 238 x10^3/uL (140-400) Neutrophils (%) (Auto) 81 % (31-73) Lymphocytes (%) (Auto) 12 % (24-48) Monocytes (%) (Auto) 6 % (0-9) Eosinophils (%) (Auto) 1 % (0-3) Basophils (%) (Auto) 0 % (0-3) Neutrophils # (Auto) 6.4 x10^3/uL (1.8-7.7) Lymphocytes # (Auto) 0.9 x10^3/uL (1.0-4.8) Monocytes # (Auto) 0.5 x10^3/uL (0.0-1.1) Eosinophils # (Auto) 0.1 x10^3/uL (0.0-0.7) Basophils # (Auto) 0.0 x10^3/uL (0.0-0.2) Sodium Level 140 mmol/L (136-145) Potassium Level 3.5 mmol/L (3.5-5.1) Chloride Level 101 mmol/L (98-107) Carbon Dioxide Level 29 mmol/L (21-32) Anion Gap 10 (6-14) Blood Urea Nitrogen 22 mg/dL (7-20) Creatinine 5.2 mg/dL (0.6-1.0) Estimated GFR (Cockcroft-Gault) 9.7 Glucose Level 86 mg/dL (70-99) Calcium Level 8.0 mg/dL (8.5-10.1) Phosphorus Level 3.1 mg/dL (2.6-4.7) Albumin 2.0 g/dL (3.4-5.0) Triglycerides Level 60 mg/dL (0-150) Cholesterol Level 91 mg/dL (0-200) LDL Cholesterol, Calculated 37 mg/dL (0-100) VLDL Cholesterol, Calculated 12 mg/dL (0-40) Non-HDL Cholesterol Calculated 49 mg/dL (0-129) HDL Cholesterol 42 mg/dL (40-60) Cholesterol/HDL Ratio 2.2 Assessment and Plan Assessmemt and Plan Problems Medical Problems: (1) Acute respiratory distress Status: Acute (2) Diabetes Status: Acute (3) Pleural effusion Status: Acute Comment Review of Relevant I have reviewed the following items scot (where applicable) has been applied. Labs Laboratory Tests Test 06/03/19 10:45 06/03/19 13:01 06/03/19 15:18 06/03/19 16:09 Platelet Count 292 x10^3/uL (140-400) Glucose (Fingerstick) 77 mg/dL (70-99) 88 mg/dL (70-99) Hemoglobin 7.7 g/dL (12.0-15.5) Hematocrit 24.0 % (36.0-47.0) Test 06/05/19 03:50 White Blood Count 7.8 x10^3/uL (4.0-11.0) Red Blood Count 2.86 x10^6/uL (3.50-5.40) Hemoglobin 8.3 g/dL (12.0-15.5) Hematocrit 25.8 % (36.0-47.0) Mean Corpuscular Volume 90 fL (79-100) Mean Corpuscular Hemoglobin 29 pg (25-35) Mean Corpuscular Hemoglobin Concent 32 g/dL (31-37) Red Cell Distribution Width 21.6 % (11.5-14.5) Platelet Count 238 x10^3/uL (140-400) Neutrophils (%) (Auto) 81 % (31-73) Lymphocytes (%) (Auto) 12 % (24-48) Monocytes (%) (Auto) 6 % (0-9) Eosinophils (%) (Auto) 1 % (0-3) Basophils (%) (Auto) 0 % (0-3) Neutrophils # (Auto) 6.4 x10^3/uL (1.8-7.7) Lymphocytes # (Auto) 0.9 x10^3/uL (1.0-4.8) Monocytes # (Auto) 0.5 x10^3/uL (0.0-1.1) Eosinophils # (Auto) 0.1 x10^3/uL (0.0-0.7) Basophils # (Auto) 0.0 x10^3/uL (0.0-0.2) Sodium Level 140 mmol/L (136-145) Potassium Level 3.5 mmol/L (3.5-5.1) Chloride Level 101 mmol/L (98-107) Carbon Dioxide Level 29 mmol/L (21-32) Anion Gap 10 (6-14) Blood Urea Nitrogen 22 mg/dL (7-20) Creatinine 5.2 mg/dL (0.6-1.0) Estimated GFR (Cockcroft-Gault) 9.7 Glucose Level 86 mg/dL (70-99) Calcium Level 8.0 mg/dL (8.5-10.1) Phosphorus Level 3.1 mg/dL (2.6-4.7) Albumin 2.0 g/dL (3.4-5.0) Triglycerides Level 60 mg/dL (0-150) Cholesterol Level 91 mg/dL (0-200) LDL Cholesterol, Calculated 37 mg/dL (0-100) VLDL Cholesterol, Calculated 12 mg/dL (0-40) Non-HDL Cholesterol Calculated 49 mg/dL (0-129) HDL Cholesterol 42 mg/dL (40-60) Cholesterol/HDL Ratio 2.2 Laboratory Tests Test 06/05/19 03:50 White Blood Count 7.8 x10^3/uL (4.0-11.0) Red Blood Count 2.86 x10^6/uL (3.50-5.40) Hemoglobin 8.3 g/dL (12.0-15.5) Hematocrit 25.8 % (36.0-47.0) Mean Corpuscular Volume 90 fL (79-100) Mean Corpuscular Hemoglobin 29 pg (25-35) Mean Corpuscular Hemoglobin Concent 32 g/dL (31-37) Red Cell Distribution Width 21.6 % (11.5-14.5) Platelet Count 238 x10^3/uL (140-400) Neutrophils (%) (Auto) 81 % (31-73) Lymphocytes (%) (Auto) 12 % (24-48) Monocytes (%) (Auto) 6 % (0-9) Eosinophils (%) (Auto) 1 % (0-3) Basophils (%) (Auto) 0 % (0-3) Neutrophils # (Auto) 6.4 x10^3/uL (1.8-7.7) Lymphocytes # (Auto) 0.9 x10^3/uL (1.0-4.8) Monocytes # (Auto) 0.5 x10^3/uL (0.0-1.1) Eosinophils # (Auto) 0.1 x10^3/uL (0.0-0.7) Basophils # (Auto) 0.0 x10^3/uL (0.0-0.2) Sodium Level 140 mmol/L (136-145) Potassium Level 3.5 mmol/L (3.5-5.1) Chloride Level 101 mmol/L (98-107) Carbon Dioxide Level 29 mmol/L (21-32) Anion Gap 10 (6-14) Blood Urea Nitrogen 22 mg/dL (7-20) Creatinine 5.2 mg/dL (0.6-1.0) Estimated GFR (Cockcroft-Gault) 9.7 Glucose Level 86 mg/dL (70-99) Calcium Level 8.0 mg/dL (8.5-10.1) Phosphorus Level 3.1 mg/dL (2.6-4.7) Albumin 2.0 g/dL (3.4-5.0) Triglycerides Level 60 mg/dL (0-150) Cholesterol Level 91 mg/dL (0-200) LDL Cholesterol, Calculated 37 mg/dL (0-100) VLDL Cholesterol, Calculated 12 mg/dL (0-40) Non-HDL Cholesterol Calculated 49 mg/dL (0-129) HDL Cholesterol 42 mg/dL (40-60) Cholesterol/HDL Ratio 2.2 Microbiology 06/02/19 Anaerobic/Aerobic Culture, Resulted Pending 06/02/19 Anaerobic Culture Result 1 (ABNER), Resulted Pending 06/02/19 Aerobic Culture, Resulted Pending 06/02/19 Aerobic Culture Result 1 (ABNER), Resulted Pending 06/02/19 Gram Stain - Final, Resulted 06/02/19 Gram Stain Result 1 (ABNER) - Final, Resulted 06/02/19 Gram Stain Result 2 (ABNER) - Final, Resulted Medications Current Medications Albuterol/ Ipratropium (Duoneb) 3 ml 1X ONCE NEB Last administered on 06/01/19at 21:30; Start 06/01/19 at 21:30; Stop 06/01/19 at 21:31; Status DC Ondansetron HCl (Zofran) 4 mg PRN Q8HRS PRN IV NAUSEA/VOMITING; Start 06/02/19 at 00:15; Stop 06/03/19 at 00:14; Status DC Acetaminophen (Tylenol) 650 mg PRN Q4HRS PRN PO FEVER; Start 06/02/19 at 00:15; Stop 06/03/19 at 00:14; Status DC Amlodipine Besylate (Norvasc) 10 mg DAILY PO Last administered on 06/04/19at 08:59; Start 06/02/19 at 09:00 Aspirin (Ecotrin) 81 mg DAILY PO Last administered on 06/04/19at 08:58; Start 06/02/19 at 09:00 Calcitriol (Rocaltrol) 0.25 mcg DAILY PO Last administered on 06/04/19at 08:58; Start 06/02/19 at 09:00 Vitamin D (Vitamin D3) 2,000 unit DAILY PO Last administered on 06/04/19at 08:55; Start 06/02/19 at 09:00 Fluticasone Propionate (Flonase) 2 spray DAILY NS Last administered on 06/04/19 08:55; Start 06/02/19 at 09:00 Furosemide (Lasix) 40 mg PRN DAILY PRN PO SWELLING; Start 06/02/19 at 08:45 Acetaminophen/ Hydrocodone Bitart (Lortab 7.5/325) 1 tab PRN Q6HRS PRN PO PAIN Last administered on 06/03/19 14:10; Start 06/02/19 at 08:45 Carvedilol (Coreg) 25 mg BIDWMEALS PO Last administered on 06/04/19 08:56; Start 06/02/19 at 09:00 Ferrous Sulfate (Feosol) 325 mg DAILYWBKFT PO Last administered on 06/04/19 08:56; Start 06/02/19 at 09:00 Non-Formulary Medication (Fluticasone/ Salmeterol (Advair 250-50 Diskus)) 1 puff BID IH ; Start 06/02/19 at 09:00; Status UNV Hydralazine HCl (Apresoline) 37.5 mg BID PO Last administered on 06/04/19 20:16; Start 06/02/19 at 09:00 Isosorbide Dinitrate (Isordil) 20 mg BID PO Last administered on 06/04/19 20:16; Start 06/02/19 at 09:00 Budesonide (Pulmicort) 0.5 mg RTBID NEB Last administered on 06/04/19 20:20; Start 06/02/19 at 20:00 Albuterol Sulfate (Ventolin Neb Soln) 2.5 mg RTQID NEB Last administered on 06/04/19 20:20; Start 06/02/19 at 12:00 Sodium Chloride 1,000 ml @ 1,000 mls/hr Q1H PRN IV hypotension; Start 06/02/19 at 11:21; Stop 06/02/19 at 17:20; Status DC Diphenhydramine HCl (Benadryl) 25 mg 1X PRN PRN IV ITCHING; Start 06/02/19 at 11:30; Stop 06/03/19 at 11:29; Status DC Diphenhydramine HCl (Benadryl) 25 mg 1X PRN PRN IV ITCHING; Start 06/02/19 at 11:30; Stop 06/03/19 at 11:29; Status DC Sodium Chloride 1,000 ml @ 400 mls/hr Q2H30M PRN IV PATENCY; Start 06/02/19 at 11:21; Stop 06/02/19 at 23:20; Status DC Info (PHARMACY MONITORING -- do not chart) 1 each PRN DAILY PRN MC SEE COMMENTS; Start 06/02/19 at 11:30; Stop 06/03/19 at 08:49; Status DC Diclofenac Sodium (Voltaren) 1 torie BID TP Last administered on 06/04/19at 20:15; Start 06/02/19 at 21:00 Acetaminophen (Tylenol) 650 mg 1X PRN PRN PO PRE-TRANSFUSION; Start 06/03/19 at 05:00 Diphenhydramine HCl (Benadryl Oral Elixir) 12.5 mg 1X PRN PRN PO PRE- TRANSFUSION; Start 06/03/19 at 05:00 Diphenhydramine HCl (Benadryl) 25 mg PRN 1X PRN PO PRE-TRANSFUSION; Start 06/03/19 at 05:00 Sodium Chloride 1,000 ml @ 1,000 mls/hr Q1H PRN IV hypotension; Start 06/03/19 at 08:41; Stop 06/03/19 at 14:40; Status DC Albumin Human 200 ml @ 200 mls/hr 1X PRN PRN IV Hypotension; Start 06/03/19 at 08:45; Stop 06/03/19 at 14:44; Status DC Sodium Chloride 1,000 ml @ 400 mls/hr Q2H30M PRN IV PATENCY; Start 06/03/19 at 08:41; Stop 06/03/19 at 20:40; Status DC Info (PHARMACY MONITORING -- do not chart) 1 each PRN DAILY PRN MC SEE COMMENTS; Start 06/03/19 at 08:45; Stop 06/03/19 at 08:49; Status DC Info (PHARMACY MONITORING -- do not chart) 1 each PRN DAILY PRN MC SEE COMMENTS; Start 06/03/19 at 08:45 Sodium Chloride 1,000 ml @ 1,000 mls/hr Q1H PRN IV hypotension; Start 06/03/19 at 08:00; Stop 06/03/19 at 13:59; Status Cancel Sodium Chloride 1,000 ml @ 400 mls/hr Q2H30M PRN IV PATENCY; Start 06/03/19 at 08:00; Stop 06/03/19 at 19:59; Status Cancel Info (PHARMACY MONITORING -- do not chart) 1 each PRN DAILY PRN MC SEE COMMENTS; Start 06/03/19 at 10:30; Status UNV Info (PHARMACY MONITORING -- do not chart) 1 each PRN DAILY PRN MC SEE COMMENTS; Start 06/03/19 at 10:30 Lidocaine HCl (Xylocaine-Mpf 1% 2ml Vial) 2 ml 1X PRN ID PER PROTOCOL; Start 06/03/19 at 10:45 Darbepoetin Yair (ARANESP for DIALYSIS PTS) 60 mcg WEEKLYHS SQ Last administered on 06/03/19at 21:11; Start 06/03/19 at 21:00 Ondansetron HCl (Zofran Odt) 4 mg PRN Q6HRS PRN PO NAUSEA/VOMITING; Start 06/03/19 at 16:15; Status Cancel Ondansetron HCl (Zofran) 4 mg STK-MED ONCE .ROUTE ; Start 06/03/19 at 16:25; Stop 06/03/19 at 16:25; Status DC Ondansetron HCl (Zofran) 4 mg PRN Q6HRS PRN IVP NAUSEA/VOMITING Last administered on 06/03/19at 16:38; Start 06/03/19 at 16:30 Sodium Chloride (Saline Mist Nasal) 1 torie PRN Q4HRS PRN NS NASAL CONGESTION; Start 06/04/19 at 09:00 Albumin Human 50 ml @ 50 mls/hr PRN DAILY PRN IV hypotension (SBP < 90) Last administered on 06/04/19at 11:49; Start 06/04/19 at 11:15 Apixaban (Eliquis) 2.5 mg BID PO Last administered on 06/04/19at 20:17; Start 06/04/19 at 12:00 Active Scripts Active Reported Eliquis (Apixaban) 2.5 Mg Tablet 2.5 Mg PO BID 30 Days Acidophilus (Lactobacillus Acidophilus) 1 Each Capsule 1 Each PO DAILY Hydrocodone-Apap 7.5-325 (Hydrocodone Bit/Acetaminophen) 1 Tab Tablet 1 Tab PO PRN Q6HRS PRN Lasix (Furosemide) 40 Mg Tablet 1 Tab PO PRN DAILY PRN Advair 250-50 Diskus (Fluticasone/Salmeterol) 1 Each Disk.w.dev 1 Puff IH BID Ferrous Gluconate 240 Mg Tablet 240 Mg PO DAILY Fluticasone Propionate Nasal [place] (Fluticasone Propionate) 16 Gm [place].susp 2 [place] NS DAILY Calcium Acetate 667 Mg Tablet 667 Mg PO TIDWMEALS Allopurinol 300 Mg Tablet 0.5 Tab PO DAILY Proair Respiclick (Albuterol Sulfate) 90 Mcg Aer.pow.ba 2 Puff IH PRN Q6HRS PRN Aspir-Low (Aspirin) 81 Mg Tablet.dr 1 Tab PO DAILY Amiodarone Hcl 200 Mg Tablet 1 Tab PO DAILY Vitamin D3 (Cholecalciferol (Vitamin D3)) 1,000 Unit Tablet 2 Tab PO DAILY Norvasc (Amlodipine Besylate) 10 Mg Tablet 10 Mg PO DAILY Bidil Tablet (Isosorb Dinit/Hydralazine Hcl) 1 Each Tablet 1 Each PO BID Calcitriol 0.25 Mcg Capsule 1 Cap PO DAILY Carvedilol 25 Mg Tablet 25 Mg PO BIDWMEALS Vitals/I & O Vital Sign - Last 24 Hours 06/04/19 06/04/19 06/04/19 06/04/19 08:00 08:03 08:56 08:58 Pulse 108 108 B/P (MAP) 123/65 123/65 Pulse Ox 96 O2 Delivery Nasal Cannula Nasal Cannula O2 Flow Rate 2.0 2.0 06/04/19 06/04/19 06/04/19 06/04/19 08:59 08:59 11:00 11:46 Temp 98.1 98.1 Pulse 108 108 94 Resp 18 B/P (MAP) 123/65 123/65 86/47 (60) Pulse Ox 98 96 O2 Delivery Nasal Cannula Nasal Cannula O2 Flow Rate 2.0 2.0 06/04/19 06/04/19 06/04/19 06/04/19 15:00 15:47 16:27 19:48 Temp 98.3 99.3 98.3 99.3 Pulse 65 65 64 Resp 16 18 B/P (MAP) 96/37 (56) 96/37 114/50 (71) Pulse Ox 93 97 O2 Delivery Nasal Cannula Nasal Cannula Nasal Cannula O2 Flow Rate 2.0 2.0 2.0 06/04/19 06/04/19 06/04/19 06/04/19 20:00 20:16 20:16 20:21 B/P (MAP) 114/50 114/50 Pulse Ox 97 O2 Delivery Nasal Cannula Nasal Cannula O2 Flow Rate 2.0 2.0 06/04/19 06/05/19 23:40 03:30 Temp 98.9 99.1 98.9 99.1 Pulse 69 86 Resp 16 B/P (MAP) 107/44 (65) 119/49 (72) Pulse Ox 95 O2 Delivery Nasal Cannula Nasal Cannula O2 Flow Rate 2.0 2.0 Intake and Output 06/04/19 06/04/19 06/05/19 15:00 23:00 07:00 Intake Total 100 ml Output Total 0 ml Balance 100 ml 0 ml COLTEN CHOU MD Jun 05, 2019 07:24
[2019-06-05 07:58] VITALS: BP 110/47
[2019-06-05] MEDS: BUDESONIDE 0.5 MG/2 ML NEBU. NEB SCH ×2 (08:11→18:40)
[2019-06-05] MEDS: ALBUTEROL SULFATE 2.5 MG/3 ML NEBU. NEB SCH ×4 (08:11→18:40)
--- NOTE | 2019-06-05 08:41 | PDOC ---
PROGRESS NOTES Subjective Subjective She admits left sided chest discomfort. Objective Objective Vital Signs Date Time Temp Pulse Resp B/P (MAP) Pulse Ox O2 Delivery O2 Flow Rate FiO2 06/05/19 08:12 96 Nasal Cannula 2.0 06/05/19 07:58 98.8 71 18 110/47 (68) 98.8 Intake and Output 06/05/19 07:00 Intake Total 100 ml Output Total 0 ml Balance 100 ml Intake Oral 100 ml Output Urine Total 0 ml # Voids 2 Physical Exam Physical Exam She is alert,she got up and walked at bedside using a cane and she is having problems with balance.She remains anemic and she is getting up with physical and occupational therapy. Abdomen: Normal bowel sounds, Soft, No tenderness, No hepatosplenomegaly, No masses Heart: Regular rate, Normal S1, Normal S2, No murmurs, Gallops Extremities: No clubbing, No cyanosis, No edema, Normal pulses, No tenderness/swelling General: Alert, Oriented X3, Cooperative, No acute distress HEENT: Mucous membr. moist/pink Lungs: Clear to auscultation, Normal air movement MUSCULOSKELETAL: No joint tenderness, No deformity, No swelling, No muscular tenderness noted, Full range of motion without pain Neck: Supple, No JVD, No thyromegaly Neuro: Normal gait, Normal speech, Normal tone, Sensation intact, Reflexes 2+ Psych/Mental Status: Mental status NL, Mood NL Skin: No rashes, No breakdown, No significant lesion Assessment Assessment Problems Medical Problems: (1) Acute respiratory distress Status: Acute (2) Diabetes Status: Acute (3) Pleural effusion Status: Acute Plan Plan of Care She can benefit from SNF stay for a short time when medically stable. Comment Review of Relevant I have reviewed the following items scot (where applicable) has been applied. Labs Laboratory Tests Test 06/03/19 10:45 06/03/19 13:01 06/03/19 15:18 06/03/19 16:09 Platelet Count 292 x10^3/uL (140-400) Glucose (Fingerstick) 77 mg/dL (70-99) 88 mg/dL (70-99) Hemoglobin 7.7 g/dL (12.0-15.5) Hematocrit 24.0 % (36.0-47.0) Test 06/05/19 03:50 White Blood Count 7.8 x10^3/uL (4.0-11.0) Red Blood Count 2.86 x10^6/uL (3.50-5.40) Hemoglobin 8.3 g/dL (12.0-15.5) Hematocrit 25.8 % (36.0-47.0) Mean Corpuscular Volume 90 fL (79-100) Mean Corpuscular Hemoglobin 29 pg (25-35) Mean Corpuscular Hemoglobin Concent 32 g/dL (31-37) Red Cell Distribution Width 21.6 % (11.5-14.5) Platelet Count 238 x10^3/uL (140-400) Neutrophils (%) (Auto) 81 % (31-73) Lymphocytes (%) (Auto) 12 % (24-48) Monocytes (%) (Auto) 6 % (0-9) Eosinophils (%) (Auto) 1 % (0-3) Basophils (%) (Auto) 0 % (0-3) Neutrophils # (Auto) 6.4 x10^3/uL (1.8-7.7) Lymphocytes # (Auto) 0.9 x10^3/uL (1.0-4.8) Monocytes # (Auto) 0.5 x10^3/uL (0.0-1.1) Eosinophils # (Auto) 0.1 x10^3/uL (0.0-0.7) Basophils # (Auto) 0.0 x10^3/uL (0.0-0.2) Sodium Level 140 mmol/L (136-145) Potassium Level 3.5 mmol/L (3.5-5.1) Chloride Level 101 mmol/L (98-107) Carbon Dioxide Level 29 mmol/L (21-32) Anion Gap 10 (6-14) Blood Urea Nitrogen 22 mg/dL (7-20) Creatinine 5.2 mg/dL (0.6-1.0) Estimated GFR (Cockcroft-Gault) 9.7 Glucose Level 86 mg/dL (70-99) Calcium Level 8.0 mg/dL (8.5-10.1) Phosphorus Level 3.1 mg/dL (2.6-4.7) Lactate Dehydrogenase 138 U/L (81-234) Albumin 2.0 g/dL (3.4-5.0) Triglycerides Level 60 mg/dL (0-150) Cholesterol Level 91 mg/dL (0-200) LDL Cholesterol, Calculated 37 mg/dL (0-100) VLDL Cholesterol, Calculated 12 mg/dL (0-40) Non-HDL Cholesterol Calculated 49 mg/dL (0-129) HDL Cholesterol 42 mg/dL (40-60) Cholesterol/HDL Ratio 2.2 Laboratory Tests Test 06/05/19 03:50 White Blood Count 7.8 x10^3/uL (4.0-11.0) Red Blood Count 2.86 x10^6/uL (3.50-5.40) Hemoglobin 8.3 g/dL (12.0-15.5) Hematocrit 25.8 % (36.0-47.0) Mean Corpuscular Volume 90 fL (79-100) Mean Corpuscular Hemoglobin 29 pg (25-35) Mean Corpuscular Hemoglobin Concent 32 g/dL (31-37) Red Cell Distribution Width 21.6 % (11.5-14.5) Platelet Count 238 x10^3/uL (140-400) Neutrophils (%) (Auto) 81 % (31-73) Lymphocytes (%) (Auto) 12 % (24-48) Monocytes (%) (Auto) 6 % (0-9) Eosinophils (%) (Auto) 1 % (0-3) Basophils (%) (Auto) 0 % (0-3) Neutrophils # (Auto) 6.4 x10^3/uL (1.8-7.7) Lymphocytes # (Auto) 0.9 x10^3/uL (1.0-4.8) Monocytes # (Auto) 0.5 x10^3/uL (0.0-1.1) Eosinophils # (Auto) 0.1 x10^3/uL (0.0-0.7) Basophils # (Auto) 0.0 x10^3/uL (0.0-0.2) Sodium Level 140 mmol/L (136-145) Potassium Level 3.5 mmol/L (3.5-5.1) Chloride Level 101 mmol/L (98-107) Carbon Dioxide Level 29 mmol/L (21-32) Anion Gap 10 (6-14) Blood Urea Nitrogen 22 mg/dL (7-20) Creatinine 5.2 mg/dL (0.6-1.0) Estimated GFR (Cockcroft-Gault) 9.7 Glucose Level 86 mg/dL (70-99) Calcium Level 8.0 mg/dL (8.5-10.1) Phosphorus Level 3.1 mg/dL (2.6-4.7) Lactate Dehydrogenase 138 U/L (81-234) Albumin 2.0 g/dL (3.4-5.0) Triglycerides Level 60 mg/dL (0-150) Cholesterol Level 91 mg/dL (0-200) LDL Cholesterol, Calculated 37 mg/dL (0-100) VLDL Cholesterol, Calculated 12 mg/dL (0-40) Non-HDL Cholesterol Calculated 49 mg/dL (0-129) HDL Cholesterol 42 mg/dL (40-60) Cholesterol/HDL Ratio 2.2 Microbiology 06/02/19 Anaerobic/Aerobic Culture, Resulted Pending 06/02/19 Anaerobic Culture Result 1 (ABNER), Resulted Pending 06/02/19 Aerobic Culture, Resulted Pending 06/02/19 Aerobic Culture Result 1 (ABNER), Resulted Pending 06/02/19 Gram Stain - Final, Resulted 06/02/19 Gram Stain Result 1 (ABNER) - Final, Resulted 06/02/19 Gram Stain Result 2 (ABNER) - Final, Resulted Medications Current Medications Albuterol/ Ipratropium (Duoneb) 3 ml 1X ONCE NEB Last administered on 06/01/19at 21:30; Start 06/01/19 at 21:30; Stop 06/01/19 at 21:31; Status DC Ondansetron HCl (Zofran) 4 mg PRN Q8HRS PRN IV NAUSEA/VOMITING; Start 06/02/19 at 00:15; Stop 06/03/19 at 00:14; Status DC Acetaminophen (Tylenol) 650 mg PRN Q4HRS PRN PO FEVER; Start 06/02/19 at 00:15; Stop 06/03/19 at 00:14; Status DC Amlodipine Besylate (Norvasc) 10 mg DAILY PO Last administered on 06/04/19at 08:59; Start 06/02/19 at 09:00 Aspirin (Ecotrin) 81 mg DAILY PO Last administered on 06/04/19at 08:58; Start 06/02/19 at 09:00 Calcitriol (Rocaltrol) 0.25 mcg DAILY PO Last administered on 06/04/19 08:58; Start 06/02/19 at 09:00 Vitamin D (Vitamin D3) 2,000 unit DAILY PO Last administered on 06/04/19 08:55; Start 06/02/19 at 09:00 Fluticasone Propionate (Flonase) 2 spray DAILY NS Last administered on 06/04/19 08:55; Start 06/02/19 at 09:00 Furosemide (Lasix) 40 mg PRN DAILY PRN PO SWELLING; Start 06/02/19 at 08:45 Acetaminophen/ Hydrocodone Bitart (Lortab 7.5/325) 1 tab PRN Q6HRS PRN PO PAIN Last administered on 06/03/19 14:10; Start 06/02/19 at 08:45 Carvedilol (Coreg) 25 mg BIDWMEALS PO Last administered on 06/04/19 08:56; Start 06/02/19 at 09:00 Ferrous Sulfate (Feosol) 325 mg DAILYWBKFT PO Last administered on 06/04/19 08:56; Start 06/02/19 at 09:00 Non-Formulary Medication (Fluticasone/ Salmeterol (Advair 250-50 Diskus)) 1 puff BID IH ; Start 06/02/19 at 09:00; Status UNV Hydralazine HCl (Apresoline) 37.5 mg BID PO Last administered on 06/04/19 20:16; Start 06/02/19 at 09:00 Isosorbide Dinitrate (Isordil) 20 mg BID PO Last administered on 06/04/19 20:16; Start 06/02/19 at 09:00 Budesonide (Pulmicort) 0.5 mg RTBID NEB Last administered on 06/05/19 08:11; Start 06/02/19 at 20:00 Albuterol Sulfate (Ventolin Neb Soln) 2.5 mg RTQID NEB Last administered on 06/05/19 08:11; Start 06/02/19 at 12:00 Sodium Chloride 1,000 ml @ 1,000 mls/hr Q1H PRN IV hypotension; Start 06/02/19 at 11:21; Stop 06/02/19 at 17:20; Status DC Diphenhydramine HCl (Benadryl) 25 mg 1X PRN PRN IV ITCHING; Start 06/02/19 at 11:30; Stop 06/03/19 at 11:29; Status DC Diphenhydramine HCl (Benadryl) 25 mg 1X PRN PRN IV ITCHING; Start 06/02/19 at 11:30; Stop 06/03/19 at 11:29; Status DC Sodium Chloride 1,000 ml @ 400 mls/hr Q2H30M PRN IV PATENCY; Start 06/02/19 at 11:21; Stop 06/02/19 at 23:20; Status DC Info (PHARMACY MONITORING -- do not chart) 1 each PRN DAILY PRN MC SEE COMMENTS; Start 06/02/19 at 11:30; Stop 06/03/19 at 08:49; Status DC Diclofenac Sodium (Voltaren) 1 torie BID TP Last administered on 06/04/19at 20:15; Start 06/02/19 at 21:00 Acetaminophen (Tylenol) 650 mg 1X PRN PRN PO PRE-TRANSFUSION; Start 06/03/19 at 05:00 Diphenhydramine HCl (Benadryl Oral Elixir) 12.5 mg 1X PRN PRN PO PRE- TRANSFUSION; Start 06/03/19 at 05:00 Diphenhydramine HCl (Benadryl) 25 mg PRN 1X PRN PO PRE-TRANSFUSION; Start 06/03/19 at 05:00 Sodium Chloride 1,000 ml @ 1,000 mls/hr Q1H PRN IV hypotension; Start 06/03/19 at 08:41; Stop 06/03/19 at 14:40; Status DC Albumin Human 200 ml @ 200 mls/hr 1X PRN PRN IV Hypotension; Start 06/03/19 at 08:45; Stop 06/03/19 at 14:44; Status DC Sodium Chloride 1,000 ml @ 400 mls/hr Q2H30M PRN IV PATENCY; Start 06/03/19 at 08:41; Stop 06/03/19 at 20:40; Status DC Info (PHARMACY MONITORING -- do not chart) 1 each PRN DAILY PRN MC SEE COMMENTS; Start 06/03/19 at 08:45; Stop 06/03/19 at 08:49; Status DC Info (PHARMACY MONITORING -- do not chart) 1 each PRN DAILY PRN MC SEE COMMENTS; Start 06/03/19 at 08:45 Sodium Chloride 1,000 ml @ 1,000 mls/hr Q1H PRN IV hypotension; Start 06/03/19 at 08:00; Stop 06/03/19 at 13:59; Status Cancel Sodium Chloride 1,000 ml @ 400 mls/hr Q2H30M PRN IV PATENCY; Start 06/03/19 at 08:00; Stop 06/03/19 at 19:59; Status Cancel Info (PHARMACY MONITORING -- do not chart) 1 each PRN DAILY PRN MC SEE COMMENTS; Start 06/03/19 at 10:30; Status UNV Info (PHARMACY MONITORING -- do not chart) 1 each PRN DAILY PRN MC SEE COMMENTS; Start 06/03/19 at 10:30 Lidocaine HCl (Xylocaine-Mpf 1% 2ml Vial) 2 ml 1X PRN ID PER PROTOCOL; Start 06/03/19 at 10:45 Darbepoetin Yair (ARANESP for DIALYSIS PTS) 60 mcg WEEKLYHS SQ Last administered on 06/03/19at 21:11; Start 06/03/19 at 21:00 Ondansetron HCl (Zofran Odt) 4 mg PRN Q6HRS PRN PO NAUSEA/VOMITING; Start 06/03/19 at 16:15; Status Cancel Ondansetron HCl (Zofran) 4 mg STK-MED ONCE .ROUTE ; Start 06/03/19 at 16:25; Stop 06/03/19 at 16:25; Status DC Ondansetron HCl (Zofran) 4 mg PRN Q6HRS PRN IVP NAUSEA/VOMITING Last administered on 06/03/19at 16:38; Start 06/03/19 at 16:30 Sodium Chloride (Saline Mist Nasal) 1 torie PRN Q4HRS PRN NS NASAL CONGESTION; Start 06/04/19 at 09:00 Albumin Human 50 ml @ 50 mls/hr PRN DAILY PRN IV hypotension (SBP < 90) Last administered on 06/04/19at 11:49; Start 06/04/19 at 11:15 Apixaban (Eliquis) 2.5 mg BID PO Last administered on 06/04/19at 20:17; Start 06/04/19 at 12:00 Active Scripts Active Reported Eliquis (Apixaban) 2.5 Mg Tablet 2.5 Mg PO BID 30 Days Acidophilus (Lactobacillus Acidophilus) 1 Each Capsule 1 Each PO DAILY Hydrocodone-Apap 7.5-325 (Hydrocodone Bit/Acetaminophen) 1 Tab Tablet 1 Tab PO PRN Q6HRS PRN Lasix (Furosemide) 40 Mg Tablet 1 Tab PO PRN DAILY PRN Advair 250-50 Diskus (Fluticasone/Salmeterol) 1 Each Disk.w.dev 1 Puff IH BID Ferrous Gluconate 240 Mg Tablet 240 Mg PO DAILY Fluticasone Propionate Nasal [place] (Fluticasone Propionate) 16 Gm [place].susp 2 [place] NS DAILY Calcium Acetate 667 Mg Tablet 667 Mg PO TIDWMEALS Allopurinol 300 Mg Tablet 0.5 Tab PO DAILY Proair Respiclick (Albuterol Sulfate) 90 Mcg Aer.pow.ba 2 Puff IH PRN Q6HRS PRN Aspir-Low (Aspirin) 81 Mg Tablet.dr 1 Tab PO DAILY Amiodarone Hcl 200 Mg Tablet 1 Tab PO DAILY Vitamin D3 (Cholecalciferol (Vitamin D3)) 1,000 Unit Tablet 2 Tab PO DAILY Norvasc (Amlodipine Besylate) 10 Mg Tablet 10 Mg PO DAILY Bidil Tablet (Isosorb Dinit/Hydralazine Hcl) 1 Each Tablet 1 Each PO BID Calcitriol 0.25 Mcg Capsule 1 Cap PO DAILY Carvedilol 25 Mg Tablet 25 Mg PO BIDWMEALS Vitals/I & O Vital Sign - Last 24 Hours 06/04/19 06/04/19 06/04/19 06/04/19 08:56 08:58 08:59 08:59 Pulse 108 108 108 108 B/P (MAP) 123/65 123/65 123/65 123/65 06/04/19 06/04/19 06/04/19 06/04/19 11:00 11:46 15:00 15:47 Temp 98.1 98.3 98.1 98.3 Pulse 94 65 Resp 18 16 B/P (MAP) 86/47 (60) 96/37 (56) Pulse Ox 98 96 93 O2 Delivery Nasal Cannula Nasal Cannula Nasal Cannula Nasal Cannula O2 Flow Rate 2.0 2.0 2.0 2.0 06/04/19 06/04/19 06/04/1929/19 16:27 19:48 20:00 20:16 Temp 99.3 99.3 Pulse 65 64 Resp 18 B/P (MAP) 96/37 114/50 (71) 114/50 Pulse Ox 97 O2 Delivery Nasal Cannula Nasal Cannula O2 Flow Rate 2.0 2.0 06/04/19 06/04/19 06/04/19 06/05/19 20:16 20:21 23:40 03:30 Temp 98.9 99.1 98.9 99.1 Pulse 69 86 Resp 16 B/P (MAP) 114/50 107/44 (65) 119/49 (72) Pulse Ox 97 95 O2 Delivery Nasal Cannula Nasal Cannula Nasal Cannula O2 Flow Rate 2.0 2.0 2.0 06/05/19 06/05/19 07:58 08:12 Temp 98.8 98.8 Pulse 71 Resp 18 B/P (MAP) 110/47 (68) Pulse Ox 96 96 O2 Delivery Nasal Cannula Nasal Cannula O2 Flow Rate 2.0 2.0 Intake and Output 06/04/19 06/04/19 06/05/19 15:00 23:00 07:00 Intake Total 100 ml Output Total 0 ml Balance 100 ml 0 ml LAMONTE BALDWIN MD Jun 05, 2019 08:41
[2019-06-05] MEDS: ASPIRIN ENTERIC COATED 81 MG TABLET.DR. PO SCH (09:08)
[2019-06-05] MEDS: amLODIPine BESYLATE 10 MG TABLET PO SCH (09:08)
[2019-06-05] MEDS: CHOLECALCIFEROL (VITAMIN D3) 1,000 UNIT TABLET PO SCH (09:09)
[2019-06-05] MEDS: APIXABAN 2.5 MG TABLET. PO SCH ×2 (09:09→20:08)
[2019-06-05] MEDS: CALCITRIOL 0.25 MCG CAPSULE. PO SCH (09:10)
[2019-06-05] MEDS: hydrALAZINE 25 MG TABLET PO SCH ×2 (09:10→20:20)
[2019-06-05] MEDS: FERROUS SULFATE 325 MG TABLET. PO SCH (09:10)
[2019-06-05] MEDS: ISOSORBIDE DINITRATE 10 MG TABLET. PO SCH ×2 (09:11→20:07)
[2019-06-05] MEDS: CARVEDILOL 12.5 MG TABLET. PO SCH ×2 (09:11→17:09)
[2019-06-05] MEDS: FLUTICASONE 50MCG/NASAL SPRAY 16GM BOTTLE. NS SCH (09:12)
[2019-06-05] MEDS: DICLOFENAC SODIUM 1% TOPICAL GEL 100GM TUBE. TP SCH ×2 (09:12→20:10)
--- NOTE | 2019-06-05 09:39 | PDOC ---
PULMONARY PROGRESS NOTES Subjective S/P thoracentesis on the left side, 1400 cc's of fluid removed on 06/02/19 PT NOT MORE SOA Vitals Vital Signs Date Time Temp Pulse Resp B/P (MAP) Pulse Ox O2 Delivery O2 Flow Rate FiO2 06/05/19 09:11 71 110/47 06/05/19 08:15 Nasal Cannula 2.0 06/05/19 08:12 96 06/05/19 07:58 98.8 18 98.8 ROS: No Nausea, No Chest Pain, No Abdominal Pain, No Increase Cough General: Alert Lungs: Crackles (LLL) Cardiovascular: S1 Abdomen: Soft Neuro Exam: Alert Extremities: No Edema Skin: Warm, Dry Labs Laboratory Tests Test 06/03/19 10:45 06/03/19 13:01 06/03/19 15:18 06/03/19 16:09 Platelet Count 292 x10^3/uL (140-400) Glucose (Fingerstick) 77 mg/dL (70-99) 88 mg/dL (70-99) Hemoglobin 7.7 g/dL (12.0-15.5) Hematocrit 24.0 % (36.0-47.0) Test 06/05/19 03:50 White Blood Count 7.8 x10^3/uL (4.0-11.0) Red Blood Count 2.86 x10^6/uL (3.50-5.40) Hemoglobin 8.3 g/dL (12.0-15.5) Hematocrit 25.8 % (36.0-47.0) Mean Corpuscular Volume 90 fL (79-100) Mean Corpuscular Hemoglobin 29 pg (25-35) Mean Corpuscular Hemoglobin Concent 32 g/dL (31-37) Red Cell Distribution Width 21.6 % (11.5-14.5) Platelet Count 238 x10^3/uL (140-400) Neutrophils (%) (Auto) 81 % (31-73) Lymphocytes (%) (Auto) 12 % (24-48) Monocytes (%) (Auto) 6 % (0-9) Eosinophils (%) (Auto) 1 % (0-3) Basophils (%) (Auto) 0 % (0-3) Neutrophils # (Auto) 6.4 x10^3/uL (1.8-7.7) Lymphocytes # (Auto) 0.9 x10^3/uL (1.0-4.8) Monocytes # (Auto) 0.5 x10^3/uL (0.0-1.1) Eosinophils # (Auto) 0.1 x10^3/uL (0.0-0.7) Basophils # (Auto) 0.0 x10^3/uL (0.0-0.2) Sodium Level 140 mmol/L (136-145) Potassium Level 3.5 mmol/L (3.5-5.1) Chloride Level 101 mmol/L (98-107) Carbon Dioxide Level 29 mmol/L (21-32) Anion Gap 10 (6-14) Blood Urea Nitrogen 22 mg/dL (7-20) Creatinine 5.2 mg/dL (0.6-1.0) Estimated GFR (Cockcroft-Gault) 9.7 Glucose Level 86 mg/dL (70-99) Calcium Level 8.0 mg/dL (8.5-10.1) Phosphorus Level 3.1 mg/dL (2.6-4.7) Lactate Dehydrogenase 138 U/L (81-234) Albumin 2.0 g/dL (3.4-5.0) Triglycerides Level 60 mg/dL (0-150) Cholesterol Level 91 mg/dL (0-200) LDL Cholesterol, Calculated 37 mg/dL (0-100) VLDL Cholesterol, Calculated 12 mg/dL (0-40) Non-HDL Cholesterol Calculated 49 mg/dL (0-129) HDL Cholesterol 42 mg/dL (40-60) Cholesterol/HDL Ratio 2.2 Laboratory Tests Test 06/05/19 03:50 White Blood Count 7.8 x10^3/uL (4.0-11.0) Red Blood Count 2.86 x10^6/uL (3.50-5.40) Hemoglobin 8.3 g/dL (12.0-15.5) Hematocrit 25.8 % (36.0-47.0) Mean Corpuscular Volume 90 fL (79-100) Mean Corpuscular Hemoglobin 29 pg (25-35) Mean Corpuscular Hemoglobin Concent 32 g/dL (31-37) Red Cell Distribution Width 21.6 % (11.5-14.5) Platelet Count 238 x10^3/uL (140-400) Neutrophils (%) (Auto) 81 % (31-73) Lymphocytes (%) (Auto) 12 % (24-48) Monocytes (%) (Auto) 6 % (0-9) Eosinophils (%) (Auto) 1 % (0-3) Basophils (%) (Auto) 0 % (0-3) Neutrophils # (Auto) 6.4 x10^3/uL (1.8-7.7) Lymphocytes # (Auto) 0.9 x10^3/uL (1.0-4.8) Monocytes # (Auto) 0.5 x10^3/uL (0.0-1.1) Eosinophils # (Auto) 0.1 x10^3/uL (0.0-0.7) Basophils # (Auto) 0.0 x10^3/uL (0.0-0.2) Sodium Level 140 mmol/L (136-145) Potassium Level 3.5 mmol/L (3.5-5.1) Chloride Level 101 mmol/L (98-107) Carbon Dioxide Level 29 mmol/L (21-32) Anion Gap 10 (6-14) Blood Urea Nitrogen 22 mg/dL (7-20) Creatinine 5.2 mg/dL (0.6-1.0) Estimated GFR (Cockcroft-Gault) 9.7 Glucose Level 86 mg/dL (70-99) Calcium Level 8.0 mg/dL (8.5-10.1) Phosphorus Level 3.1 mg/dL (2.6-4.7) Lactate Dehydrogenase 138 U/L (81-234) Albumin 2.0 g/dL (3.4-5.0) Triglycerides Level 60 mg/dL (0-150) Cholesterol Level 91 mg/dL (0-200) LDL Cholesterol, Calculated 37 mg/dL (0-100) VLDL Cholesterol, Calculated 12 mg/dL (0-40) Non-HDL Cholesterol Calculated 49 mg/dL (0-129) HDL Cholesterol 42 mg/dL (40-60) Cholesterol/HDL Ratio 2.2 Medications Active Scripts Medications Dose Route/Sig Max Daily Dose Days Date Category Acidophilus (Lactobacillus Acidophilus) 1 Each Capsule 1 Each PO DAILY 09/09/18 Reported Hydrocodone-Apap 7.5-325 (Hydrocodone Bit/Acetaminophen) 1 Tab Tablet 1 Tab PO PRN Q6HRS PRN 09/09/18 Reported Lasix (Furosemide) 40 Mg Tablet 1 Tab PO PRN DAILY PRN 09/09/18 Reported Advair 250-50 Diskus (Fluticasone/Salmeterol) 1 Each Disk.w.dev 1 Puff IH BID 09/09/18 Reported Ferrous Gluconate 240 Mg Tablet 240 Mg PO DAILY 09/09/18 Reported Fluticasone Propionate Nasal [place] (Fluticasone Propionate) 16 Gm [place].susp 2 [place] NS DAILY 09/09/18 Reported Calcium Acetate 667 Mg Tablet 667 Mg PO TIDWMEALS 09/09/18 Reported Allopurinol 300 Mg Tablet 0.5 Tab PO DAILY 09/09/18 Reported Proair Respiclick (Albuterol Sulfate) 90 Mcg Aer.pow.ba 2 Puff IH PRN Q6HRS PRN 09/09/18 Reported Aspir-Low (Aspirin) 81 Mg Tablet.dr 1 Tab PO DAILY 05/24/18 Reported Amiodarone Hcl 200 Mg Tablet 1 Tab PO DAILY 05/24/18 Reported Vitamin D3 (Cholecalciferol (Vitamin D3)) 1,000 Unit Tablet 2 Tab PO DAILY 05/24/18 Reported Norvasc (Amlodipine Besylate) 10 Mg Tablet 10 Mg PO DAILY 05/24/18 Reported Bidil Tablet (Isosorb Dinit/Hydralazine Hcl) 1 Each Tablet 1 Each PO BID 05/24/18 Reported Calcitriol 0.25 Mcg Capsule 1 Cap PO DAILY 05/24/18 Reported Carvedilol 25 Mg Tablet 25 Mg PO BIDWMEALS 05/24/18 Reported Impression . IMPRESSION: 1. Acute hypoxic respiratory failure secondary to acute on chronic diastolic heart failure. 2. Abnormal chest x-ray with diffuse interstitial infiltrates secondary to congestive heart failure and also moderate left-sided pleural effusion. S/P thoracentesis on the left side, 1400 cc's of thin betty fluid was removed. 3. Prior echocardiogram with normal ejection fraction and grade 1 diastolic dysfunction. 4. End-stage renal disease, on hemodialysis. 5. Anemia, could be dilutional versus related to end-stage renal disease. No obvious gastrointestinal loss. 6. No significant tobacco history. 7. TRANSUDATE EFFUSION CYTOLOGY NEGATIVE FOR MALIGNANT CELLS 06/02/19 CT chest IMPRESSION: 1. Large partially loculated left pleural effusion with partial upper and lower lobe consolidation and partial upper lower lobe collapse. This is superimposed on suspected multifocal groundglass infiltrate within the bilateral upper lobes. Follow-up to confirm resolution and exclude an underlying lesion. 2. Trace right pleural effusion. 3. Cardiomegaly and trace pericardial effusion. 4. Right renal atrophy and right renal cysts. 5. Emphysema. Plan . CONTINUE THE SAME RESP STATUS IS COMPENSATED CAROLYN SALDANA MD Jun 05, 2019 09:39
--- NOTE | 2019-06-05 10:24 | RAD ---
EXAM: Chest, single view. HISTORY: Effusion. COMPARISON: 06/02/2019 FINDINGS: A frontal view of the chest is obtained. There has been significant interval decrease in a now small left pleural effusion. There is suspected left lower lobe consolidation or partial collapse. This is superimposed on diffuse increased interstitial opacity. There is cardiomegaly. There is no convincing pneumothorax. IMPRESSION: 1. Significant interval decrease in a now small left pleural effusion. There is suspected persistent left lower lobe consolidation or partial collapse. 2. Stable diffuse interstitial infiltrate or chronic interstitial change. 3. Cardiomegaly. Electronically signed by: Yaz Dixon MD (06/05/2019 10:21 AM) [id number]
[2019-06-05 11:00] VITALS: BP 116/52
--- NOTE | 2019-06-05 12:26 | CARD ---
MR#: [id number] Date of Study: 06/05/2019 Ordering Physician: ELIER SHEPPARD, Referring Physician: ELIER SHEPPARD, Tech: Shoshana Bergman APPROVED REPORT EXAM: Two-dimensional and M-mode echocardiogram with Doppler and color Doppler. Other Information Quality : AverageHR: 104bpm INDICATION Dyspnea 2D DIMENSIONS RVDd3.5 (2.9-3.5cm)Left Atrium(2D)4.4 (1.6-4.0cm) IVSd1.4 (0.7-1.1cm)Aortic Root(2D)2.6 (2.0-3.7cm) LVDd4.8 (3.9-5.9cm)LVOT Diameter2.1 (1.8-2.4cm) PWd1.4 (0.7-1.1cm)LVDs3.2 (2.5-4.0cm) FS (%) 33.5 %SV67.1 ml Aortic Valve AoV Peak Rolf.226.5cm/sAoV VTI49.0cm AO Peak GR.20.5mmHgLVOT VTI 14.22cm AO Mean GR.16mmHg Mitral Valve MV E Vcgfsltc305.4cm/sMV E Peak Gr.101mmHg MV DECEL [id number] A Ljasgcip27.4cm/s MV E Mean Gr.4mmHgE/A Ratio2.3 TDI Lateral E' P. V7.08cm/sMedial E' P. V5.69cm/s E/Lateral E'16.6E/Medial E'20.6 Tricuspid Valve TR P. Tgzcnvry692vm/sRAP [id number] TR Peak Gr.[id number] Pulmonary Vein S1 Mmozrmhu96.2cm/sS2 Pfyvcxmi53.47cm/s D2 Wyvtooas82.5cm/s LEFT VENTRICLE The left ventricle is normal size. There is moderate concentric left ventricular hypertrophy. The lef t ventricular systolic function is normal and the ejection fraction is within normal range. The Eject ion Fraction is 50-55%. Wall motion consistent with conduction abnormality. Transmitral Doppler flow pattern is Grade II-pseudonormal filling dynamics. RIGHT VENTRICLE The right ventricle is normal size. There is normal right ventricular wall thickness. The right ventr icular systolic function is normal. ATRIA The left atrium is moderately dilated. The right atrium is mildly dilated. The interatrial septum is intact with no evidence for an atrial septal defect or patent foramen ovale as noted on 2-D or Dopple r imaging. AORTIC VALVE The aortic valve is calcified but opens well. Doppler and Color Flow revealed trace aortic regurgitat ion. There is moderate valvular aortic stenosis. MITRAL VALVE The mitral valve is normal in structure and function. There is no evidence of mitral valve prolapse. There is no mitral valve stenosis. Doppler and Color-flow revealed mild mitral regurgitation. TRICUSPID VALVE The tricuspid valve is normal in structure and function. Doppler and Color Flow revealed mild tricusp id regurgitation with an estimated PAP of 35 mmHg. There is no tricuspid valve stenosis. PULMONIC VALVE The pulmonic valve is not well visualized. Doppler and Color Flow revealed trace pulmonic valvular re gurgitation. GREAT VESSELS The aortic root is normal in size. The IVC is normal in size and collapses >50% with inspiration. PERICARDIAL EFFUSION There is no evidence of significant pericardial effusion. Critical Notification Critical Value: No <Conclusion> The left ventricle is normal size. The left ventricular systolic function is normal and the ejection fraction is within normal range. The Ejection Fraction is 50-55%. There is moderate concentric left ventricular hypertrophy. Doppler and Color Flow revealed trace aortic regurgitation. There is moderate valvular aortic stenosis. Doppler and Color-flow revealed mild mitral regurgitation. Doppler and Color Flow revealed mild tricuspid regurgitation with an estimated PAP of 35 mmHg. Signed by : Elier Sheppard MD Electronically Approved : 06/05/2019 12:25:46
[2019-06-05 15:26] VITALS: BP 128/68
--- NOTE | 2019-06-05 16:06 | PATHOLOGY ---
Note [facility] Accession Number: [id number] TESTS RESULT FLAG UNITS REF RANGE LAB Clinician Provided Cytology Information No. of containers..01 Other (Miscellaneous) Source: LT PLEURAL FLUID DIAGNOSIS: LT PLEURAL FLUID NEGATIVE FOR MALIGNANT CELLS. REACTIVE MESOTHELIAL CELLS AND FEW INFLAMMATORY CELLS PRESENT. THIS INTERPRETATION INCLUDES EVALUATION OF A CELL BLOCK. Signed out by: 02 Kamron Zelaya MD, Pathologist NPI- [id number] Performed by: Yana Morgan, Behavioral Therapy Coordinator ([facility]) Gross description: 01 35ML, YELLOW, CLOUDY /LCS 06/02/2019 1723 Local FLAG LEGEND: L-Low Normal,H-High Normal,LL-Alert Low,HH-Alert High <-Panic Low,>-Panic High,A-Abnormal,AA-Critical Abnormal Performed at: [facility] [address] [place] [address] Wai Tatum MD, 02 [facility] [address] [place] [address] Kamron Zelaya MD, Specimen Comment: A courtesy copy of this report has been sent to [phone] Specimen Comment: [id number], , Specimen Comment: [id number] Specimen Comment: Report sent to ,DR DUMONT,DR CHOU / DR PALM Performed at: [address], [place], [place] [id number] MD Wai Tatum MD Phone: [phone]
--- NOTE | 2019-06-05 16:07 | PDOC ---
Renal-Progress Notes Subjective Notes Notes NO NEW COMPLAINTS History of Present Illness Hx of present illness NO CHANGE Vitals Vitals Vital Signs Date Time Temp Pulse Resp B/P (MAP) Pulse Ox O2 Delivery O2 Flow Rate FiO2 06/05/19 16:02 Nasal Cannula 2.0 06/05/19 15:26 98.5 78 20 128/68 (88) 99 98.5 Weight Weight [ ] I.O. Intake and Output Intake and Output 06/05/19 06:59 Intake Total 100 ml Output Total 0 ml Balance 100 ml Intake Oral 100 ml Output Urine Total 0 ml # Voids 2 Labs Labs Laboratory Tests Test 06/05/19 03:50 White Blood Count 7.8 x10^3/uL (4.0-11.0) Red Blood Count 2.86 x10^6/uL (3.50-5.40) Hemoglobin 8.3 g/dL (12.0-15.5) Hematocrit 25.8 % (36.0-47.0) Mean Corpuscular Volume 90 fL (79-100) Mean Corpuscular Hemoglobin 29 pg (25-35) Mean Corpuscular Hemoglobin Concent 32 g/dL (31-37) Red Cell Distribution Width 21.6 % (11.5-14.5) Platelet Count 238 x10^3/uL (140-400) Neutrophils (%) (Auto) 81 % (31-73) Lymphocytes (%) (Auto) 12 % (24-48) Monocytes (%) (Auto) 6 % (0-9) Eosinophils (%) (Auto) 1 % (0-3) Basophils (%) (Auto) 0 % (0-3) Neutrophils # (Auto) 6.4 x10^3/uL (1.8-7.7) Lymphocytes # (Auto) 0.9 x10^3/uL (1.0-4.8) Monocytes # (Auto) 0.5 x10^3/uL (0.0-1.1) Eosinophils # (Auto) 0.1 x10^3/uL (0.0-0.7) Basophils # (Auto) 0.0 x10^3/uL (0.0-0.2) Sodium Level 140 mmol/L (136-145) Potassium Level 3.5 mmol/L (3.5-5.1) Chloride Level 101 mmol/L (98-107) Carbon Dioxide Level 29 mmol/L (21-32) Anion Gap 10 (6-14) Blood Urea Nitrogen 22 mg/dL (7-20) Creatinine 5.2 mg/dL (0.6-1.0) Estimated GFR (Cockcroft-Gault) 9.7 Glucose Level 86 mg/dL (70-99) Calcium Level 8.0 mg/dL (8.5-10.1) Phosphorus Level 3.1 mg/dL (2.6-4.7) Lactate Dehydrogenase 138 U/L (81-234) Albumin 2.0 g/dL (3.4-5.0) Triglycerides Level 60 mg/dL (0-150) Cholesterol Level 91 mg/dL (0-200) LDL Cholesterol, Calculated 37 mg/dL (0-100) VLDL Cholesterol, Calculated 12 mg/dL (0-40) Non-HDL Cholesterol Calculated 49 mg/dL (0-129) HDL Cholesterol 42 mg/dL (40-60) Cholesterol/HDL Ratio 2.2 Micro Micro Microbiology 06/02/19 Anaerobic/Aerobic Culture, Resulted Pending 06/02/19 Anaerobic Culture Result 1 (ABNER), Resulted Pending 06/02/19 Aerobic Culture - Preliminary, Resulted 06/02/19 Aerobic Culture Result 1 (ABNER) - Preliminary, Resulted 06/02/19 Gram Stain - Final, Resulted 06/02/19 Gram Stain Result 1 (ABNER) - Final, Resulted 06/02/19 Gram Stain Result 2 (ABNER) - Final, Resulted Review of Systems Constitutional: yes: weakness, alert, oriented Ears/Nose/Throat: Yes: no symptom reported Eyes: Yes: no symptom reported Pulmonary: Yes no symptom reported Cardiovascular: Yes no symptom reported Gastrointestional: Yes: no symptom reported Genitourinary: Yes: no symptom reported Musculoskeletal: Yes: no symptom reported Skin: Yes no symptom reported Psychiatric/Neurological: Yes: no symptom reported Endocrine: Yes: no symptom reported Physical Exam General Appearance: no apparent distress Skin: warm Respiratory: bilateral CTA Heart: S1S2 Abdomen: soft, bowel sounds present Genitourinary: bladder flat Extremities: pulses present Neurology: alert Assessment Assessment IMP ANEMIA CHF-DIASTOLIC CHF ESRD HTN-UNCONTROLLED NON COMPLIANCE PLAN HD TOMORROW STARTED [facility] EVAL AND TX WILL FOLLOW [facility] COMPLIANCE PLACEMENT PENDING ROSA APODACA MD Jun 05, 2019 16:07
--- NOTE | 2019-06-05 18:26 | PDOC ---
PROGRESS NOTES Subjective Subjective Patient seen and examined Objective Objective Vital Signs Date Time Temp Pulse Resp B/P (MAP) Pulse Ox O2 Delivery O2 Flow Rate FiO2 06/05/19 17:09 91 103/47 06/05/19 16:02 Nasal Cannula 2.0 06/05/19 15:26 98.5 20 99 98.5 Intake and Output 06/05/19 07:00 Intake Total 100 ml Output Total 0 ml Balance 100 ml Intake Oral 100 ml Output Urine Total 0 ml # Voids 2 Physical Exam Abdomen: Normal bowel sounds Heart: Regular rate General: No acute distress Lungs: Other (mildly decreased breath sounds) Assessment Assessment Problems Medical Problems: (1) Acute respiratory distress Status: Acute (2) Diabetes Status: Acute (3) Pleural effusion Status: Acute 1. End-stage renal disease. On hemodialysis. As noted above the patient missed 10 days of dialysis prior to admission. She has been resumed on dialysis with good effect is followed by the renal service. 2. Hypertension. Patient's blood pressures under better control. Will continue present treatment. 3. History of probable paroxysmal atrial fibrillation. Patient has resumed atrial fibrillation with an acceptable ventricular response rate. We'll continue to monitor. She has been restarted on Eliquis 2.5 twice a day. We will continue present medications. 4. History of probable coronary artery disease. No chest pain. Continuing present medications. 5. Hyperlipidemia 6. Diabetes mellitus. As per the primary service. Comment Review of Relevant I have reviewed the following items scot (where applicable) has been applied. Labs Laboratory Tests Test 06/05/19 03:50 White Blood Count 7.8 x10^3/uL (4.0-11.0) Red Blood Count 2.86 x10^6/uL (3.50-5.40) Hemoglobin 8.3 g/dL (12.0-15.5) Hematocrit 25.8 % (36.0-47.0) Mean Corpuscular Volume 90 fL (79-100) Mean Corpuscular Hemoglobin 29 pg (25-35) Mean Corpuscular Hemoglobin Concent 32 g/dL (31-37) Red Cell Distribution Width 21.6 % (11.5-14.5) Platelet Count 238 x10^3/uL (140-400) Neutrophils (%) (Auto) 81 % (31-73) Lymphocytes (%) (Auto) 12 % (24-48) Monocytes (%) (Auto) 6 % (0-9) Eosinophils (%) (Auto) 1 % (0-3) Basophils (%) (Auto) 0 % (0-3) Neutrophils # (Auto) 6.4 x10^3/uL (1.8-7.7) Lymphocytes # (Auto) 0.9 x10^3/uL (1.0-4.8) Monocytes # (Auto) 0.5 x10^3/uL (0.0-1.1) Eosinophils # (Auto) 0.1 x10^3/uL (0.0-0.7) Basophils # (Auto) 0.0 x10^3/uL (0.0-0.2) Sodium Level 140 mmol/L (136-145) Potassium Level 3.5 mmol/L (3.5-5.1) Chloride Level 101 mmol/L (98-107) Carbon Dioxide Level 29 mmol/L (21-32) Anion Gap 10 (6-14) Blood Urea Nitrogen 22 mg/dL (7-20) Creatinine 5.2 mg/dL (0.6-1.0) Estimated GFR (Cockcroft-Gault) 9.7 Glucose Level 86 mg/dL (70-99) Calcium Level 8.0 mg/dL (8.5-10.1) Phosphorus Level 3.1 mg/dL (2.6-4.7) Lactate Dehydrogenase 138 U/L (81-234) Albumin 2.0 g/dL (3.4-5.0) Triglycerides Level 60 mg/dL (0-150) Cholesterol Level 91 mg/dL (0-200) LDL Cholesterol, Calculated 37 mg/dL (0-100) VLDL Cholesterol, Calculated 12 mg/dL (0-40) Non-HDL Cholesterol Calculated 49 mg/dL (0-129) HDL Cholesterol 42 mg/dL (40-60) Cholesterol/HDL Ratio 2.2 Laboratory Tests Test 06/05/19 03:50 White Blood Count 7.8 x10^3/uL (4.0-11.0) Red Blood Count 2.86 x10^6/uL (3.50-5.40) Hemoglobin 8.3 g/dL (12.0-15.5) Hematocrit 25.8 % (36.0-47.0) Mean Corpuscular Volume 90 fL (79-100) Mean Corpuscular Hemoglobin 29 pg (25-35) Mean Corpuscular Hemoglobin Concent 32 g/dL (31-37) Red Cell Distribution Width 21.6 % (11.5-14.5) Platelet Count 238 x10^3/uL (140-400) Neutrophils (%) (Auto) 81 % (31-73) Lymphocytes (%) (Auto) 12 % (24-48) Monocytes (%) (Auto) 6 % (0-9) Eosinophils (%) (Auto) 1 % (0-3) Basophils (%) (Auto) 0 % (0-3) Neutrophils # (Auto) 6.4 x10^3/uL (1.8-7.7) Lymphocytes # (Auto) 0.9 x10^3/uL (1.0-4.8) Monocytes # (Auto) 0.5 x10^3/uL (0.0-1.1) Eosinophils # (Auto) 0.1 x10^3/uL (0.0-0.7) Basophils # (Auto) 0.0 x10^3/uL (0.0-0.2) Sodium Level 140 mmol/L (136-145) Potassium Level 3.5 mmol/L (3.5-5.1) Chloride Level 101 mmol/L (98-107) Carbon Dioxide Level 29 mmol/L (21-32) Anion Gap 10 (6-14) Blood Urea Nitrogen 22 mg/dL (7-20) Creatinine 5.2 mg/dL (0.6-1.0) Estimated GFR (Cockcroft-Gault) 9.7 Glucose Level 86 mg/dL (70-99) Calcium Level 8.0 mg/dL (8.5-10.1) Phosphorus Level 3.1 mg/dL (2.6-4.7) Lactate Dehydrogenase 138 U/L (81-234) Albumin 2.0 g/dL (3.4-5.0) Triglycerides Level 60 mg/dL (0-150) Cholesterol Level 91 mg/dL (0-200) LDL Cholesterol, Calculated 37 mg/dL (0-100) VLDL Cholesterol, Calculated 12 mg/dL (0-40) Non-HDL Cholesterol Calculated 49 mg/dL (0-129) HDL Cholesterol 42 mg/dL (40-60) Cholesterol/HDL Ratio 2.2 Microbiology 06/02/19 Anaerobic/Aerobic Culture, Resulted Pending 06/02/19 Anaerobic Culture Result 1 (ABNER), Resulted Pending 06/02/19 Aerobic Culture - Preliminary, Resulted 06/02/19 Aerobic Culture Result 1 (ABNER) - Preliminary, Resulted 06/02/19 Gram Stain - Final, Resulted 06/02/19 Gram Stain Result 1 (ABNER) - Final, Resulted 06/02/19 Gram Stain Result 2 (ABNER) - Final, Resulted Medications Current Medications Albuterol/ Ipratropium (Duoneb) 3 ml 1X ONCE NEB Last administered on at 21:30; Start 06/01/19 at 21:30; Stop 06/01/19 at 21:31; Status DC Ondansetron HCl (Zofran) 4 mg PRN Q8HRS PRN IV NAUSEA/VOMITING; Start 06/02/19 at 00:15; Stop 06/03/19 at 00:14; Status DC Acetaminophen (Tylenol) 650 mg PRN Q4HRS PRN PO FEVER; Start 06/02/19 at 00:15; Stop 06/03/19 at 00:14; Status DC Amlodipine Besylate (Norvasc) 10 mg DAILY PO Last administered on 06/05/19 09:08; Start 06/02/19 at 09:00 Aspirin (Ecotrin) 81 mg DAILY PO Last administered on 06/05/19 09:08; Start 06/02/19 at 09:00 Calcitriol (Rocaltrol) 0.25 mcg DAILY PO Last administered on 06/05/19 09:10; Start 06/02/19 at 09:00 Vitamin D (Vitamin D3) 2,000 unit DAILY PO Last administered on 06/05/19 09:09; Start 06/02/19 at 09:00 Fluticasone Propionate (Flonase) 2 spray DAILY NS Last administered on 06/05/19 09:12; Start 06/02/19 at 09:00 Furosemide (Lasix) 40 mg PRN DAILY PRN PO SWELLING; Start 06/02/19 at 08:45 Acetaminophen/ Hydrocodone Bitart (Lortab 7.5/325) 1 tab PRN Q6HRS PRN PO PAIN Last administered on 12/28/19at 14:10; Start 06/02/19 at 08:45 Carvedilol (Coreg) 25 mg BIDWMEALS PO Last administered on 06/05/19 17:09; Start 06/02/19 at 09:00 Ferrous Sulfate (Feosol) 325 mg DAILYWBKFT PO Last administered on 06/05/19 09:10; Start 06/02/19 at 09:00 Non-Formulary Medication (Fluticasone/ Salmeterol (Advair 250-50 Diskus)) 1 puff BID IH ; Start 06/02/19 at 09:00; Status UNV Hydralazine HCl (Apresoline) 37.5 mg BID PO Last administered on 06/05/19 09:10; Start 06/02/19 at 09:00 Isosorbide Dinitrate (Isordil) 20 mg BID PO Last administered on 06/05/19at 09:11; Start 06/02/19 at 09:00 Budesonide (Pulmicort) 0.5 mg RTBID NEB Last administered on 06/05/19at 08:11; Start 06/02/19 at 20:00 Albuterol Sulfate (Ventolin Neb Soln) 2.5 mg RTQID NEB Last administered on 06/05/19at 16:01; Start 06/02/19 at 12:00 Sodium Chloride 1,000 ml @ 1,000 mls/hr Q1H PRN IV hypotension; Start 06/02/19 at 11:21; Stop 06/02/19 at 17:20; Status DC Diphenhydramine HCl (Benadryl) 25 mg 1X PRN PRN IV ITCHING; Start 06/02/19 at 11:30; Stop 06/03/19 at 11:29; Status DC Diphenhydramine HCl (Benadryl) 25 mg 1X PRN PRN IV ITCHING; Start 06/02/19 at 11:30; Stop 06/03/19 at 11:29; Status DC Sodium Chloride 1,000 ml @ 400 mls/hr Q2H30M PRN IV PATENCY; Start 06/02/19 at 11:21; Stop 06/02/19 at 23:20; Status DC Info (PHARMACY MONITORING -- do not chart) 1 each PRN DAILY PRN MC SEE COMMENTS; Start 06/02/19 at 11:30; Stop 06/03/19 at 08:49; Status DC Diclofenac Sodium (Voltaren) 1 torie BID TP Last administered on 06/05/19at 09:12; Start 06/02/19 at 21:00 Acetaminophen (Tylenol) 650 mg 1X PRN PRN PO PRE-TRANSFUSION; Start 06/03/19 at 05:00 Diphenhydramine HCl (Benadryl Oral Elixir) 12.5 mg 1X PRN PRN PO PRE- TRANSFUSION; Start 06/03/19 at 05:00 Diphenhydramine HCl (Benadryl) 25 mg PRN 1X PRN PO PRE-TRANSFUSION; Start 06/03/19 at 05:00 Sodium Chloride 1,000 ml @ 1,000 mls/hr Q1H PRN IV hypotension; Start 06/03/19 at 08:41; Stop 06/03/19 at 14:40; Status DC Albumin Human 200 ml @ 200 mls/hr 1X PRN PRN IV Hypotension; Start 06/03/19 at 08:45; Stop 06/03/19 at 14:44; Status DC Sodium Chloride 1,000 ml @ 400 mls/hr Q2H30M PRN IV PATENCY; Start 06/03/19 at 08:41; Stop 06/03/19 at 20:40; Status DC Info (PHARMACY MONITORING -- do not chart) 1 each PRN DAILY PRN MC SEE COMMENTS; Start 06/03/19 at 08:45; Stop 06/03/19 at 08:49; Status DC Info (PHARMACY MONITORING -- do not chart) 1 each PRN DAILY PRN MC SEE COMMENTS; Start 06/03/19 at 08:45 Sodium Chloride 1,000 ml @ 1,000 mls/hr Q1H PRN IV hypotension; Start 06/03/19 at 08:00; Stop 06/03/19 at 13:59; Status Cancel Sodium Chloride 1,000 ml @ 400 mls/hr Q2H30M PRN IV PATENCY; Start 06/03/19 at 08:00; Stop 06/03/19 at 19:59; Status Cancel Info (PHARMACY MONITORING -- do not chart) 1 each PRN DAILY PRN MC SEE COMMENTS; Start 06/03/19 at 10:30; Status UNV Info (PHARMACY MONITORING -- do not chart) 1 each PRN DAILY PRN MC SEE COMMENTS; Start 06/03/19 at 10:30 Lidocaine HCl (Xylocaine-Mpf 1% 2ml Vial) 2 ml 1X PRN ID PER PROTOCOL; Start 06/03/19 at 10:45 Darbepoetin Yair (ARANESP for DIALYSIS PTS) 60 mcg WEEKLYHS SQ Last administered on 06/03/19at 21:11; Start 06/03/19 at 21:00 Ondansetron HCl (Zofran Odt) 4 mg PRN Q6HRS PRN PO NAUSEA/VOMITING; Start 06/03/19 at 16:15; Status Cancel Ondansetron HCl (Zofran) 4 mg STK-MED ONCE .ROUTE ; Start 06/03/19 at 16:25; Stop 06/03/19 at 16:25; Status DC Ondansetron HCl (Zofran) 4 mg PRN Q6HRS PRN IVP NAUSEA/VOMITING Last administered on 06/03/19at 16:38; Start 06/03/19 at 16:30 Sodium Chloride (Saline Mist Nasal) 1 torie PRN Q4HRS PRN NS NASAL CONGESTION; Start 06/04/19 at 09:00 Albumin Human 50 ml @ 50 mls/hr PRN DAILY PRN IV hypotension (SBP < 90) Last administered on 06/04/19at 11:49; Start 06/04/19 at 11:15 Apixaban (Eliquis) 2.5 mg BID PO Last administered on 06/05/19at 09:09; Start 06/04/19 at 12:00 Active Scripts Active Reported Eliquis (Apixaban) 2.5 Mg Tablet 2.5 Mg PO BID 30 Days Acidophilus (Lactobacillus Acidophilus) 1 Each Capsule 1 Each PO DAILY Hydrocodone-Apap 7.5-325 (Hydrocodone Bit/Acetaminophen) 1 Tab Tablet 1 Tab PO PRN Q6HRS PRN Lasix (Furosemide) 40 Mg Tablet 1 Tab PO PRN DAILY PRN Advair 250-50 Diskus (Fluticasone/Salmeterol) 1 Each Disk.w.dev 1 Puff IH BID Ferrous Gluconate 240 Mg Tablet 240 Mg PO DAILY Fluticasone Propionate Nasal [place] (Fluticasone Propionate) 16 Gm [place].susp 2 [place] NS DAILY Calcium Acetate 667 Mg Tablet 667 Mg PO TIDWMEALS Allopurinol 300 Mg Tablet 0.5 Tab PO DAILY Proair Respiclick (Albuterol Sulfate) 90 Mcg Aer.pow.ba 2 Puff IH PRN Q6HRS PRN Aspir-Low (Aspirin) 81 Mg Tablet.dr 1 Tab PO DAILY Amiodarone Hcl 200 Mg Tablet 1 Tab PO DAILY Vitamin D3 (Cholecalciferol (Vitamin D3)) 1,000 Unit Tablet 2 Tab PO DAILY Norvasc (Amlodipine Besylate) 10 Mg Tablet 10 Mg PO DAILY Bidil Tablet (Isosorb Dinit/Hydralazine Hcl) 1 Each Tablet 1 Each PO BID Calcitriol 0.25 Mcg Capsule 1 Cap PO DAILY Carvedilol 25 Mg Tablet 25 Mg PO BIDWMEALS Vitals/I & O Vital Sign - Last 24 Hours 06/04/19 06/04/19 06/04/19 06/04/19 19:48 20:00 20:16 20:16 Temp 99.3 99.3 Pulse 64 Resp 18 B/P (MAP) 114/50 (71) 114/50 114/50 Pulse Ox 97 O2 Delivery Nasal Cannula Nasal Cannula O2 Flow Rate 2.0 2.0 06/04/19 06/04/19 06/05/19 06/05/19 20:21 23:40 03:30 07:58 Temp 98.9 99.1 98.8 98.9 99.1 98.8 Pulse 69 86 71 Resp 16 18 B/P (MAP) 107/44 (65) 119/49 (72) 110/47 (68) Pulse Ox 97 95 96 O2 Delivery Nasal Cannula Nasal Cannula Nasal Cannula Nasal Cannula O2 Flow Rate 2.0 2.0 2.0 2.0 06/05/19 06/05/19 06/05/19 06/05/19 08:12 08:15 09:08 09:10 Pulse 71 71 B/P (MAP) 110/47 110/47 Pulse Ox 96 O2 Delivery Nasal Cannula Nasal Cannula O2 Flow Rate 2.0 2.0 06/05/19 06/05/19 06/05/19 06/05/19 09:11 09:11 11:00 11:57 Temp 98.5 98.5 Pulse 71 71 77 Resp 20 B/P (MAP) 110/47 110/47 116/52 (73) Pulse Ox 93 96 O2 Delivery Nasal Cannula Nasal Cannula O2 Flow Rate 2.0 2.0 06/05/19 06/05/19 06/05/19 15:26 16:02 17:09 Temp 98.5 98.5 Pulse 78 91 Resp 20 B/P (MAP) 128/68 (88) 103/47 Pulse Ox 99 O2 Delivery Nasal Cannula Nasal Cannula O2 Flow Rate 2.0 2.0 Intake and Output 06/04/19 06/04/19 06/05/19 15:00 23:00 07:00 Intake Total 100 ml Output Total 0 ml Balance 100 ml 0 ml VENESSA PERRY MD Jun 05, 2019 18:26
[2019-06-05 19:10] VITALS: BP 101/66
[2019-06-05] MEDS: metroNIDAZOLE 500 MG TABLET PO SCH (20:08)
[2019-06-05 23:10] VITALS: BP 92/49
[2019-06-06 03:30] VITALS: BP 90/52
[2019-06-06 04:52] LABS: BASO % 0 % (0-3); EOS # 0.1 x10^3/uL (0.0-0.7); EOS % 2 % (0-3); HEMATOCRIT 25.2 % (36.0-47.0); HEMOGLOBIN 8.1 g/dL (12.0-15.5); LYMPH # 1.1 x10^3/uL (1.0-4.8); LYMPH % 20 % (24-48); MEAN CORPUSCULAR HEMOGLOBIN 29 pg (25-35); MEAN CORPUSCULAR HGB CONC 32 g/dL (31-37); MEAN CORPUSCULAR VOLUME 91 fL (79-100); MONO # 0.4 x10^3/uL (0.0-1.1); MONO % 8 % (0-9); NEUT # 3.9 x10^3/uL (1.8-7.7); NEUT % 71 % (31-73); PLATELET COUNT 241 x10^3/uL (140-400); RED BLOOD COUNT 2.77 x10^6/uL (3.50-5.40); RED CELL DISTRIBUTION WIDTH 21.3 % (11.5-14.5); WHITE BLOOD COUNT 5.5 x10^3/uL (4.0-11.0)
[2019-06-06 05:11] LABS: ALBUMIN 1.9 g/dL (3.4-5.0); CALCIUM 8.2 mg/dL (8.5-10.1); CREATININE 6.4 mg/dL (0.6-1.0); GFR 7.6; PHOSPHORUS 3.9 mg/dL (2.6-4.7); POTASSIUM 3.3 mmol/L (3.5-5.1)
[2019-06-06] MEDS: metroNIDAZOLE 500 MG TABLET PO SCH ×3 (05:43→20:53)
[2019-06-06 07:00] VITALS: BP 103/60
[2019-06-06] MEDS: CARVEDILOL 12.5 MG TABLET. PO SCH (08:00)
[2019-06-06] MEDS ORDERED: IV NORMAL SALINE 1000ML BAG 1,000 ML IV PRN ×2 (08:20)
[2019-06-06] MEDS ORDERED: DIALYSIS PATIENT. MC PRN ×2 (08:30)
[2019-06-06] MEDS ORDERED: 0.9 % SODIUM CHLORIDE 10 ML DISP.SYRIN. IV PRN ×2 (08:30)
[2019-06-06] MEDS ORDERED: ALBUMIN HUMAN 25% 200 ML IV PRN (08:30)
--- NOTE | 2019-06-06 08:46 | PDOC ---
PROGRESS NOTES Subjective Subjective She still admits left sided chest discomfort. Objective Objective Vital Signs Date Time Temp Pulse Resp B/P (MAP) Pulse Ox O2 Delivery O2 Flow Rate FiO2 06/06/19 07:00 98.2 97 16 103/60 (74) 94 Room Air 98.2 06/06/19 03:30 2.0 Intake and Output 06/06/19 07:00 Intake Total 100 ml Balance 100 ml Intake Oral 100 ml # Voids 2 Physical Exam Physical Exam She is sitting in bed with oxygen by nasal canula and she remains independent with bed mobility and transfers but rquires supervision while up with cane as she had tendency to loose balance. Assessment Assessment Problems Medical Problems: (1) Acute respiratory distress Status: Acute (2) Diabetes Status: Acute (3) Pleural effusion Status: Acute Plan Plan of Care To SNF when medically stable. Comment Review of Relevant I have reviewed the following items scot (where applicable) has been applied. Labs Laboratory Tests Test 06/05/19 03:50 06/05/19 13:40 06/06/19 03:40 White Blood Count 7.8 x10^3/uL (4.0-11.0) 5.5 x10^3/uL (4.0-11.0) Red Blood Count 2.86 x10^6/uL (3.50-5.40) 2.77 x10^6/uL (3.50-5.40) Hemoglobin 8.3 g/dL (12.0-15.5) 8.1 g/dL (12.0-15.5) Hematocrit 25.8 % (36.0-47.0) 25.2 % (36.0-47.0) Mean Corpuscular Volume 90 fL (79-100) 91 fL (79-100) Mean Corpuscular Hemoglobin 29 pg (25-35) 29 pg (25-35) Mean Corpuscular Hemoglobin Concent 32 g/dL (31-37) 32 g/dL (31-37) Red Cell Distribution Width 21.6 % (11.5-14.5) 21.3 % (11.5-14.5) Platelet Count 238 x10^3/uL (140-400) 241 x10^3/uL (140-400) Neutrophils (%) (Auto) 81 % (31-73) 71 % (31-73) Lymphocytes (%) (Auto) 12 % (24-48) 20 % (24-48) Monocytes (%) (Auto) 6 % (0-9) 8 % (0-9) Eosinophils (%) (Auto) 1 % (0-3) 2 % (0-3) Basophils (%) (Auto) 0 % (0-3) 0 % (0-3) Neutrophils # (Auto) 6.4 x10^3/uL (1.8-7.7) 3.9 x10^3/uL (1.8-7.7) Lymphocytes # (Auto) 0.9 x10^3/uL (1.0-4.8) 1.1 x10^3/uL (1.0-4.8) Monocytes # (Auto) 0.5 x10^3/uL (0.0-1.1) 0.4 x10^3/uL (0.0-1.1) Eosinophils # (Auto) 0.1 x10^3/uL (0.0-0.7) 0.1 x10^3/uL (0.0-0.7) Basophils # (Auto) 0.0 x10^3/uL (0.0-0.2) 0.0 x10^3/uL (0.0-0.2) Sodium Level 140 mmol/L (136-145) 141 mmol/L (136-145) Potassium Level 3.5 mmol/L (3.5-5.1) 3.3 mmol/L (3.5-5.1) Chloride Level 101 mmol/L (98-107) 102 mmol/L (98-107) Carbon Dioxide Level 29 mmol/L (21-32) 28 mmol/L (21-32) Anion Gap 10 (6-14) 11 (6-14) Blood Urea Nitrogen 22 mg/dL (7-20) 31 mg/dL (7-20) Creatinine 5.2 mg/dL (0.6-1.0) 6.4 mg/dL (0.6-1.0) Estimated GFR (Cockcroft-Gault) 9.7 7.6 Glucose Level 86 mg/dL (70-99) 87 mg/dL (70-99) Calcium Level 8.0 mg/dL (8.5-10.1) 8.2 mg/dL (8.5-10.1) Phosphorus Level 3.1 mg/dL (2.6-4.7) 3.9 mg/dL (2.6-4.7) Lactate Dehydrogenase 138 U/L (81-234) Albumin 2.0 g/dL (3.4-5.0) 1.9 g/dL (3.4-5.0) Triglycerides Level 60 mg/dL (0-150) Cholesterol Level 91 mg/dL (0-200) LDL Cholesterol, Calculated 37 mg/dL (0-100) VLDL Cholesterol, Calculated 12 mg/dL (0-40) Non-HDL Cholesterol Calculated 49 mg/dL (0-129) HDL Cholesterol 42 mg/dL (40-60) Cholesterol/HDL Ratio 2.2 Clostridium difficile Toxin B Gene Positive (Negative) Laboratory Tests Test 06/05/19 13:40 06/06/19 03:40 Clostridium difficile Toxin B Gene Positive (Negative) White Blood Count 5.5 x10^3/uL (4.0-11.0) Red Blood Count 2.77 x10^6/uL (3.50-5.40) Hemoglobin 8.1 g/dL (12.0-15.5) Hematocrit 25.2 % (36.0-47.0) Mean Corpuscular Volume 91 fL (79-100) Mean Corpuscular Hemoglobin 29 pg (25-35) Mean Corpuscular Hemoglobin Concent 32 g/dL (31-37) Red Cell Distribution Width 21.3 % (11.5-14.5) Platelet Count 241 x10^3/uL (140-400) Neutrophils (%) (Auto) 71 % (31-73) Lymphocytes (%) (Auto) 20 % (24-48) Monocytes (%) (Auto) 8 % (0-9) Eosinophils (%) (Auto) 2 % (0-3) Basophils (%) (Auto) 0 % (0-3) Neutrophils # (Auto) 3.9 x10^3/uL (1.8-7.7) Lymphocytes # (Auto) 1.1 x10^3/uL (1.0-4.8) Monocytes # (Auto) 0.4 x10^3/uL (0.0-1.1) Eosinophils # (Auto) 0.1 x10^3/uL (0.0-0.7) Basophils # (Auto) 0.0 x10^3/uL (0.0-0.2) Sodium Level 141 mmol/L (136-145) Potassium Level 3.3 mmol/L (3.5-5.1) Chloride Level 102 mmol/L (98-107) Carbon Dioxide Level 28 mmol/L (21-32) Anion Gap 11 (6-14) Blood Urea Nitrogen 31 mg/dL (7-20) Creatinine 6.4 mg/dL (0.6-1.0) Estimated GFR (Cockcroft-Gault) 7.6 Glucose Level 87 mg/dL (70-99) Calcium Level 8.2 mg/dL (8.5-10.1) Phosphorus Level 3.9 mg/dL (2.6-4.7) Albumin 1.9 g/dL (3.4-5.0) Microbiology 06/02/19 Anaerobic/Aerobic Culture, Resulted Pending 06/02/19 Anaerobic Culture Result 1 (ABNER), Resulted Pending 06/02/19 Aerobic Culture - Preliminary, Resulted 06/02/19 Aerobic Culture Result 1 (ABNER) - Preliminary, Resulted 06/02/19 Gram Stain - Final, Resulted 06/02/19 Gram Stain Result 1 (ABNER) - Final, Resulted 06/02/19 Gram Stain Result 2 (ABNER) - Final, Resulted Medications Current Medications Albuterol/ Ipratropium (Duoneb) 3 ml 1X ONCE NEB Last administered on 06/01/19at 21:30; Start 06/01/19 at 21:30; Stop 06/01/19 at 21:31; Status DC Ondansetron HCl (Zofran) 4 mg PRN Q8HRS PRN IV NAUSEA/VOMITING; Start 06/02/19 at 00:15; Stop 06/03/19 at 00:14; Status DC Acetaminophen (Tylenol) 650 mg PRN Q4HRS PRN PO FEVER; Start 06/02/19 at 00:15; Stop 06/03/19 at 00:14; Status DC Amlodipine Besylate (Norvasc) 10 mg DAILY PO Last administered on 06/05/19at 09:08; Start 06/02/19 at 09:00 Aspirin (Ecotrin) 81 mg DAILY PO Last administered on 06/05/19 09:08; Start 06/02/19 at 09:00 Calcitriol (Rocaltrol) 0.25 mcg DAILY PO Last administered on 06/05/19 09:10; Start 06/02/19 at 09:00 Vitamin D (Vitamin D3) 2,000 unit DAILY PO Last administered on 06/05/19 09:09; Start 06/02/19 at 09:00 Fluticasone Propionate (Flonase) 2 spray DAILY NS Last administered on 06/05/19 09:12; Start 06/02/19 at 09:00 Furosemide (Lasix) 40 mg PRN DAILY PRN PO SWELLING; Start 06/02/19 at 08:45 Acetaminophen/ Hydrocodone Bitart (Lortab 7.5/325) 1 tab PRN Q6HRS PRN PO PAIN Last administered on 06/03/19 14:10; Start 06/02/19 at 08:45 Carvedilol (Coreg) 25 mg BIDWMEALS PO Last administered on 06/05/19 17:09; Start 06/02/19 at 09:00 Ferrous Sulfate (Feosol) 325 mg DAILYWBKFT PO Last administered on 06/05/19 09:10; Start 06/02/19 at 09:00 Non-Formulary Medication (Fluticasone/ Salmeterol (Advair 250-50 Diskus)) 1 puff BID IH ; Start 06/02/19 at 09:00; Status UNV Hydralazine HCl (Apresoline) 37.5 mg BID PO Last administered on 06/05/19 09:10; Start 06/02/19 at 09:00 Isosorbide Dinitrate (Isordil) 20 mg BID PO Last administered on 06/05/19 20:07; Start 06/02/19 at 09:00 Budesonide (Pulmicort) 0.5 mg RTBID NEB Last administered on 06/05/19 18:40; Start 06/02/19 at 20:00 Albuterol Sulfate (Ventolin Neb Soln) 2.5 mg RTQID NEB Last administered on 06/05/19 18:40; Start 06/02/19 at 12:00 Sodium Chloride 1,000 ml @ 1,000 mls/hr Q1H PRN IV hypotension; Start 06/02/19 at 11:21; Stop 06/02/19 at 17:20; Status DC Diphenhydramine HCl (Benadryl) 25 mg 1X PRN PRN IV ITCHING; Start 06/02/19 at 11:30; Stop 06/03/19 at 11:29; Status DC Diphenhydramine HCl (Benadryl) 25 mg 1X PRN PRN IV ITCHING; Start 06/02/19 at 11:30; Stop 06/03/19 at 11:29; Status DC Sodium Chloride 1,000 ml @ 400 mls/hr Q2H30M PRN IV PATENCY; Start 06/02/19 at 11:21; Stop 06/02/19 at 23:20; Status DC Info (PHARMACY MONITORING -- do not chart) 1 each PRN DAILY PRN MC SEE COMMENTS; Start 06/02/19 at 11:30; Stop 06/03/19 at 08:49; Status DC Diclofenac Sodium (Voltaren) 1 torie BID TP Last administered on 06/05/19at 20:10; Start 06/02/19 at 21:00 Acetaminophen (Tylenol) 650 mg 1X PRN PRN PO PRE-TRANSFUSION; Start 06/03/19 at 05:00 Diphenhydramine HCl (Benadryl Oral Elixir) 12.5 mg 1X PRN PRN PO PRE- TRANSFUSION; Start 06/03/19 at 05:00 Diphenhydramine HCl (Benadryl) 25 mg PRN 1X PRN PO PRE-TRANSFUSION; Start 06/03/19 at 05:00 Sodium Chloride 1,000 ml @ 1,000 mls/hr Q1H PRN IV hypotension; Start 06/03/19 at 08:41; Stop 06/03/19 at 14:40; Status DC Albumin Human 200 ml @ 200 mls/hr 1X PRN PRN IV Hypotension; Start 06/03/19 at 08:45; Stop 06/03/19 at 14:44; Status DC Sodium Chloride 1,000 ml @ 400 mls/hr Q2H30M PRN IV PATENCY; Start 06/03/19 at 08:41; Stop 06/03/19 at 20:40; Status DC Info (PHARMACY MONITORING -- do not chart) 1 each PRN DAILY PRN MC SEE COMMENTS; Start 06/03/19 at 08:45; Stop 06/03/19 at 08:49; Status DC Info (PHARMACY MONITORING -- do not chart) 1 each PRN DAILY PRN MC SEE COMMENTS; Start 06/03/19 at 08:45 Sodium Chloride 1,000 ml @ 1,000 mls/hr Q1H PRN IV hypotension; Start 06/03/19 at 08:00; Stop 06/03/19 at 13:59; Status Cancel Sodium Chloride 1,000 ml @ 400 mls/hr Q2H30M PRN IV PATENCY; Start 06/03/19 at 08:00; Stop 06/03/19 at 19:59; Status Cancel Info (PHARMACY MONITORING -- do not chart) 1 each PRN DAILY PRN MC SEE COMMENTS; Start 06/03/19 at 10:30; Status UNV Info (PHARMACY MONITORING -- do not chart) 1 each PRN DAILY PRN MC SEE C OMMENTS; Start 06/03/19 at 10:30 Lidocaine HCl (Xylocaine-Mpf 1% 2ml Vial) 2 ml 1X PRN ID PER PROTOCOL; Start 06/03/19 at 10:45 Darbepoetin Yair (ARANESP for DIALYSIS PTS) 60 mcg WEEKLYHS SQ Last administered on 06/03/19at 21:11; Start 06/03/19 at 21:00 Ondansetron HCl (Zofran Odt) 4 mg PRN Q6HRS PRN PO NAUSEA/VOMITING; Start 06/03/19 at 16:15; Status Cancel Ondansetron HCl (Zofran) 4 mg STK-MED ONCE .ROUTE ; Start 06/03/19 at 16:25; Stop 06/03/19 at 16:25; Status DC Ondansetron HCl (Zofran) 4 mg PRN Q6HRS PRN IVP NAUSEA/VOMITING Last administered on 06/03/19at 16:38; Start 06/03/19 at 16:30 Sodium Chloride (Saline Mist Nasal) 1 torie PRN Q4HRS PRN NS NASAL CONGESTION; Start 06/04/19 at 09:00 Albumin Human 50 ml @ 50 mls/hr PRN DAILY PRN IV hypotension (SBP < 90) Last administered on 06/04/19at 11:49; Start 06/04/19 at 11:15 Apixaban (Eliquis) 2.5 mg BID PO Last administered on 06/05/19at 20:08; Start 06/04/19 at 12:00 Metronidazole (Flagyl) 500 mg Q8HRS PO Last administered on 06/06/19at 05:43; Start 06/05/19 at 20:00 Sodium Chloride 1,000 ml @ 1,000 mls/hr Q1H PRN IV hypotension; Start 06/06/19 at 08:20; Stop 06/06/19 at 14:19 Albumin Human 200 ml @ 200 mls/hr 1X PRN PRN IV Hypotension; Start 06/06/19 at 08:30; Stop 06/06/19 at 14:29 Sodium Chloride (Normal Saline Flush) 10 ml 1X PRN PRN IV AP catheter pack; Start 06/06/19 at 08:30; Stop 06/07/19 at 08:29 Sodium Chloride (Normal Saline Flush) 10 ml 1X PRN PRN IV VALANCE CUTTER catheter pack; Start 06/06/19 at 08:30; Stop 06/07/19 at 08:29 Sodium Chloride 1,000 ml @ 400 mls/hr Q2H30M PRN IV PATENCY; Start 06/06/19 at 08:20; Stop 06/06/19 at 20:19 Info (PHARMACY MONITORING -- do not chart) 1 each PRN DAILY PRN MC SEE COMMENTS; Start 06/06/19 at 08:30; Status UNV Info (PHARMACY MONITORING -- do not chart) 1 each PRN DAILY PRN MC SEE COMMENTS; Start 06/06/19 at 08:30; Status UNV Active Scripts Active Reported Eliquis (Apixaban) 2.5 Mg Tablet 2.5 Mg PO BID 30 Days Acidophilus (Lactobacillus Acidophilus) 1 Each Capsule 1 Each PO DAILY Hydrocodone-Apap 7.5-325 (Hydrocodone Bit/Acetaminophen) 1 Tab Tablet 1 Tab PO PRN Q6HRS PRN Lasix (Furosemide) 40 Mg Tablet 1 Tab PO PRN DAILY PRN Advair 250-50 Diskus (Fluticasone/Salmeterol) 1 Each Disk.w.dev 1 Puff IH BID Ferrous Gluconate 240 Mg Tablet 240 Mg PO DAILY Fluticasone Propionate Nasal Bart[place] (Fluticasone Propionate) 16 Gm Bart[place].susp 2 [place] NS DAILY Calcium Acetate 667 Mg Tablet 667 Mg PO TIDWMEALS Allopurinol 300 Mg Tablet 0.5 Tab PO DAILY Proair Respiclick (Albuterol Sulfate) 90 Mcg Aer.pow.ba 2 Puff IH PRN Q6HRS PRN Aspir-Low (Aspirin) 81 Mg Tablet.dr 1 Tab PO DAILY Amiodarone Hcl 200 Mg Tablet 1 Tab PO DAILY Vitamin D3 (Cholecalciferol (Vitamin D3)) 1,000 Unit Tablet 2 Tab PO DAILY Norvasc (Amlodipine Besylate) 10 Mg Tablet 10 Mg PO DAILY Bidil Tablet (Isosorb Dinit/Hydralazine Hcl) 1 Each Tablet 1 Each PO BID Calcitriol 0.25 Mcg Capsule 1 Cap PO DAILY Carvedilol 25 Mg Tablet 25 Mg PO BIDWMEALS Vitals/I & O Vital Sign - Last 24 Hours 06/05/19 06/05/19 06/05/19 06/05/19 09:08 09:10 09:11 09:11 Pulse 71 71 71 71 B/P (MAP) 110/47 110/47 110/47 110/47 06/05/19 06/05/19 06/05/19 06/05/19 11:00 11:57 15:26 16:02 Temp 98.5 98.5 98.5 98.5 Pulse 77 78 Resp 20 20 B/P (MAP) 116/52 (73) 128/68 (88) Pulse Ox 93 96 99 O2 Delivery Nasal Cannula Nasal Cannula Nasal Cannula Nasal Cannula O2 Flow Rate 2.0 2.0 2.0 2.0 06/05/19 06/05/19 06/05/19 06/05/19 17:09 18:42 19:10 20:00 Temp 98.3 98.3 Pulse 91 105 Resp 20 B/P (MAP) 103/47 101/66 (78) Pulse Ox 98 O2 Delivery Nasal Cannula Nasal Cannula Nasal Cannula O2 Flow Rate 2.0 2.0 3.0 06/05/19 06/05/19 06/05/19 06/06/19 20:07 20:20 23:10 03:30 Temp 98.4 98.5 98.4 98.5 Pulse 91 91 89 105 Resp 16 16 B/P (MAP) 103/47 103/47 92/49 (63) 90/52 (65) Pulse Ox 94 97 O2 Delivery Nasal Cannula Nasal Cannula O2 Flow Rate 2.0 2.0 06/06/19 07:00 Temp 98.2 98.2 Pulse 97 Resp 16 B/P (MAP) 103/60 (74) Pulse Ox 94 O2 Delivery Room Air Intake and Output 06/05/19 06/05/19 06/06/19 15:00 23:00 07:00 Intake Total 0 ml 100 ml Balance 0 ml 100 ml LAMONTE BALDWIN MD Jun 06, 2019 08:46
--- NOTE | 2019-06-06 08:50 | PDOC ---
PULMONARY PROGRESS NOTES Subjective S/P thoracentesis on the left side, 1400 cc's of fluid removed on 06/02/19 PT NOT MORE SOA Vitals Vital Signs Date Time Temp Pulse Resp B/P (MAP) Pulse Ox O2 Delivery O2 Flow Rate FiO2 06/06/19 07:00 98.2 97 16 103/60 (74) 94 Room Air 98.2 06/06/19 03:30 2.0 ROS: No Nausea, No Chest Pain, No Abdominal Pain, No Increase Cough General: Alert Lungs: Crackles (LLL) Cardiovascular: S1 Abdomen: Soft Neuro Exam: Alert Extremities: No Edema Skin: Warm, Dry Labs Laboratory Tests Test 06/05/19 03:50 06/05/19 13:40 06/06/19 03:40 White Blood Count 7.8 x10^3/uL (4.0-11.0) 5.5 x10^3/uL (4.0-11.0) Red Blood Count 2.86 x10^6/uL (3.50-5.40) 2.77 x10^6/uL (3.50-5.40) Hemoglobin 8.3 g/dL (12.0-15.5) 8.1 g/dL (12.0-15.5) Hematocrit 25.8 % (36.0-47.0) 25.2 % (36.0-47.0) Mean Corpuscular Volume 90 fL (79-100) 91 fL (79-100) Mean Corpuscular Hemoglobin 29 pg (25-35) 29 pg (25-35) Mean Corpuscular Hemoglobin Concent 32 g/dL (31-37) 32 g/dL (31-37) Red Cell Distribution Width 21.6 % (11.5-14.5) 21.3 % (11.5-14.5) Platelet Count 238 x10^3/uL (140-400) 241 x10^3/uL (140-400) Neutrophils (%) (Auto) 81 % (31-73) 71 % (31-73) Lymphocytes (%) (Auto) 12 % (24-48) 20 % (24-48) Monocytes (%) (Auto) 6 % (0-9) 8 % (0-9) Eosinophils (%) (Auto) 1 % (0-3) 2 % (0-3) Basophils (%) (Auto) 0 % (0-3) 0 % (0-3) Neutrophils # (Auto) 6.4 x10^3/uL (1.8-7.7) 3.9 x10^3/uL (1.8-7.7) Lymphocytes # (Auto) 0.9 x10^3/uL (1.0-4.8) 1.1 x10^3/uL (1.0-4.8) Monocytes # (Auto) 0.5 x10^3/uL (0.0-1.1) 0.4 x10^3/uL (0.0-1.1) Eosinophils # (Auto) 0.1 x10^3/uL (0.0-0.7) 0.1 x10^3/uL (0.0-0.7) Basophils # (Auto) 0.0 x10^3/uL (0.0-0.2) 0.0 x10^3/uL (0.0-0.2) Sodium Level 140 mmol/L (136-145) 141 mmol/L (136-145) Potassium Level 3.5 mmol/L (3.5-5.1) 3.3 mmol/L (3.5-5.1) Chloride Level 101 mmol/L (98-107) 102 mmol/L (98-107) Carbon Dioxide Level 29 mmol/L (21-32) 28 mmol/L (21-32) Anion Gap 10 (6-14) 11 (6-14) Blood Urea Nitrogen 22 mg/dL (7-20) 31 mg/dL (7-20) Creatinine 5.2 mg/dL (0.6-1.0) 6.4 mg/dL (0.6-1.0) Estimated GFR (Cockcroft-Gault) 9.7 7.6 Glucose Level 86 mg/dL (70-99) 87 mg/dL (70-99) Calcium Level 8.0 mg/dL (8.5-10.1) 8.2 mg/dL (8.5-10.1) Phosphorus Level 3.1 mg/dL (2.6-4.7) 3.9 mg/dL (2.6-4.7) Lactate Dehydrogenase 138 U/L (81-234) Albumin 2.0 g/dL (3.4-5.0) 1.9 g/dL (3.4-5.0) Triglycerides Level 60 mg/dL (0-150) Cholesterol Level 91 mg/dL (0-200) LDL Cholesterol, Calculated 37 mg/dL (0-100) VLDL Cholesterol, Calculated 12 mg/dL (0-40) Non-HDL Cholesterol Calculated 49 mg/dL (0-129) HDL Cholesterol 42 mg/dL (40-60) Cholesterol/HDL Ratio 2.2 Clostridium difficile Toxin B Gene Positive (Negative) Laboratory Tests Test 06/05/19 13:40 06/06/19 03:40 Clostridium difficile Toxin B Gene Positive (Negative) White Blood Count 5.5 x10^3/uL (4.0-11.0) Red Blood Count 2.77 x10^6/uL (3.50-5.40) Hemoglobin 8.1 g/dL (12.0-15.5) Hematocrit 25.2 % (36.0-47.0) Mean Corpuscular Volume 91 fL (79-100) Mean Corpuscular Hemoglobin 29 pg (25-35) Mean Corpuscular Hemoglobin Concent 32 g/dL (31-37) Red Cell Distribution Width 21.3 % (11.5-14.5) Platelet Count 241 x10^3/uL (140-400) Neutrophils (%) (Auto) 71 % (31-73) Lymphocytes (%) (Auto) 20 % (24-48) Monocytes (%) (Auto) 8 % (0-9) Eosinophils (%) (Auto) 2 % (0-3) Basophils (%) (Auto) 0 % (0-3) Neutrophils # (Auto) 3.9 x10^3/uL (1.8-7.7) Lymphocytes # (Auto) 1.1 x10^3/uL (1.0-4.8) Monocytes # (Auto) 0.4 x10^3/uL (0.0-1.1) Eosinophils # (Auto) 0.1 x10^3/uL (0.0-0.7) Basophils # (Auto) 0.0 x10^3/uL (0.0-0.2) Sodium Level 141 mmol/L (136-145) Potassium Level 3.3 mmol/L (3.5-5.1) Chloride Level 102 mmol/L (98-107) Carbon Dioxide Level 28 mmol/L (21-32) Anion Gap 11 (6-14) Blood Urea Nitrogen 31 mg/dL (7-20) Creatinine 6.4 mg/dL (0.6-1.0) Estimated GFR (Cockcroft-Gault) 7.6 Glucose Level 87 mg/dL (70-99) Calcium Level 8.2 mg/dL (8.5-10.1) Phosphorus Level 3.9 mg/dL (2.6-4.7) Albumin 1.9 g/dL (3.4-5.0) Medications Active Scripts Medications Dose Route/Sig Max Daily Dose Days Date Category Acidophilus (Lactobacillus Acidophilus) 1 Each Capsule 1 Each PO DAILY 09/09/18 Reported Hydrocodone-Apap 7.5-325 (Hydrocodone Bit/Acetaminophen) 1 Tab Tablet 1 Tab PO PRN Q6HRS PRN 09/09/18 Reported Lasix (Furosemide) 40 Mg Tablet 1 Tab PO PRN DAILY PRN 09/09/18 Reported Advair 250-50 Diskus (Fluticasone/Salmeterol) 1 Each Disk.w.dev 1 Puff IH BID 09/09/18 Reported Ferrous Gluconate 240 Mg Tablet 240 Mg PO DAILY 09/09/18 Reported Fluticasone Propionate Nasal [place] (Fluticasone Propionate) 16 Gm Moody.susp 2 Moody NS DAILY 09/09/18 Reported Calcium Acetate 667 Mg Tablet 667 Mg PO TIDWMEALS 09/09/18 Reported Allopurinol 300 Mg Tablet 0.5 Tab PO DAILY 09/09/18 Reported Proair Respiclick (Albuterol Sulfate) 90 Mcg Aer.pow.ba 2 Puff IH PRN Q6HRS PRN 09/09/18 Reported Aspir-Low (Aspirin) 81 Mg Tablet.dr 1 Tab PO DAILY 05/24/18 Reported Amiodarone Hcl 200 Mg Tablet 1 Tab PO DAILY 05/24/18 Reported Vitamin D3 (Cholecalciferol (Vitamin D3)) 1,000 Unit Tablet 2 Tab PO DAILY 05/24/18 Reported Norvasc (Amlodipine Besylate) 10 Mg Tablet 10 Mg PO DAILY 05/24/18 Reported Bidil Tablet (Isosorb Dinit/Hydralazine Hcl) 1 Each Tablet 1 Each PO BID 05/24/18 Reported Calcitriol 0.25 Mcg Capsule 1 Cap PO DAILY 05/24/18 Reported Carvedilol 25 Mg Tablet 25 Mg PO BIDWMEALS 05/24/18 Reported Impression . IMPRESSION: 1. Acute hypoxic respiratory failure secondary to acute on chronic diastolic heart failure. 2. Abnormal chest x-ray with diffuse interstitial infiltrates secondary to congestive heart failure and also moderate left-sided pleural effusion. S/P thoracentesis on the left side, 1400 cc's of thin betty fluid was removed. 3. Prior echocardiogram with normal ejection fraction and grade 1 diastolic dysfunction. 4. End-stage renal disease, on hemodialysis. 5. Anemia, could be dilutional versus related to end-stage renal disease. No obvious gastrointestinal loss. 6. No significant tobacco history. 7. TRANSUDATE EFFUSION CYTOLOGY NEGATIVE FOR MALIGNANT CELLS 06/02/19 CT chest IMPRESSION: 1. Large partially loculated left pleural effusion with partial upper and lower lobe consolidation and partial upper lower lobe collapse. This is superimposed on suspected multifocal groundglass infiltrate within the bilateral upper lobes. Follow-up to confirm resolution and exclude an underlying lesion. 2. Trace right pleural effusion. 3. Cardiomegaly and trace pericardial effusion. 4. Right renal atrophy and right renal cysts. 5. Emphysema. Plan . OK TO D/C FROM MY STANDPOINT CONTINUE THE SAME RESP STATUS IS COMPENSATED CAROLYN SALDANA MD Jun 06, 2019 08:50
[2019-06-06] MEDS: FLUTICASONE 50MCG/NASAL SPRAY 16GM BOTTLE. NS SCH (09:00)
[2019-06-06] MEDS: hydrALAZINE 25 MG TABLET PO SCH ×2 (09:00→20:54)
--- NOTE | 2019-06-06 09:00 | NUR ---
IP: Pt is C.diff + requiring contact plus precautions using brown sign.
[2019-06-06] MEDS: BUDESONIDE 0.5 MG/2 ML NEBU. NEB SCH ×2 (09:20→20:14)
[2019-06-06] MEDS: ALBUTEROL SULFATE 2.5 MG/3 ML NEBU. NEB SCH ×4 (09:20→20:14)
--- NOTE | 2019-06-06 11:51 | PDOC ---
[employer] PROGRESS NOTE Chief Complaint Chief Complaint Post-op left sided thoracentesis Acute hypoxia, resolved Left pleural effusion, resolved Shortness of breath, resolved ESRD Acute Anemia Paroxysmal afib DM2 HTN CAD s/p RCA stent 09/2018 High Cholesterol Prior CVA History of Present Illness History of Present Illness 06/06/19 Pt seen and examined Pt was in HD and in good spirits DW pt Reviewed pt's chart Vitals/I&O Vitals/I&O: Vital Signs Date Time Temp Pulse Resp B/P (MAP) Pulse Ox O2 Delivery O2 Flow Rate FiO2 06/06/19 09:20 94 Nasal Cannula 2.0 06/06/19 07:00 98.2 97 16 103/60 (74) 98.2 I & O 06/05/19 06/05/19 06/06/19 15:00 23:00 07:00 Intake Total 0 ml 100 ml Balance 0 ml 100 ml Physical Exam General: Alert, Cooperative, No acute distress Heart: Regular rate, Normal S1, Normal S2 Lungs: Crackles (minimal LLL) Abdomen: Normal bowel sounds, Soft Extremities: No clubbing, No cyanosis, No edema, Normal pulses, No tenderness/swelling Skin: No rashes, No breakdown, No significant lesion Labs Labs: Laboratory Tests Test 06/05/19 13:40 06/06/19 03:40 Clostridium difficile Toxin B Gene Positive (Negative) White Blood Count 5.5 x10^3/uL (4.0-11.0) Red Blood Count 2.77 x10^6/uL (3.50-5.40) Hemoglobin 8.1 g/dL (12.0-15.5) Hematocrit 25.2 % (36.0-47.0) Mean Corpuscular Volume 91 fL (79-100) Mean Corpuscular Hemoglobin 29 pg (25-35) Mean Corpuscular Hemoglobin Concent 32 g/dL (31-37) Red Cell Distribution Width 21.3 % (11.5-14.5) Platelet Count 241 x10^3/uL (140-400) Neutrophils (%) (Auto) 71 % (31-73) Lymphocytes (%) (Auto) 20 % (24-48) Monocytes (%) (Auto) 8 % (0-9) Eosinophils (%) (Auto) 2 % (0-3) Basophils (%) (Auto) 0 % (0-3) Neutrophils # (Auto) 3.9 x10^3/uL (1.8-7.7) Lymphocytes # (Auto) 1.1 x10^3/uL (1.0-4.8) Monocytes # (Auto) 0.4 x10^3/uL (0.0-1.1) Eosinophils # (Auto) 0.1 x10^3/uL (0.0-0.7) Basophils # (Auto) 0.0 x10^3/uL (0.0-0.2) Sodium Level 141 mmol/L (136-145) Potassium Level 3.3 mmol/L (3.5-5.1) Chloride Level 102 mmol/L (98-107) Carbon Dioxide Level 28 mmol/L (21-32) Anion Gap 11 (6-14) Blood Urea Nitrogen 31 mg/dL (7-20) Creatinine 6.4 mg/dL (0.6-1.0) Estimated GFR (Cockcroft-Gault) 7.6 Glucose Level 87 mg/dL (70-99) Calcium Level 8.2 mg/dL (8.5-10.1) Phosphorus Level 3.9 mg/dL (2.6-4.7) Albumin 1.9 g/dL (3.4-5.0) Review of Systems Review of Systems: No c/o headaches No c/o CP Assessment and Plan Assessmemt and Plan Problems Medical Problems: (1) Acute respiratory distress Status: Acute (2) Diabetes Status: Acute (3) Pleural effusion Status: Acute Assessment Post-op left sided thoracentesis Acute hypoxia, resolved Left pleural effusion, resolved Shortness of breath, resolved ESRD Acute Anemia Paroxysmal afib DM2 HTN CAD s/p RCA stent 09/2018 High Cholesterol Prior CVA Plan DVT Prophylaxis PT/OT Labs Home meds Full code Appreciate subspecialist input Probable d/c if okay with subspecialists Comment Review of Relevant I have reviewed the following items scot (where applicable) has been applied. Medications: Current Medications Medications (Trade) Dose Ordered Sig/Nguyễn Route PRN Reason Start Time Stop Time Status Last Admin Dose Admin Metronidazole (Flagyl) 500 mg Q8HRS PO 06/05/19 20:00 06/06/19 05:43 PHILIP AGUILAR III DO Jun 06, 2019 11:51
--- NOTE | 2019-06-06 12:38 | PDOC ---
CARDIO Progress Notes Date and Time Date of Service 06/06/19 Time of Evaluation 1210 Subjective Subjective: No Chest Pain, Other (SOA improved ) Vitals Vitals Vital Signs Date Time Temp Pulse Resp B/P (MAP) Pulse Ox O2 Delivery O2 Flow Rate FiO2 06/06/19 09:20 94 Nasal Cannula 2.0 06/06/19 07:00 98.2 97 16 103/60 (74) 98.2 Weight Weight [ ] Input and Output Intake and Output Intake and Output 06/06/19 07:00 Intake Total 100 ml Balance 100 ml Intake Oral 100 ml # Voids 2 Laboratory Labs Laboratory Tests Test 06/05/19 13:40 06/06/19 03:40 Clostridium difficile Toxin B Gene Positive (Negative) White Blood Count 5.5 x10^3/uL (4.0-11.0) Red Blood Count 2.77 x10^6/uL (3.50-5.40) Hemoglobin 8.1 g/dL (12.0-15.5) Hematocrit 25.2 % (36.0-47.0) Mean Corpuscular Volume 91 fL (79-100) Mean Corpuscular Hemoglobin 29 pg (25-35) Mean Corpuscular Hemoglobin Concent 32 g/dL (31-37) Red Cell Distribution Width 21.3 % (11.5-14.5) Platelet Count 241 x10^3/uL (140-400) Neutrophils (%) (Auto) 71 % (31-73) Lymphocytes (%) (Auto) 20 % (24-48) Monocytes (%) (Auto) 8 % (0-9) Eosinophils (%) (Auto) 2 % (0-3) Basophils (%) (Auto) 0 % (0-3) Neutrophils # (Auto) 3.9 x10^3/uL (1.8-7.7) Lymphocytes # (Auto) 1.1 x10^3/uL (1.0-4.8) Monocytes # (Auto) 0.4 x10^3/uL (0.0-1.1) Eosinophils # (Auto) 0.1 x10^3/uL (0.0-0.7) Basophils # (Auto) 0.0 x10^3/uL (0.0-0.2) Sodium Level 141 mmol/L (136-145) Potassium Level 3.3 mmol/L (3.5-5.1) Chloride Level 102 mmol/L (98-107) Carbon Dioxide Level 28 mmol/L (21-32) Anion Gap 11 (6-14) Blood Urea Nitrogen 31 mg/dL (7-20) Creatinine 6.4 mg/dL (0.6-1.0) Estimated GFR (Cockcroft-Gault) 7.6 Glucose Level 87 mg/dL (70-99) Calcium Level 8.2 mg/dL (8.5-10.1) Phosphorus Level 3.9 mg/dL (2.6-4.7) Albumin 1.9 g/dL (3.4-5.0) Microbiology Micro Microbiology 06/02/19 Anaerobic/Aerobic Culture, Resulted Pending 06/02/19 Anaerobic Culture Result 1 (ABNER), Resulted Pending 06/02/19 Aerobic Culture - Final, Resulted 06/02/19 Aerobic Culture Result 1 (ABNER) - Final, Resulted 06/02/19 Gram Stain - Final, Resulted 06/02/19 Gram Stain Result 1 (ABNER) - Final, Resulted 06/02/19 Gram Stain Result 2 (ABNER) - Final, Resulted Review of Systems Constitutional: yes: weakness, alert, oriented Ears/Nose/Throat: Yes: no symptom reported Eyes: Yes: no symptom reported Pulmonary: Yes no symptom reported Cardiovascular: Yes no symptom reported Gastrointestional: Yes: no symptom reported Genitourinary: Yes: no symptom reported Musculoskeletal: Yes: no symptom reported Skin: Yes no symptom reported Psychiatric/Neurological: Yes: no symptom reported Endocrine: Yes: no symptom reported Physical Exam HEENT: Neck Supple W Full Motion Chest: Symmetric LUNGS: Clear to Auscultation, Other (diminished ) Heart: S1S2, RRR, no thrills, no rubs Abdomen: Soft N/T Extremities: No Calf Tenderness Neurology: alert, follow commands Assessment Assessment 1. Acute respiratory failure secondary to a/c CHF and pleural effusion . S/p thoracentesis 2. Acute on chronic diastolic CHF; secondary to missed HD 3. ESRD on HD; missed 10 days of dialysis prior to admission. 4. Anemia of chronic disease 5. PAFIB; in AFIB. Rate mostly controlled. On Eliquis for stroke prevention. 6. Hypertension; BP low end this am 7. CAD s/p previous PCI/stent to RCA CP free. Echo with preserved LV systolic function 8. Hyperlipidemia 9. Diabetes, II 10. 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
[2019-06-06 14:41] VITALS: BP 122/66
[2019-06-06] MEDS: HYDROcodone/APAP 7.5/325MG 1 TAB TABLET PO PRN (15:53)
[2019-06-06] MEDS: ASPIRIN ENTERIC COATED 81 MG TABLET.DR. PO SCH (15:54)
[2019-06-06] MEDS: ISOSORBIDE DINITRATE 10 MG TABLET. PO SCH ×2 (15:54→20:53)
[2019-06-06] MEDS: amLODIPine BESYLATE 10 MG TABLET PO SCH (15:55)
[2019-06-06] MEDS: CALCITRIOL 0.25 MCG CAPSULE. PO SCH (15:55)
[2019-06-06] MEDS: FERROUS SULFATE 325 MG TABLET. PO SCH (15:56)
[2019-06-06] MEDS: CHOLECALCIFEROL (VITAMIN D3) 1,000 UNIT TABLET PO SCH (15:56)
[2019-06-06] MEDS: APIXABAN 2.5 MG TABLET. PO SCH ×2 (15:56→20:54)
[2019-06-06] MEDS: DICLOFENAC SODIUM 1% TOPICAL GEL 100GM TUBE. TP SCH ×2 (15:57→21:00)
--- NOTE | 2019-06-06 16:18 | PDOC ---
Renal-Progress Notes Subjective Notes Notes NO NEW COMPLAINTS History of Present Illness Hx of present illness STABLE Vitals Vitals Vital Signs Date Time Temp Pulse Resp B/P (MAP) Pulse Ox O2 Delivery O2 Flow Rate FiO2 06/06/19 15:55 88 122/66 06/06/19 15:53 Room Air 06/06/19 14:41 97.8 16 92 97.8 06/06/19 09:20 2.0 Weight Weight [ ] I.O. Intake and Output Intake and Output 06/06/19 07:00 Intake Total 100 ml Balance 100 ml Intake Oral 100 ml # Voids 2 Labs Labs Laboratory Tests Test 06/06/19 03:40 White Blood Count 5.5 x10^3/uL (4.0-11.0) Red Blood Count 2.77 x10^6/uL (3.50-5.40) Hemoglobin 8.1 g/dL (12.0-15.5) Hematocrit 25.2 % (36.0-47.0) Mean Corpuscular Volume 91 fL (79-100) Mean Corpuscular Hemoglobin 29 pg (25-35) Mean Corpuscular Hemoglobin Concent 32 g/dL (31-37) Red Cell Distribution Width 21.3 % (11.5-14.5) Platelet Count 241 x10^3/uL (140-400) Neutrophils (%) (Auto) 71 % (31-73) Lymphocytes (%) (Auto) 20 % (24-48) Monocytes (%) (Auto) 8 % (0-9) Eosinophils (%) (Auto) 2 % (0-3) Basophils (%) (Auto) 0 % (0-3) Neutrophils # (Auto) 3.9 x10^3/uL (1.8-7.7) Lymphocytes # (Auto) 1.1 x10^3/uL (1.0-4.8) Monocytes # (Auto) 0.4 x10^3/uL (0.0-1.1) Eosinophils # (Auto) 0.1 x10^3/uL (0.0-0.7) Basophils # (Auto) 0.0 x10^3/uL (0.0-0.2) Sodium Level 141 mmol/L (136-145) Potassium Level 3.3 mmol/L (3.5-5.1) Chloride Level 102 mmol/L (98-107) Carbon Dioxide Level 28 mmol/L (21-32) Anion Gap 11 (6-14) Blood Urea Nitrogen 31 mg/dL (7-20) Creatinine 6.4 mg/dL (0.6-1.0) Estimated GFR (Cockcroft-Gault) 7.6 Glucose Level 87 mg/dL (70-99) Calcium Level 8.2 mg/dL (8.5-10.1) Phosphorus Level 3.9 mg/dL (2.6-4.7) Albumin 1.9 g/dL (3.4-5.0) Micro Micro Microbiology 06/02/19 Anaerobic/Aerobic Culture, Resulted Pending 06/02/19 Anaerobic Culture Result 1 (ABNER), Resulted Pending 06/02/19 Aerobic Culture - Final, Resulted 06/02/19 Aerobic Culture Result 1 (ABNER) - Final, Resulted 06/02/19 Gram Stain - Final, Resulted 06/02/19 Gram Stain Result 1 (ABNER) - Final, Resulted 06/02/19 Gram Stain Result 2 (ABNER) - Final, Resulted Review of Systems Constitutional: yes: weakness, alert, oriented Ears/Nose/Throat: Yes: no symptom reported Eyes: Yes: no symptom reported Pulmonary: Yes no symptom reported Cardiovascular: Yes no symptom reported Gastrointestional: Yes: no symptom reported Genitourinary: Yes: no symptom reported Musculoskeletal: Yes: no symptom reported Skin: Yes no symptom reported Psychiatric/Neurological: Yes: no symptom reported Endocrine: Yes: no symptom reported Physical Exam General Appearance: no apparent distress Skin: warm Respiratory: bilateral CTA Heart: S1S2 Abdomen: soft, bowel sounds present Genitourinary: bladder flat Extremities: pulses present Neurology: alert, follow commands Assessment Assessment IMP ANEMIA CHF-DIASTOLIC CHF ESRD HTN-UNCONTROLLED NON COMPLIANCE PLAN HD TODAY UF TO DW STARTED ARANESP WILL FOLLOW ENC COMPLIANCE PLACEMENT PENDING ROSA APODACA MD Jun 06, 2019 16:18
--- NOTE | 2019-06-06 16:27 | NUR ---
Discharge order cancelled, will hold onto patient one more evening to ensure change in blood pressure medication from Carvedilol to Metoprolol, and patient will need Flagyl prescription for home, and new script for Metoprolol when dc'd home.
[2019-06-06 19:52] VITALS: BP 114/81
[2019-06-06] MEDS: METOPROLOL TART IMMED RELEASE 50 MG TABLET. PO SCH (20:55)
[2019-06-06 23:33] VITALS: BP 99/49
[2019-06-07 03:45] VITALS: BP 97/49
[2019-06-07] MEDS: HYDROcodone/APAP 7.5/325MG 1 TAB TABLET PO PRN ×2 (05:40→23:34)
[2019-06-07] MEDS: metroNIDAZOLE 500 MG TABLET PO SCH ×2 (05:40→14:00)
[2019-06-07 07:00] VITALS: BP 96/58
[2019-06-07] MEDS: ALBUTEROL SULFATE 2.5 MG/3 ML NEBU. NEB SCH ×4 (08:23→19:26)
[2019-06-07] MEDS: BUDESONIDE 0.5 MG/2 ML NEBU. NEB SCH ×2 (08:23→19:26)
[2019-06-07] MEDS: CHOLECALCIFEROL (VITAMIN D3) 1,000 UNIT TABLET PO SCH (09:13)
[2019-06-07] MEDS: CALCITRIOL 0.25 MCG CAPSULE. PO SCH (09:13)
[2019-06-07] MEDS: DICLOFENAC SODIUM 1% TOPICAL GEL 100GM TUBE. TP SCH ×2 (09:14→20:00)
[2019-06-07] MEDS: FERROUS SULFATE 325 MG TABLET. PO SCH (09:14)
[2019-06-07] MEDS: APIXABAN 2.5 MG TABLET. PO SCH ×2 (09:14→20:00)
[2019-06-07] MEDS: FLUTICASONE 50MCG/NASAL SPRAY 16GM BOTTLE. NS SCH (09:14)
[2019-06-07] MEDS: ASPIRIN ENTERIC COATED 81 MG TABLET.DR. PO SCH (09:14)
--- NOTE | 2019-06-07 10:54 | PDOC ---
PROGRESS NOTES Subjective Subjective She c/o flagyl making her sick. She denies any loose stools. Objective Objective Vital Signs Date Time Temp Pulse Resp B/P (MAP) Pulse Ox O2 Delivery O2 Flow Rate FiO2 06/07/19 08:23 97 Nasal Cannula 2.0 06/07/19 07:00 97.7 96 20 96/58 (71) 97.7 Intake and Output 06/07/19 07:00 Intake Total 150 ml Balance 150 ml Intake Oral 150 ml # Voids 1 Physical Exam Physical Exam She is alert,sitting in bed and she is independent with her mobility using roller walker without any loss of balance she had using a cane. Assessment Assessment Problems Medical Problems: (1) Acute respiratory distress Status: Acute (2) Diabetes Status: Acute (3) Pleural effusion Status: Acute Plan Plan of Long Term with home health follow up when medically stable. Comment Review of Relevant I have reviewed the following items scot (where applicable) has been applied. Labs Laboratory Tests Test 06/05/19 13:40 06/06/19 03:40 Clostridium difficile Toxin B Gene Positive (Negative) White Blood Count 5.5 x10^3/uL (4.0-11.0) Red Blood Count 2.77 x10^6/uL (3.50-5.40) Hemoglobin 8.1 g/dL (12.0-15.5) Hematocrit 25.2 % (36.0-47.0) Mean Corpuscular Volume 91 fL (79-100) Mean Corpuscular Hemoglobin 29 pg (25-35) Mean Corpuscular Hemoglobin Concent 32 g/dL (31-37) Red Cell Distribution Width 21.3 % (11.5-14.5) Platelet Count 241 x10^3/uL (140-400) Neutrophils (%) (Auto) 71 % (31-73) Lymphocytes (%) (Auto) 20 % (24-48) Monocytes (%) (Auto) 8 % (0-9) Eosinophils (%) (Auto) 2 % (0-3) Basophils (%) (Auto) 0 % (0-3) Neutrophils # (Auto) 3.9 x10^3/uL (1.8-7.7) Lymphocytes # (Auto) 1.1 x10^3/uL (1.0-4.8) Monocytes # (Auto) 0.4 x10^3/uL (0.0-1.1) Eosinophils # (Auto) 0.1 x10^3/uL (0.0-0.7) Basophils # (Auto) 0.0 x10^3/uL (0.0-0.2) Sodium Level 141 mmol/L (136-145) Potassium Level 3.3 mmol/L (3.5-5.1) Chloride Level 102 mmol/L (98-107) Carbon Dioxide Level 28 mmol/L (21-32) Anion Gap 11 (6-14) Blood Urea Nitrogen 31 mg/dL (7-20) Creatinine 6.4 mg/dL (0.6-1.0) Estimated GFR (Cockcroft-Gault) 7.6 Glucose Level 87 mg/dL (70-99) Calcium Level 8.2 mg/dL (8.5-10.1) Phosphorus Level 3.9 mg/dL (2.6-4.7) Albumin 1.9 g/dL (3.4-5.0) Microbiology 06/02/19 Anaerobic/Aerobic Culture, Resulted Pending 06/02/19 Anaerobic Culture Result 1 (ABNER), Resulted Pending 06/02/19 Aerobic Culture - Final, Resulted 06/02/19 Aerobic Culture Result 1 (ABNER) - Final, Resulted 06/02/19 Gram Stain - Final, Resulted 06/02/19 Gram Stain Result 1 (ABNER) - Final, Resulted 06/02/19 Gram Stain Result 2 (ABNER) - Final, Resulted Medications Current Medications Albuterol/ Ipratropium (Duoneb) 3 ml 1X ONCE NEB Last administered on 06/01/19at 21:30; Start 06/01/19 at 21:30; Stop 06/01/19 at 21:31; Status DC Ondansetron HCl (Zofran) 4 mg PRN Q8HRS PRN IV NAUSEA/VOMITING; Start 06/02/19 at 00:15; Stop 06/03/19 at 00:14; Status DC Acetaminophen (Tylenol) 650 mg PRN Q4HRS PRN PO FEVER; Start 06/02/19 at 00:15; Stop 06/03/19 at 00:14; Status DC Amlodipine Besylate (Norvasc) 10 mg DAILY PO Last administered on 06/06/19at 15:55; Start 06/02/19 at 09:00 Aspirin (Ecotrin) 81 mg DAILY PO Last administered on 06/07/19 09:14; Start 06/02/19 at 09:00 Calcitriol (Rocaltrol) 0.25 mcg DAILY PO Last administered on 06/07/19 09:13; Start 06/02/19 at 09:00 Vitamin D (Vitamin D3) 2,000 unit DAILY PO Last administered on 06/07/19 09:13; Start 06/02/19 at 09:00 Fluticasone Propionate (Flonase) 2 spray DAILY NS Last administered on 06/07/19 09:14; Start 06/02/19 at 09:00 Furosemide (Lasix) 40 mg PRN DAILY PRN PO SWELLING; Start 06/02/19 at 08:45 Acetaminophen/ Hydrocodone Bitart (Lortab 7.5/325) 1 tab PRN Q6HRS PRN PO PAIN Last administered on 06/07/19 05:40; Start 06/02/19 at 08:45 Carvedilol (Coreg) 25 mg BIDWMEALS PO Last administered on 06/05/19 17:09; Start 06/02/19 at 09:00; Stop 06/06/19 at 12:38; Status DC Ferrous Sulfate (Feosol) 325 mg DAILYWBKFT PO Last administered on 06/07/19 09:14; Start 06/02/19 at 09:00 Non-Formulary Medication (Fluticasone/ Salmeterol (Advair 250-50 Diskus)) 1 puff BID IH ; Start 06/02/19 at 09:00; Status UNV Hydralazine HCl (Apresoline) 37.5 mg BID PO Last administered on 06/06/19 20:54; Start 06/02/19 at 09:00 Isosorbide Dinitrate (Isordil) 20 mg BID PO Last administered on 06/06/19 20:53; Start 06/02/19 at 09:00 Budesonide (Pulmicort) 0.5 mg RTBID NEB Last administered on 06/07/19 08:23; Start 06/02/19 at 20:00 Albuterol Sulfate (Ventolin Neb Soln) 2.5 mg RTQID NEB Last administered on 1/1/20at 08:23; Start 06/02/19 at 12:00 Sodium Chloride 1,000 ml @ 1,000 mls/hr Q1H PRN IV hypotension; Start 06/02/19 at 11:21; Stop 06/02/19 at 17:20; Status DC Diphenhydramine HCl (Benadryl) 25 mg 1X PRN PRN IV ITCHING; Start 06/02/19 at 11:30; Stop 06/03/19 at 11:29; Status DC Diphenhydramine HCl (Benadryl) 25 mg 1X PRN PRN IV ITCHING; Start 06/02/19 at 11:30; Stop 06/03/19 at 11:29; Status DC Sodium Chloride 1,000 ml @ 400 mls/hr Q2H30M PRN IV PATENCY; Start 06/02/19 at 11:21; Stop 06/02/19 at 23:20; Status DC Info (PHARMACY MONITORING -- do not chart) 1 each PRN DAILY PRN MC SEE COMMENTS; Start 06/02/19 at 11:30; Stop 06/03/19 at 08:49; Status DC Diclofenac Sodium (Voltaren) 1 torie BID TP Last administered on 06/07/19at 09:14; Start 06/02/19 at 21:00 Acetaminophen (Tylenol) 650 mg 1X PRN PRN PO PRE-TRANSFUSION; Start 06/03/19 at 05:00 Diphenhydramine HCl (Benadryl Oral Elixir) 12.5 mg 1X PRN PRN PO PRE- TRANSFUSION; Start 06/03/19 at 05:00 Diphenhydramine HCl (Benadryl) 25 mg PRN 1X PRN PO PRE-TRANSFUSION; Start 06/03/19 at 05:00 Sodium Chloride 1,000 ml @ 1,000 mls/hr Q1H PRN IV hypotension; Start 06/03/19 at 08:41; Stop 06/03/19 at 14:40; Status DC Albumin Human 200 ml @ 200 mls/hr 1X PRN PRN IV Hypotension; Start 06/03/19 at 08:45; Stop 06/03/19 at 14:44; Status DC Sodium Chloride 1,000 ml @ 400 mls/hr Q2H30M PRN IV PATENCY; Start 06/03/19 at 08:41; Stop 06/03/19 at 20:40; Status DC Info (PHARMACY MONITORING -- do not chart) 1 each PRN DAILY PRN MC SEE COMMENTS; Start 06/03/19 at 08:45; Stop 06/03/19 at 08:49; Status DC Info (PHARMACY MONITORING -- do not chart) 1 each PRN DAILY PRN MC SEE COMMENTS; Start 06/03/19 at 08:45 Sodium Chloride 1,000 ml @ 1,000 mls/hr Q1H PRN IV hypotension; Start 06/03/19 at 08:00; Stop 06/03/19 at 13:59; Status Cancel Sodium Chloride 1,000 ml @ 400 mls/hr Q2H30M PRN IV PATENCY; Start 06/03/19 at 08:00; Stop 06/03/19 at 19:59; Status Cancel Info (PHARMACY MONITORING -- do not chart) 1 each PRN DAILY PRN MC SEE COMMENTS; Start 06/03/19 at 10:30; Status UNV Info (PHARMACY MONITORING -- do not chart) 1 each PRN DAILY PRN MC SEE COMMENTS; Start 06/03/19 at 10:30 Lidocaine HCl (Xylocaine-Mpf 1% 2ml Vial) 2 ml 1X PRN ID PER PROTOCOL; Start 06/03/19 at 10:45 Darbepoetin Yair (ARANESP for DIALYSIS PTS) 60 mcg WEEKLYHS SQ Last administered on 06/03/19at 21:11; Start 06/03/19 at 21:00 Ondansetron HCl (Zofran Odt) 4 mg PRN Q6HRS PRN PO NAUSEA/VOMITING; Start 06/03/19 at 16:15; Status Cancel Ondansetron HCl (Zofran) 4 mg STK-MED ONCE .ROUTE ; Start 06/03/19 at 16:25; Stop 06/03/19 at 16:25; Status DC Ondansetron HCl (Zofran) 4 mg PRN Q6HRS PRN IVP NAUSEA/VOMITING Last administered on 06/03/19at 16:38; Start 06/03/19 at 16:30 Sodium Chloride (Saline Mist Nasal) 1 torie PRN Q4HRS PRN NS NASAL CONGESTION; Start 06/04/19 at 09:00 Albumin Human 50 ml @ 50 mls/hr PRN DAILY PRN IV hypotension (SBP < 90) Last administered on 06/04/19at 11:49; Start 06/04/19 at 11:15 Apixaban (Eliquis) 2.5 mg BID PO Last administered on 06/07/19at 09:14; Start 06/04/19 at 12:00 Metronidazole (Flagyl) 500 mg Q8HRS PO Last administered on 06/07/19at 05:40; Start 06/05/19 at 20:00 Sodium Chloride 1,000 ml @ 1,000 mls/hr Q1H PRN IV hypotension; Start 06/06/19 at 08:20; Stop 06/06/19 at 14:19; Status DC Albumin Human 200 ml @ 200 mls/hr 1X PRN PRN IV Hypotension; Start 06/06/19 at 08:30; Stop 06/06/19 at 14:29; Status DC Sodium Chloride (Normal Saline Flush) 10 ml 1X PRN PRN IV AP catheter pack; Start 06/06/19 at 08:30; Stop 06/07/19 at 08:29; Status DC Sodium Chloride (Normal Saline Flush) 10 ml 1X PRN PRN IV [employer] catheter pack; Start 06/06/19 at 08:30; Stop 06/07/19 at 08:29; Status DC Sodium Chloride 1,000 ml @ 400 mls/hr Q2H30M PRN IV PATENCY; Start 06/06/19 at 08:20; Stop 06/06/19 at 20:19; Status DC Info (PHARMACY MONITORING -- do not chart) 1 each PRN DAILY PRN MC SEE COMMENTS; Start 06/06/19 at 08:30; Status UNV Info (PHARMACY MONITORING -- do not chart) 1 each PRN DAILY PRN MC SEE COMMENTS; Start 06/06/19 at 08:30; Status UNV Metoprolol Tartrate (Lopressor) 50 mg BID PO Last administered on 06/06/19at 20:55; Start 06/06/19 at 21:00 Active Scripts Active Reported Eliquis (Apixaban) 2.5 Mg Tablet 2.5 Mg PO BID 30 Days Acidophilus (Lactobacillus Acidophilus) 1 Each Capsule 1 Each PO DAILY Hydrocodone-Apap 7.5-325 (Hydrocodone Bit/Acetaminophen) 1 Tab Tablet 1 Tab PO PRN Q6HRS PRN Lasix (Furosemide) 40 Mg Tablet 1 Tab PO PRN DAILY PRN Advair 250-50 Diskus (Fluticasone/Salmeterol) 1 Each Disk.w.dev 1 Puff IH BID Ferrous Gluconate 240 Mg Tablet 240 Mg PO DAILY Fluticasone Propionate Nasal [place] (Fluticasone Propionate) 16 Gm [place].susp 2 [place] NS DAILY Calcium Acetate 667 Mg Tablet 667 Mg PO TIDWMEALS Allopurinol 300 Mg Tablet 0.5 Tab PO DAILY Proair Respiclick (Albuterol Sulfate) 90 Mcg Aer.pow.ba 2 Puff IH PRN Q6HRS PRN Aspir-Low (Aspirin) 81 Mg Tablet.dr 1 Tab PO DAILY Amiodarone Hcl 200 Mg Tablet 1 Tab PO DAILY Vitamin D3 (Cholecalciferol (Vitamin D3)) 1,000 Unit Tablet 2 Tab PO DAILY Norvasc (Amlodipine Besylate) 10 Mg Tablet 10 Mg PO DAILY Bidil Tablet (Isosorb Dinit/Hydralazine Hcl) 1 Each Tablet 1 Each PO BID Calcitriol 0.25 Mcg Capsule 1 Cap PO DAILY Carvedilol 25 Mg Tablet 25 Mg PO BIDWMEALS Vitals/I & O Vital Sign - Last 24 Hours 06/06/19 06/06/19 06/06/19 06/06/19 13:01 14:41 15:53 15:54 Temp 97.8 97.8 Pulse 88 88 Resp 16 B/P (MAP) 122/66 (84) 122/66 Pulse Ox 92 O2 Delivery Room Air Room Air Room Air 06/06/19 06/06/19 06/06/19 06/06/19 15:55 17:16 17:48 19:52 Temp 99.8 99.8 Pulse 88 131 Resp 20 B/P (MAP) 122/66 114/81 (92) Pulse Ox 97 97 97 O2 Delivery Nasal Cannula Nasal Cannula Room Air O2 Flow Rate 2.0 2.0 06/06/19 06/06/19 06/06/19 06/06/19 20:00 20:16 20:53 20:54 Pulse 131 131 B/P (MAP) 114/81 114/81 Pulse Ox 97 O2 Delivery Nasal Cannula Nasal Cannula O2 Flow Rate 2.0 2.0 06/06/19 06/06/19 06/07/19 06/07/19 20:55 23:33 03:45 05:40 Temp 99.6 98.1 99.6 98.1 Pulse 131 98 94 Resp 18 18 20 B/P (MAP) 114/81 99/49 (66) 97/49 (65) Pulse Ox 93 96 O2 Delivery Room Air Room Air Room Air 06/07/19 06/07/19 06/07/19 06:40 07:00 08:23 Temp 97.7 97.7 Pulse 96 Resp 19 20 B/P (MAP) 96/58 (71) Pulse Ox 97 20 97 O2 Delivery Nasal Cannula Nasal Cannula Nasal Cannula O2 Flow Rate 2.0 2.0 2.0 Intake and Output 06/06/19 06/06/19 06/07/19 15:00 23:00 07:00 Intake Total 100 ml 50 ml Balance 100 ml 50 ml LAMONTE BALDWIN MD Jun 07, 2019 10:54
[2019-06-07 11:00] VITALS: BP 103/55
[2019-06-07] MEDS: METOPROLOL TART IMMED RELEASE 50 MG TABLET. PO SCH ×2 (11:00→20:00)
[2019-06-07] MEDS: amLODIPine BESYLATE 10 MG TABLET PO SCH (11:00)
[2019-06-07] MEDS: hydrALAZINE 25 MG TABLET PO SCH ×2 (11:00→19:55)
[2019-06-07] MEDS: ISOSORBIDE DINITRATE 10 MG TABLET. PO SCH ×2 (11:00→19:56)
--- NOTE | 2019-06-07 11:25 | PDOC ---
[facility] PROGRESS NOTE Chief Complaint Chief Complaint Post-op left sided thoracentesis Acute hypoxia, resolved Left pleural effusion, resolved Shortness of breath, resolved ESRD Acute Anemia Paroxysmal afib DM2 HTN CAD s/p RCA stent 09/2018 High Cholesterol Prior CVA History of Present Illness History of Present Illness 06/07/19 Pt seen and examined Pt resting in NAD DW RN Reviewed pt's chart 06/06/19 Pt seen and examined Pt was in HD and in good spirits DW pt Reviewed pt's chart Vitals/I&O Vitals/I&O: Vital Signs Date Time Temp Pulse Resp B/P (MAP) Pulse Ox O2 Delivery O2 Flow Rate FiO2 06/07/19 11:00 97.5 96 20 103/55 (71) 93 Nasal Cannula 2.0 97.5 I & O 06/06/19 06/06/19 06/07/19 15:00 23:00 07:00 Intake Total 100 ml 50 ml Balance 100 ml 50 ml Physical Exam General: Alert, Cooperative, No acute distress Heart: Regular rate, Normal S1, Normal S2 Lungs: Crackles (minimal LLL) Abdomen: Normal bowel sounds, Soft Extremities: No clubbing, No cyanosis, No edema, Normal pulses, No tenderness/swelling Skin: No rashes, No breakdown, No significant lesion Review of Systems Review of Systems: Unable to assess. Pt resting in NAD Assessment and Plan Assessmemt and Plan Problems Medical Problems: (1) Acute respiratory distress Status: Acute (2) Diabetes Status: Acute (3) Pleural effusion Status: Acute Assessment Post-op left sided thoracentesis Acute hypoxia, resolved Left pleural effusion, resolved Shortness of breath, resolved ESRD Acute Anemia Paroxysmal afib DM2 HTN CAD s/p RCA stent 09/2018 High Cholesterol Prior CVA Plan DVT Prophylaxis PT/OT Labs Home meds Full code Appreciate subspecialist input Discharge if okay with cardiology Script for Flagyl Comment Review of Relevant I have reviewed the following items scot (where applicable) has been applied. Medications: Current Medications Medications (Trade) Dose Ordered Sig/Nguyễn Route PRN Reason Start Time Stop Time Status Last Admin Dose Admin Metoprolol Tartrate (Lopressor) 50 mg BID PO 06/06/19 21:00 06/06/19 20:55 PHILIP AGUILAR III DO Jun 07, 2019 11:25
--- NOTE | 2019-06-07 12:55 | SNU/HH DC ---
DISCHARGE WITH HOME HEALTH DISCHARGE INFORMATION: Final Diagnosis: Problems Medical Problems: (1) Acute respiratory distress Status: Acute (2) Diabetes Status: Acute (3) Pleural effusion Status: Acute Condition on Discharge: Stable CODE STATUS: Code Status: Full HOME HEALTH: Face to Face: I certify this patient is under my care and that I, or a nurse practitioner or physician's insurance administrative assistant working with me, had a face to face encounter that meets the physician face to face encounter requirements with this patient on []. Medical Complications: Other (weakness/debility) RN For Eval/Treatment: Yes Physical Therapy For: Evalulation/Treatment Speech Language Pathology For: Evaluation/Treatment Home Health Aide For: Self-care [employer] For: Community Resources Pt Meets Homebound Status: Poor coordination w/ amb. POST DISCHARGE ORDERS: Activity Instructions for Disc: Activity as tolerated Weight Bearing Status after Di: As tolerated Bathing Instructions: Shower-keep dressing dry DIET AFTER DISCHARGE: Cardiac CHECKS AFTER DISCHARGE: Checks after discharge: Check blood press - daily, Check blood sugar, ac/hs TREATMENT/EQUIPMENT ORDERS: Adaptive Equipment Issued: None CERTIFICATION STATEMENT: Certification Statement: Certification Statement: Based on the above finding, I certify that this patient is confined to the home and needs intermittent detention care, physical therapy and/or speech therapy, or continues to need occupational therapy.~ This patient is under my care, and I have initiated the establishment of the plan of care.~ This patient will be followed by myself or a community physician who will periodically review the plan of care. Home Meds Reported Medications Apixaban (ELIQUIS) 2.5 Mg Tablet, 2.5 MG PO BID for Afib for 30 Days, #60 06/04/19 Lactobacillus Acidophilus (ACIDOPHILUS) 1 Each Capsule, 1 EACH PO DAILY for STOMACH SUPPLEMENT, CAP 09/09/18 Hydrocodone Bit/Acetaminophen (HYDROCODONE-APAP 7.5-325 ) 1 Tab Tablet, 1 TAB PO PRN Q6HRS PRN for PAIN, TAB 0 Refills 09/09/18 Furosemide (LASIX) 40 Mg Tablet, 1 TAB PO PRN DAILY PRN for SWELLING, #90 TAB 1 Refill 09/09/18 Fluticasone/Salmeterol (ADVAIR 250-50 DISKUS) 1 Each Disk.w.dev, 1 PUFF IH BID for ASTHMA/COPD, #3 INHALER 3 Refills 09/09/18 Ferrous Gluconate (FERROUS GLUCONATE) 240 Mg Tablet, 240 MG PO DAILY for SUPPLEMENT, TAB 09/09/18 Fluticasone Propionate (FLUTICASONE PROPIONATE NASAL SPRAY) 16 Gm [place].susp, 2 SPRAY NS DAILY for SINUS PROBLEM, #1 INHALER 11 Refills 09/09/18 Calcium Acetate (CALCIUM ACETATE) 667 Mg Tablet, 667 MG PO TIDWMEALS for DIALYSIS PATIENTS, CAP 09/09/18 Allopurinol (ALLOPURINOL) 300 Mg Tablet, 0.5 TAB PO DAILY for ARTHRITIS, #30 TAB 5 Refills 09/09/18 Albuterol Sulfate (Proair Respiclick) 90 Mcg Aer.pow.ba, 2 PUFF IH PRN Q6HRS PRN for SOB/WHEEZING, INHALER 09/09/18 Aspirin (ASPIR-LOW) 81 Mg Tablet.dr, 1 TAB PO DAILY for blood thinner, #30 TAB 3 Refills 05/24/18 Amiodarone Hcl (AMIODARONE HCL) 200 Mg Tablet, 1 TAB PO DAILY for heart, #90 TAB 1 Refill 05/24/18 Cholecalciferol (Vitamin D3) (VITAMIN D3) 1,000 Unit Tablet, 2 TAB PO DAILY for supplement, #30 TAB 5 Refills 05/24/18 Amlodipine Besylate (NORVASC) 10 Mg Tablet, 10 MG PO DAILY for htn, TAB 05/24/18 Isosorb Dinit/Hydralazine Hcl (BIDIL TABLET) 1 Each Tablet, 1 EACH PO BID for htn, TAB 05/24/18 Calcitriol (CALCITRIOL) 0.25 Mcg Capsule, 1 CAP PO DAILY for kidneys, #30 CAP 5 Refills 05/24/18 Carvedilol (CARVEDILOL) 25 Mg Tablet, 25 MG PO BIDWMEALS for CARDIAC, TAB 05/24/18 PHILIP AGUILAR III DO Jun 07, 2019 12:55
--- NOTE | 2019-06-07 13:21 | NUR ---
Repeat BP at 1100 was in the 100s, anti hypertensive meds to be given but patient refused. She complained of nausea, offered zofran IV. Patient again refused stating that "pills are making me sick, no pills or meds for now." This nurse went back to the patient at 1315 to give meds, patient stated that antibiotic pill makes her nauseous, will inform MD. Addendum: 06/07/19 at 7629 by SHILPA MACIEL RN Antibiotic changed to vancomycin PO, patient tolerated med.
[2019-06-07 15:00] VITALS: BP 103/57
--- NOTE | 2019-06-07 15:12 | PDOC ---
Renal-Progress Notes Subjective Notes Notes NO NEW COMPLAINTS History of Present Illness Hx of present illness STABLE Vitals Vitals Vital Signs Date Time Temp Pulse Resp B/P (MAP) Pulse Ox O2 Delivery O2 Flow Rate FiO2 06/07/19 12:13 96 Nasal Cannula 2.0 06/07/19 11:00 97.5 96 20 103/55 (71) 97.5 Weight Weight [ ] I.O. Intake and Output Intake and Output 06/07/19 06:59 Intake Total 150 ml Balance 150 ml Intake Oral 150 ml # Voids 1 Micro Micro Microbiology 06/02/19 Anaerobic/Aerobic Culture, Resulted Pending 06/02/19 Anaerobic Culture Result 1 (ABNER), Resulted Pending 06/02/19 Aerobic Culture - Final, Resulted 06/02/19 Aerobic Culture Result 1 (ABNER) - Final, Resulted 06/02/19 Gram Stain - Final, Resulted 06/02/19 Gram Stain Result 1 (ABNER) - Final, Resulted 06/02/19 Gram Stain Result 2 (ABNER) - Final, Resulted Review of Systems Constitutional: yes: weakness, alert, oriented Ears/Nose/Throat: Yes: no symptom reported Eyes: Yes: no symptom reported Pulmonary: Yes no symptom reported Cardiovascular: Yes no symptom reported Gastrointestional: Yes: no symptom reported Genitourinary: Yes: no symptom reported Musculoskeletal: Yes: no symptom reported Skin: Yes no symptom reported Psychiatric/Neurological: Yes: no symptom reported Endocrine: Yes: no symptom reported Physical Exam General Appearance: no apparent distress Skin: warm Respiratory: bilateral CTA Heart: S1S2 Abdomen: soft, bowel sounds present Genitourinary: bladder flat Extremities: pulses present Neurology: alert, follow commands Assessment Assessment IMP ANEMIA CHF-DIASTOLIC CHF ESRD HTN-UNCONTROLLED NON COMPLIANCE PLAN HD TOMORROW STARTED ARANESP WILL FOLLOW ENC COMPLIANCE PLACEMENT PENDING ROSA APODACA MD Jun 07, 2019 15:12
--- NOTE | 2019-06-07 15:38 | PDOC ---
PULMONARY PROGRESS NOTES Subjective S/P thoracentesis on the left side, 1400 cc's of fluid removed on 06/02/19 PT NOT MORE SOA Vitals Vital Signs Date Time Temp Pulse Resp B/P (MAP) Pulse Ox O2 Delivery O2 Flow Rate FiO2 06/07/19 15:00 98.0 80 22 103/57 (72) 96 Nasal Cannula 2.0 98.0 ROS: No Nausea, No Chest Pain, No Abdominal Pain, No Increase Cough General: Alert Lungs: Crackles (minimal LLL) Cardiovascular: S1 Abdomen: Soft Neuro Exam: Alert Extremities: No Edema Skin: Warm, Dry Labs Laboratory Tests Test 06/06/19 03:40 White Blood Count 5.5 x10^3/uL (4.0-11.0) Red Blood Count 2.77 x10^6/uL (3.50-5.40) Hemoglobin 8.1 g/dL (12.0-15.5) Hematocrit 25.2 % (36.0-47.0) Mean Corpuscular Volume 91 fL (79-100) Mean Corpuscular Hemoglobin 29 pg (25-35) Mean Corpuscular Hemoglobin Concent 32 g/dL (31-37) Red Cell Distribution Width 21.3 % (11.5-14.5) Platelet Count 241 x10^3/uL (140-400) Neutrophils (%) (Auto) 71 % (31-73) Lymphocytes (%) (Auto) 20 % (24-48) Monocytes (%) (Auto) 8 % (0-9) Eosinophils (%) (Auto) 2 % (0-3) Basophils (%) (Auto) 0 % (0-3) Neutrophils # (Auto) 3.9 x10^3/uL (1.8-7.7) Lymphocytes # (Auto) 1.1 x10^3/uL (1.0-4.8) Monocytes # (Auto) 0.4 x10^3/uL (0.0-1.1) Eosinophils # (Auto) 0.1 x10^3/uL (0.0-0.7) Basophils # (Auto) 0.0 x10^3/uL (0.0-0.2) Sodium Level 141 mmol/L (136-145) Potassium Level 3.3 mmol/L (3.5-5.1) Chloride Level 102 mmol/L (98-107) Carbon Dioxide Level 28 mmol/L (21-32) Anion Gap 11 (6-14) Blood Urea Nitrogen 31 mg/dL (7-20) Creatinine 6.4 mg/dL (0.6-1.0) Estimated GFR (Cockcroft-Gault) 7.6 Glucose Level 87 mg/dL (70-99) Calcium Level 8.2 mg/dL (8.5-10.1) Phosphorus Level 3.9 mg/dL (2.6-4.7) Albumin 1.9 g/dL (3.4-5.0) Medications Active Scripts Medications Dose Route/Sig Max Daily Dose Days Date Category Acidophilus (Lactobacillus Acidophilus) 1 Each Capsule 1 Each PO DAILY 09/09/18 Reported Hydrocodone-Apap 7.5-325 (Hydrocodone Bit/Acetaminophen) 1 Tab Tablet 1 Tab PO PRN Q6HRS PRN 09/09/18 Reported Lasix (Furosemide) 40 Mg Tablet 1 Tab PO PRN DAILY PRN 09/09/18 Reported Advair 250-50 Diskus (Fluticasone/Salmeterol) 1 Each Disk.w.dev 1 Puff IH BID 09/09/18 Reported Ferrous Gluconate 240 Mg Tablet 240 Mg PO DAILY 09/09/18 Reported Fluticasone Propionate Nasal Folcroft (Fluticasone Propionate) 16 Gm Folcroft.susp 2 Folcroft NS DAILY 09/09/18 Reported Calcium Acetate 667 Mg Tablet 667 Mg PO TIDWMEALS 09/09/18 Reported Allopurinol 300 Mg Tablet 0.5 Tab PO DAILY 09/09/18 Reported Proair Respiclick (Albuterol Sulfate) 90 Mcg Aer.pow.ba 2 Puff IH PRN Q6HRS PRN 09/09/18 Reported Aspir-Low (Aspirin) 81 Mg Tablet.dr 1 Tab PO DAILY 05/24/18 Reported Amiodarone Hcl 200 Mg Tablet 1 Tab PO DAILY 05/24/18 Reported Vitamin D3 (Cholecalciferol (Vitamin D3)) 1,000 Unit Tablet 2 Tab PO DAILY 05/24/18 Reported Norvasc (Amlodipine Besylate) 10 Mg Tablet 10 Mg PO DAILY 05/24/18 Reported Bidil Tablet (Isosorb Dinit/Hydralazine Hcl) 1 Each Tablet 1 Each PO BID 05/24/18 Reported Calcitriol 0.25 Mcg Capsule 1 Cap PO DAILY 05/24/18 Reported Carvedilol 25 Mg Tablet 25 Mg PO BIDWMEALS 05/24/18 Reported Impression . IMPRESSION: 1. Acute hypoxic respiratory failure secondary to acute on chronic diastolic heart failure. 2. Abnormal chest x-ray with diffuse interstitial infiltrates secondary to congestive heart failure and also moderate left-sided pleural effusion. S/P thoracentesis on the left side, 1400 cc's of thin betty fluid was removed. 3. Prior echocardiogram with normal ejection fraction and grade 1 diastolic dysfunction. 4. End-stage renal disease, on hemodialysis. 5. Anemia, could be dilutional versus related to end-stage renal disease. No obvious gastrointestinal loss. 6. No significant tobacco history. 7. TRANSUDATE EFFUSION CYTOLOGY NEGATIVE FOR MALIGNANT CELLS 06/02/19 CT chest IMPRESSION: 1. Large partially loculated left pleural effusion with partial upper and lower lobe consolidation and partial upper lower lobe collapse. This is superimposed on suspected multifocal groundglass infiltrate within the bilateral upper lobes. Follow-up to confirm resolution and exclude an underlying lesion. 2. Trace right pleural effusion. 3. Cardiomegaly and trace pericardial effusion. 4. Right renal atrophy and right renal cysts. 5. Emphysema. Plan . FOLLOW IN MY OFFICE OK TO D/C FROM MY STANDPOINT CONTINUE THE SAME RESP STATUS IS COMPENSATED CAROLYN SALDANA MD Jun 07, 2019 15:38
[2019-06-07] MEDS: VANCOMYCIN 125 MG/2.5 ML ORAL SOLUTION. PO SCH ×2 (16:45→20:00)
[2019-06-07 19:10] VITALS: BP 103/47
[2019-06-07 23:42] VITALS: BP 99/54
[2019-06-08 03:55] VITALS: BP 101/57
[2019-06-08 07:00] VITALS: BP 113/63
[2019-06-08] MEDS: ALBUTEROL SULFATE 2.5 MG/3 ML NEBU. NEB SCH ×4 (08:30→20:30)
[2019-06-08] MEDS: BUDESONIDE 0.5 MG/2 ML NEBU. NEB SCH ×2 (08:31→20:30)
[2019-06-08] MEDS: METOPROLOL TART IMMED RELEASE 50 MG TABLET. PO SCH ×3 (09:00→19:56)
[2019-06-08] MEDS: DICLOFENAC SODIUM 1% TOPICAL GEL 100GM TUBE. TP SCH ×2 (09:00→19:54)
[2019-06-08] MEDS: hydrALAZINE 25 MG TABLET PO SCH ×2 (09:00→19:54)
[2019-06-08] MEDS: VANCOMYCIN 125 MG/2.5 ML ORAL SOLUTION. PO SCH ×4 (09:00→19:57)
[2019-06-08] MEDS: ISOSORBIDE DINITRATE 10 MG TABLET. PO SCH ×2 (09:00→19:54)
[2019-06-08] MEDS: APIXABAN 2.5 MG TABLET. PO SCH ×2 (09:00→19:56)
[2019-06-08] MEDS ORDERED: IV NORMAL SALINE 1000ML BAG 1,000 ML IV PRN ×2 (09:09)
[2019-06-08] MEDS ORDERED: DIALYSIS PATIENT. MC PRN (09:15)
[2019-06-08] MEDS ORDERED: ALBUMIN HUMAN 25% 200 ML IV PRN (09:15)
[2019-06-08] MEDS ORDERED: diphenhydrAMINE 50 MG/ML VIAL IV PRN ×2 (09:15)
--- NOTE | 2019-06-08 09:23 | PDOC ---
PROGRESS NOTES Subjective Subjective No new complaints. Objective Objective Vital Signs Date Time Temp Pulse Resp B/P (MAP) Pulse Ox O2 Delivery O2 Flow Rate FiO2 06/08/19 08:31 95 Nasal Cannula 2.0 06/08/19 07:00 99.4 71 24 113/63 (80) 99.4 Intake and Output 06/08/19 07:00 Intake Total 740 ml Output Total 0 ml Balance 740 ml Intake Oral 740 ml Output Urine Total 0 ml # Voids 1 Physical Exam Physical Exam She is awake,receiving hemodialysis. She is walking better with roller walker. Assessment Assessment Problems Medical Problems: (1) Acute respiratory distress Status: Acute (2) Diabetes Status: Acute (3) Pleural effusion Status: Acute Plan Plan of Senior Care with home health follow up when medically stable. Comment Review of Relevant I have reviewed the following items scot (where applicable) has been applied. Labs Microbiology 06/02/19 Anaerobic/Aerobic Culture - Final, Complete 06/02/19 Anaerobic Culture Result 1 (ABNER) - Final, Complete 06/02/19 Aerobic Culture - Final, Complete 06/02/19 Aerobic Culture Result 1 (ABNER) - Final, Complete 06/02/19 Gram Stain - Final, Complete 06/02/19 Gram Stain Result 1 (ABNER) - Final, Complete 06/02/19 Gram Stain Result 2 (ABNER) - Final, Complete Medications Current Medications Albuterol/ Ipratropium (Duoneb) 3 ml 1X ONCE NEB Last administered on 06/01/19at 21:30; Start 06/01/19 at 21:30; Stop 06/01/19 at 21:31; Status DC Ondansetron HCl (Zofran) 4 mg PRN Q8HRS PRN IV NAUSEA/VOMITING; Start 06/02/19 at 00:15; Stop 06/03/19 at 00:14; Status DC Acetaminophen (Tylenol) 650 mg PRN Q4HRS PRN PO FEVER; Start 06/02/19 at 00:15; Stop 06/03/19 at 00:14; Status DC Amlodipine Besylate (Norvasc) 10 mg DAILY PO Last administered on 06/06/19at 15:55; Start 06/02/19 at 09:00 Aspirin (Ecotrin) 81 mg DAILY PO Last administered on 06/07/19at 09:14; Start 06/02/19 at 09:00 Calcitriol (Rocaltrol) 0.25 mcg DAILY PO Last administered on 06/07/19 09:13; Start 06/02/19 at 09:00 Vitamin D (Vitamin D3) 2,000 unit DAILY PO Last administered on 06/07/19 09:13; Start 06/02/19 at 09:00 Fluticasone Propionate (Flonase) 2 spray DAILY NS Last administered on 06/07/19 09:14; Start 06/02/19 at 09:00 Furosemide (Lasix) 40 mg PRN DAILY PRN PO SWELLING; Start 06/02/19 at 08:45 Acetaminophen/ Hydrocodone Bitart (Lortab 7.5/325) 1 tab PRN Q6HRS PRN PO PAIN Last administered on 06/07/19 23:34; Start 06/02/19 at 08:45 Carvedilol (Coreg) 25 mg BIDWMEALS PO Last administered on 06/05/19 17:09; Start 06/02/19 at 09:00; Stop 06/06/19 at 12:38; Status DC Ferrous Sulfate (Feosol) 325 mg DAILYWBKFT PO Last administered on 06/07/19 09:14; Start 06/02/19 at 09:00 Non-Formulary Medication (Fluticasone/ Salmeterol (Advair 250-50 Diskus)) 1 puff BID IH ; Start 06/02/19 at 09:00; Status UNV Hydralazine HCl (Apresoline) 37.5 mg BID PO Last administered on 06/06/19 20:54; Start 06/02/19 at 09:00 Isosorbide Dinitrate (Isordil) 20 mg BID PO Last administered on 06/06/19 20:53; Start 06/02/19 at 09:00 Budesonide (Pulmicort) 0.5 mg RTBID NEB Last administered on 06/08/19 08:31; Start 06/02/19 at 20:00 Albuterol Sulfate (Ventolin Neb Soln) 2.5 mg RTQID NEB Last administered on 06/08/19 08:30; Start 06/02/19 at 12:00 Sodium Chloride 1,000 ml @ 1,000 mls/hr Q1H PRN IV hypotension; Start 06/02/19 at 11:21; Stop 06/02/19 at 17:20; Status DC Diphenhydramine HCl (Benadryl) 25 mg 1X PRN PRN IV ITCHING; Start 06/02/19 at 11:30; Stop 06/03/19 at 11:29; Status DC Diphenhydramine HCl (Benadryl) 25 mg 1X PRN PRN IV ITCHING; Start 06/02/19 at 11:30; Stop 06/03/19 at 11:29; Status DC Sodium Chloride 1,000 ml @ 400 mls/hr Q2H30M PRN IV PATENCY; Start 06/02/19 at 11:21; Stop 06/02/19 at 23:20; Status DC Info (PHARMACY MONITORING -- do not chart) 1 each PRN DAILY PRN MC SEE COMMENTS; Start 06/02/19 at 11:30; Stop 06/03/19 at 08:49; Status DC Diclofenac Sodium (Voltaren) 1 torie BID TP Last administered on 06/07/19at 09:14; Start 06/02/19 at 21:00 Acetaminophen (Tylenol) 650 mg 1X PRN PRN PO PRE-TRANSFUSION; Start 06/03/19 at 05:00 Diphenhydramine HCl (Benadryl Oral Elixir) 12.5 mg 1X PRN PRN PO PRE- TRANSFUSION; Start 06/03/19 at 05:00 Diphenhydramine HCl (Benadryl) 25 mg PRN 1X PRN PO PRE-TRANSFUSION; Start 06/03/19 at 05:00 Sodium Chloride 1,000 ml @ 1,000 mls/hr Q1H PRN IV hypotension; Start 06/03/19 at 08:41; Stop 06/03/19 at 14:40; Status DC Albumin Human 200 ml @ 200 mls/hr 1X PRN PRN IV Hypotension; Start 06/03/19 at 08:45; Stop 06/03/19 at 14:44; Status DC Sodium Chloride 1,000 ml @ 400 mls/hr Q2H30M PRN IV PATENCY; Start 06/03/19 at 08:41; Stop 06/03/19 at 20:40; Status DC Info (PHARMACY MONITORING -- do not chart) 1 each PRN DAILY PRN MC SEE COMMENTS; Start 06/03/19 at 08:45; Stop 06/03/19 at 08:49; Status DC Info (PHARMACY MONITORING -- do not chart) 1 each PRN DAILY PRN MC SEE COMMENTS; Start 06/03/19 at 08:45 Sodium Chloride 1,000 ml @ 1,000 mls/hr Q1H PRN IV hypotension; Start 06/03/19 at 08:00; Stop 06/03/19 at 13:59; Status Cancel Sodium Chloride 1,000 ml @ 400 mls/hr Q2H30M PRN IV PATENCY; Start 06/03/19 at 08:00; Stop 06/03/19 at 19:59; Status Cancel Info (PHARMACY MONITORING -- do not chart) 1 each PRN DAILY PRN MC SEE COMMENTS; Start 06/03/19 at 10:30; Status UNV Info (PHARMACY MONITORING -- do not chart) 1 each PRN DAILY PRN MC SEE COMMENTS; Start 06/03/19 at 10:30 Lidocaine HCl (Xylocaine-Mpf 1% 2ml Vial) 2 ml 1X PRN ID PER PROTOCOL; Start 06/03/19 at 10:45 Darbepoetin Yair (ARANESP for DIALYSIS PTS) 60 mcg WEEKLYHS SQ Last administered on 06/03/19at 21:11; Start 06/03/19 at 21:00 Ondansetron HCl (Zofran Odt) 4 mg PRN Q6HRS PRN PO NAUSEA/VOMITING; Start 06/03/19 at 16:15; Status Cancel Ondansetron HCl (Zofran) 4 mg STK-MED ONCE .ROUTE ; Start 06/03/19 at 16:25; Stop 06/03/19 at 16:25; Status DC Ondansetron HCl (Zofran) 4 mg PRN Q6HRS PRN IVP NAUSEA/VOMITING Last administered on 06/03/19at 16:38; Start 06/03/19 at 16:30 Sodium Chloride (Saline Mist Nasal) 1 torie PRN Q4HRS PRN NS NASAL CONGESTION; Start 06/04/19 at 09:00 Albumin Human 50 ml @ 50 mls/hr PRN DAILY PRN IV hypotension (SBP < 90) Last administered on 06/04/19at 11:49; Start 06/04/19 at 11:15 Apixaban (Eliquis) 2.5 mg BID PO Last administered on 06/07/19at 20:00; Start 06/04/19 at 12:00 Metronidazole (Flagyl) 500 mg Q8HRS PO Last administered on 06/07/19at 05:40; Start 06/05/19 at 20:00; Stop 06/07/19 at 14:35; Status DC Sodium Chloride 1,000 ml @ 1,000 mls/hr Q1H PRN IV hypotension; Start 06/06/19 at 08:20; Stop 06/06/19 at 14:19; Status DC Albumin Human 200 ml @ 200 mls/hr 1X PRN PRN IV Hypotension; Start 06/06/19 at 08:30; Stop 06/06/19 at 14:29; Status DC Sodium Chloride (Normal Saline Flush) 10 ml 1X PRN PRN IV AP catheter pack; Start 06/06/19 at 08:30; Stop 06/07/19 at 08:29; Status DC Sodium Chloride (Normal Saline Flush) 10 ml 1X PRN PRN IV LUTE PACKER OR APPLIER catheter pack; Start 06/06/19 at 08:30; Stop 06/07/19 at 08:29; Status DC Sodium Chloride 1,000 ml @ 400 mls/hr Q2H30M PRN IV PATENCY; Start 06/06/19 at 08:20; Stop 06/06/19 at 20:19; Status DC Info (PHARMACY MONITORING -- do not chart) 1 each PRN DAILY PRN MC SEE COMMENTS; Start 06/06/19 at 08:30; Status UNV Info (PHARMACY MONITORING -- do not chart) 1 each PRN DAILY PRN MC SEE COMMENTS; Start 06/06/19 at 08:30; Status UNV Metoprolol Tartrate (Lopressor) 50 mg BID PO Last administered on 06/07/19at 20:00; Start 06/06/19 at 21:00 Vancomycin HCl (Vancomycin Oral Solution) 125 mg [id number] PO Last administered on 06/07/19at 20:00; Start 06/07/19 at 17:00 Sodium Chloride 1,000 ml @ 1,000 mls/hr Q1H PRN IV hypotension; Start 06/08/19 a t 09:09; Stop 06/08/19 at 15:08 Albumin Human 200 ml @ 200 mls/hr 1X PRN PRN IV Hypotension; Start 06/08/19 at 09:15; Stop 06/08/19 at 15:14 Diphenhydramine HCl (Benadryl) 25 mg 1X PRN PRN IV ITCHING; Start 06/08/19 at 09:15; Stop 06/09/19 at 09:14 Diphenhydramine HCl (Benadryl) 25 mg 1X PRN PRN IV ITCHING; Start 06/08/19 at 09:15; Stop 06/09/19 at 09:14 Sodium Chloride 1,000 ml @ 400 mls/hr Q2H30M PRN IV PATENCY; Start 06/08/19 at 09:09; Stop 06/08/19 at 21:08 Info (PHARMACY MONITORING -- do not chart) 1 each PRN DAILY PRN MC SEE COMMENTS; Start 06/08/19 at 09:15 Active Scripts Active Reported Eliquis (Apixaban) 2.5 Mg Tablet 2.5 Mg PO BID 30 Days Acidophilus (Lactobacillus Acidophilus) 1 Each Capsule 1 Each PO DAILY Hydrocodone-Apap 7.5-325 (Hydrocodone Bit/Acetaminophen) 1 Tab Tablet 1 Tab PO PRN Q6HRS PRN Lasix (Furosemide) 40 Mg Tablet 1 Tab PO PRN DAILY PRN Advair 250-50 Diskus (Fluticasone/Salmeterol) 1 Each Disk.w.dev 1 Puff IH BID Ferrous Gluconate 240 Mg Tablet 240 Mg PO DAILY Fluticasone Propionate Nasal Hannah (Fluticasone Propionate) 16 Gm Hannah.susp 2 Hannah NS DAILY Calcium Acetate 667 Mg Tablet 667 Mg PO TIDWMEALS Allopurinol 300 Mg Tablet 0.5 Tab PO DAILY Proair Respiclick (Albuterol Sulfate) 90 Mcg Aer.pow.ba 2 Puff IH PRN Q6HRS PRN Aspir-Low (Aspirin) 81 Mg Tablet.dr 1 Tab PO DAILY Amiodarone Hcl 200 Mg Tablet 1 Tab PO DAILY Vitamin D3 (Cholecalciferol (Vitamin D3)) 1,000 Unit Tablet 2 Tab PO DAILY Norvasc (Amlodipine Besylate) 10 Mg Tablet 10 Mg PO DAILY Bidil Tablet (Isosorb Dinit/Hydralazine Hcl) 1 Each Tablet 1 Each PO BID Calcitriol 0.25 Mcg Capsule 1 Cap PO DAILY Carvedilol 25 Mg Tablet 25 Mg PO BIDWMEALS Vitals/I & O Vital Sign - Last 24 Hours 06/07/19 06/07/19 06/07/19 06/07/19 11:00 12:13 15:00 16:33 Temp 97.5 98.0 97.5 98.0 Pulse 96 80 Resp 20 22 B/P (MAP) 103/55 (71) 103/57 (72) Pulse Ox 93 96 96 97 O2 Delivery Nasal Cannula Nasal Cannula Nasal Cannula Nasal Cannula O2 Flow Rate 2.0 2.0 2.0 2.0 06/07/19 06/07/19 06/07/19 06/07/19 19:10 19:55 19:56 20:00 Temp 97.5 97.5 Pulse 69 69 69 69 Resp 20 B/P (MAP) 103/47 (65) 103/47 103/47 103/47 Pulse Ox 99 O2 Delivery Nasal Cannula O2 Flow Rate 2.0 06/07/19 06/07/19 06/07/19 06/08/19 20:00 23:34 23:42 00:34 Temp 97.5 97.5 Pulse 108 Resp 16 18 16 B/P (MAP) 99/54 (69) Pulse Ox 99 96 96 O2 Delivery Nasal Cannula Nasal Cannula Nasal Cannula Nasal Cannula O2 Flow Rate 2.0 2.0 2.0 2.0 06/08/19 06/08/19 06/08/19 06/08/19 03:55 07:00 08:13 08:31 Temp 98.4 99.4 98.4 99.4 Pulse 103 71 Resp 18 24 B/P (MAP) 101/57 (72) 113/63 (80) Pulse Ox 91 93 95 O2 Delivery Nasal Cannula Nasal Cannula Nasal Cannula Nasal Cannula O2 Flow Rate 2.0 2.0 2.0 2.0 Intake and Output 06/07/19 06/07/19 06/08/19 15:00 23:00 07:00 Intake Total 400 ml 240 ml 100 ml Output Total 0 ml Balance 400 ml 240 ml 100 ml LAMONTE BALDWIN MD Jun 08, 2019 09:23
--- NOTE | 2019-06-08 11:54 | PDOC ---
[facility] PROGRESS NOTE Chief Complaint Chief Complaint Post-op left sided thoracentesis Acute hypoxia, resolved Left pleural effusion, resolved Shortness of breath, resolved ESRD Acute Anemia Paroxysmal afib DM2 HTN CAD s/p RCA stent 09/2018 High Cholesterol Prior CVA History of Present Illness History of Present Illness 06/08/19 Pt seen and examined Pt was in HD Pt stated she feels better today and expressed desire to be d/c Reviewed pt's chart 06/07/19 Pt seen and examined Pt resting in NAD DW RN Reviewed pt's chart 06/06/19 Pt seen and examined Pt was in HD and in good spirits DW pt Reviewed pt's chart Vitals/I&O Vitals/I&O: Vital Signs Date Time Temp Pulse Resp B/P (MAP) Pulse Ox O2 Delivery O2 Flow Rate FiO2 06/08/19 11:48 95 Nasal Cannula 2.0 06/08/19 07:00 99.4 71 24 113/63 (80) 99.4 I & O 06/07/19 06/07/19 06/08/19 15:00 23:00 07:00 Intake Total 400 ml 240 ml 100 ml Output Total 0 ml Balance 400 ml 240 ml 100 ml Physical Exam General: Alert, Cooperative, No acute distress Heart: Regular rate, Normal S1, Normal S2 Lungs: Clear Abdomen: Normal bowel sounds, Soft Extremities: No clubbing, No cyanosis, No edema, Normal pulses, No tenderness/swelling Skin: No rashes, No breakdown, No significant lesion Review of Systems Review of Systems: No c/o blurry vision No c/o CP Assessment and Plan Assessmemt and Plan Problems Medical Problems: (1) Acute respiratory distress Status: Acute (2) Diabetes Status: Acute (3) Pleural effusion Status: Acute Assessment Post-op left sided thoracentesis Acute hypoxia, resolved Left pleural effusion, resolved Shortness of breath, resolved ESRD Acute Anemia Paroxysmal afib DM2 HTN CAD s/p RCA stent 09/2018 High Cholesterol Prior CVA Plan DVT Prophylaxis PT/OT Labs Home meds Full code Appreciate subspecialist input Discharge if okay with cardiology Script for Flagyl Comment Review of Relevant I have reviewed the following items scot (where applicable) has been applied. Medications: Current Medications Medications (Trade) Dose Ordered Sig/Nguyễn Route PRN Reason Start Time Stop Time Status Last Admin Dose Admin Vancomycin HCl (Vancomycin Oral Solution) 125 mg [id number] PO 06/07/19 17:00 06/07/19 20:00 PHILIP AGUILAR III DO Jun 08, 2019 11:54
--- NOTE | 2019-06-08 12:14 | PDOC ---
CARDIO Progress Notes Date and Time Date of Service 06/08/19 Time of Evaluation 1210 Subjective Subjective: No Chest Pain, No shortness of breath, No Palpitations Vitals Vitals Vital Signs Date Time Temp Pulse Resp B/P (MAP) Pulse Ox O2 Delivery O2 Flow Rate FiO2 06/08/19 11:48 95 Nasal Cannula 2.0 06/08/19 07:00 99.4 71 24 113/63 (80) 99.4 Weight Weight [ ] Input and Output Intake and Output Intake and Output 06/08/19 07:00 Intake Total 740 ml Output Total 0 ml Balance 740 ml Intake Oral 740 ml Output Urine Total 0 ml # Voids 1 Microbiology Micro Microbiology 06/02/19 Anaerobic/Aerobic Culture - Final, Complete 06/02/19 Anaerobic Culture Result 1 (ABNER) - Final, Complete 06/02/19 Aerobic Culture - Final, Complete 06/02/19 Aerobic Culture Result 1 (ABNER) - Final, Complete 06/02/19 Gram Stain - Final, Complete 06/02/19 Gram Stain Result 1 (ABNER) - Final, Complete 06/02/19 Gram Stain Result 2 (ABNER) - Final, Complete Review of Systems Constitutional: yes: weakness, alert, oriented Ears/Nose/Throat: Yes: no symptom reported Eyes: Yes: no symptom reported Pulmonary: Yes no symptom reported Cardiovascular: Yes no symptom reported Gastrointestional: Yes: no symptom reported Genitourinary: Yes: no symptom reported Musculoskeletal: Yes: no symptom reported Skin: Yes no symptom reported Psychiatric/Neurological: Yes: no symptom reported Endocrine: Yes: no symptom reported Physical Exam HEENT: Neck Supple W Full Motion Chest: Symmetric LUNGS: Clear to Auscultation, Other (diminished ) Heart: S1S2, RRR, no thrills, no rubs Abdomen: Soft N/T Extremities: No Calf Tenderness Neurology: alert, follow commands Assessment Assessment 1. Acute respiratory failure secondary to a/c CHF and pleural effusion . S/p thoracentesis 2. Acute on chronic diastolic CHF; secondary to missed HD 3. ESRD on HD; missed 10 days of dialysis prior to admission. 4. Anemia of chronic disease 5. PAFIB; in AFIB. rate much better controlled with metoprolol. On Eliquis for stroke prevention. 6. Hypertension; BP low end this am 7. CAD s/p previous PCI/stent to RCA CP free. Echo with preserved LV systolic function 8. Hyperlipidemia 9. Diabetes, II 10. 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
[2019-06-08 13:00] VITALS: BP 135/63
--- NOTE | 2019-06-08 13:08 | PDOC ---
Renal-Progress Notes Subjective Notes Notes NO NEW COMPLAINTS History of Present Illness Hx of present illness STABLE Vitals Vitals Vital Signs Date Time Temp Pulse Resp B/P (MAP) Pulse Ox O2 Delivery O2 Flow Rate FiO2 06/08/19 11:48 95 Nasal Cannula 2.0 06/08/19 07:00 99.4 71 24 113/63 (80) 99.4 Weight Weight [ ] I.O. Intake and Output Intake and Output 06/08/19 07:00 Intake Total 740 ml Output Total 0 ml Balance 740 ml Intake Oral 740 ml Output Urine Total 0 ml # Voids 1 Micro Micro Microbiology 06/02/19 Anaerobic/Aerobic Culture - Final, Complete 06/02/19 Anaerobic Culture Result 1 (ABNER) - Final, Complete 06/02/19 Aerobic Culture - Final, Complete 06/02/19 Aerobic Culture Result 1 (ABNER) - Final, Complete 06/02/19 Gram Stain - Final, Complete 06/02/19 Gram Stain Result 1 (ABNER) - Final, Complete 06/02/19 Gram Stain Result 2 (ABNER) - Final, Complete Review of Systems Constitutional: yes: weakness, alert, oriented Ears/Nose/Throat: Yes: no symptom reported Eyes: Yes: no symptom reported Pulmonary: Yes no symptom reported Cardiovascular: Yes no symptom reported Gastrointestional: Yes: no symptom reported Genitourinary: Yes: no symptom reported Musculoskeletal: Yes: no symptom reported Skin: Yes no symptom reported Psychiatric/Neurological: Yes: no symptom reported Endocrine: Yes: no symptom reported Physical Exam General Appearance: no apparent distress Skin: warm Respiratory: bilateral CTA Heart: S1S2 Abdomen: soft, bowel sounds present Genitourinary: bladder flat Extremities: pulses present Neurology: alert, follow commands Assessment Assessment IMP ANEMIA CHF-DIASTOLIC CHF ESRD HTN-UNCONTROLLED NON COMPLIANCE PLAN HD TODAY UF TO DW STARTED ARANESP WILL FOLLOW ENC COMPLIANCE PLACEMENT PENDING ROSA APODACA MD Jun 08, 2019 13:08
[2019-06-08] MEDS: FLUTICASONE 50MCG/NASAL SPRAY 16GM BOTTLE. NS SCH (13:15)
[2019-06-08] MEDS: FERROUS SULFATE 325 MG TABLET. PO SCH (13:16)
[2019-06-08] MEDS: ASPIRIN ENTERIC COATED 81 MG TABLET.DR. PO SCH (13:16)
[2019-06-08] MEDS: CALCITRIOL 0.25 MCG CAPSULE. PO SCH (13:20)
[2019-06-08] MEDS: CHOLECALCIFEROL (VITAMIN D3) 1,000 UNIT TABLET PO SCH (13:20)
[2019-06-08] MEDS: amLODIPine BESYLATE 10 MG TABLET PO SCH (13:21)
[2019-06-08] MEDS ORDERED: ANTI-COAG MONITOR BY PHARMACY. MC PRN (13:45)
[2019-06-08 15:00] VITALS: BP 97/59
[2019-06-08] MEDS: HYDROcodone/APAP 7.5/325MG 1 TAB TABLET PO PRN (15:20)
--- NOTE | 2019-06-08 15:25 | NUR ---
Pt requested only half a pain pill upon administration. This RN administered half a Lortab. Pt rates pain at a 7. Will continue to monitor.
--- NOTE | 2019-06-08 16:05 | PDOC ---
PULMONARY PROGRESS NOTES Subjective S/P thoracentesis on the left side, 1400 cc's of fluid removed on 06/02/19 PT NOT MORE SOA Vitals Vital Signs Date Time Temp Pulse Resp B/P (MAP) Pulse Ox O2 Delivery O2 Flow Rate FiO2 06/08/19 15:57 Nasal Cannula 2.0 06/08/19 13:21 104 118/50 06/08/19 13:00 97.0 20 96 97.0 ROS: No Nausea, No Chest Pain, No Abdominal Pain, No Increase Cough General: Alert Lungs: Clear Cardiovascular: S1 Abdomen: Soft Neuro Exam: Alert Extremities: No Edema Skin: Warm, Dry Medications Active Scripts Medications Dose Route/Sig Max Daily Dose Days Date Category Acidophilus (Lactobacillus Acidophilus) 1 Each Capsule 1 Each PO DAILY 09/09/18 Reported Hydrocodone-Apap 7.5-325 (Hydrocodone Bit/Acetaminophen) 1 Tab Tablet 1 Tab PO PRN Q6HRS PRN 09/09/18 Reported Lasix (Furosemide) 40 Mg Tablet 1 Tab PO PRN DAILY PRN 09/09/18 Reported Advair 250-50 Diskus (Fluticasone/Salmeterol) 1 Each Disk.w.dev 1 Puff IH BID 09/09/18 Reported Ferrous Gluconate 240 Mg Tablet 240 Mg PO DAILY 09/09/18 Reported Fluticasone Propionate Nasal [place] (Fluticasone Propionate) 16 Gm [place].susp 2 [place] NS DAILY 09/09/18 Reported Calcium Acetate 667 Mg Tablet 667 Mg PO TIDWMEALS 09/09/18 Reported Allopurinol 300 Mg Tablet 0.5 Tab PO DAILY 09/09/18 Reported Proair Respiclick (Albuterol Sulfate) 90 Mcg Aer.pow.ba 2 Puff IH PRN Q6HRS PRN 09/09/18 Reported Aspir-Low (Aspirin) 81 Mg Tablet.dr 1 Tab PO DAILY 05/24/18 Reported Amiodarone Hcl 200 Mg Tablet 1 Tab PO DAILY 05/24/18 Reported Vitamin D3 (Cholecalciferol (Vitamin D3)) 1,000 Unit Tablet 2 Tab PO DAILY 05/24/18 Reported Norvasc (Amlodipine Besylate) 10 Mg Tablet 10 Mg PO DAILY 05/24/18 Reported Bidil Tablet (Isosorb Dinit/Hydralazine Hcl) 1 Each Tablet 1 Each PO BID 05/24/18 Reported Calcitriol 0.25 Mcg Capsule 1 Cap PO DAILY 05/24/18 Reported Carvedilol 25 Mg Tablet 25 Mg PO BIDWMEALS 05/24/18 Reported Impression . IMPRESSION: 1. Acute hypoxic respiratory failure secondary to acute on chronic diastolic heart failure. 2. Abnormal chest x-ray with diffuse interstitial infiltrates secondary to congestive heart failure and also moderate left-sided pleural effusion. S/P thoracentesis on the left side, 1400 cc's of thin betty fluid was removed. 3. Prior echocardiogram with normal ejection fraction and grade 1 diastolic dysfunction. 4. End-stage renal disease, on hemodialysis. 5. Anemia, could be dilutional versus related to end-stage renal disease. No obvious gastrointestinal loss. 6. No significant tobacco history. 7. TRANSUDATE EFFUSION CYTOLOGY NEGATIVE FOR MALIGNANT CELLS 06/02/19 CT chest IMPRESSION: 1. Large partially loculated left pleural effusion with partial upper and lower lobe consolidation and partial upper lower lobe collapse. This is superimposed on suspected multifocal groundglass infiltrate within the bilateral upper lobes. Follow-up to confirm resolution and exclude an underlying lesion. 2. Trace right pleural effusion. 3. Cardiomegaly and trace pericardial effusion. 4. Right renal atrophy and right renal cysts. 5. Emphysema. Plan . OK TO DC FOLLOW IN MY OFFICE CONTINUE THE SAME RESP STATUS IS COMPENSATED CAROLYN SALDANA MD Jun 08, 2019 16:05
--- NOTE | 2019-06-08 17:21 | NUR ---
Pt is supposed to discharge today. Pt stated that no one is able to pick her up and she does not have a way to get inside her house without anybody to let her in. This RN told the pt we can provide transportation as long as she has a way into her house. Pt tried to call family members and was unable to get a hold of anyone. She stated she would be able to get into her house tomorrow when she could get a hold of somebody to let her in her house. Dr. Fitch notified by uri Hooper RN.
[2019-06-08 19:20] VITALS: BP 97/48
[2019-06-08 23:25] VITALS: BP 96/46
[2019-06-09 03:56] VITALS: BP 103/48
[2019-06-09 05:20] LABS: BASO % 1 % (0-3); EOS % 0 % (0-3); HEMATOCRIT 27.6 % (36.0-47.0); HEMOGLOBIN 8.8 g/dL (12.0-15.5); LYMPH # 1.3 x10^3/uL (1.0-4.8); LYMPH % 27 % (24-48); MEAN CORPUSCULAR HEMOGLOBIN 29 pg (25-35); MEAN CORPUSCULAR HGB CONC 32 g/dL (31-37); MEAN CORPUSCULAR VOLUME 91 fL (79-100); MONO # 0.6 x10^3/uL (0.0-1.1); MONO % 12 % (0-9); NEUT # 2.9 x10^3/uL (1.8-7.7); NEUT % 61 % (31-73); PLATELET COUNT 258 x10^3/uL (140-400); RED BLOOD COUNT 3.02 x10^6/uL (3.50-5.40); RED CELL DISTRIBUTION WIDTH 20.8 % (11.5-14.5); WHITE BLOOD COUNT 4.8 x10^3/uL (4.0-11.0)
[2019-06-09 05:33] LABS: CALCIUM 8.2 mg/dL (8.5-10.1); CREATININE 3.7 mg/dL (0.6-1.0); GFR 14.3; POTASSIUM 4.3 mmol/L (3.5-5.1)
[2019-06-09] MEDS: ALBUTEROL SULFATE 2.5 MG/3 ML NEBU. NEB SCH ×2 (05:59→11:53)
[2019-06-09] MEDS: BUDESONIDE 0.5 MG/2 ML NEBU. NEB SCH (05:59)
[2019-06-09 07:56] VITALS: BP 124/67
--- NOTE | 2019-06-09 09:14 | NUR ---
HH orders faxed to [facility] yesterday as pt did not have preference. SW notified agency, pt was not discharged yesterday.
[2019-06-09] MEDS: ASPIRIN ENTERIC COATED 81 MG TABLET.DR. PO SCH (09:27)
[2019-06-09] MEDS: FLUTICASONE 50MCG/NASAL SPRAY 16GM BOTTLE. NS SCH (09:27)
[2019-06-09] MEDS: CHOLECALCIFEROL (VITAMIN D3) 1,000 UNIT TABLET PO SCH (09:27)
[2019-06-09] MEDS: FERROUS SULFATE 325 MG TABLET. PO SCH (09:28)
[2019-06-09] MEDS: METOPROLOL TART IMMED RELEASE 50 MG TABLET. PO SCH (09:28)
[2019-06-09] MEDS: CALCITRIOL 0.25 MCG CAPSULE. PO SCH (09:28)
[2019-06-09] MEDS: ISOSORBIDE DINITRATE 10 MG TABLET. PO SCH (09:28)
[2019-06-09] MEDS: amLODIPine BESYLATE 10 MG TABLET PO SCH (09:29)
[2019-06-09] MEDS: hydrALAZINE 25 MG TABLET PO SCH (09:29)
[2019-06-09] MEDS: VANCOMYCIN 125 MG/2.5 ML ORAL SOLUTION. PO SCH ×2 (09:30→13:51)
[2019-06-09] MEDS: APIXABAN 2.5 MG TABLET. PO SCH (09:33)
[2019-06-09] MEDS: DICLOFENAC SODIUM 1% TOPICAL GEL 100GM TUBE. TP SCH (09:33)
[2019-06-09 11:23] VITALS: BP 128/68
[2019-06-09] MEDS ORDERED: PANTOPRAZOLE 40 MG TABLET.DR. PO SCH (11:30)
--- NOTE | 2019-06-09 11:38 | PDOC ---
[employer] PROGRESS NOTE Chief Complaint Chief Complaint Post-op left sided thoracentesis Acute hypoxia, resolved Left pleural effusion, resolved Shortness of breath, resolved ESRD Acute Anemia Paroxysmal afib DM2 HTN CAD s/p RCA stent 09/2018 High Cholesterol Prior CVA History of Present Illness History of Present Illness [id number] Patient seen and examined Chart reviewed Discussed with RN The patient seems to be approaching her baseline although a little weak I would recommend custodial but she refuses so were put in an order in for home with home health 06/08/19 Pt seen and examined Pt was in HD Pt stated she feels better today and expressed desire to be d/c Reviewed pt's chart 06/07/19 Pt seen and examined Pt resting in NAD DW RN Reviewed pt's chart 06/06/19 Pt seen and examined Pt was in HD and in good spirits DW pt Reviewed pt's chart Vitals/I&O Vitals/I&O: Vital Signs Date Time Temp Pulse Resp B/P (MAP) Pulse Ox O2 Delivery O2 Flow Rate FiO2 06/09/19 11:23 98.6 109 18 128/68 (88) 96 Nasal Cannula 2.0 98.6 I & O 06/08/19 06/08/19 06/09/19 15:00 23:00 07:00 Intake Total 500 ml 300 ml Balance 500 ml 300 ml Physical Exam General: Alert, Cooperative, No acute distress Heart: Regular rate, Normal S1, Normal S2 Lungs: Clear Abdomen: Normal bowel sounds, Soft Extremities: No clubbing, No cyanosis, No edema, Normal pulses, No tenderness/swelling Skin: No rashes, No breakdown, No significant lesion Labs Labs: Laboratory Tests Test 06/09/19 04:25 White Blood Count 4.8 x10^3/uL (4.0-11.0) Red Blood Count 3.02 x10^6/uL (3.50-5.40) Hemoglobin 8.8 g/dL (12.0-15.5) Hematocrit 27.6 % (36.0-47.0) Mean Corpuscular Volume 91 fL (79-100) Mean Corpuscular Hemoglobin 29 pg (25-35) Mean Corpuscular Hemoglobin Concent 32 g/dL (31-37) Red Cell Distribution Width 20.8 % (11.5-14.5) Platelet Count 258 x10^3/uL (140-400) Neutrophils (%) (Auto) 61 % (31-73) Lymphocytes (%) (Auto) 27 % (24-48) Monocytes (%) (Auto) 12 % (0-9) Eosinophils (%) (Auto) 0 % (0-3) Basophils (%) (Auto) 1 % (0-3) Neutrophils # (Auto) 2.9 x10^3/uL (1.8-7.7) Lymphocytes # (Auto) 1.3 x10^3/uL (1.0-4.8) Monocytes # (Auto) 0.6 x10^3/uL (0.0-1.1) Eosinophils # (Auto) 0.0 x10^3/uL (0.0-0.7) Basophils # (Auto) 0.0 x10^3/uL (0.0-0.2) Sodium Level 137 mmol/L (136-145) Potassium Level 4.3 mmol/L (3.5-5.1) Chloride Level 98 mmol/L (98-107) Carbon Dioxide Level 33 mmol/L (21-32) Anion Gap 6 (6-14) Blood Urea Nitrogen 14 mg/dL (7-20) Creatinine 3.7 mg/dL (0.6-1.0) Estimated GFR (Cockcroft-Gault) 14.3 Glucose Level 79 mg/dL (70-99) Calcium Level 8.2 mg/dL (8.5-10.1) Assessment and Plan Assessmemt and Plan Problems Medical Problems: (1) Acute respiratory distress Status: Acute (2) Diabetes Status: Acute (3) Pleural effusion Status: Acute Assessment Post-op left sided thoracentesis Acute hypoxia, resolved Left pleural effusion, resolved Shortness of breath, resolved ESRD Acute Anemia Paroxysmal afib DM2 HTN CAD s/p RCA stent 09/2018 High Cholesterol Prior CVA Plan Discharge home with home health if possible later today DVT Prophylaxis PT/OT Labs Home meds Full code Appreciate subspecialist input Discharge if okay with cardiology Script for Flagyl Comment Review of Relevant I have reviewed the following items scot (where applicable) has been applied. Medications: Current Medications Medications (Trade) Dose Ordered Sig/Nguyễn Route PRN Reason Start Time Stop Time Status Last Admin Dose Admin Info (Anti-Coagulation Monitoring By Pharmacy) 1 each PRN DAILY PRN MC SEE COMMENTS 06/08/19 13:45 06/08/19 15:34 PHILIP AGUILAR III DO Jun 09, 2019 11:37
--- NOTE | 2019-06-09 12:06 | PDOC ---
PROGRESS NOTES Subjective Subjective She c/o abdominal pain. Objective Objective Vital Signs Date Time Temp Pulse Resp B/P (MAP) Pulse Ox O2 Delivery O2 Flow Rate FiO2 06/09/19 11:53 95 Nasal Cannula 2.0 06/09/19 11:23 98.6 109 18 128/68 (88) 98.6 Intake and Output 06/09/19 07:00 Intake Total 800 ml Balance 800 ml Intake Oral 800 ml # Voids 4 Physical Exam Physical Exam She is alert,comfortable,sitting in bed with oxygen by nasal canula and she denies any adam back or hip pain and sheis walking with roller walker. Assessment Assessment Problems Medical Problems: (1) Acute respiratory distress Status: Acute (2) Diabetes Status: Acute (3) Pleural effusion Status: Acute Plan Plan of Care To try protonix to help with GI discomfort and home with home health follow up when medically stable. Comment Review of Relevant I have reviewed the following items scot (where applicable) has been applied. Labs Laboratory Tests Test 06/09/19 04:25 White Blood Count 4.8 x10^3/uL (4.0-11.0) Red Blood Count 3.02 x10^6/uL (3.50-5.40) Hemoglobin 8.8 g/dL (12.0-15.5) Hematocrit 27.6 % (36.0-47.0) Mean Corpuscular Volume 91 fL (79-100) Mean Corpuscular Hemoglobin 29 pg (25-35) Mean Corpuscular Hemoglobin Concent 32 g/dL (31-37) Red Cell Distribution Width 20.8 % (11.5-14.5) Platelet Count 258 x10^3/uL (140-400) Neutrophils (%) (Auto) 61 % (31-73) Lymphocytes (%) (Auto) 27 % (24-48) Monocytes (%) (Auto) 12 % (0-9) Eosinophils (%) (Auto) 0 % (0-3) Basophils (%) (Auto) 1 % (0-3) Neutrophils # (Auto) 2.9 x10^3/uL (1.8-7.7) Lymphocytes # (Auto) 1.3 x10^3/uL (1.0-4.8) Monocytes # (Auto) 0.6 x10^3/uL (0.0-1.1) Eosinophils # (Auto) 0.0 x10^3/uL (0.0-0.7) Basophils # (Auto) 0.0 x10^3/uL (0.0-0.2) Sodium Level 137 mmol/L (136-145) Potassium Level 4.3 mmol/L (3.5-5.1) Chloride Level 98 mmol/L (98-107) Carbon Dioxide Level 33 mmol/L (21-32) Anion Gap 6 (6-14) Blood Urea Nitrogen 14 mg/dL (7-20) Creatinine 3.7 mg/dL (0.6-1.0) Estimated GFR (Cockcroft-Gault) 14.3 Glucose Level 79 mg/dL (70-99) Calcium Level 8.2 mg/dL (8.5-10.1) Laboratory Tests Test 06/09/19 04:25 White Blood Count 4.8 x10^3/uL (4.0-11.0) Red Blood Count 3.02 x10^6/uL (3.50-5.40) Hemoglobin 8.8 g/dL (12.0-15.5) Hematocrit 27.6 % (36.0-47.0) Mean Corpuscular Volume 91 fL (79-100) Mean Corpuscular Hemoglobin 29 pg (25-35) Mean Corpuscular Hemoglobin Concent 32 g/dL (31-37) Red Cell Distribution Width 20.8 % (11.5-14.5) Platelet Count 258 x10^3/uL (140-400) Neutrophils (%) (Auto) 61 % (31-73) Lymphocytes (%) (Auto) 27 % (24-48) Monocytes (%) (Auto) 12 % (0-9) Eosinophils (%) (Auto) 0 % (0-3) Basophils (%) (Auto) 1 % (0-3) Neutrophils # (Auto) 2.9 x10^3/uL (1.8-7.7) Lymphocytes # (Auto) 1.3 x10^3/uL (1.0-4.8) Monocytes # (Auto) 0.6 x10^3/uL (0.0-1.1) Eosinophils # (Auto) 0.0 x10^3/uL (0.0-0.7) Basophils # (Auto) 0.0 x10^3/uL (0.0-0.2) Sodium Level 137 mmol/L (136-145) Potassium Level 4.3 mmol/L (3.5-5.1) Chloride Level 98 mmol/L (98-107) Carbon Dioxide Level 33 mmol/L (21-32) Anion Gap 6 (6-14) Blood Urea Nitrogen 14 mg/dL (7-20) Creatinine 3.7 mg/dL (0.6-1.0) Estimated GFR (Cockcroft-Gault) 14.3 Glucose Level 79 mg/dL (70-99) Calcium Level 8.2 mg/dL (8.5-10.1) Microbiology 06/02/19 Anaerobic/Aerobic Culture - Final, Complete 06/02/19 Anaerobic Culture Result 1 (ABNER) - Final, Complete 06/02/19 Aerobic Culture - Final, Complete 06/02/19 Aerobic Culture Result 1 (ABNER) - Final, Complete 06/02/19 Gram Stain - Final, Complete 06/02/19 Gram Stain Result 1 (ABNER) - Final, Complete 06/02/19 Gram Stain Result 2 (ABNER) - Final, Complete Medications Current Medications Albuterol/ Ipratropium (Duoneb) 3 ml 1X ONCE NEB Last administered on 06/01/19at 21:30; Start 06/01/19 at 21:30; Stop 06/01/19 at 21:31; Status DC Ondansetron HCl (Zofran) 4 mg PRN Q8HRS PRN IV NAUSEA/VOMITING; Start 06/02/19 at 00:15; Stop 06/03/19 at 00:14; Status DC Acetaminophen (Tylenol) 650 mg PRN Q4HRS PRN PO FEVER; Start 06/02/19 at 00:15; Stop 06/03/19 at 00:14; Status DC Amlodipine Besylate (Norvasc) 10 mg DAILY PO Last administered on 06/09/19 09:29; Start 06/02/19 at 09:00 Aspirin (Ecotrin) 81 mg DAILY PO Last administered on 06/09/19 09:27; Start 06/02/19 at 09:00 Calcitriol (Rocaltrol) 0.25 mcg DAILY PO Last administered on 06/09/19 09:28; Start 06/02/19 at 09:00 Vitamin D (Vitamin D3) 2,000 unit DAILY PO Last administered on 06/09/19 09:27; Start 06/02/19 at 09:00 Fluticasone Propionate (Flonase) 2 spray DAILY NS Last administered on 06/09/19 09:27; Start 06/02/19 at 09:00 Furosemide (Lasix) 40 mg PRN DAILY PRN PO SWELLING; Start 06/02/19 at 08:45 Acetaminophen/ Hydrocodone Bitart (Lortab 7.5/325) 1 tab PRN Q6HRS PRN PO PAIN Last administered on 06/08/19 15:20; Start 06/02/19 at 08:45 Carvedilol (Coreg) 25 mg BIDWMEALS PO Last administered on 06/05/19 17:09; Start 06/02/19 at 09:00; Stop 06/06/19 at 12:38; Status DC Ferrous Sulfate (Feosol) 325 mg DAILYWBKFT PO Last administered on 06/09/19 09:28; Start 06/02/19 at 09:00 Non-Formulary Medication (Fluticasone/ Salmeterol (Advair 250-50 Diskus)) 1 puff BID IH ; Start 06/02/19 at 09:00; Status UNV Hydralazine HCl (Apresoline) 37.5 mg BID PO Last administered on 06/09/19 09:29; Start 06/02/19 at 09:00 Isosorbide Dinitrate (Isordil) 20 mg BID PO Last administered on 06/09/19 09:28; Start 06/02/19 at 09:00 Budesonide (Pulmicort) 0.5 mg RTBID NEB Last administered on 06/09/19 05:59; Start 06/02/19 at 20:00 Albuterol Sulfate (Ventolin Neb Soln) 2.5 mg RTQID NEB Last administered on 06/09/19 11:53; Start 06/02/19 at 12:00 Sodium Chloride 1,000 ml @ 1,000 mls/hr Q1H PRN IV hypotension; Start 06/02/19 at 11:21; Stop 06/02/19 at 17:20; Status DC Diphenhydramine HCl (Benadryl) 25 mg 1X PRN PRN IV ITCHING; Start 06/02/19 at 11:30; Stop 06/03/19 at 11:29; Status DC Diphenhydramine HCl (Benadryl) 25 mg 1X PRN PRN IV ITCHING; Start 06/02/19 at 11:30; Stop 06/03/19 at 11:29; Status DC Sodium Chloride 1,000 ml @ 400 mls/hr Q2H30M PRN IV PATENCY; Start 06/02/19 at 11:21; Stop 06/02/19 at 23:20; Status DC Info (PHARMACY MONITORING -- do not chart) 1 each PRN DAILY PRN MC SEE COMMENTS; Start 06/02/19 at 11:30; Stop 06/03/19 at 08:49; Status DC Diclofenac Sodium (Voltaren) 1 torie BID TP Last administered on 06/09/19at 09:33; Start 06/02/19 at 21:00 Acetaminophen (Tylenol) 650 mg 1X PRN PRN PO PRE-TRANSFUSION; Start 06/03/19 at 05:00 Diphenhydramine HCl (Benadryl Oral Elixir) 12.5 mg 1X PRN PRN PO PRE- TRANSFUSION; Start 06/03/19 at 05:00 Diphenhydramine HCl (Benadryl) 25 mg PRN 1X PRN PO PRE-TRANSFUSION; Start 1 08/04/18 at 05:00 Sodium Chloride 1,000 ml @ 1,000 mls/hr Q1H PRN IV hypotension; Start 06/03/19 at 08:41; Stop 06/03/19 at 14:40; Status DC Albumin Human 200 ml @ 200 mls/hr 1X PRN PRN IV Hypotension; Start 06/03/19 at 08:45; Stop 06/03/19 at 14:44; Status DC Sodium Chloride 1,000 ml @ 400 mls/hr Q2H30M PRN IV PATENCY; Start 06/03/19 at 08:41; Stop 06/03/19 at 20:40; Status DC Info (PHARMACY MONITORING -- do not chart) 1 each PRN DAILY PRN MC SEE COMMENTS; Start 06/03/19 at 08:45; Stop 06/03/19 at 08:49; Status DC Info (PHARMACY MONITORING -- do not chart) 1 each PRN DAILY PRN MC SEE COMMENTS; Start 06/03/19 at 08:45 Sodium Chloride 1,000 ml @ 1,000 mls/hr Q1H PRN IV hypotension; Start 06/03/19 at 08:00; Stop 06/03/19 at 13:59; Status Cancel Sodium Chloride 1,000 ml @ 400 mls/hr Q2H30M PRN IV PATENCY; Start 06/03/19 at 08:00; Stop 06/03/19 at 19:59; Status Cancel Info (PHARMACY MONITORING -- do not chart) 1 each PRN DAILY PRN MC SEE COMMENTS; Start 06/03/19 at 10:30; Status UNV Info (PHARMACY MONITORING -- do not chart) 1 each PRN DAILY PRN MC SEE COMMENTS; Start 06/03/19 at 10:30 Lidocaine HCl (Xylocaine-Mpf 1% 2ml Vial) 2 ml 1X PRN ID PER PROTOCOL; Start 06/03/19 at 10:45 Darbepoetin Yair (ARANESP for DIALYSIS PTS) 60 mcg WEEKLYHS SQ Last administered on 06/03/19at 21:11; Start 06/03/19 at 21:00 Ondansetron HCl (Zofran Odt) 4 mg PRN Q6HRS PRN PO NAUSEA/VOMITING; Start 06/03/19 at 16:15; Status Cancel Ondansetron HCl (Zofran) 4 mg STK-MED ONCE .ROUTE ; Start 06/03/19 at 16:25; Stop 06/03/19 at 16:25; Status DC Ondansetron HCl (Zofran) 4 mg PRN Q6HRS PRN IVP NAUSEA/VOMITING Last administered on 06/03/19at 16:38; Start 06/03/19 at 16:30 Sodium Chloride (Saline Mist Nasal) 1 torie PRN Q4HRS PRN NS NASAL CONGESTION; Start 06/04/19 at 09:00 Albumin Human 50 ml @ 50 mls/hr PRN DAILY PRN IV hypotension (SBP < 90) Last administered on 06/04/19at 11:49; Start 06/04/19 at 11:15 Apixaban (Eliquis) 2.5 mg BID PO Last administered on 06/09/19at 09:33; Start 06/04/19 at 12:00 Metronidazole (Flagyl) 500 mg Q8HRS PO Last administered on 06/07/19at 05:40; Start 06/05/19 at 20:00; Stop 06/07/19 at 14:35; Status DC Sodium Chloride 1,000 ml @ 1,000 mls/hr Q1H PRN IV hypotension; Start 06/06/19 at 08:20; Stop 06/06/19 at 14:19; Status DC Albumin Human 200 ml @ 200 mls/hr 1X PRN PRN IV Hypotension; Start 06/06/19 at 08:30; Stop 06/06/19 at 14:29; Status DC Sodium Chloride (Normal Saline Flush) 10 ml 1X PRN PRN IV AP catheter pack; Start 06/06/19 at 08:30; Stop 06/07/19 at 08:29; Status DC Sodium Chloride (Normal Saline Flush) 10 ml 1X PRN PRN IV CUSTOMER SERVICES COORDINATOR catheter pack; Start 06/06/19 at 08:30; Stop 06/07/19 at 08:29; Status DC Sodium Chloride 1,000 ml @ 400 mls/hr Q2H30M PRN IV PATENCY; Start 06/06/19 at 08:20; Stop 06/06/19 at 20:19; Status DC Info (PHARMACY MONITORING -- do not chart) 1 each PRN DAILY PRN MC SEE COMMENTS; Start 06/06/19 at 08:30; Status UNV Info (PHARMACY MONITORING -- do not chart) 1 each PRN DAILY PRN MC SEE COMMENTS; Start 06/06/19 at 08:30; Status UNV Metoprolol Tartrate (Lopressor) 50 mg BID PO Last administered on 06/09/19at 09:28; Start 06/06/19 at 21:00 Vancomycin HCl (Vancomycin Oral Solution) 125 mg [id number] PO Last administered on 06/09/19at 09:30; Start 06/07/19 at 17:00 Sodium Chloride 1,000 ml @ 1,000 mls/hr Q1H PRN IV hypotension; Start 06/08/19 at 09:09; Stop 06/08/19 at 15:08; Status DC Albumin Human 200 ml @ 200 mls/hr 1X PRN PRN IV Hypotension; Start 06/08/19 at 09:15; Stop 06/08/19 at 15:14; Status DC Diphenhydramine HCl (Benadryl) 25 mg 1X PRN PRN IV ITCHING; Start 06/08/19 at 09:15; Stop 06/09/19 at 09:14; Status DC Diphenhydramine HCl (Benadryl) 25 mg 1X PRN PRN IV ITCHING; Start 06/08/19 at 09:15; Stop 06/09/19 at 09:14; Status DC Sodium Chloride 1,000 ml @ 400 mls/hr Q2H30M PRN IV PATENCY; Start 06/08/19 at 09:09; Stop 06/08/19 at 21:08; Status DC Info (PHARMACY MONITORING -- do not chart) 1 each PRN DAILY PRN MC SEE COMMENTS; Start 06/08/19 at 09:15 Info (Anti-Coagulation Monitoring By Pharmacy) 1 each PRN DAILY PRN MC SEE COMMENTS Last administered on 06/08/19at 15:34; Start 06/08/19 at 13:45 Pantoprazole Sodium (Protonix) 40 mg DAILYAC PO ; Start 06/09/19 at 11:30 Active Scripts Active Reported Eliquis (Apixaban) 2.5 Mg Tablet 2.5 Mg PO BID 30 Days Acidophilus (Lactobacillus Acidophilus) 1 Each Capsule 1 Each PO DAILY Hydrocodone-Apap 7.5-325 (Hydrocodone Bit/Acetaminophen) 1 Tab Tablet 1 Tab PO PRN Q6HRS PRN Lasix (Furosemide) 40 Mg Tablet 1 Tab PO PRN DAILY PRN Advair 250-50 Diskus (Fluticasone/Salmeterol) 1 Each Disk.w.dev 1 Puff IH BID Ferrous Gluconate 240 Mg Tablet 240 Mg PO DAILY Fluticasone Propionate Nasal [place] (Fluticasone Propionate) 16 Gm [place].susp 2 [place] NS DAILY Calcium Acetate 667 Mg Tablet 667 Mg PO TIDWMEALS Allopurinol 300 Mg Tablet 0.5 Tab PO DAILY Proair Respiclick (Albuterol Sulfate) 90 Mcg Aer.pow.ba 2 Puff IH PRN Q6HRS PRN Aspir-Low (Aspirin) 81 Mg Tablet.dr 1 Tab PO DAILY Amiodarone Hcl 200 Mg Tablet 1 Tab PO DAILY Vitamin D3 (Cholecalciferol (Vitamin D3)) 1,000 Unit Tablet 2 Tab PO DAILY Norvasc (Amlodipine Besylate) 10 Mg Tablet 10 Mg PO DAILY Bidil Tablet (Isosorb Dinit/Hydralazine Hcl) 1 Each Tablet 1 Each PO BID Calcitriol 0.25 Mcg Capsule 1 Cap PO DAILY Carvedilol 25 Mg Tablet 25 Mg PO BIDWMEALS Vitals/I & O Vital Sign - Last 24 Hours 06/08/19 06/08/19 06/08/19 06/08/19 13:00 13:15 13:21 15:00 Temp 97.0 99.4 97.0 99.4 Pulse 89 104 104 97 Resp 20 24 B/P (MAP) 135/63 (87) 118/50 118/50 97/59 (72) Pulse Ox 96 93 O2 Delivery Nasal Cannula Nasal Cannula O2 Flow Rate 2.0 2.0 06/08/19 06/08/19 06/08/19 06/08/19 15:57 19:20 19:56 20:00 Temp 98.3 98.3 Pulse 75 75 Resp 20 B/P (MAP) 97/48 (64) 97/48 Pulse Ox 98 O2 Delivery Nasal Cannula Nasal Cannula Nasal Cannula O2 Flow Rate 2.0 2.0 2.0 06/08/19 06/08/19 06/09/19 06/09/19 20:31 23:25 03:56 05:59 Temp 98.4 98.5 98.4 98.5 Pulse 77 69 Resp 16 16 B/P (MAP) 96/46 (63) 103/48 (66) Pulse Ox 100 97 95 O2 Delivery Nasal Cannula Nasal Cannula Nasal Cannula Nasal Cannula O2 Flow Rate 2.0 2.0 2.0 2.0 06/09/19 06/09/19 06/09/19 06/09/19 07:56 08:00 09:28 09:28 Temp 98.8 98.8 Pulse 111 111 111 Resp 18 B/P (MAP) 124/67 (86) 124/67 124/67 Pulse Ox 94 O2 Delivery Nasal Cannula Nasal Cannula O2 Flow Rate 2.0 2.0 06/09/19 06/09/19 06/09/19 06/09/19 09:29 09:29 11:23 11:53 Temp 98.6 98.6 Pulse 111 111 109 Resp 18 B/P (MAP) 124/67 124/67 128/68 (88) Pulse Ox 96 95 O2 Delivery Nasal Cannula Nasal Cannula O2 Flow Rate 2.0 2.0 Intake and Output 06/08/19 06/08/19 06/09/19 15:00 23:00 07:00 Intake Total 500 ml 300 ml Balance 500 ml 300 ml LAMONTE BALDWIN MD Jun 09, 2019 12:06
--- NOTE | 2019-06-09 13:04 | PDOC ---
Renal-Progress Notes Subjective Notes Notes NO NEW COMPLAINTS Vitals Vitals Vital Signs Date Time Temp Pulse Resp B/P (MAP) Pulse Ox O2 Delivery O2 Flow Rate FiO2 06/09/19 11:53 95 Nasal Cannula 2.0 06/09/19 11:23 98.6 109 18 128/68 (88) 98.6 Weight Weight [ ] I.O. Intake and Output Intake and Output 06/09/19 07:00 Intake Total 800 ml Balance 800 ml Intake Oral 800 ml # Voids 4 Labs Labs Laboratory Tests Test 06/09/19 04:25 White Blood Count 4.8 x10^3/uL (4.0-11.0) Red Blood Count 3.02 x10^6/uL (3.50-5.40) Hemoglobin 8.8 g/dL (12.0-15.5) Hematocrit 27.6 % (36.0-47.0) Mean Corpuscular Volume 91 fL (79-100) Mean Corpuscular Hemoglobin 29 pg (25-35) Mean Corpuscular Hemoglobin Concent 32 g/dL (31-37) Red Cell Distribution Width 20.8 % (11.5-14.5) Platelet Count 258 x10^3/uL (140-400) Neutrophils (%) (Auto) 61 % (31-73) Lymphocytes (%) (Auto) 27 % (24-48) Monocytes (%) (Auto) 12 % (0-9) Eosinophils (%) (Auto) 0 % (0-3) Basophils (%) (Auto) 1 % (0-3) Neutrophils # (Auto) 2.9 x10^3/uL (1.8-7.7) Lymphocytes # (Auto) 1.3 x10^3/uL (1.0-4.8) Monocytes # (Auto) 0.6 x10^3/uL (0.0-1.1) Eosinophils # (Auto) 0.0 x10^3/uL (0.0-0.7) Basophils # (Auto) 0.0 x10^3/uL (0.0-0.2) Sodium Level 137 mmol/L (136-145) Potassium Level 4.3 mmol/L (3.5-5.1) Chloride Level 98 mmol/L (98-107) Carbon Dioxide Level 33 mmol/L (21-32) Anion Gap 6 (6-14) Blood Urea Nitrogen 14 mg/dL (7-20) Creatinine 3.7 mg/dL (0.6-1.0) Estimated GFR (Cockcroft-Gault) 14.3 Glucose Level 79 mg/dL (70-99) Calcium Level 8.2 mg/dL (8.5-10.1) Micro Micro Microbiology 06/02/19 Anaerobic/Aerobic Culture - Final, Complete 06/02/19 Anaerobic Culture Result 1 (ABNER) - Final, Complete 06/02/19 Aerobic Culture - Final, Complete 06/02/19 Aerobic Culture Result 1 (ABNER) - Final, Complete 06/02/19 Gram Stain - Final, Complete 06/02/19 Gram Stain Result 1 (ABNER) - Final, Complete 06/02/19 Gram Stain Result 2 (ABNER) - Final, Complete Review of Systems Constitutional: yes: weakness, alert, oriented Ears/Nose/Throat: Yes: no symptom reported Eyes: Yes: no symptom reported Pulmonary: Yes no symptom reported Cardiovascular: Yes no symptom reported Gastrointestional: Yes: no symptom reported Genitourinary: Yes: no symptom reported Musculoskeletal: Yes: no symptom reported Skin: Yes no symptom reported Psychiatric/Neurological: Yes: no symptom reported Endocrine: Yes: no symptom reported Physical Exam General Appearance: no apparent distress Skin: warm Respiratory: bilateral CTA Heart: S1S2 Abdomen: soft, bowel sounds present Genitourinary: bladder flat Extremities: pulses present Neurology: alert, follow commands Assessment Assessment IMP ANEMIA CHF-DIASTOLIC CHF ESRD HTN-UNCONTROLLED NON COMPLIANCE PLAN HD [facility]ED [facility] WILL FOLLOW [facility] COMPLIANCE PLACEMENT PENDING ROSA APODACA MD Jun 09, 2019 13:03
[2019-06-09 14:41] VITALS: BP 94/41
--- NOTE | 2019-06-09 16:02 | NUR ---
Pt still says she does not have her keys. SW discussed with pt that she was ready to dc since yesterday and should have been calling her family all this time. Pt then stated her son has her carlson but did not have his number but then she gave SWer a phone number -attempted to call and it's non-working number. SW left a VM to Pt's granddaughter, Haleigh phone: [phone] and requested a call back. Pt reports her granddaughter will call when she gets off from work. Pt states her granddaughter brought her to [facility] and is able to get carlson. Discussed with Charge Nurse.
--- NOTE | 2019-06-09 18:38 | NUR ---
Discharge Note: QIANA MARINO [address] Discharge instructions and discharge home medications reviewed with patient and a copy given. All questions have been answered and understanding verbalized. The following instructions and handouts were given: Stop carvedilol, med changed to metoprolol 50 mg , 1 tablet BID Vancomycin 125 mg QID for 7 days for C. diff infection Pantoprazole 40 mg tablet, 1 tablet once a day. Prescriptions called to [facility] pharmacy at [phone]. Patient teaching done, hold BP meds before dialysis. Handouts on C diff infection and pleural effusion. BP monitoring at home, watch out for severe abdominal pain, severe shortness of breath. Follow up with PCP in a week Resume dialysis as scheduled. Discontinued lines and drains: peripheral IV intact, patient tolerated removal, no complications noted. Patient discharged to home with home health via wheelchair accompanied by the patient's neighbor at 1745.
--- NOTE | 2019-06-10 09:15 | DS ---
DATE OF DISCHARGE: 06/09/2019 ADMISSION DIAGNOSES: Respiratory failure, pleural effusions, and pneumonia. DISCHARGE DIAGNOSIS: Resolving pneumonia. HOSPITAL COURSE: The patient is a pleasant 79-year-old female who presented with pneumonia and respiratory failure. She has some effusions. She was admitted. We gave her IV antibiotics and breathing treatments and oxygen. Consult Pulmonary. Over the next few days, her symptoms resolved. Yesterday, I saw and examined, she was doing well. Heart tones are normal. Lungs were clear. We discharged back home with home health. DISPOSITION: Home with home health. ACTIVITY: As tolerated. DIET: Low sodium. MEDICATIONS: Please see MRAD. TOTAL TIME: 34 minutes. PHILIP AGUILAR DO DR: ROSA/gia JOB#: [id number] / [id number]
== END 2019-06-09 01:00 | disposition home health service (06) | DRG 291 ==
LOC: ER 21:07 → 6 SOUTH 06-02 00:15 → UNDODISIN 06-09 15:26
PROVIDERS: ADMIT Internal Medicine; ATTEND Internal Medicine
PROC: 5A1D70Z Performance of Urinary Filtration, Intermittent, Less than 6 Hours Per Day (ICD-10-PCS; principal; 2019-06-02)
PROC: 0W9B3ZZ Drainage of Left Pleural Cavity, Percutaneous Approach (ICD-10-PCS; 2019-06-02)
PROC: 5A1D70Z Performance of Urinary Filtration, Intermittent, Less than 6 Hours Per Day (ICD-10-PCS; 2019-06-03)
PROC: 5A1D70Z Performance of Urinary Filtration, Intermittent, Less than 6 Hours Per Day (ICD-10-PCS; 2019-06-08)
PROC: 30233N1 Transfusion of Nonautologous Red Blood Cells into Peripheral Vein, Percutaneous Approach (ICD-10-PCS; 2019-06-09)
DX: I13.2 Hypertensive heart and chronic kidney disease with heart failure and with stage 5 chronic kidney disease, or end stage renal disease (principal); J18.9 Pneumonia, unspecified organism; I50.33 Acute on chronic diastolic (congestive) heart failure; J96.01 Acute respiratory failure with hypoxia; N18.6 End stage renal disease; M19.90 Unspecified osteoarthritis, unspecified site; M10.9 Gout, unspecified; I25.10 Atherosclerotic heart disease of native coronary artery without angina pectoris; E78.00 Pure hypercholesterolemia, unspecified; E11.22 Type 2 diabetes mellitus with diabetic chronic kidney disease; E78.5 Hyperlipidemia, unspecified; I48.0 Paroxysmal atrial fibrillation; E11.42 Type 2 diabetes mellitus with diabetic polyneuropathy; J43.9 Emphysema, unspecified; G89.29 Other chronic pain; D63.8 Anemia in other chronic diseases classified elsewhere; M25.359 Other instability, unspecified hip; M51.36 Other intervertebral disc degeneration, lumbar region; M85.80 Other specified disorders of bone density and structure, unspecified site; N28.1 Cyst of kidney, acquired; Z99.81 Dependence on supplemental oxygen; Z79.899 Other long term (current) drug therapy; Z91.19 Patient's noncompliance with other medical treatment and regimen; Z95.5 Presence of coronary angioplasty implant and graft; Z87.891 Personal history of nicotine dependence; Z90.710 Acquired absence of both cervix and uterus; Z99.2 Dependence on renal dialysis; Z88.2 Allergy status to sulfonamides; Z86.73 Personal history of transient ischemic attack (TIA), and cerebral infarction without residual deficits; Z82.49 Family history of ischemic heart disease and other diseases of the circulatory system
CPT/HCPCS: 32555; 36415; 70450; 71045; 71250; 73521; 80048; 80053; 80061; 80069; 82962; 83615; 84157; 85014; 85018; 85025; 85049; 85610; 86850; 86900; 86901; 86920; 87071; 87075; 87493; 88112; 88305; 93005; 93306; 94640; 94760; J0882; J2405; J7613; J7620; J7626; P9016; P9046; 97110; 97530; 99291-25; G0378

== ENCOUNTER 2019-07-13 19:53 | Emergency (ER) | payer OTHER, MEDICAID ==
[~2019-07-13] VITALS: Ht 167.6 cm; Wt 61.8 kg
--- NOTE | 2019-07-13 21:27 | PHYS DOC ---
Past Medical History Past Medical History: Arthritis, Asthma, CAD, COPD, Diabetes-Type II, High Cholesterol, Heart Disease, Hypertension, Renal Failure, Stroke Additional Past Medical Histor: C-DIFF Past Surgical History: Hysterectomy, Other Additional Past Surgical Histo: STENTS, PARITAL THYROID Smoking Status: Former Smoker Alcohol Use: Rarely Drug Use: None Adult General Chief Complaint Chief Complaint: DIARRHEA HPI HPI 79-year-old female presents to the emergency department with complaints of diarrhea. She has underlying history of CAD, COPD, end-stage renal disease, hypertension Patient was seen at this facility on July 03 diagnosed with C. difficile, she was continued on vancomycin for 7 days post discharge. She states diarrhea improved however has returned. She describes chills, sweats, no nausea or vomiting. Denies any abdominal pain. She has had prostate 3-5 stools per day. She states she missed dialysis today they told her come to the emergency department for further evaluation. She denies any chest pain, shortness breath, headache or visual change at this time. Nothing makes her symptoms worse, nothing makes her symptoms better. Review of Systems Review of Systems Constitutional: Chills Respiratory: Denies cough or shortness of breath [] Cardiovascular: No additional information not addressed in HPI [] GI: Denies abdominal pain, nausea, vomiting, + diarrhea [] Musculoskeletal: Denies back pain or joint pain [] Integument: Denies rash or skin lesions [] Neurologic: Denies headache, focal weakness or sensory changes [] All other systems were reviewed and found to be within normal limits, except as documented in this note. Current Medications Current Medications Current Medications Medications (Trade) Dose Ordered Sig/Nguyễn Start Time Stop Time Status Last Admin Dose Admin Sodium Chloride 500 ml @ 250 mls/hr 1X ONCE 07/13/19 23:15 07/14/19 01:14 UNV Allergies Allergies Allergies Coded Allergies Type Severity Reaction Last Updated Verified Sulfa (Sulfonamide Antibiotics) Allergy Intermediate Swelling 09/12/18 Yes Physical Exam Physical Exam Constitutional: Well developed, well nourished, no acute distress, non-toxic appearance. [] HENT: Normocephalic, atraumatic, bilateral external ears normal, oropharynx mo ist, no oral exudates, nose normal. [] Eyes: PERRLA, EOMI, conjunctiva normal, no discharge. [] Cardiovascular: Bradycardia Lungs & Thorax: Bilateral breath sounds clear to auscultation [] Abdomen: Bowel sounds normal, soft, no tenderness, no masses, no pulsatile masses. [] Skin: Warm, dry, no erythema, no rash. [] Back: No tenderness, no CVA tenderness. [] Extremities: No tenderness, no edema. [] Neurologic: Alert and oriented X 3, no focal deficits noted. [] Psychologic: Affect normal, judgement normal, mood normal. [] Current Patient Data Vital Signs Vital Signs Date Time Temp Pulse Resp B/P (MAP) Pulse Ox O2 Delivery O2 Flow Rate FiO2 07/13/19 20:00 97.4 52 19 134/87 (103) 98 Room Air 97.4 Lab Values Laboratory Tests Test 07/13/19 20:19 07/13/19 21:55 White Blood Count 5.7 x10^3/uL (4.0-11.0) Red Blood Count 3.39 x10^6/uL (3.50-5.40) L Hemoglobin 9.7 g/dL (12.0-15.5) L Hematocrit 30.0 % (36.0-47.0) L Mean Corpuscular Volume 88 fL (79-100) Mean Corpuscular Hemoglobin 29 pg (25-35) Mean Corpuscular Hemoglobin Concent 32 g/dL (31-37) Red Cell Distribution Width 19.4 % (11.5-14.5) H Platelet Count 452 x10^3/uL (140-400) H Neutrophils (%) (Auto) 72 % (31-73) Lymphocytes (%) (Auto) 20 % (24-48) L Monocytes (%) (Auto) 7 % (0-9) Eosinophils (%) (Auto) 1 % (0-3) Basophils (%) (Auto) 1 % (0-3) Neutrophils # (Auto) 4.1 x10^3/uL (1.8-7.7) Lymphocytes # (Auto) 1.2 x10^3/uL (1.0-4.8) Monocytes # (Auto) 0.4 x10^3/uL (0.0-1.1) Eosinophils # (Auto) 0.0 x10^3/uL (0.0-0.7) Basophils # (Auto) 0.1 x10^3/uL (0.0-0.2) Sodium Level 143 mmol/L (136-145) Potassium Level 4.6 mmol/L (3.5-5.1) Chloride Level 105 mmol/L (98-107) Carbon Dioxide Level 26 mmol/L (21-32) Anion Gap 12 (6-14) Blood Urea Nitrogen 93 mg/dL (7-20) H Creatinine 10.7 mg/dL (0.6-1.0) H Estimated GFR (Cockcroft-Gault) 4.2 BUN/Creatinine Ratio 9 (6-20) Glucose Level 137 mg/dL (70-99) H Calcium Level 7.8 mg/dL (8.5-10.1) L Total Bilirubin 0.3 mg/dL (0.2-1.0) Aspartate Amino Transferase (AST) 70 U/L (15-37) H Alanine Aminotransferase (ALT) 51 U/L (14-59) Alkaline Phosphatase 111 U/L (46-116) Total Protein 6.0 g/dL (6.4-8.2) L Albumin 1.7 g/dL (3.4-5.0) L Albumin/Globulin Ratio 0.4 (1.0-1.7) L Laboratory Tests 07/13/19 20:19 Laboratory Tests 07/13/19 21:55 EKG EKG [] Radiology/Procedures Radiology/Procedures [] Course & Med Decision Making Course & Med Decision Making Pertinent Labs and Imaging studies reviewed. (See chart for details) []79-year-old female presents to the emergency department with complaints of d iarrhea. She has underlying history of CAD, COPD, end-stage renal disease, hypertension Patient was seen at this facility on July 03 diagnosed with C. difficile, she was continued on vancomycin for 7 days post discharge. She states diarrhea improved however has returned. She describes chills, sweats, no nausea or vomiting. Denies any abdominal pain. She has had prostate 3-5 stools per day. She states she missed dialysis today they told her come to the emergency department for further evaluation. She denies any chest pain, shortness breath, headache or visual change at this time. Nothing makes her symptoms worse, nothing makes her symptoms better. Labs reviewed No further diarrhea in ER No hyperkalemia or elevated WBC 250NS given in ER Vancomycin 125mg po QID x 5 days provided upon discharge Return precautions provided Dragon Disclaimer Dragon Disclaimer This electronic medical record was generated, in whole or in part, using a voice recognition dictation system. Departure Departure Impression: Primary Impression: Diarrhea Disposition: 01 HOME, SELF-CARE Condition: STABLE Referrals: MARIUSZ PALM MD (PCP) Patient Instructions: Clostridium Difficile Infection, [id number], Diarrhea, [id number] Additional Instructions: Recommend follow up with PCP 3 - 5 days Return to the ER with worsening symptoms, intractable pain, fever, altered mental status Tylenol/Motrin as needed for pain Take antibiotics as directed Follow up with HD as scheduled Scripts Vancomycin Hcl (VANCOMYCIN HCL) 125 Mg Capsule 1 CAP PO QID for 7 Days, #28 CAP 0 Refills Prov: CRYSTAL MONTE MD 07/13/19 Problem Qualifiers Primary Impression: Diarrhea Diarrhea type: presumed infectious Qualified Codes: R19.7 - Diarrhea, unspecified CRYSTAL MONTE MD Jul 13, 2019 21:27
[2019-07-13 21:33] LABS: BASO # 0.1 x10^3/uL (0.0-0.2); BASO % 1 % (0-3); EOS % 1 % (0-3); HEMOGLOBIN 9.7 g/dL (12.0-15.5); LYMPH # 1.2 x10^3/uL (1.0-4.8); LYMPH % 20 % (24-48); MEAN CORPUSCULAR HEMOGLOBIN 29 pg (25-35); MEAN CORPUSCULAR HGB CONC 32 g/dL (31-37); MEAN CORPUSCULAR VOLUME 88 fL (79-100); MONO # 0.4 x10^3/uL (0.0-1.1); MONO % 7 % (0-9); NEUT # 4.1 x10^3/uL (1.8-7.7); NEUT % 72 % (31-73); PLATELET COUNT 452 x10^3/uL (140-400); RED BLOOD COUNT 3.39 x10^6/uL (3.50-5.40); RED CELL DISTRIBUTION WIDTH 19.4 % (11.5-14.5); WHITE BLOOD COUNT 5.7 x10^3/uL (4.0-11.0)
[2019-07-13 22:10] LABS: CALCIUM 7.8 mg/dL (8.5-10.1); CREATININE 10.7 mg/dL (0.6-1.0); GFR 4.2; POTASSIUM 4.6 mmol/L (3.5-5.1)
[2019-07-13 22:16] LABS: ALBUMIN 1.7 g/dL (3.4-5.0); ALBUMIN/GLOBULIN RATIO 0.4 (1.0-1.7); TOTAL BILIRUBIN 0.3 mg/dL (0.2-1.0)
[2019-07-13] MEDS ORDERED: VANC125C3 PO (23:15)
[2019-07-13] MEDS ORDERED: IV NORMAL SALINE 500ML BAG 500 ML IV ONE (23:30)
[2019-07-14 00:05] VITALS: BP 120/58
--- NOTE | 2019-07-14 06:05 | EKG ---
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
== END 2019-07-14 00:20 | disposition home or self-care (01) ==
LOC: ER 19:53
DX: R19.7 Diarrhea, unspecified (principal); J44.9 Chronic obstructive pulmonary disease, unspecified; E11.22 Type 2 diabetes mellitus with diabetic chronic kidney disease; I13.10 Hypertensive heart and chronic kidney disease without heart failure, with stage 1 through stage 4 chronic kidney disease, or unspecified chronic kidney disease; N18.9 Chronic kidney disease, unspecified; I25.10 Atherosclerotic heart disease of native coronary artery without angina pectoris; E78.00 Pure hypercholesterolemia, unspecified; Z86.73 Personal history of transient ischemic attack (TIA), and cerebral infarction without residual deficits; Z87.891 Personal history of nicotine dependence; Z95.5 Presence of coronary angioplasty implant and graft; Z88.2 Allergy status to sulfonamides
CPT/HCPCS: 36415; 80053; 85025; 93005; 96360; 99285; J7040

== ENCOUNTER → 2020-02-28 | Outpatient (CLI) | payer OTHER, MEDICAID ==
[~2020-02-28] MED LIST changes: +VANC125C3 PO
--- NOTE | 2020-02-28 16:14 | KCIC ---
Examination: EXT NON VASC RIGHT History: Reason: RT INGUINAL MASS; EVAL FOR HERNIA / Comparison/Correlation: None Findings: Ultrasound imaging of the right groin region was performed without and with Valsalva. Visualization is somewhat limited due to edema present. Right inguinal hernia is containing omental fat is present. No bowel identified within the hernia. No loculated collections. Benign-appearing right groin lymph node is present. Impression: Right inguinal hernia containing omental fat. Electronically signed by: Teddy Saavedra MD (02/28/2020 4:11 PM) [id number]
== END | disposition home or self-care (01) ==
LOC: KCIC US 14:40
PROVIDERS: ATTEND Internal Medicine
DX: K40.90 Unilateral inguinal hernia, without obstruction or gangrene, not specified as recurrent (principal)
CPT/HCPCS: 76881

== ENCOUNTER 2021-04-18 13:09 | Emergency (ER) | payer OTHER, MEDICAID ==
[~2021-04-18] VITALS: Ht 162.6 cm; Wt 95.0 kg
[~2021-04-18 13:09] MED LIST changes: -AMIO200T4 PO; +AMIO200T53 PO; +AMLO-187 PO; -AMLO10TA8 PO
--- NOTE | 2021-04-18 14:49 | RAD ---
XR CHEST 1V CLINICAL INDICATIONS: Reason: Lower extremity swelling/edema bilateral / Spl. Instructions: / Histor y: COMPARISON: May 09, 2019. Findings: Chronic interstitial thickening is seen bilaterally. No new lung consolidation or pleural e ffusion is seen. No pneumothorax is apparent. Heart size is enlarged but stable. Mediastinum and pulm onary vasculature are stable. IMPRESSION: Chronic interstitial thickening. Certainly, superimposed acute interstitial pulmonary gladys ma may be present clinically if there is clinical finding of rales. Cardiomegaly. Electronically signed by: Thierry Ricks MD (04/18/2021 2:46 PM) [id number]
--- NOTE | 2021-04-18 15:18 | EKG ---
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
--- NOTE | 2021-04-18 15:25 | PHYS DOC ---
Past Medical History Past Medical History: Arthritis, Asthma, CAD, COPD, Diabetes-Type II, High Cholesterol, Heart Disease, Hypertension, Renal Failure, Stroke Additional Past Medical Histor: C-DIFF Past Surgical History: Pacemaker Additional Past Surgical Histo: STENTS, PARITAL THYROID Smoking Status: Never Smoker Alcohol Use: None Drug Use: None General Adult EDM: Chief Complaint: MULTIPLE COMPLAINTS HPI: HPI: Patient is a 81-year-old female who presents to the emergency department stating she has not been to dialysis for the past 2 weeks, patient states her legs are swollen and have been this way for the past 3 months. Patient states her right hip hurts and wants to know why. Patient reports shortness of breath however states she has been short of breath for the last several years and is not any more short of breath than she usually is, patient denies chest pains or chest congestion. Patient states she would like her labs to be drawn today but she does not wish to be admitted and will leave AMA if she has to. Patient denies recent fever or chills, denies other physical complaints or physical concerns. Review of Systems: Review of Systems: 14 body systems of review of systems have been reviewed. See HPI for pertinent positives and negative responses, otherwise all other systems are negative, nonpertinent or noncontributory. Constitutional: Negative except as outlined in HPI above. Skin: Negative except as outlined in HPI above. Eyes: Negative except as outlined in HPI above. HENT: Negative except as outlined in HPI above. Respiratory: Negative except as outlined in HPI above. Cardiovascular: Negative except as outlined in HPI above. GI: Negative except as outlined in HPI above. : Negative except as outlined in HPI above. Musculoskeletal: Negative except as outlined in HPI above. Integument: Negative except as outlined in HPI above. Neurologic: Negative except as outlined in HPI above. Endocrine: Negative except as outlined in HPI above. Lymphatic: Negative except as outlined in HPI above. Psychiatric: Negative except as outlined in HPI above. Heart Score: C/O Chest Pain: No Risk Factors: Risk Factors: DM, Current or recent (<one month) smoker, HTN, HLP, family history of CAD, obesity. Risk Scores: Score 0 - 3: 2.5% MACE over next 6 weeks - Discharge Home Score 4 - 6: 20.3% MACE over next 6 weeks - Admit for Clinical Observation Score 7 - 10: 72.7% MACE over next 6 weeks - Early Invasive Strategies Allergies: Allergies: Allergies Coded Allergies Type Severity Reaction Last Updated Verified Sulfa (Sulfonamide Antibiotics) Allergy Intermediate Swelling 04/18/21 Yes Physical Exam: PE: Constitutional: Well developed, well nourished, no acute distress, non-toxic appearance. 81-year-old female in no apparent distress. HENT: Normocephalic, atraumatic. Eyes: Conjunctiva normal, no discharge. Neck: Normal range of motion, no stridor. Cardiovascular: No cyanosis appreciated, distal cap refill less than 2 seconds. Lungs & Thorax: Patient is in no respiratory distress, no audible adventitious lung sounds appreciated. Lung sounds clear to auscultate all lung zarate Abdomen: Nontender, no abnormalities noted. Skin: Warm, dry, no erythema, no rash. Back: No tenderness, no deformities. Extremities: No tenderness, no cyanosis, no clubbing, ROM intact, bilateral lower extremity edema from hips to feet, 3+. No weeping, skin is intact, patient has AV fistula of right upper extremity with positive bruit and thrill. Neurologic: Alert and oriented X 3, normal motor function, normal sensory function, no focal deficits noted. Psychologic: Affect normal, judgement normal, mood normal. Current Patient Data: Labs: Laboratory Tests Test 04/18/21 16:15 White Blood Count 5.0 x10^3/uL Red Blood Count 3.26 x10^6/uL Hemoglobin 10.5 g/dL Hematocrit 33.5 % Mean Corpuscular Volume 103 fL Mean Corpuscular Hemoglobin 32 pg Mean Corpuscular Hemoglobin Concent 31 g/dL Red Cell Distribution Width 20.4 % Platelet Count 134 x10^3/uL Neutrophils (%) (Auto) 65 % Lymphocytes (%) (Auto) 22 % Monocytes (%) (Auto) 12 % Eosinophils (%) (Auto) 1 % Basophils (%) (Auto) 1 % Neutrophils # (Auto) 3.2 x10^3/uL Lymphocytes # (Auto) 1.1 x10^3/uL Monocytes # (Auto) 0.6 x10^3/uL Eosinophils # (Auto) 0.0 x10^3/uL Basophils # (Auto) 0.0 x10^3/uL Platelet Estimate Decreased Polychromasia Slight Poikilocytosis Mod Anisocytosis Mod Macrocytosis Mod Target Cells Few Ovalocytes Mod Schistocytes Few Sodium Level 140 mmol/L Potassium Level 5.6 mmol/L Chloride Level 102 mmol/L Carbon Dioxide Level 16 mmol/L Anion Gap 22 Blood Urea Nitrogen 100 mg/dL Creatinine 13.4 mg/dL Estimated GFR (Cockcroft-Gault) 3.2 BUN/Creatinine Ratio 7 Glucose Level 101 mg/dL Calcium Level 9.1 mg/dL Phosphorus Level 11.0 mg/dL Magnesium Level 2.0 mg/dL Total Bilirubin 1.0 mg/dL Aspartate Amino Transf (AST/SGOT) 21 U/L Alanine Aminotransferase (ALT/SGPT) 21 U/L Alkaline Phosphatase 99 U/L Creatine Kinase 54 U/L Creatine Kinase MB (Mass) 3.9 ng/mL Creatine Kinase MB Relative Index 7.2 % Troponin I High Sensitivity 1403 ng/L CU-Fst-O-Type Natriuretic Peptide > 73815 pg/mL Total Protein 6.7 g/dL Albumin 2.5 g/dL Albumin/Globulin Ratio 0.6 Current Medications Medications (Trade) Dose Ordered Sig/Nguyễn Route PRN Reason Start Time Stop Time Status Last Admin Dose Admin Acetaminophen/ Hydrocodone Bitart (Lortab 5/325) 1 tab 1X ONCE PO 04/18/21 18:30 04/18/21 18:31 DC 04/18/21 18:13 Vital Signs: Vital Signs Date Time Temp Pulse Resp B/P (MAP) Pulse Ox O2 Delivery O2 Flow Rate FiO2 04/18/21 14:00 98.7 73 15 170/79 (109) 98 Room Air 98.7 EKG: EKG: EKG performed at 1444 shows a sinus arrhythmia rightward axis, heart rate 92 bpm, [place] interval 0.154, QTc interval 0.523, no acute STEMI, no ACS, no acute ischemia appreciated, however EKG is of poor quality, interpreted by ED attending physician Dr. Meade who has requested a repeat EKG. Repeat EKG performed at 1500 by ED nursing staff shows a ventricular paced beat. Heart rate 67 bpm, QTc interval 0.523, no acute STEMI, no ACS, no acute ischemia appreciated, EKG interpreted by ED attending physician Dr. Meade. Radiology/Procedures: Radiology/Procedures: PROCEDURE: CHEST AP ONLY XR CHEST 1V CLINICAL INDICATIONS: Reason: Lower extremity swelling/edema bilateral / Spl. Instructions: / History: COMPARISON: May 09, 2019. Findings: Chronic interstitial thickening is seen bilaterally. No new lung consolidation or pleural effusion is seen. No pneumothorax is apparent. Heart size is enlarged but stable. Mediastinum and pulmonary vasculature are stable. IMPRESSION: Chronic interstitial thickening. Certainly, superimposed acute interstitial pulmonary edema may be present clinically if there is clinical finding of rales. Cardiomegaly. Electronically signed by: Thierry Ricks MD (04/18/2021 2:46 PM) [id number] PROCEDURE: HIP RIGHT 2V WITH PELVIS Exam: Pelvis 2 views INDICATION: Right hip pain TECHNIQUE: Frontal view of pelvis with frog-leg lateral views the right hip Comparisons: None FINDINGS: Diffuse osteopenia. Bone mineralization is normal. No acute or healed fractures. Soft tissues are unremarkable. IMPRESSION: Diffuse ostomy without underlying osseous abnormality identified. If the patient is acutely unable to bear weight MRI to rule out occult hip fracture is recommended. Electronically signed by: Ramone Chavarria MD (04/18/2021 8:40 PM) [facility] Course & Med Decision Making: Course & Med Decision Making Pertinent Labs and Imaging studies reviewed. (See chart for details) 81-year-old female, vital signs reviewed, presents to the emergency department requesting her labs be drawn and an x-ray of her right hip. Patient is a hemodialysis patient that reports missing her last 6 dialysis appointments related to being unable to secure a ride. Patient's granddaughters are at bedside reporting that her ride comes to pick her up but she does not go. Patient's physical examination concerning for fluid overload most likely related to patient not receiving hemodialysis, cardiac monitoring, EKG, chest x-ray, CBC, CMP, cardiac isoenzymes, magnesium, phosphorus, NT proBNP, troponin I high- sensitivity, urinalysis assay, patient states she does make urine once every day or so. X-ray of right hip and pelvis. Patient's labs concerning for acute on chronic renal failure requiring dialysis, discussed with patient all abnormal labs and recommended admission to the hospital, patient is adamant that she is leaving AGAINST MEDICAL ADVICE. The patient has decided to leave our facility against medical advice. I have assessed patient's ability to make informed decision and feel the patient has the capacity to comprehend information regarding the current medical condition and appreciates the impact of the disease or condition and the consequences of various options for treatment, including foregoing treatment. The patient possesses the ability to evaluate all treatment options, comparing the risks and benefits of each option, communicate his or her choice in a consistent manner over time, and is able to make rational choices. I explained to the patient further testing, treatment, and evaluation I would like to perform in the emergency department visit as well as any possible alternatives that can be accomplished in a timely manner. I have outlined the possible risks of foregoing any or all of these interventions and the patient understands and acknowledges that the decision to leave may result in undesirable consequences such as , permanent disability, and/or loss of current lifestyle. Even though leaving AMA is not ideal, I have instructed the patient to follow any discharge instructions given, take any medications prescribed, and resume care as soon as possible with another provider. This conversation was witnessed by another member of the emergency department staff and we clearly communicated the patient is welcome to return anytime to continue care at our facility. Dragon Disclaimer: Dragon Disclaimer: This electronic medical record was generated, in whole or in part, using a voice recognition dictation system. Departure Departure Impression: Primary Impression: Abnormal laboratory test Additional Impressions: Lower extremity edema Hyperkalemia End stage renal disease Congestive heart failure Qualified Codes: I50.9 - Heart failure, unspecified Acute renal failure superimposed on chronic kidney disease, on chronic dialysis Qualified Codes: N17.9 - Acute kidney failure, unspecified; N18.9 - Chronic kidney disease, unspecified; Z99.2 - Dependence on renal dialysis Left against medical advice Disposition: LEFT AGAINST MEDICAL ADVICE Condition: GUARDED Referrals: MARIUSZ PALM MD (PCP) Additional Instructions: You were seen today in the emergency department for lower extremity swelling and pain, you have also disclosed that you have not gone to your last 6 dialysis t reatments. As we discussed your lab values indicate you require immediate dialysis, your cardiac enzymes are suggestive of heart failure, you have several abnormal labs, as we discussed your potassium is high at 5.6. You have stated your potassium has been higher in the past. I have recommended admission to the hospital for ongoing treatment of your acute on chronic problems and for ongoing evaluation of your end-stage renal disease and to have renal dialysis. You have refused further treatment and recommendation of admission to the hospital. We have discussed the risks and benefits of this decision, you have been asked to sign a left AGAINST MEDICAL ADVICE form. I encourage you to stay, please return immediately for worsening symptoms or other concerns. As we discussed please keep your next upcoming dialysis treatment, please call your primary care doctor pulse and let her know of your abnormal labs and that you were here today in the emergency department. Please your renal doctor this week and tell him of your abnormal labs. Thank you for visiting our Emergency Department. It was a pleasure taking care of you today in the emergency department and we appreciate you trusting us with your care. If any additional problems come up don't hesitate to return to visit us. Please follow up with your primary care provider so they can plan additional care if needed and know about the problem that you had. If symptoms worsen come back to the Emergency Department. Any concerning symptoms that start such as chest pain, shortness of air, weakness or numbness on one side of the body, running high fevers or any other concerning symptoms return to the ER. Patient does not wish to proceed with medical care recommended by ARVIN Bell,[employer]. Patient given information related to possible complications, up to and including , which could occur as a result of leaving the hospital at this time. Patient verbalizes understanding of risks involved due to leaving against medical advice. Patient has signed AMA form. MELANY BELL APRN Apr 18, 2021 15:25
[2021-04-18 16:23] LABS: BASO % 1 % (0-3); EOS % 1 % (0-3); HEMATOCRIT 33.5 % (36.0-47.0); HEMOGLOBIN 10.5 g/dL (12.0-15.5); LYMPH # 1.1 x10^3/uL (1.0-4.8); LYMPH % 22 % (24-48); MEAN CORPUSCULAR HEMOGLOBIN 32 pg (25-35); MEAN CORPUSCULAR HGB CONC 31 g/dL (31-37); MEAN CORPUSCULAR VOLUME 103 fL (79-100); MONO # 0.6 x10^3/uL (0.0-1.1); MONO % 12 % (0-9); NEUT # 3.2 x10^3/uL (1.8-7.7); NEUT % 65 % (31-73); PLATELET COUNT 134 x10^3/uL (140-400); RED BLOOD COUNT 3.26 x10^6/uL (3.50-5.40); RED CELL DISTRIBUTION WIDTH 20.4 % (11.5-14.5)
[2021-04-18 16:42] LABS: CALCIUM 9.1 mg/dL (8.5-10.1); CREATININE 13.4 mg/dL (0.6-1.0); GFR 3.2; POTASSIUM 5.6 mmol/L (3.5-5.1)
[2021-04-18 16:55] LABS: ALBUMIN 2.5 g/dL (3.4-5.0); ALBUMIN/GLOBULIN RATIO 0.6 (1.0-1.7); TOTAL PROTEIN 6.7 g/dL (6.4-8.2)
[2021-04-18 16:57] LABS: CREATINE KINASE 54 U/L (26-192)
[2021-04-18 18:08] VITALS: BP 158/69
[2021-04-18] MEDS ORDERED: HYDROcodone/APAP 5/325MG 1 TAB TABLET PO ONE (18:30)
[2021-04-18 18:32] LABS: ANISOCYTOSIS MOD; OVALOCYTES MOD; PLT ESTIMATE DECREASED (ADEQUATE); POIKILOCYTOSIS MOD; TARGET CELLS FEW
[2021-04-18 18:33] LABS: POLYCHROMASIA SLIGHT; SCHISTOCYTES FEW
--- NOTE | 2021-04-18 20:43 | RAD ---
Exam: Pelvis 2 views INDICATION: Right hip pain TECHNIQUE: Frontal view of pelvis with frog-leg lateral views the right hip Comparisons: None FINDINGS: Diffuse osteopenia. Bone mineralization is normal. No acute or healed fractures. Soft tissues are unr emarkable. IMPRESSION: Diffuse ostomy without underlying osseous abnormality identified. If the patient is acutely unable to bear weight MRI to rule out occult hip fracture is recommended. Electronically signed by: Ramone Chavarria MD (04/18/2021 8:40 PM) [facility]
== END 2021-04-18 20:22 | disposition left against medical advice (07) ==
LOC: ER 13:09
DX: R60.0 Localized edema (principal); I13.2 Hypertensive heart and chronic kidney disease with heart failure and with stage 5 chronic kidney disease, or end stage renal disease; E11.22 Type 2 diabetes mellitus with diabetic chronic kidney disease; N18.6 End stage renal disease; I50.9 Heart failure, unspecified; Z99.2 Dependence on renal dialysis; E87.5 Hyperkalemia; J44.9 Chronic obstructive pulmonary disease, unspecified; I25.10 Atherosclerotic heart disease of native coronary artery without angina pectoris; E78.00 Pure hypercholesterolemia, unspecified; Z86.73 Personal history of transient ischemic attack (TIA), and cerebral infarction without residual deficits; Z95.5 Presence of coronary angioplasty implant and graft; Z95.0 Presence of cardiac pacemaker; Z88.2 Allergy status to sulfonamides
CPT/HCPCS: 36415; 71045; 73502; 80053; 82553; 83735; 83880; 84100; 84484; 85025; 93005; 99285-25